=== PATIENT | male | born 1960 | race Caucasian/White ===

== ENCOUNTER 2017-01-31 15:46 | Observation (INO) ==
[2017-01-31] MEDS ORDERED: 0.9 % Sodium Chloride 1,000 ML IVC ONE (16:20)
--- NOTE | 2017-01-31 16:36 | Emergency Department Note ---
Disposition Clinical Impression: TIA (transient ischemic attack) Qualifiers: Transient cerebral ischemia type: unspecified Qualified Code(s): G45.9 - Transient cerebral ischemic attack, unspecified Disposition: Admitted As Inpatient Condition: Fair Time of Disposition: 19:07 Neuro HPI - General Chief Complaint: ED Headache Stated Complaint: SUNSHINE Time Seen by Provider: 01/31/17 16:05 Source: patient Limitations: no limitations Nursing Notes Reviewed: Yes Vital Signs Reviewed: Yes - History of Present Illness HPI Narrative: 56-year-old male presents with left-sided facial numbness, he also had some left -sided hand numbness, this started one half hours prior to arrival. He has a history of hypertension hyperlipidemia obesity and diabetes. He has no history of CVA or WA. He reports a mild headache that he describes as 2 out of 10 numbness, radiating across left-sided his face. He states that the tingling in his left arm has improved. At baseline he has neuropathy screws not sure if this was a stroke or something else. Patient denies fever chills, chest pain, shortness of breath, nausea, vomiting, diarrhea, constipation. Onset of Symptoms Date: 01/31/17 Onset of Symptoms Time: 13:30 Symptom Onset Unknown: Yes Timing confirmed by: family member Location: left face, left arm History of same: No Severity: mild Quality: weakness - Related Data Home Medications: Home Medications Medication Instructions Recorded Confirmed Atenolol [Tenormin] 100 mg PO QAM 03/23/15 07/30/15 Citalopram [CeleXA] 40 mg PO QPM 03/23/15 07/30/15 GlipiZIDE [Glucotrol] 5 mg PO QAM 03/23/15 07/30/15 Metformin [Glucophage] 1,000 mg PO BID 03/23/15 07/30/15 Multivitamin [Flintstones] 1 each PO QAM 03/23/15 07/30/15 Ranitidine HCl [Zantac] 150 tab PO BID 03/23/15 07/30/15 Tamsulosin [Flomax] 0.4 mg PO QAM 03/23/15 07/30/15 Albuterol Sulfate [Proair 1 - 2 puff IH Q4-6H PRN 07/30/15 07/30/15 Respiclick] Furosemide [Lasix] 20 mg PO QAM 07/30/15 07/30/15 Lisinopril [Zestril] 20 mg PO BID 07/30/15 07/30/15 [place]-3S/Dha/Epa/Fish Oil [Fish 1 cap PO QAM 07/30/15 07/30/15 Oil 1,200 mg Softgel] Potassium Chloride [K-Tab ER] 10 meq PO QAM 07/30/15 07/30/15 Allergies/Adverse Reactions: Allergies Allergy/AdvReac Type Severity Reaction Status Date / Time amlodipine [From [facility]] Allergy Rash Verified 12/28/16 21:12 gabapentin Allergy Rash Verified 12/28/16 21:12 morphine AdvReac See Verified 12/28/16 21:12 Comments All systems ED: reviewed and negative except as stated. Review of Systems: As Per HPI Constitutional: Reports: as per HPI, weakness. Denies: fever, chills Eyes: Denies: eye pain ENT ED: Denies: congestion Cardiovascular: Denies: chest pain, palpitations Respiratory: Denies: cough Gastrointestinal: Denies: abdominal pain, nausea Genitourinary: Denies: urgency Musculoskeletal: Denies: back pain, neck pain Neurological: Reports: headache, numbness, paresthesias. Denies: weakness, confusion, abnormal gait Psychiatric: Denies: anxiety Past Medical History - Past Medical History Medical history: Reports: non-contributory, coronary artery disease, diabetes, hyperlipidemia, hypertension, other Surgical history: Reports: non-contributory, other Psychiatric history: Reports: anxiety, depression - Social History Smoking Status: Never smoker Smokeless Tobacco Status: No Alcohol use: Reports: rarely Drug use: Reports: none Physical Exam Constitutional: Obese male in no acute distress. Eyes: PERRLA, sclera anicteric Neck: normal inspection, neck is supple Resp: CTA bilaterally, no resp distress CV: RRR, no m/g/r GI: soft NTND Back: normal inspection, no tenderness to palpation Neuro: A&O3, cranial nerves II through XII grossly intact except for mild sensory loss in the left face. No facial droop appreciated, EOMI, equal muscle strength upper and lower extremities. No sensory deficits in the bilateral upper and lower extremities. MSK: no gross deformities, normal ROM UE and LE Skin: on limited exam, skin intact with no rashes or lesions - General Limitations: no limitations General appearance: alert Course Course Narrative: 56-year-old male with multiple risk factors including obesity hypertension hyperlipidemia, has never had a stroke workup, or CVA in the past appears to have left-sided facial paresthesias, given an NIH of 1 due to minimal symptoms, will not activate a stroke alert we will get a stat CT head and reassess. - Reevaluation(s) Reevaluation #1: Admitted medicine service Dr. Allison, aspirin given, suspect TIA will need carotid Dopplers, basic lab work and possibly MRI no worsening of symptoms, still mild paresthesias to left face. Time: 19:08 Reevaluation #2: Prior to going to the floor, the patient developed some left-sided paresthesias in his left leg, NIH still 1. HD stable and sent to the floor in stable condition. Time: 19:18 Vital Signs Temperature 98.1 F 01/31/17 15:50 Pulse Rate 75 01/31/17 15:50 Respiratory Rate 15 01/31/17 15:50 Blood Pressure 122/88 01/31/17 15:50 O2 Sat by Pulse Oximetry 95 01/31/17 15:50 Temperature 98.1 F 01/31/17 15:50 Pulse Rate 68 01/31/17 17:55 Respiratory Rate 18 01/31/17 18:57 Blood Pressure 119/72 01/31/17 18:57 O2 Sat by Pulse Oximetry 98 01/31/17 18:11 Oxygen Delivery Oxygen Delivery Room Air Neuro Symptoms/Deficit - Differential Diagnosis Likely: cerebrovascular accident, subarachnoid hemorrhage, transient cerebral ischemia - Medical Records Medical records reviewed: Yes I reviewed the patient's medical records. - Lab Data Lab results reviewed: Yes I reviewed the patient's lab results. Result diagrams: 01/31/17 16:53 01/31/17 16:53 Lab Results 01/31/17 01/31/17 01/31/17 Range/Units 16:53 16:53 16:53 WBC 5.8 (4.3-11.1) K/mcL RBC 4.50 (4.19-5.50) M/mcL Hgb 13.6 (12.9-16.9) g/dL Hct 39.6 (37.5-50.1) % MCV 88.0 (83.0-100.0) fL MCH 30.2 (28.0-33.3) pg MCHC 34.3 (31.6-35.5) g/dL RDW 12.9 (11.5-14.5) % Plt Count 211 (140-400) K/mcL MPV 9.5 (9.4-12.4) fL Immature Gran % 0.3 (0-4) % Seg Neutrophils % 58.6 % Lymphocytes % 31.3 % Monocytes % 7.4 % Eosinophils % 2.1 % Basophils % 0.3 % Neutrophils # 3.4 (1.6-8.9) K/mcL Lymphocytes # 1.8 (0.6-4.6) K/mcL Monocytes # 0.4 (0.0-1.3) K/mcL Eosinophils # 0.1 (0.0-0.6) K/mcL Basophils # 0.0 (0.0-0.2) K/mcL Immature Plt Fraction 3.0 (1.1-6.1) % PT 12.9 H (9.4-12.1) Seconds INR 1.2 Sodium 142 (136-145) mEq/L Potassium 3.6 (3.5-4.5) mEq/L Chloride 99 (98-109) mEq/L Carbon Dioxide 31 H (19-29) mEq/L BUN 22 (8-26) mg/dL Creatinine 0.99 (0.72-1.25) mg/dL Est GFR ( Amer) > 60 (> 60) Est GFR (Non-Af Amer) > 60 (> 60) BUN/Creatinine Ratio 22 (6-26) Glucose 131 H (70-99) mg/dL Calculated Osmolality 299 (280-300) Calcium 9.4 (8.6-10.8) mg/dL Troponin I (0-0.03) ng/mL 01/31/17 Range/Units 16:53 WBC (4.3-11.1) K/mcL RBC (4.19-5.50) M/mcL Hgb (12.9-16.9) g/dL Hct (37.5-50.1) % MCV (83.0-100.0) fL MCH (28.0-33.3) pg MCHC (31.6-35.5) g/dL RDW (11.5-14.5) % Plt Count (140-400) K/mcL MPV (9.4-12.4) fL Immature Gran % (0-4) % Seg Neutrophils % % Lymphocytes % % Monocytes % % Eosinophils % % Basophils % % Neutrophils # (1.6-8.9) K/mcL Lymphocytes # (0.6-4.6) K/mcL Monocytes # (0.0-1.3) K/mcL Eosinophils # (0.0-0.6) K/mcL Basophils # (0.0-0.2) K/mcL Immature Plt Fraction (1.1-6.1) % PT (9.4-12.1) Seconds INR Sodium (136-145) mEq/L Potassium (3.5-4.5) mEq/L Chloride (98-109) mEq/L Carbon Dioxide (19-29) mEq/L BUN (8-26) mg/dL Creatinine (0.72-1.25) mg/dL Est GFR ( Amer) (> 60) Est GFR (Non-Af Amer) (> 60) BUN/Creatinine Ratio (6-26) Glucose (70-99) mg/dL Calculated Osmolality (280-300) Calcium (8.6-10.8) mg/dL Troponin I 0.00 (0-0.03) ng/mL - Radiology Data Radiology results reviewed: Yes I reviewed the patient's radiology results. Head CT 01/31/17 16:20 IMPRESSION: No acute intracranial abnormality. D/ / Papo Scott MD / Papo Scott MD Interpreting Provider: Papo Scott MD - EKG Data EKG attestation: Yes I reviewed and interpreted this EKG. EKG shows normal: sinus rhythm Rate: normal Rhythm: NSR [place]/QRS: normal (Ventricular rate 67 MI-2 44 QRS [address] segment elevations or depressions) Voltage: increased voltage throughout T wave inversions noted in: III Interpretation: unchanged when compared to prior tracing (date) (With Previois EKG in July 2015) - Core Measures AMI Core Measures Followed: No NIH Stroke Scale - Level of Consciousness LOC: Alert - LOC Questions LOC Questions: Answers both correctly - LOC Commands LOC Commands: Performs both correctly - Best Gaze Best Gaze: Normal - Visual Visual: No visual loss - Facial Palsy Facial Palsy: Normal - Motor Arms Motor Arm-Left: No drift for 10 seconds Motor Arm-Right: No drift for 10 seconds - Motor Legs Motor Leg-Left: No drift for 5 seconds Motor Leg-Right: No drift for 5 seconds - Limb Ataxia Limb Ataxia: Absent of affected limb too weak to perform exam - Sensory Sensory: Mild to moderate loss, "not as sharp" - Best Language Best Language: No aphasia - Dysarthria Dysarthria: Normal - Extinction and Inattention Extinction and Inattention: Normal - NIHSS Total Score NIHSS Total Score: 1 TPA Checklist - Source Information Source: Patient - Eligibilty for IV tPA 1. LKW equal to or less than 4.5 hours be before treatment: Yes 2. Clinical diagnosis of ischemic stroke causing deficit: No 3. Age 18 years or older: Yes Attestation Statement - Attestation Attestation: I examined this patient and my medical decision-making was reviewed with the Resident Physician. I agree with the documented findings, disposition and treatment plan as described except to the extent set forth below. 56-year-old male with symptoms of headache. Acute onset less than 2 hours ago. Also has left-sided facial numbness. There is no dysarthria or asymmetry. He denies history of headache. Onset was not thunderclap in origin. No history of aneurysm. No anticoagulation. No recent trauma. Ultimately underwent noncontrast CT the brain which shows no evidence of stroke or subarachnoid hemorrhage. The patient will be admitted for evaluation of possible TIA. He remained hemodynamically stable. His symptoms did not change or worsen. At the time of admission his strength was 5/5, sensation normal, reflexes checked and normal. Patient stable at the time of admission.
[2017-01-31 17:03] LABS: Basophils % 0.3 %; Eosinophils # 0.1 K/mcL (0.0-0.6); Eosinophils % 2.1 %; Hematocrit 39.6 % (37.5-50.1); Hemoglobin 13.6 g/dL (12.9-16.9); Immature Granulocytes % 0.3 % (0-4); Lymphocytes # 1.8 K/mcL (0.6-4.6); Lymphocytes % 31.3 %; Mean Corpuscular HGB Conc 34.3 g/dL (31.6-35.5); Mean Corpuscular Hemoglobin 30.2 pg (28.0-33.3); Mean Platelet Volume 9.5 fL (9.4-12.4); Monocytes # 0.4 K/mcL (0.0-1.3); Monocytes % 7.4 %; Neutrophils # 3.4 K/mcL (1.6-8.9); Platelet Count 211 K/mcL (140-400); Red Cell Distribution Width 12.9 % (11.5-14.5); Segmented Neutrophils % 58.6 %
[2017-01-31 17:07] LABS: INR 1.2; Prothrombin Time 12.9 Seconds (9.4-12.1)
[2017-01-31 17:13] LABS: BUN/Creatinine Ratio 22 (6-26); Blood Urea Nitrogen 22 mg/dL (8-26); Calcium 9.4 mg/dL (8.6-10.8); Carbon Dioxide 31 mEq/L (19-29); Chloride 99 mEq/L (98-109); Glucose 131 mg/dL (70-99); Osmolality,Calculated 299 (280-300); Potassium 3.6 mEq/L (3.5-4.5); Sodium 142 mEq/L (136-145); eGFR For African Americans > 60 (> 60); eGFR For Non-African Americans > 60 (> 60)
[2017-01-31] MEDS ORDERED: Aspirin 81 MG TAB.CHEW PO ONE (18:34)
--- NOTE | 2017-01-31 19:21 | Internal Med History&Physical ---
Date of Encounter: 01/31/17 Time of Encounter: 19:18 Assessment and Plan (1) Diabetes mellitus type II, non insulin dependent Current visit: No Status: Acute Sliding scale insulin. Check hemoglobin A-1 C in the morning (2) ADALID (obstructive sleep apnea) Current visit: No Status: Acute CPAP at night (3) TIA (transient ischemic attack) Current visit: Yes Status: Acute Patient presents with left facial and arm numbness. CT scan shows no evidence of bleeder obvious stroke. NIH stroke scale is on. We will get MRI of the brain in the morning echocardiogram carotid Doppler..etc. He will receive aspirin Statin. Full code Qualifiers: Transient cerebral ischemia type: unspecified Qualified Code(s): G45.9 - Transient cerebral ischemic attack, unspecified Internal Medicine - H&P: HPI Chief complaint: left side numbness History of present illness: Mr. Almeida is a 56 year old male with multiple medical problems including diabetes mellitus type II on insulin, hypertension, obstructive sleep apnea on CPAP presents to the emergency room today with left-sided numbness. At approximately 2:30 PM patient started noticing numbness in the left side of the face left upper extremity. He denied any weakness. No speech slenderness. His symptoms is gradually improving. He mentioned that he was about to fall at home but denies any focal weakness. No chest pain fever chills, abdominal pain , diarrhea, urinary symptoms Past Med Surg Social Fam HX - Past Medical History Medical history: non-contributory, coronary artery disease, diabetes, hyperlipidemia, hypertension, other Psychiatric history: anxiety, depression - Past Surgical History Surgical History: non-contributory, other - Social History Smoking Status: Never smoker Smokeless Tobacco Status: No Alcohol use: rarely Drug use: none - Family History Mother Family Member Ethnicity: Non- Living Status: Still Living Hx Family Cardiac Disorders: Yes (HTN) Hx Family Respiratory Disorders: No Hx Family Cancer: Yes (Colon Cancer) Hx Family GI Disorders: No Hx Family Endocrine Disorder: No Hx Family Neuromuscular Disorders: No Hx Family Neurologic Disorders: No Hx Family HEENT Disorders: No Hx Family Autoimmune Disorders: No Internal Medicine - H&P: Meds Atenolol [Tenormin] 100 mg PO QAM 03/23/15 [History] Citalopram [CeleXA] 40 mg PO QPM 03/23/15 [History] GlipiZIDE [Glucotrol] 5 mg PO QAM 03/23/15 [History] Metformin [Glucophage] 1,000 mg PO BID 03/23/15 [History] Multivitamin [Flintstones] 1 each PO QAM 03/23/15 [History] Ranitidine HCl [Zantac] 150 tab PO BID 03/23/15 [History] Tamsulosin [Flomax] 0.4 mg PO QAM 03/23/15 [History] Albuterol Sulfate [Proair Respiclick] 1 - 2 puff IH Q4-6H PRN 07/30/15 [History] Furosemide [Lasix] 20 mg PO QAM 07/30/15 [History] Lisinopril [Zestril] 20 mg PO BID 07/30/15 [History] [place]-3S/Dha/Epa/Fish Oil [Fish Oil 1,200 mg Softgel] 1 cap PO QAM 07/30/15 [ History] Potassium Chloride [K-Tab ER] 10 meq PO QAM 07/30/15 [History] Allergies amlodipine [From Norvas] Allergy (Verified 12/28/16 21:12) Rash gabapentin Allergy (Verified 12/28/16 21:12) Rash morphine Adverse Reaction (Verified 12/28/16 21:12) See Comments Patient states it makes him talk out of his head. All Systems PM: A 10-system review of systems was performed and is negative for pertinent findings except as documented above in the HPI. Review of systems: 10 point review of systems is negative except for HPI - Constitutional Vitals: Temp Pulse Resp BP Pulse Ox 98.1 F 68 18 119/72 98 01/31/17 15:50 01/31/17 17:55 01/31/17 18:57 01/31/17 18:57 01/31/17 18:11 Exam: Gen.: patient is alert oriented times 3 not in distress. Cardiac: normal S1 S2 no additional sounds chest: Clear to auscultation abdomen: soft nontender nondistended lower extremity: lax calf muscles. Neuro: No focal deficits. Internal Med - H&P Results - Labs CBC & Chem 7: 01/31/17 16:53 01/31/17 16:53
[2017-01-31] MEDS ORDERED: Dextrose Gel 15 GM PO PRN ×2 (19:28)
[2017-01-31] MEDS ORDERED: D5% in Water 1,000 ML IVC PRN (19:28)
[2017-01-31] MEDS ORDERED: *HR* Dextrose 50 % in Water (Syg) 50 ML SYRINGE IVP PRN (19:28)
[2017-01-31] MEDS: *HR* Heparin 5,000 UNIT/ML VIAL SQ SCH (23:18)
[2017-01-31] MEDS: Insulin LISPRO 300 UNITS/3 ML VIAL SQ SCH (23:24)
[2017-02-01 02:47] LABS: Basophils % 0.4 %; Eosinophils # 0.2 K/mcL (0.0-0.6); Eosinophils % 3.1 %; Hematocrit 35.5 % (37.5-50.1); Hemoglobin 12.2 g/dL (12.9-16.9); Immature Granulocytes % 0.4 % (0-4); Lymphocytes # 2.1 K/mcL (0.6-4.6); Lymphocytes % 38.6 %; Mean Corpuscular HGB Conc 34.4 g/dL (31.6-35.5); Mean Corpuscular Hemoglobin 30.6 pg (28.0-33.3); Mean Platelet Volume 9.9 fL (9.4-12.4); Monocytes # 0.5 K/mcL (0.0-1.3); Monocytes % 8.9 %; Neutrophils # 2.6 K/mcL (1.6-8.9); Platelet Count 174 K/mcL (140-400); Red Blood Count 3.99 M/mcL (4.19-5.50); Red Cell Distribution Width 12.9 % (11.5-14.5); Segmented Neutrophils % 48.6 %
[2017-02-01 03:04] LABS: BUN/Creatinine Ratio 20 (6-26); Blood Urea Nitrogen 22 mg/dL (8-26); Carbon Dioxide 29 mEq/L (19-29); Chloride 100 mEq/L (98-109); Glucose 148 mg/dL (70-99); Magnesium 1.7 mg/dL (1.6-2.6); Osmolality,Calculated 298 (280-300); Potassium 3.6 mEq/L (3.5-4.5); Sodium 141 mEq/L (136-145); eGFR For African Americans > 60 (> 60); eGFR For Non-African Americans > 60 (> 60)
[2017-02-01] MEDS: *HR* Heparin 5,000 UNIT/ML VIAL SQ SCH ×2 (05:18→14:02)
[2017-02-01] MEDS: Insulin LISPRO 300 UNITS/3 ML VIAL SQ SCH ×2 (08:23→12:35)
[2017-02-01] MEDS ORDERED: Aspirin 81 MG TAB.CHEW PO SCH (09:00)
[2017-02-01] MEDS ORDERED: Perflutren Lipid Microsphere 1.3 ML in 0.9 % Sodium Chloride 8.7 ML IVP ONE (10:17)
[2017-02-01 11:17] VITALS: BP 148/83
[2017-02-01] MEDS ORDERED: Acetaminophen 325 MG TABLET PO PRN (12:31)
--- NOTE | 2017-02-01 15:13 | Discharge Summary ---
Date of Encounter: 02/01/17 Time of Encounter: 15:11 - Discharge Diagnosis (1) TIA (transient ischemic attack) Priority: Primary Status: Acute Comments: CT of head negative for intracranial abnormality. MRI of brain showed no acute infarct. Echo showed no source of thrombus. Bilateral carotid duplex within normal limits. Patient will be discharged on Aspirin and Statin. Follow up with PCP and neurology as outpatient. Qualifiers: Transient cerebral ischemia type: unspecified Qualified Code(s): G45.9 - Transient cerebral ischemic attack, unspecified (2) Chest pain Priority: Secondary Status: Acute Comments: Patient complained of intermittent mild, right sided chest pain, worse with arm movement. Repeat EKG showed no ischemic changes. Repeat troponin remains negative. Patient reported pain relieved by tyelonol. Qualifiers: Chest pain type: unspecified Qualified Code(s): R07.9 - Chest pain, unspecified (3) Diabetes mellitus type II, non insulin dependent Priority: Secondary Status: Chronic Comments: Blood sugars controlled during hospital stay. Resume home doses of glipizide, metformin on discharge. (4) ADALID (obstructive sleep apnea) Priority: Secondary Status: Chronic Comments: Continue to use CPAP as instructed at home. (5) HLD (hyperlipidemia) Priority: Secondary Status: Acute Comments: Lipid panel in December showed triglycerides of 441 and LDL was unable to be calculated due to triglyceride level. Continue home dose of Fish oil and add statin. Qualifiers: Hyperlipidemia type: mixed hyperlipidemia Qualified Code(s): E78.2 - Mixed hyperlipidemia - Discharge Medications Prescriptions: Aspirin 81 mg PO DAILY #30 Simvastatin [Zocor] 20 mg PO HS #30 tablet Home Medications: Atenolol [Tenormin] 100 mg PO QAM 03/23/15 [History] GlipiZIDE [Glucotrol] 5 mg PO BID 03/23/15 [History] Metformin [Glucophage] 1,000 mg PO BID 03/23/15 [History] Multivitamin [Flintstones] 1 each PO QAM 03/23/15 [History] Albuterol Sulfate [Proair Respiclick] 1 - 2 puff IH Q4-6H PRN 07/30/15 [History] Furosemide [Lasix] 20 mg PO QAM 07/30/15 [History] Lisinopril [Zestril] 20 mg PO BID 02/01/16 [History] [place]-3S/Dha/Epa/Fish Oil [Fish Oil 1,200 mg Softgel] 1 cap PO BID 07/30/15 [ History] Potassium Chloride [K-Tab ER] 10 mg PO Q3-4D 07/30/15 [History] Cinnamon Bark [Cinnamon] 1,000 mg PO BID 01/31/17 [History] Finasteride [Proscar] 5 mg PO DAILY 01/31/17 [History] Omeprazole [PriLOSEC] 40 mg PO DAILY 01/31/17 [History] Venlafaxine XR (24 HR) [Effexor XR] 150 mg PO DAILY 01/31/17 [History] Aspirin 81 mg PO DAILY #30 02/01/17 [Rx] Chlorthalidone 25 mg PO DAILY 02/01/17 [History] Simvastatin [Zocor] 40 mg PO DAILY 02/01/17 [History] Allergies/Adverse Reactions: Allergies amlodipine [From Norvasc] Allergy (Verified 12/28/16 21:12) Rash bupropion [From Wellbutrin] Allergy (Verified 02/01/17 15:25) Rash gabapentin Allergy (Verified 12/28/16 21:12) Rash morphine Adverse Reaction (Verified 02/01/17 15:25) Confusion Procedures/tests Complete & Pending: Procedures Performed prior 72 hours Category Date Time Status MR head/brain wo con [MR] Stat MRI 01/31/17 21:13 Completed EKG [ECG 12 lead ECG] [ECG] Stat Y 02/01/17 12:27 Ordered EV carotid duplex imaging BI Routine Y 02/01/17 19:09 Completed EV echocardiogram Routine Y 02/01/17 19:09 Completed Date of admission: 01/31/17 18:41 Primary care physician: Sandhya Acuña MD Consults: 01/31/17 19:09 Consult to Occupational Therapy [CONS] Routine Comment: Evaluate, develop and implement POC Reason for Consult: weakness Consult to Physical Therapy [CONS] Routine Comment: Evaluate, develop and implement POC Reason for Consult: weakness Consult to Speech Therapy [CONS] Routine Comment: Evaluate, develop and implement POC Reason for Consult: TIA Call Completed: No Discharging clinician: Susan Singh Anticipated date of discharge: 02/01/17 - Patient Status Disposition: Home, Self-Care Condition: Good Functional capacity at discharge: independent ambulation Overall status at discharge: patient is back to baseline - Discharge Instructions Follow Up With: Sandhya Acuña MD [Primary Care Provider] - Additional Instructions: Please follow up with your primary care provider. Start taking aspirin and zocor daily. - Diet and Activity Activity: resume usual activities as tolerated Interval History: Patient presented with left facial tingling and heaviness of left side of his body. Symptoms resolved during hospital stay. CT of head negative for acute intracranial abnormality. MRI of brain showed no acute infarct. Echocardiogram showed no source of thrombus. Bilateral carotid dopplers were within normal limits. Patient was started on aspirin and statin daily and instructed to follow up with his PCP. He complained of brief, mild, intermittent right sided chest pain which seemed to be worse with movement and resolved with PO aspirin. Troponins were negative and repeat EKG showed no ischemic changes. Patient's vital signs have been stable and labs are stable. Patient is appropriate and stable for discharge. Hospital course: Mr. Almeida is a 56 year old male - Time Spent with Patient Total time spent providing and/or coordinating discharge services: - Constitutional Vitals: Temp Pulse Resp BP Pulse Ox 98.1 F 76 18 148/83 95 02/01/17 11:15 02/01/17 11:15 02/01/17 11:15 02/01/17 11:15 02/01/17 11:15 General appearance: Present: A&O X 3, pleasant, no acute distress - Head Head exam: Present: atraumatic, normocephalic - Eye Eye exam: Present: PERRL, conjuntiva pink, sclera anicteric Pupils: Present: PERRL - Neck Neck exam general surgery: Present: supple, trachea midline. Absent: lymphadenopathy - Respiratory Respiratory exam: Present: CTAB. Absent: accessory muscle use, rales, rhonchi, wheezes - Cardiovascular Cardiovascular exam: Present: RRR, +S1, +S2. Absent: diastolic murmur, gallop, rubs, systolic murmur - GI/Abdominal GI/Abdominal exam: Present: normal bowel sounds, soft, no peritoneal signs. Absent: distended, tenderness - Extremities Exam Extremities exam: Present: warm, radial pulses palpable and symetrical. Absent : calf tenderness, cyanotic, pedal edema - Neurological Exam Neurological exam: Present: CN II-XII intact, oriented X3, no focal deficits, strengths equal and symetr throughout. Absent: pronater drift, facial droop, speech deficit - Skin Skin exam: Present: dry, intact
--- NOTE | 2017-02-02 15:16 | Electrocardiograph Report ---
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
--- NOTE | 2017-02-02 15:26 | Carotid Imaging Report ---
Carotid Duplex Patient Name:Graham Almeida Order Number:[id number] Procedure Date:02/01/2017 Date:1960ge:56 yrs Gender:Male Lt BP:105 / 70 mmHg Rt.BP:105 / 70 mmHgHeart Rate: Location:[facility] Room #: 3B32 Cabinet Worker:Tessy Hanna Referring MD:David Allison MD car pre cooler:None Reading MD:Dimitri Vann MD , FACS Primary Indications:TIA Risk Factors Yes/No Hypercholesterolemia Hypertension Diabetes Impressions: Findings: Bilateral carotid systems essentially normal. Findings Prior Study: No prior study available for comparison. Carotid Results Right PSV EDV Assessment Proximal CCA 95 28 Normal Mid CCA 84 26 Normal Distal CCA 89 25 Normal Bifurcation 72 26 Normal Proximal ICA 76 20 Normal Mid ICA 69 32 Normal Distal ICA 69 29 Normal ECA 112 21 Normal Vertebral Artery 28 11 Antegrade Flow Left PSV EDV Assessment Proximal CCA 108 26 Normal Mid CCA 93 29 Normal Distal CCA 68 22 Normal Bifurcation 72 11 Proximal ICA 70 30 Normal Mid ICA 55 29 Normal Distal ICA 60 26 Normal ECA 31 11 Normal Ratio's Updated by Dimitri Vann MD, FACS on 02/02/2017 9:41:25 AM Dimitri Vann MD electronically signed on 02/02/2017 9:42:15 AM with status of Final
--- NOTE | 2017-02-02 20:42 | Electrocardiograph Report ---
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
== END 2017-02-01 15:57 | disposition home or self-care (01) ==
LOC: 3BNU 15:46 → EMEROO 15:46 → 3BNU 18:57
PROVIDERS: ADMIT Hospitalist; ATTEND Registered Nurse

== ENCOUNTER 2018-01-05 16:32 | Inpatient (IN) ==
[2018-01-05 17:42] LABS: Bilirubin,Urine Negative (Negative); Blood,Urine Negative (Negative); Clarity,Urine Clear (Clear); Color,Urine Yellow (Yellow); Glucose,Urine (UA) Normal (Normal); Ketones,Urine Negative (Negative); Leukocyte Esterase,Urine Small (Negative); Nitrite,Urine Negative (Negative); Protein,Urine 30 mg/dL (Neg-Trace); Specific Gravity,Urine 1.017 (1.010-1.025); Urobilinogen,Urine Normal (Normal)
[2018-01-05 17:45] LABS: Bacteria,Urine None Seen per hpf (None-Few); Hyaline Casts,Urine None Seen per lpf (None-Few); RBC,Urine 0-3 per hpf (0-3); Squamous Epithelial Cell,Urine Many per lpf (None-Few)
[2018-01-05 18:16] LABS: Basophils % 0.2 %; Eosinophils # 0.1 K/mcL (0.0-0.6); Eosinophils % 0.8 %; Hematocrit 40.6 % (37.5-50.1); Hemoglobin 13.9 g/dL (12.9-16.9); Immature Granulocytes % 0.3 % (0-4); Lymphocytes # 2.1 K/mcL (0.6-4.6); Mean Corpuscular HGB Conc 34.2 g/dL (31.6-35.5); Mean Corpuscular Hemoglobin 29.6 pg (28.0-33.3); Mean Corpuscular Volume 86.6 fL (83.0-100.0); Mean Platelet Volume 9.5 fL (9.4-12.4); Monocytes % 7.4 %; Platelet Count 304 K/mcL (140-400); Red Blood Count 4.69 M/mcL (4.19-5.50); Red Cell Distribution Width 12.7 % (11.5-14.5); Segmented Neutrophils % 75.3 %
[2018-01-05] MEDS ORDERED: Ondansetron 4 MG/2 ML VIAL IVP ONE ×2 (18:32→19:36)
[2018-01-05] MEDS ORDERED: Ketorolac 30 MG/ML VIAL IVP ONE (18:32)
[2018-01-05 18:42] LABS: Albumin/Globulin Ratio 1.1 (1.1-2.2); Bilirubin,Direct 0.2 mg/dL (0.0-0.2); Bilirubin,Indirect 0.4 mg/dL (0.0-1.2); Bilirubin,Total 0.6 mg/dL (0.3-1.0); Calcium 9.9 mg/dL (8.6-10.3); Globulin 3.6 g/dL (2.4-3.5); Potassium 3.4 mEq/L (3.5-5.1); Total Protein 7.6 g/dL (6.4-8.9)
[2018-01-05] MEDS ORDERED: 0.9 % Sodium Chloride 1,000 ML IVC ONE (19:35)
[2018-01-05] MEDS ORDERED: *HR* FentaNYL (PF) 100 MCG/2 ML VIAL IVP ONE (19:36)
[2018-01-05] MEDS ORDERED: MetroNIDAZOLE 500 MG/100 ML 500 MG/100 ML BAG IVPB ONE (19:36)
--- NOTE | 2018-01-05 19:45 | Emergency Department Note ---
Disposition Clinical Impression: Diverticulitis Abdominal pain Qualifiers: Abdominal location: left lower quadrant Qualified Code(s): R10.32 - Left lower quadrant pain Disposition: Admitted As Inpatient Condition: Fair Referrals: Sandhya Acuña MD [Primary Care Provider] - Forms: Work/School Release, ED Satisfaction Letter Time of Disposition: 20:00 Abdominal Pain HPI - General Chief Complaint: ED Abdominal Pain Stated Complaint: ABD Pain x3wks Time Seen by Provider: 01/05/18 18:21 Source: patient Mode of arrival: ambulatory Limitations: no limitations Nursing Notes Reviewed: Yes Vital Signs Reviewed: Yes - History of Present Illness HPI Narrative: 57-year-old male presents emergency Department with concerns of increasing abdominal pain. Patient states the pain is in left lower quadrant and is worse with movement and palpation. No change with by mouth intake. Patient feels mildly nauseated. Last bowel movement was today. Patient recently diagnosed with urinary tract infection, patient states he was given Keflex and tramadol which causes him to be constipated. Last bowel movement was today and he is no longer constipated. He denies hematochezia, melena, recent trauma. Patient has a history of t diverticulitis in the past however this seems worse. Pain Scale: 5 - Related Data Home Medications Medication Instructions Recorded Confirmed Atenolol [Tenormin] 100 mg PO QAM 03/23/15 11/05/17 Metformin [Glucophage] 1,000 mg PO BID 03/23/15 11/05/17 Albuterol Sulfate [Proair 1 - 2 puff IH Q4-6H PRN 07/30/15 11/05/17 Respiclick] Furosemide [Lasix] 40 mg PO QAM 07/30/15 11/05/17 Lisinopril [Zestril] 40 mg PO BID 07/30/15 11/05/17 [place]-3S/Dha/Epa/Fish Oil [Fish 1 cap PO BID 07/30/15 11/05/17 Oil 1,200 mg Softgel] Potassium Chloride [K-Tab ER] 10 mg PO DAILY 07/30/15 11/05/17 Cinnamon Bark [Cinnamon] 1,000 mg PO BID 01/31/17 11/05/17 Finasteride [Proscar] 5 mg PO DAILY 01/31/17 11/05/17 Omeprazole [PriLOSEC] 40 mg PO DAILY 01/31/17 11/05/17 Venlafaxine XR (24 HR) [Effexor XR] 150 mg PO DAILY 01/31/17 11/05/17 Chlorthalidone 25 mg PO DAILY 02/01/17 11/05/17 Simvastatin [Zocor] 40 mg PO DAILY 02/01/17 11/05/17 Multivitamin [Multivitamins] 1 each PO DAILY 03/23/17 11/05/17 Fluticasone Propionate Nasal 1 spray NS DAILY 11/05/17 11/05/17 [Flonase] Insulin Glargine,Hum.rec.anlog 62 unit SQ BID 11/05/17 11/05/17 [Basaglar Kwikpen U-100] Previous Rx's Medication Instructions Recorded cephALEXin [Keflex] 500 mg PO TID #30 capsule 12/24/17 Allergies Allergy/AdvReac Type Severity Reaction Status Date / Time amlodipine [From Norvasc] Allergy Rash Verified 11/05/17 07:10 bupropion [From Wellbutrin] Allergy Rash Verified 11/05/17 07:10 gabapentin Allergy Rash Verified 11/05/17 07:10 morphine AdvReac Confusion Verified 11/05/17 07:10 All systems ED: reviewed and negative except as stated. Review of Systems: As Per HPI Abdominal Pain PMH - Past Medical History Medical history: Reports: asthma, coronary artery disease, diabetes, hyperlipidemia, hypertension, other Reports: diverticulitis Male Surgical History: Reports: other Psychiatric history: Reports: anxiety, depression - Social History Smoking status: Never smoker Alcohol use: Reports: rarely Drug use: Reports: none Physical Exam General: Alert and in no acute distress Skin: Warm, dry, intact Head: Normocephalic and atraumatic Neck: Supple, trachea midline and no tenderness Cardiovascular: RRR, no murmur, normal perfusion Respiratory: CTAB, no wheezing, cough, or respiratory distress Musculoskeletal: Normal strength, no tenderness, swelling or deformity GI: Soft, moderate tenderness to palpation of the left lower quadrant with mild guarding without evidence of rigidity or rebound. nondistended. Bowel sounds present Neuro: A&O to person, place, time and situation. No focal deficits noted on exam Psychiatric: cooperative and appropriate mood and affect. - General Limitations: no limitations General appearance: alert, in no apparent distress Course Vital Signs Temperature 98 F 07/10/18 16:44 Pulse Rate 84 01/05/18 16:44 Respiratory Rate 18 01/05/18 16:44 Blood Pressure 123/80 01/05/18 16:44 O2 Sat by Pulse Oximetry 95 01/05/18 16:44 Temperature 98 F 01/05/18 18:42 Pulse Rate 84 01/05/18 18:42 Respiratory Rate 18 01/05/18 18:42 Blood Pressure 123/80 01/05/18 18:42 O2 Sat by Pulse Oximetry 95 01/05/18 18:42 Oxygen Delivery Oxygen Delivery Room Air Abdominal Pain - MDM Narrative Medical decision making narrative: Patient is left lower quadrant pain and CT shows acute sigmoid diverticulitis. He was to her on Cipro and Flagyl in the emergency department he will be admitted for further care and evaluation - Medical Records Medical records reviewed: Yes I reviewed the patient's medical records. - Lab Data Lab results reviewed: Yes I reviewed the patient's lab results. Result diagrams: 01/05/18 17:49 01/05/18 17:49 Lab Results 01/05/18 01/05/18 01/05/18 Range/Units 17:30 17:49 17:49 WBC 13.3 H (4.3-11.1) K/mcL RBC 4.69 (4.19-5.50) M/mcL Hgb 13.9 (12.9-16.9) g/dL Hct 40.6 (37.5-50.1) % MCV 86.6 (83.0-100.0) fL MCH 29.6 (28.0-33.3) pg MCHC 34.2 (31.6-35.5) g/dL RDW 12.7 (11.5-14.5) % Plt Count 304 (140-400) K/mcL MPV 9.5 (9.4-12.4) fL Immature Gran % 0.3 (0-4) % Seg Neutrophils % 75.3 % Lymphocytes % 16.0 % Monocytes % 7.4 % Eosinophils % 0.8 % Basophils % 0.2 % Neutrophils # 10.0 H (1.6-8.9) K/mcL Lymphocytes # 2.1 (0.6-4.6) K/mcL Monocytes # 1.0 (0.0-1.3) K/mcL Eosinophils # 0.1 (0.0-0.6) K/mcL Basophils # 0.0 (0.0-0.2) K/mcL Sodium 138 (136-145) mEq/L Potassium 3.4 L (3.5-5.1) mEq/L Chloride 95 L (98-107) mEq/L Carbon Dioxide 28 (23-29) mEq/L BUN 33 H (6-20) mg/dL Creatinine 1.62 H (0.70-1.30) mg/dL Est GFR ( Amer) 54 L (> 60) Est GFR (Non-Af Amer) 44 L (> 60) BUN/Creatinine Ratio 20 (6-26) Glucose 144 H (70-105) mg/dL Calculated Osmolality 296 (280-300) Calcium 9.9 (8.6-10.3) mg/dL Total Bilirubin 0.6 (0.3-1.0) mg/dL Direct Bilirubin 0.2 (0.0-0.2) mg/dL Indirect Bilirubin 0.4 (0.0-1.2) mg/dL AST 14 (13-39) Units/L ALT 15 (7-52) Units/L Alkaline Phosphatase 71 (34-104) Units/L Serum Total Protein 7.6 (6.4-8.9) g/dL Albumin 4.0 (3.5-5.7) g/dL Globulin 3.6 H (2.4-3.5) g/dL Albumin/Globulin Ratio 1.1 (1.1-2.2) Lipase 35 (11-82) Units/L Urine Color Yellow (Yellow) Urine Clarity Clear (Clear) Urine pH 6.0 (5.0-8.0) pH Units Ur Specific [place] 1.017 (1.010-1.025) Urine Protein 30 H (Neg-Trace) mg/dL Urine Glucose (UA) Normal (Normal) mg/dL Urine Ketones Negative (Negative) mg/dL Urine Blood Negative (Negative) Urine Nitrite Negative (Negative) Urine Bilirubin Negative (Negative) Urine Urobilinogen Normal (Normal) mg/dL Ur Leukocyte Esterase Small H (Negative) Urine Microscopic RBC 0-3 (0-3) per hpf Urine Microscopic WBC 5-15 H (0-3) per hpf Ur Squamous Epith Cells Many H (None-Few) per lpf Urine Bacteria None Seen (None-Few) per hpf Hyaline Casts None Seen (None-Few) per lpf Ur Culture Indicated? NO. A (NO) - Radiology Data Radiology results reviewed: Yes I reviewed the patient's radiology results.
[2018-01-05] MEDS ORDERED: Naloxone 0.4 MG/ML INJ IVP PRN (20:47)
--- NOTE | 2018-01-05 20:47 | Internal Med History&Physical ---
<Madeleine Sargent - Last Filed: 01/05/18 22:43> Date of Encounter: 01/05/18 Time of Encounter: 20:47 Internal Medicine - H&P: HPI Chief complaint: abdominal pain Admitted From: Emergency Dept Plans for Post Hospital Care: Home History of present illness: Mr. Almeida is a 57 year old male with past medical history of diverticulitis, hypertension, hyperlipidemia, diabetes, GERD presented to [facility] complaining of abdominal pain for 3 days since Thursday01/03/2018. He described it as a sharp pain located in his left lower quadrant and radiated to his left back and down his groin to his testes. It was constant and worsening. Additionally, he had fever, chills, nausea, decreased appetite, and decreased frequency of bowel movements, diarrhea, constipation. He had a bowel movement today and is still passing gas. He denied melena, hematechezia, dysuria, hematuria, decreased urination, penile discharge, flank pain. He last had diverticulitis 4 times now with last one a year ago that was able to be managed outpatient. He is up to date on his colonoscopy with last one in 2015 and was normal. He believes that this episode was started due to recent UTI treated by Dr. Riggins his urologist where he was on cephlex and tramadol. The tramadol made him constipated and he stopped taking it, however he then started having the abdominal pain. He is a full code. In ED, Acute sigmoid diverticulitis demonstrated by abdominal CT. Given cipro, flagyl, IVF, fentanyl. Past Med Surg Social Fam HX - Past Medical History Attestation: Yes The following information was validated with the patient. Source: patient Medical history: asthma, coronary artery disease, diabetes, hyperlipidemia, hypertension, other Additional medical history: NEUROPATHY, Psychiatric history: anxiety, depression - Past Surgical History Surgical History: orthopedic, other (left knee), other Additional surgical history: LEFT KNEE SURGERY. BLADDER BIOPSY - Social History Smoking Status: Never smoker Smokeless Tobacco Status: No Alcohol use: rarely Drug use: none - Family History Mother Family Member Ethnicity: Non- Living Status: Still Living Hx Family Cardiac Disorders: Yes (HTN) Hx Family Respiratory Disorders: No Hx Family Cancer: Yes (Colon Cancer) Hx Family GI Disorders: No Hx Family Endocrine Disorder: No Hx Family Neuromuscular Disorders: No Hx Family Neurologic Disorders: No Hx Family HEENT Disorders: No Hx Family Autoimmune Disorders: No Father Hx Family Cardiac Disorders: Yes ([place] 35y/o) Internal Medicine - H&P: Meds Atenolol [Tenormin] 100 mg PO QAM 03/23/15 [History] Metformin [Glucophage] 1,000 mg PO BID 03/23/15 [History] Albuterol Sulfate [Proair Respiclick] 1 - 2 puff IH Q4-6H PRN 07/30/15 [History] Furosemide [Lasix] 40 mg PO QAM 07/30/15 [History] Lisinopril [Zestril] 20 mg PO BID 07/30/15 [History] [place]-3S/Dha/Epa/Fish Oil [Fish Oil 1,200 mg Softgel] 1 cap PO BID 07/30/15 [ History] Potassium Chloride [K-Tab ER] 10 meq PO Q3D 07/30/15 [History] Cinnamon Bark [Cinnamon] 1,000 mg PO BID 01/31/17 [History] Finasteride [Proscar] 5 mg PO DAILY 01/31/17 [History] Omeprazole [PriLOSEC] 40 mg PO DAILY 01/31/17 [History] Venlafaxine XR (24 HR) [Effexor XR] 150 mg PO DAILY 01/31/17 [History] Simvastatin [Zocor] 40 mg PO DAILY 02/01/17 [History] Multivitamin [Multivitamins] 1 each PO DAILY 03/23/17 [History] Fluticasone Propionate Nasal [Flonase] 1 spray NS DAILY 11/05/17 [History] Insulin Glargine,Hum.rec.anlog [Basaglar Kwikpen U-100] 62 unit SQ BID 11/05/17 [History] Budesonide [Pulmicort Flexhaler 180mcg] 2 puff IH BID 01/05/18 [History] 3 Allergy/AdvReac Type Severity Reaction Status Date / Time amlodipine [From Norvasc] Allergy Rash Verified 11/05/17 07:10 bupropion [From Wellbutrin] Allergy Rash Verified 11/05/17 07:10 gabapentin Allergy Rash Verified 11/05/17 07:10 morphine AdvReac Confusion Verified 11/05/17 07:10 All Systems PM: A 10-system review of systems was performed and is negative for pertinent findings except as documented above in the HPI. - Constitutional Constitutional: chills, fever(s), no malaise - EENT Eyes: no change in vision - Cardiovascular Cardiovascular ROS IM: no chest pain, no diaphoresis, no palpitations - Respiratory Respiratory: no cough, no dyspnea, no wheezing - Gastrointestinal Gastrointestinal: abdominal pain, constipation, diarrhea, nausea, no hematemesis , no hematochezia, no melena, no vomiting - Genitourinary Genitourinary ROS male: no dysuria, no flank pain, no hematuria, no penile discharge - Musculoskeletal Musculoskeletal ROS IM: back pain - Integumentary Integumentary IM: no erythema, no rash - Endocrine Endocrine IM: no fatigue - Hematologic/Lymphatic Hematologic/Lymphatic: no easy bleeding - Constitutional Vitals: Temp Pulse Resp BP Pulse Ox 98 F 84 18 123/80 95 01/05/18 18:42 01/05/18 18:42 01/05/18 18:42 01/05/18 18:42 01/05/18 18:42 General appearance: Present: A&O X 3, pleasant, no acute distress - Head Head exam: Present: atraumatic, normocephalic - Eye Eye exam: Present: normal appearance, conjuntiva pink - Respiratory Respiratory exam: Present: decreased breath sounds. Absent: rales, rhonchi - Cardiovascular Cardiovascular exam: Present: RRR, +S1, +S2. Absent: systolic murmur - GI/Abdominal GI/Abdominal exam: Present: normal bowel sounds, soft, tenderness (left lower quadrant), no peritoneal signs. Absent: firm, guarding, rebound, rigid - Expanded GI/Abdominal Exam GI/Abdominal exam expanded: Absent: ascites, Verdin's sign, Rovsing's sign, tenderness at McBurney's Point - Extremities Exam Extremities exam: Present: normal inspection. Absent: calf tenderness - Back Exam Back exam: Absent: CVA tenderness (L), CVA tenderness (R), rash noted, tenderness - Neurological Exam Neurological exam: Present: alert, oriented X3. Absent: speech deficit - Psychiatric Psychiatric exam: Present: normal affect, normal mood - Skin Skin exam: Present: dry, intact Internal Med - H&P Results - Labs CBC & Chem 7: 01/05/18 17:49 01/05/18 17:49 Labs: Short CBC 01/05/18 Range/Units 17:49 WBC 13.3 H (4.3-11.1) K/mcL Hgb 13.9 (12.9-16.9) g/dL Hct 40.6 (37.5-50.1) % Plt Count 304 (140-400) K/mcL Neutrophils # 10.0 H (1.6-8.9) K/mcL BMP 01/05/18 17:49 Sodium 138 Potassium 3.4 L Chloride 95 L Carbon Dioxide 28 BUN 33 H Creatinine 1.62 H Glucose 144 H Calcium 9.9 Liver Function 01/05/18 Range/Units 17:49 Total Bilirubin 0.6 (0.3-1.0) mg/dL Direct Bilirubin 0.2 (0.0-0.2) mg/dL AST 14 (13-39) Units/L ALT 15 (7-52) Units/L Alkaline Phosphatase 71 (34-104) Units/L Albumin 4.0 (3.5-5.7) g/dL Urine 01/05/18 Range/Units 17:30 Urine Color Yellow (Yellow) Urine Clarity Clear (Clear) Urine pH 6.0 (5.0-8.0) pH Units Ur Specific [place] 1.017 (1.010-1.025) Urine Protein 30 H (Neg-Trace) mg/dL Urine Glucose (UA) Normal (Normal) mg/dL - Impressions ITS Impressions Abdomen/Pelvis CT 01/05/18 18:35 IMPRESSION: Findings are most consistent with acute sigmoid diverticulitis, without evidence of perforation, free air, or abscess. However, suggest appropriate clinical treatment, and abdominal CT follow-up when the patient has improved to ensure resolution of these findings, as underlying colonic malignancy cannot be excluded. D/ / 01/05/2018 19:17:58 Stephane Grayson MD / [email or web address] Interpreting Provider: Stephane Grayson MD - Assessment and plan (1) Diverticulitis Current Visit: Yes Status: Acute Assessment and plan: Acute sigmoid diverticulitis demonstrated by abdominal CT. 3 days LLQ abdominal pain with radiation to back and groin. Admitted fever, chills, constipation, diarrhea, nausea, decreased appetite. Patient was recently treated for a UTI and was given tramadol which constipated him days prior to start of pain. He has history of diverticulitis 4x with last episode a year ago managed at home with abx. WBC 13.3, afeberile Abdominal exam: soft, mild tenderness to LLQ, no rigidity or rebound Plan -continue IV ciprofloxacin -continue IV flagyl -IVF -NPO -pain management with fentanyl -serial abdominal exams -zofran prn (2) Acute kidney injury Current Visit: Yes Status: Acute Assessment and plan: Acute kidney injury likely pre-renal due to sepsis and hypoperfusion, aceI, lasix creatinine 1.62 (baseline 1.09-1.2, however improved from recent Cr 1.68 from UTI.) -monitor I/O -monitory renal function -avoid nephrotoxic agents: holding home lasix and lisinopril -IVF (3) UTI (urinary tract infection) Current Visit: Yes Status: Acute Assessment and plan: Urinalysis demonstrated UTI with + leukocyte esterase, however the patient was just treated for a UTI with cephlex and is no longer symptomatic. -urine culture ordered -patient is currently receiving cipro for diverticulitis and according to last urine culture sensitivity will cover uti Qualifiers: Qualified Code(s): N39.0 - Urinary tract infection, site not specified (4) Hypertension Current Visit: Yes Status: Acute Assessment and plan: history of hypertension. Continue home atenolol once medications reconciled. BP stable -holding lasix and lisinopril due to RONNI Qualifiers: Qualified Code(s): I10 - Essential (primary) hypertension (5) Diabetes mellitus Current Visit: Yes Status: Acute Assessment and plan: History of diabetes on insulin. -continue home insuline -accu checks Qualifiers: Qualified Code(s): E11.9 - Type 2 diabetes mellitus without complications (6) HLD (hyperlipidemia) Current Visit: No Status: Acute Assessment and plan: known HLD, Continue home simvastatin once medications reconciled. Qualifiers: Hyperlipidemia type: mixed hyperlipidemia Qualified Code(s): E78.2 - Mixed hyperlipidemia (7) Depression Current Visit: Yes Status: Acute Assessment and plan: history of depression. Continue home effexor once medications reconciled. Qualifiers: Qualified Code(s): F32.9 - Major depressive disorder, single episode, unspecified (8) DVT prophylaxis Current Visit: No Status: Acute Assessment and plan: heparin sq (9) Sepsis Current Visit: Yes Status: Acute Assessment and plan: Patient is severe septic meeting SIRS with RONNI WBC 13.3, BP 82/55, afebrile. Likely secondary to acute diverticulitis and maybe contributed UTI -organsims possible: Ecoli, GNR, anaerobes -Acute sigmoid diverticulitis demonstrated by abdominal CT. -UTI on urinalysis with + leukocyte esterase. Recent UTI treatment with rocephin. Plan -continue IV ciprofloxacin -continue IV flagyl -IVF 30ml/kg -blood culture pending -urine culture pending -lactic acid pending Qualifiers: Qualified Code(s): A41.9 - Sepsis, unspecified organism - Time Spent With Patient Total time spent is greater than 50% in coordination of care (as documented) at patient's floor/unit and/or counseling patient: <Hayes Vega - Last Filed: 01/06/18 01:05> Date of Encounter: 01/05/18 Time of Encounter: 23:05 - Constitutional Constitutional: chills, fever(s) - EENT Nose, mouth and throat: no nasal congestion, no sore throat - Cardiovascular Cardiovascular ROS IM: no chest pain, no dyspnea - Respiratory Respiratory: no cough - Gastrointestinal Gastrointestinal: abdominal pain, nausea, vomiting, no hematemesis, no hematochezia, no melena - Genitourinary Genitourinary ROS male: no dysuria, no flank pain, no hematuria - Musculoskeletal Musculoskeletal ROS IM: back pain, no arthralgias - Integumentary Integumentary IM: no rash, no jaundice - Neurological Neurological ROS: no focal weakness - Psychiatric Psychiatric: no anxiety, no depression - Endocrine Endocrine IM: no polydipsia, no polyuria - Allergic/Immunologic Allergic/Immunologic: GI upset with certain foods - Constitutional Vitals: Temp Pulse Resp BP Pulse Ox 98.0 F 71 18 91/60 96 01/06/18 00:10 01/06/18 00:10 01/06/18 00:10 01/06/18 00:10 01/06/18 00:10 General appearance: Present: mild distress, A&O X 3, pleasant - Eye Eye exam: Absent: scleral icterus - ENT ENT exam: Present: mucous membranes dry, normal exam - Neck Neck exam general surgery: Present: supple - Respiratory Respiratory exam: Present: CTAB. Absent: rales, rhonchi, wheezes - Cardiovascular Cardiovascular exam: Present: RRR, +S1, +S2 - GI/Abdominal GI/Abdominal exam: Present: normal bowel sounds, soft, tenderness (LLQ), no peritoneal signs. Absent: guarding, hepatomegaly, mass, rebound, rigid, splenomegaly - Extremities Exam Extremities exam: Present: warm, radial pulses palpable and symmetrical. Absent : calf tenderness, pedal edema, tenderness - Back Exam Back exam: Absent: CVA tenderness (L), CVA tenderness (R) - Neurological Exam Neurological exam: Present: alert, oriented X3, no focal deficits - Psychiatric Psychiatric exam: Present: normal affect, normal mood - Skin Skin exam: Present: dry, warm. Absent: rash Internal Med - H&P Results - Labs CBC & Chem 7: 01/05/18 17:49 01/05/18 17:49 - Diagnostic Studies CT scan - abdomen Status: image reviewed by me (sigmoid diverticulitis) - Attending Attestation I discussed the patient [place], PMH, ROS, lab data, and exam findings with Dr. Sargent. I then saw and examined patient independently as well. Patient reports this is his fourth episode of diverticulitis, and it is the most severe case he' s had. He has had colonoscopy in the recent past, which was negative except for findings of diverticulosis. I reviewed his CT scan findings and discussed the case with the ER staff. I asked the ER staff to consult surgery for comanagement while in the hospital. I am concerned given his recurrent bouts of diverticulitis and his severe pain experienced earlier. Presently, his pain is tolerable as he responded nicely to fentanyl dosing in the ER. I explained to him and his that he will be strictly nothing by mouth and will receive IV fluids and antibiotics. Should he fail conservative management, there is a high likelihood he would require surgical intervention. If he does respond to conservative measures, he may be a candidate for elective partial colectomy given his recurrent diverticulitis. He and his both voiced understanding and agreement with the plan. Clinically, he feels better. His blood pressure is a little on the low side which may be due to sepsis and/or effect from fentanyl. He is well-perfused, however. We will trend his labs and hydrate him and monitor him closely. Other than my comments above and noted physical exam findings, I agree with Dr. Sargent's assessment and plan. - Assessment and plan (1) DVT prophylaxis Current Visit: No Status: Acute (2) HLD (hyperlipidemia) Current Visit: No Status: Acute Qualifiers: Hyperlipidemia type: mixed hyperlipidemia Qualified Code(s): E78.2 - Mixed hyperlipidemia (3) Diverticulitis Current Visit: Yes Status: Acute (4) Hypertension Current Visit: Yes Status: Acute Qualifiers: Qualified Code(s): I10 - Essential (primary) hypertension (5) Diabetes mellitus Current Visit: Yes Status: Acute Qualifiers: Qualified Code(s): E11.9 - Type 2 diabetes mellitus without complications (6) Acute kidney injury Current Visit: Yes Status: Acute (7) Depression Current Visit: Yes Status: Acute Qualifiers: Qualified Code(s): F32.9 - Major depressive disorder, single episode, unspecified (8) UTI (urinary tract infection) Current Visit: Yes Status: Acute Qualifiers: Qualified Code(s): N39.0 - Urinary tract infection, site not specified (9) Sepsis Current Visit: Yes Status: Acute Qualifiers: Qualified Code(s): A41.9 - Sepsis, unspecified organism - Time Spent With Patient Total time spent is greater than 50% in coordination of care (as documented) at patient's floor/unit and/or counseling patient:
[2018-01-05] MEDS ORDERED: Ondansetron 4 MG/2 ML VIAL IVP PRN (20:53)
[2018-01-05] MEDS ORDERED: Acetaminophen 325 MG TABLET PO PRN (20:54)
[2018-01-05] MEDS ORDERED: Ketorolac 15 MG/ML VIAL IVP SCH (21:00)
[2018-01-05] MEDS ORDERED: *HR* FentaNYL (PF) 100 MCG/2 ML VIAL IVP SCH (22:30)
[2018-01-05] MEDS: Ringers Solution, Lactated 1,000 ML IVC SCH (22:52)
[2018-01-05] MEDS ORDERED: Dextrose Gel 15 GM/37.5 ML TUBE PO PRN ×2 (23:02)
[2018-01-05] MEDS ORDERED: D5% in Water 1,000 ML IVC PRN (23:02)
[2018-01-05] MEDS ORDERED: *HR* Dextrose 50 % in Water (Syg) 50 ML SYRINGE IVP PRN (23:02)
[2018-01-05] MEDS ORDERED: Potassium Chloride 20 MEQ, Lidocaine 1% 2 ML in D5% in Water 250 ML IVPB ONE (23:45)
[2018-01-06] MEDS ORDERED: Ketorolac 15 MG/ML VIAL IVP SCH
[2018-01-06] MEDS: MetroNIDAZOLE 500 MG/100 ML 500 MG/100 ML BAG IVPB SCH ×5 (00:02→23:24)
[2018-01-06] MEDS: Ringers Solution, Lactated 1,000 ML IVC SCH ×3 (00:02→15:32)
[2018-01-06] MEDS ORDERED: Ringers Solution, Lactated 1,000 ML IVC ONE (03:19)
[2018-01-06] MEDS: *HR* Heparin 5,000 UNIT/ML VIAL SQ SCH ×3 (05:39→18:43)
[2018-01-06] MEDS: *HR* FentaNYL (PF) 100 MCG/2 ML VIAL IVP PRN ×2 (05:47→10:39)
[2018-01-06 06:42] LABS: Basophils % 0.3 %; Eosinophils # 0.2 K/mcL (0.0-0.6); Eosinophils % 1.8 %; Hematocrit 33.5 % (37.5-50.1); Immature Granulocytes % 0.4 % (0-4); Lymphocytes # 1.9 K/mcL (0.6-4.6); Mean Corpuscular Hemoglobin 29.8 pg (28.0-33.3); Mean Corpuscular Volume 87.7 fL (83.0-100.0); Mean Platelet Volume 9.4 fL (9.4-12.4); Monocytes # 0.7 K/mcL (0.0-1.3); Neutrophils # 7.1 K/mcL (1.6-8.9); Platelet Count 225 K/mcL (140-400); Red Blood Count 3.82 M/mcL (4.19-5.50); Red Cell Distribution Width 12.8 % (11.5-14.5); Segmented Neutrophils % 71.5 %
[2018-01-06 06:44] LABS: Hemoglobin 11.4 g/dL (12.9-16.9)
[2018-01-06 07:02] LABS: Calcium 8.8 mg/dL (8.6-10.3); Potassium 3.2 mEq/L (3.5-5.1)
[2018-01-06] MEDS: Insulin LISPRO 300 UNITS/3 ML VIAL SQ SCH ×3 (08:26→17:51)
[2018-01-06] MEDS: Pantoprazole 40 MG VIAL IVP SCH (08:40)
[2018-01-06] MEDS: Venlafaxine XR (24 HR) 75 MG CAP.ER.24H PO SCH (08:40)
--- NOTE | 2018-01-06 16:36 | Internal Med Progress Note ---
Date of Encounter: 01/06/18 Time of Encounter: 18:00 - Assessment and plan (1) Acute diverticulitis Current Visit: Yes Status: Acute Assessment and plan: Acute sigmoid diverticulitis demonstrated by abdominal CT. 3 days LLQ abdominal pain with radiation to back and groin. Admitted fever, chills, constipation, diarrhea, nausea, decreased appetite. Patient was recently treated for a UTI and was given tramadol which constipated him days prior to start of pain. He has history of diverticulitis 4x with last episode a year ago managed at home with abx. WBC 13.3, afeberile Abdominal exam: soft, mild tenderness to LLQ, no rigidity or rebound. On Ciprofloxacin and Flagyl IV. PRN pain control, serial images prn. Fluids, Zofran (2) HLD (hyperlipidemia) Current Visit: No Status: Acute Assessment and plan: Zocor Qualifiers: Hyperlipidemia type: mixed hyperlipidemia Qualified Code(s): E78.2 - Mixed hyperlipidemia (3) Hypertension Current Visit: Yes Status: Acute Assessment and plan: history of hypertension. Continue home atenolol once medications reconciled. BP stable. -holding lasix and lisinopril due to RONNI Qualifiers: Qualified Code(s): I10 - Essential (primary) hypertension (4) Acute kidney injury Current Visit: Yes Status: Acute (5) UTI (urinary tract infection) Current Visit: Yes Status: Acute Qualifiers: Qualified Code(s): N39.0 - Urinary tract infection, site not specified; R31.9 - Hematuria, unspecified (6) Diabetes mellitus Current Visit: Yes Status: Acute Qualifiers: Qualified Code(s): E11.9 - Type 2 diabetes mellitus without complications (7) Depression Current Visit: Yes Status: Acute Assessment and plan: Venlafaxine Qualifiers: Qualified Code(s): F32.9 - Major depressive disorder, single episode, unspecified (8) DVT prophylaxis Current Visit: No Status: Acute Assessment and plan: heparin (9) Acute cystitis Current Visit: Yes Status: Acute Assessment and plan: Urinalysis demonstrated UTI with + leukocyte esterase, however the patient was just treated for a UTI with cephlex and is no longer symptomatic. -urine culture ordered -patient is currently receiving cipro for diverticulitis and according to last urine culture sensitivity will cover uti Qualifiers: Qualified Code(s): N30.00 - Acute cystitis without hematuria (10) Hypokalemia Current Visit: Yes Status: Acute Assessment and plan: Will replace and recheck - Time Spent With Patient Total time spent is greater than 50% in coordination of care (as documented) at patient's floor/unit and/or counseling patient: less than 15 minutes - Subjective Interval history: Pt's at bedside. Pt reporting abdominal pain. Denies fever or chills. Denies N/V. Denies CP or SOB. - Constitutional Vitals: Temp Pulse Resp BP Pulse Ox 98.1 F 75 18 103/70 94 01/06/18 14:09 01/06/18 14:09 01/06/18 14:09 01/06/18 14:01/06/18 14:09 General appearance: Present: mild distress, A&O X 3, pleasant - Head Head exam: Present: atraumatic, normocephalic - Eye Eye exam: Present: PERRL, conjuntiva pink, sclera anicteric Pupils: Present: PERRL - Neck Neck exam general surgery: Present: supple, trachea midline. Absent: lymphadenopathy - Respiratory Respiratory exam: Present: CTAB. Absent: accessory muscle use, rales, rhonchi, wheezes - Cardiovascular Cardiovascular exam: Present: RRR, +S1, +S2. Absent: diastolic murmur, gallop, rubs, systolic murmur - GI/Abdominal GI/Abdominal exam: Present: normal bowel sounds, soft, no peritoneal signs. Absent: distended, tenderness Additional comments: generalized abdominal pain - Extremities Exam Extremities exam: Present: warm, radial pulses palpable and symmetrical. Absent : calf tenderness, cyanotic, pedal edema - Neurological Exam Neurological exam: Present: CN II-XII intact, oriented X3, no focal deficits. Absent: pronater drift, facial droop, speech deficit - Skin Skin exam: Present: dry, intact Internal Medicine: Result - Labs CBC & Chem 7: 01/06/18 06:05 01/06/18 06:05 Labs: Short CBC 01/06/18 Range/Units 06:05 WBC 9.9 (4.3-11.1) K/mcL Hgb 11.4 L D (12.9-16.9) g/dL Hct 33.5 L (37.5-50.1) % Plt Count 225 (140-400) K/mcL Neutrophils # 7.1 (1.6-8.9) K/mcL BMP 01/06/18 06:05 Sodium 138 Potassium 3.2 L Chloride 99 Carbon Dioxide 30 H BUN 36 H Creatinine 1.67 H Glucose 82 Calcium 8.8 Consult Discharge Plan - Plan Referrals: Sandhya Acuña MD [Primary Care Provider] - 01/13/18 10:00 am
--- NOTE | 2018-01-06 19:29 | General Surgery Consult Note ---
Date of Encounter: 01/06/18 Time of Encounter: 17:55 History of Present Illness Consult date: 01/06/18 Reason for consult: abdominal pain (Acute diverticulitis) Requesting physician: Madeleine Sargent History of present illness: 57-year-old morbidly obese male admitted to [facility] after presenting to the emergency department with increasing left-sided abdominal pain radiating through to the back. Patient also describes difficulty with urination and hematuria that occurred approximately a week ago. The patient was referred to [facility] and treated with Floxin and tramadol. Unfortunately, the tramadol resulted in severe constipation with increasing straining at stool. The patient returned to the emergency department because of that described progressive left-sided abdominal pain. CT abdomen/pelvis, without oral or IV contrast, demonstrated: Scattered pulmonary calcified granulomata with chronic parenchymal scarring within the left lung base; multiple calcified splenic granulomata, mild to moderate wall thickening proximal sigmoid colon with adjacent inflammatory stranding in the setting of multiple diverticula consistent with acute diverticulitis. No evidence of pneumatosis, perforation or intraperitoneal free air was identified. The patient was subsequently admitted for IV antibiotics with a consultation to [facility]. The patient requested surgical consultation be placed with me ([facility]). Dr Lopez was kind enough to notified me of this consultation. Past medical history: Morbid obesity; diverticulosis with prior diverticulitis; hematuria; asthma, coronary artery disease, diabetes, hyperlipidemia, hypertension, nonspecific neuropathy, anxiety, depression, Surgical history: Left knee surgery; bladder biopsy in the remote past Allergies: Norvasc, Wellbutrin, gabapentin, and morphine (morphine causes confusion rather than a true allergy) Medications: Atenolol 100 mg by mouth every morning Metformin 1000 mg by mouth twice a day Albuterol (pro-air) 1-2 puffs every 4-6 hours as needed for shortness of breath or wheeze Furosemide 40 mg by mouth every morning Lisinopril 20 mg by mouth twice a day Daisy-3 fish oil 1200 mg by mouth twice a day Potassium chloride 10 mEq every 3 days Cinnamon 1000 mg by mouth twice a day Finasteride 5 mg by mouth daily Omeprazole 40 mg by mouth daily Venlafaxine Bexxar 150 mg by mouth daily Simvastatin 40 mg by mouth daily Multivitamins 1 by mouth day Fluticasone (Flonase) 1 spray nasally daily Insulin glargine 62 units twice a day Budesonide (Pulmicort) 180 g 2 puffs twice a day Social history: Patient is , was of the spell; he does not smoke. He admits to rare alcoholic beverage (once every 6 months). Patient denies any illicit drug use His examination: Morbidly obese male, in no acute distress. 1.85 m tall, 166.9 kg; BMI 48.5 Skin: Warm, no obvious jaundice Lungs: Clear though breath sounds are diminished; exam limited by body habitus Cardiac: Regular rate, no appreciable murmurs, exam limited by body habitus Abdomen: Morbidly obese, protuberant, with tenderness left lower quadrant. No discernible masses. No peritoneal signs or rebound. Bowel sounds poorly audible, exam limited by body habitus Extremities: Trace dependent edema (feet and ankles) - slightly more pronounced left foot. No clubbing or cyanosis. Labs: White count on admission 13.3 improved to 9.9. Hemoglobin on admission 13.9, falling to 11.4 with aggressive fluid hydration. Hematocrit currently 33.5. differential within normal limits. Proxies on admission neutrophils 10.0) Electrolytes notable for potassium following to 3.2, BUN 36, creatinine 1.67 (estimated GFR 43). CT: Personally reviewed with [facility] Impression: A 57-year-old, morbidly obese male admitted after presenting to the [facility] emergency room Department 01/05/18 with new onset left lower quadrant abdominal pain radiating through to the back. CT abdomen/pelvis shows numerous diverticula and uncomplicated sigmoid diverticulitis. The patient describes multiple prior episodes of acute diverticulitis however none this calendar year. I had the opportunity to review several CTs of the abdomen/pelvis completed earlier this year - demonstrating diverticulosis without diverticulitis. The patient's obesity and other comorbidities pose significant risk factors for surgical intervention. This was discussed in detail. The patient wishes to consider surgery. Treatment plan includes aggressive IV antibiotics followed by oral oral antibiotics continuing post discharge until all acute inflammatory changes have subsided. If this can be achieved, sigmoid colectomy will be discussed with its inherent risks will be enumerated at the time of that discussion Recommendations: Maintain nothing by mouth until abdominal pain subsided. Correction of electrolyte abnormalities; monitor renal status Every 6 hours Accu-Cheks however if blood sugars are labile, increase Accu- Cheks to every 4 hours with appropriate sliding-scale coverage Continue Cipro and metronidazole however can consider extending spectrum coverage using Zosyn (coverage of Enterococcus) Past Med Surg Social Fam HX - Past Medical History Medical history: asthma, coronary artery disease, diabetes, hyperlipidemia, hypertension, other Additional medical history: NEUROPATHY, Diverticulitis Psychiatric history: anxiety, depression - Past Surgical History Surgical History: orthopedic, other, other Additional surgical history: LEFT KNEE SURGERY. BLADDER BIOPSY - Social History Smoking Status: Never smoker Smokeless Tobacco Status: Yes (30 years ago) Alcohol use: occasionally Drug use: none - Family History Father Hx Family Cardiac Disorders: Yes ([place] 35y/o) Mother Family Member Ethnicity: Non- Living Status: Still Living Hx Family Cardiac Disorders: Yes (HTN) Hx Family Respiratory Disorders: No Hx Family Cancer: Yes (Colon Cancer) Hx Family GI Disorders: No Hx Family Endocrine Disorder: No Hx Family Neuromuscular Disorders: No Hx Family Neurologic Disorders: No Hx Family HEENT Disorders: No Hx Family Autoimmune Disorders: No Medications and Allergies Atenolol [Tenormin] 100 mg PO QAM 03/23/15 [History] Metformin [Glucophage] 1,000 mg PO BID 03/23/15 [History] Albuterol Sulfate [Proair Respiclick] 1 - 2 puff IH Q4-6H PRN 07/30/15 [History] Furosemide [Lasix] 40 mg PO QAM 07/30/15 [History] Lisinopril [Zestril] 20 mg PO BID 07/30/15 [History] Daisy-3S/Dha/Epa/Fish Oil [Fish Oil 1,200 mg Softgel] 1 cap PO BID 07/30/15 [ History] Potassium Chloride [K-Tab ER] 10 meq PO Q3D 07/30/15 [History] Cinnamon Bark [Cinnamon] 1,000 mg PO BID 01/31/17 [History] Finasteride [Proscar] 5 mg PO DAILY 01/31/17 [History] Omeprazole [PriLOSEC] 40 mg PO DAILY 01/31/17 [History] Venlafaxine XR (24 HR) [Effexor XR] 150 mg PO DAILY 01/31/17 [History] Simvastatin [Zocor] 40 mg PO DAILY 02/01/17 [History] Multivitamin [Multivitamins] 1 each PO DAILY 03/23/17 [History] Fluticasone Propionate Nasal [Flonase] 1 spray NS DAILY 11/05/17 [History] Insulin Glargine,Hum.rec.anlog [Basaglar Galileaikpen U-100] 62 unit SQ BID 11/05/17 [History] Budesonide [Pulmicort Flexhaler 180mcg] 2 puff IH BID 01/05/18 [History] 3 Allergy/AdvReac Type Severity Reaction Status Date / Time amlodipine [From Norvasc] Allergy Rash Verified 11/05/17 07:10 bupropion [From Wellbutrin] Allergy Rash Verified 11/05/17 07:10 gabapentin Allergy Rash Verified 11/05/17 07:10 morphine AdvReac Confusion Verified 11/05/17 07:10 Review of Systems All systems PM: The remainder of the systems were reviewed and are negative General Surgery Exam Initial Vital Signs Temp Pulse Resp BP Pulse Ox 98 F 84 18 123/80 95 01/05/18 16:44 01/05/18 16:44 01/05/18 16:44 01/05/18 16:44 01/05/18 16:44 Exam Initial Vital Signs Temp Pulse Resp BP Pulse Ox 98 F 84 18 123/80 95 01/05/18 16:44 01/05/18 16:44 01/05/18 16:44 01/05/18 16:44 01/05/18 16:44 Results - Labs 01/06/18 06:05 01/06/18 06:05 Abnormal lab results RBC 3.82 M/mcL (4.19-5.50) L 01/06/18 06:05 Hgb 11.4 g/dL (12.9-16.9) L D 01/06/18 06:05 Hct 33.5 % (37.5-50.1) L 01/06/18 06:05 Potassium 3.2 mEq/L (3.5-5.1) L 01/06/18 06:05 Carbon Dioxide 30 mEq/L (23-29) H 01/06/18 06:05 BUN 36 mg/dL (6-20) H 01/06/18 06:05 Creatinine 1.67 mg/dL (0.70-1.30) H 01/06/18 06:05 Est GFR ( Amer) 52 (> 60) L 01/06/18 06:05 Est GFR (Non-Af Amer) 43 (> 60) L 01/06/18 06:05 Globulin 3.6 g/dL (2.4-3.5) H 01/05/18 17:49 Urine Protein 30 mg/dL (Neg-Trace) H 01/05/18 17:30 Ur Leukocyte Esterase Small (Negative) H 01/05/18 17:30 Urine Microscopic WBC 5-15 per hpf (0-3) H 01/05/18 17:30 Ur Squamous Epith Cells Many per lpf (None-Few) H 01/05/18 17:30 Ur Culture Indicated? NO. (NO) A 01/05/18 17:30 Diabetes panel 01/06/18 Range/Units 06:05 Sodium 138 (136-145) mEq/L Potassium 3.2 L (3.5-5.1) mEq/L Chloride 99 (98-107) mEq/L Carbon Dioxide 30 H (23-29) mEq/L BUN 36 H (6-20) mg/dL Creatinine 1.67 H (0.70-1.30) mg/dL Glucose 82 (70-105) mg/dL Calcium 8.8 (8.6-10.3) mg/dL Calcium panel 01/06/18 Range/Units 06:05 Calcium 8.8 (8.6-10.3) mg/dL Pituitary panel 01/06/18 Range/Units 06:05 Sodium 138 (136-145) mEq/L Potassium 3.2 L (3.5-5.1) mEq/L Chloride 99 (98-107) mEq/L Carbon Dioxide 30 H (23-29) mEq/L BUN 36 H (6-20) mg/dL Creatinine 1.67 H (0.70-1.30) mg/dL Glucose 82 (70-105) mg/dL Calcium 8.8 (8.6-10.3) mg/dL Adrenal panel 01/06/18 Range/Units 06:05 Sodium 138 (136-145) mEq/L Potassium 3.2 L (3.5-5.1) mEq/L Chloride 99 (98-107) mEq/L Carbon Dioxide 30 H (23-29) mEq/L BUN 36 H (6-20) mg/dL Creatinine 1.67 H (0.70-1.30) mg/dL Glucose 82 (70-105) mg/dL Calcium 8.8 (8.6-10.3) mg/dL All other labs normal. Consult Discharge Plan - Plan Referrals: Sandhya Acuña MD [Primary Care Provider] - 01/13/18 10:00 am
[2018-01-06] MEDS ORDERED: Insulin DETEMIR 100 UNIT/ML X5UNITS SQ SCH (21:00)
[2018-01-07] MEDS: Insulin LISPRO 300 UNITS/3 ML VIAL SQ SCH ×4 (00:42→16:30)
[2018-01-07] MEDS: *HR* Heparin 5,000 UNIT/ML VIAL SQ SCH ×3 (02:56→18:54)
[2018-01-07] MEDS: Ringers Solution, Lactated 1,000 ML IVC SCH ×2 (05:03→14:03)
[2018-01-07] MEDS: MetroNIDAZOLE 500 MG/100 ML 500 MG/100 ML BAG IVPB SCH ×3 (05:05→18:54)
[2018-01-07 08:22] LABS: Basophils % 0.5 %; Eosinophils # 0.2 K/mcL (0.0-0.6); Eosinophils % 2.9 %; Hematocrit 36.6 % (37.5-50.1); Hemoglobin 12.5 g/dL (12.9-16.9); Immature Granulocytes % 0.2 % (0-4); Lymphocytes # 1.4 K/mcL (0.6-4.6); Lymphocytes % 24.4 %; Mean Corpuscular HGB Conc 34.2 g/dL (31.6-35.5); Mean Platelet Volume 9.5 fL (9.4-12.4); Monocytes # 0.5 K/mcL (0.0-1.3); Monocytes % 7.9 %; Neutrophils # 3.7 K/mcL (1.6-8.9); Platelet Count 245 K/mcL (140-400); Red Blood Count 4.16 M/mcL (4.19-5.50); Red Cell Distribution Width 12.5 % (11.5-14.5); Segmented Neutrophils % 64.1 %
[2018-01-07 08:37] LABS: BUN/Creatinine Ratio 18 (6-26); Blood Urea Nitrogen 24 mg/dL (6-20); Calcium 9.3 mg/dL (8.6-10.3); Carbon Dioxide 29 mEq/L (23-29); Chloride 101 mEq/L (98-107); Glucose 103 mg/dL (70-105); Magnesium 1.7 mg/dL (1.6-2.6); Osmolality,Calculated 292 (280-300); Potassium 3.5 mEq/L (3.5-5.1); Sodium 139 mEq/L (136-145); eGFR For African Americans > 60 (> 60); eGFR For Non-African Americans 57 (> 60)
[2018-01-07] MEDS: Finasteride 5 MG TABLET PO SCH (10:30)
[2018-01-07] MEDS: Pantoprazole 40 MG VIAL IVP SCH (10:30)
[2018-01-07] MEDS: Venlafaxine XR (24 HR) 75 MG CAP.ER.24H PO SCH (10:30)
--- NOTE | 2018-01-07 12:54 | General Surgery Progress Note ---
Date of Encounter: 01/07/18 Time of Encounter: 13:09 Subjective Patient reports: feels better, flatus Narrative: General Surgery Patient feeling better; left lower quadrant abdominal pain diminished. Passing flatus. Afebrile, 97.3; pulse 76-91; respirations 1618, blood pressure 108/78. Lungs: Clear, no abdominal pain on deep inspiration Abdomen: Obese, soft, without obvious tenderness. No detected intra- abdominal masses or rebound. Active bowel sounds Urine output: 2075 mL for calendar day 01/06/18; 1725 mL so far today Laboratories: White count 5.8, hemoglobin 12.5 with hematocrit 36.6. Normal differential. Electrolytes notable for potassium correcting to 3.5, BUN has improved to 24 , creatinine is normalized to 1.30. Estimated GFR improved to 53 Impression: Acute recurrent sigmoid diverticulitis - status improved Plan: Allow clear liquids, patient cautioned to control his intake; he is to stop oral intake if he experiences increasing abdominal pain, bloating, nausea/ vomiting Maintain IV antibiotics Continue to reduce IV fluids Advance diet in a.m. if the patient tolerates clears today Objective Vital Signs - Last 8 Hours Temp Pulse Resp BP Pulse Ox 01/07/18 10:55 97.3 F L 91 16 108/78 95 01/07/18 07:11 97.7 F 76 18 110/74 98 Intake and Output 01/06/18 01/07/18 01/07/18 23:59 07:59 15:59 Intake Total 300 / 300 400 / 400 0 / 0 Output Total 800 / 800 1400 / 1400 325 / 325 Balance -500 / -500 -1000 / -1000 -325 / -325 Intake: IV Fluids 300 / 300 400 / 400 Cipro Premix 400 MG/200 ML 400 200 / 200 200 / 200 mg In 200 ml @ 200 mls/hr IVPB Q12HR EUGENIO Rx#:[id number] Flagyl Premix 500 MG/100 ML 500 100 / 100 200 / 200 mg In 100 ml @ 100 mls/hr IVPB Q6HR EUGENIO Rx#:[id number] Oral 0 / 0 0 / 0 0 / 0 Output: Urine 800 / 800 1400 / 1400 325 / 325 Other: Meal NPO npo Percent of Meal Consumed 0% Blood Glucose* 83 85 108 - Labs 01/07/18 07:48 01/07/18 07:48 Diabetes panel 01/07/18 Range/Units 07:48 Sodium 139 (136-145) mEq/L Potassium 3.5 (3.5-5.1) mEq/L Chloride 101 (98-107) mEq/L Carbon Dioxide 29 (23-29) mEq/L BUN 24 H (6-20) mg/dL Creatinine 1.30 (0.70-1.30) mg/dL Glucose 103 (70-105) mg/dL Calcium 9.3 (8.6-10.3) mg/dL Calcium panel 01/07/18 Range/Units 07:48 Calcium 9.3 (8.6-10.3) mg/dL Pituitary panel 01/07/18 Range/Units 07:48 Sodium 139 (136-145) mEq/L Potassium 3.5 (3.5-5.1) mEq/L Chloride 101 (98-107) mEq/L Carbon Dioxide 29 (23-29) mEq/L BUN 24 H (6-20) mg/dL Creatinine 1.30 (0.70-1.30) mg/dL Glucose 103 (70-105) mg/dL Calcium 9.3 (8.6-10.3) mg/dL Adrenal panel 01/07/18 Range/Units 07:48 Sodium 139 (136-145) mEq/L Potassium 3.5 (3.5-5.1) mEq/L Chloride 101 (98-107) mEq/L Carbon Dioxide 29 (23-29) mEq/L BUN 24 H (6-20) mg/dL Creatinine 1.30 (0.70-1.30) mg/dL Glucose 103 (70-105) mg/dL Calcium 9.3 (8.6-10.3) mg/dL Consult Discharge Plan - Plan Referrals: Sandhya Acuña MD [Primary Care Provider] -
--- NOTE | 2018-01-07 13:46 | Internal Med Progress Note ---
Date of Encounter: 01/07/18 Time of Encounter: 11:00 - Assessment and plan (1) Sepsis Current Visit: Yes Status: Acute Assessment and plan: Initially presented with leukocytosis and hypotension. Also had organ dysfunction in the form of RONNI lactic acid normal Likely secondary to acute diverticulitis, resolving on IV abx clears today, possibly advance diet tomorrow follow up on blood culture Qualifiers: Qualified Code(s): A41.9 - Sepsis, unspecified organism (2) Diverticulitis Current Visit: Yes Status: Acute Assessment and plan: abx as above (3) Acute kidney injury Current Visit: Yes Status: Acute Assessment and plan: resolving with IVF with good UOP continue to hold lasix and lisinopril (4) Hypertension Current Visit: Yes Status: Acute Assessment and plan: low normal, hold meds as above Qualifiers: Qualified Code(s): I10 - Essential (primary) hypertension (5) HLD (hyperlipidemia) Current Visit: No Status: Acute Assessment and plan: continue home meds Qualifiers: Hyperlipidemia type: mixed hyperlipidemia Qualified Code(s): E78.2 - Mixed hyperlipidemia (6) Diabetes mellitus Current Visit: Yes Status: Acute Assessment and plan: History of diabetes on insulin, has been NPO till today BG <[address] on low dose sliding scale Qualifiers: Qualified Code(s): E11.9 - Type 2 diabetes mellitus without complications (7) DVT prophylaxis Current Visit: No Status: Acute Assessment and plan: SQ heparin - Time Spent With Patient Total time spent is greater than 50% in coordination of care (as documented) at patient's floor/unit and/or counseling patient: - Subjective Interval history: Patient feels significantly better, abdominal pain resolving. No fever/chills or N/V. - Constitutional Vitals: Temp Pulse Resp BP Pulse Ox 97.3 F L 91 16 108/78 95 01/07/18 10:55 01/07/18 10:55 01/07/18 10:55 01/07/18 10:55 01/07/18 10:55 General appearance: Present: mild distress, A&O X 3, pleasant Exam: General: Alert and oriented Cardiovascular:Normal S1 & S2, no murmurs or gallops. No JVD. Pulse regular. Lungs:Normal breath sounds, no wheezes or crackles. Abdomen:Soft, minimal lower quadrant tenderness without rebound/guarding Extremities:No deformity, no edema or tenderness, no joint swelling. Rest of the physical exam is non-contributory Internal Medicine: Result - Labs CBC & Chem 7: 01/07/18 07:48 01/07/18 07:48 Labs: Short CBC 01/07/18 Range/Units 07:48 WBC 5.8 (4.3-11.1) K/mcL Hgb 12.5 L (12.9-16.9) g/dL Hct 36.6 L (37.5-50.1) % Plt Count 245 (140-400) K/mcL Neutrophils # 3.7 (1.6-8.9) K/mcL BMP 01/07/18 07:48 Sodium 139 Potassium 3.5 Chloride 101 Carbon Dioxide 29 BUN 24 H Creatinine 1.30 Glucose 103 Calcium 9.3 Consult Discharge Plan - Plan Referrals: Sandhya Acuña MD [Primary Care Provider] -
[2018-01-07] MEDS ORDERED: *HR* Dextrose 50 % in Water (Syg) 50 ML SYRINGE IVP PRN (13:52)
[2018-01-07] MEDS ORDERED: D5% in Water 1,000 ML IVC PRN (13:52)
[2018-01-07] MEDS ORDERED: Dextrose Gel 15 GM/37.5 ML TUBE PO PRN ×2 (13:52)
[2018-01-07] MEDS ORDERED: *HR* HYDROcodone/Acet 5/325 mg TABLET PO PRN (15:09)
[2018-01-07] MEDS ORDERED: Acetaminophen 325 MG TABLET PO PRN (15:10)
[2018-01-07] MEDS ORDERED: Insulin LISPRO 300 UNITS/3 ML VIAL SQ SCH (21:00)
[2018-01-07] MEDS: Beclomethasone 80mcg MDI IH SCH (22:47)
[2018-01-08] MEDS: Ringers Solution, Lactated 1,000 ML IVC SCH (00:04)
[2018-01-08] MEDS: MetroNIDAZOLE 500 MG/100 ML 500 MG/100 ML BAG IVPB SCH ×4 (00:04→17:19)
[2018-01-08] MEDS: *HR* Heparin 5,000 UNIT/ML VIAL SQ SCH ×3 (02:25→17:21)
[2018-01-08 05:13] LABS: Basophils % 0.8 %; Eosinophils # 0.2 K/mcL (0.0-0.6); Eosinophils % 3.2 %; Hematocrit 41.1 % (37.5-50.1); Immature Granulocytes % 0.6 % (0-4); Lymphocytes # 1.6 K/mcL (0.6-4.6); Lymphocytes % 30.8 %; Mean Corpuscular HGB Conc 34.1 g/dL (31.6-35.5); Mean Corpuscular Hemoglobin 29.5 pg (28.0-33.3); Mean Corpuscular Volume 86.7 fL (83.0-100.0); Mean Platelet Volume 9.6 fL (9.4-12.4); Monocytes # 0.6 K/mcL (0.0-1.3); Monocytes % 10.7 %; Neutrophils # 2.9 K/mcL (1.6-8.9); Platelet Count 238 K/mcL (140-400); Red Blood Count 4.74 M/mcL (4.19-5.50); Red Cell Distribution Width 12.5 % (11.5-14.5); Segmented Neutrophils % 53.9 %
[2018-01-08 05:17] LABS: BUN/Creatinine Ratio 17 (6-26); Blood Urea Nitrogen 19 mg/dL (6-20); Calcium 9.3 mg/dL (8.6-10.3); Carbon Dioxide 24 mEq/L (23-29); Chloride 104 mEq/L (98-107); Glucose 132 mg/dL (70-105); Osmolality,Calculated 292 (280-300); Potassium 4.2 mEq/L (3.5-5.1); Sodium 139 mEq/L (136-145); eGFR For African Americans > 60 (> 60); eGFR For Non-African Americans > 60 (> 60)
[2018-01-08] MEDS: Beclomethasone 80mcg MDI IH SCH ×2 (07:19→23:36)
[2018-01-08] MEDS: Finasteride 5 MG TABLET PO SCH (08:32)
[2018-01-08] MEDS: Venlafaxine XR (24 HR) 75 MG CAP.ER.24H PO SCH (08:33)
[2018-01-08] MEDS: Insulin LISPRO 300 UNITS/3 ML VIAL SQ SCH ×3 (08:35→17:22)
[2018-01-08] MEDS: Fluticasone Propionate Nasal 50 MCG/SPRAY BOTTLE NS SCH (10:16)
--- NOTE | 2018-01-08 12:33 | General Surgery Progress Note ---
Date of Encounter: 01/08/18 Time of Encounter: 12:10 Subjective Patient reports: still having pain Narrative: General Surgery - Patient complaining of slightly increased left lower quadrant abdominal pain , this is likely due to initiation of clear liquid diet Despite the increased left lower quadrant abdominal pain, patient remains afebrile, pulse 90, respirations 18, blood pressure 126/82. Lungs: Clear bilaterally; no abdominal pain with deep inspiration Abdomen: Obese, protuberant with increased tenderness left lower quadrant. No discernible intra-abdominal masses. No peritoneal signs or rebound. Laboratories: White count 5.3, hemoglobin 14.0 with hematocrit 41.0. Differential within normal limits Electrolytes BUN, creatinine - are within normal limits; BUN is normalized to 19, creatinine 1.13; estimated GFR greater than 60 Impression: Recurrent, acute sigmoid diverticulitis. Status appears stable, however, there is increased abdominal pain with initiation of clear liquid diet. Hypokalemia corrected Transient renal insufficiency/RONNI has responded to medical management Recommendations: Do not advance diet; maintain clear liquids. Continue to monitor for worsening abdominal pain Continue IV antibiotics Objective Vital Signs - Last 8 Hours Temp Pulse Resp BP Pulse Ox 01/08/18 10:27 97.7 F 90 18 126/82 94 01/08/18 09:49 97 01/08/18 07:19 18 97 01/08/18 07:03 97.7 F 80 16 114/75 97 Intake and Output 01/07/18 01/08/18 01/08/18 23:59 07:59 15:59 Intake Total 1740 / 1740 1520 / 1520 840 / 840 Output Total 1410 / 1410 2500 / 2500 500 / 500 Balance 330 / 330 -980 / -980 340 / 340 Intake: IV Fluids 300 / 300 1400 / 1400 Lactated Ringers 1,000 ML @ 50 1000 / 1000 mls/hr IVC .Q20H [facility] Rx#: [id number] Cipro Premix 400 MG/200 ML 400 200 / 200 200 / 200 mg In 200 ml @ 200 mls/hr IVPB Q12HR [facility] Rx#:[id number] Flagyl Premix 500 MG/100 ML 500 100 / 100 200 / 200 mg In 100 ml @ 100 mls/hr IVPB Q6HR EUGENIO Rx#:[id number] Oral 1440 / 1440 120 / 120 840 / 840 Output: Urine 1410 / 1410 2500 / 2500 500 / 500 Other: Meal Dinner Clears # Bowel Movements 1 0 0 Blood Glucose* 177 149 185 - Labs 01/08/18 04:53 01/08/18 04:53 Diabetes panel 01/08/18 Range/Units 04:53 Sodium 139 (136-145) mEq/L Potassium 4.2 (3.5-5.1) mEq/L Chloride 104 (98-107) mEq/L Carbon Dioxide 24 (23-29) mEq/L BUN 19 (6-20) mg/dL Creatinine 1.13 (0.70-1.30) mg/dL Glucose 132 H (70-105) mg/dL Calcium 9.3 (8.6-10.3) mg/dL Calcium panel 01/08/18 Range/Units 04:53 Calcium 9.3 (8.6-10.3) mg/dL Pituitary panel 01/08/18 Range/Units 04:53 Sodium 139 (136-145) mEq/L Potassium 4.2 (3.5-5.1) mEq/L Chloride 104 (98-107) mEq/L Carbon Dioxide 24 (23-29) mEq/L BUN 19 (6-20) mg/dL Creatinine 1.13 (0.70-1.30) mg/dL Glucose 132 H (70-105) mg/dL Calcium 9.3 (8.6-10.3) mg/dL Adrenal panel 01/08/18 Range/Units 04:53 Sodium 139 (136-145) mEq/L Potassium 4.2 (3.5-5.1) mEq/L Chloride 104 (98-107) mEq/L Carbon Dioxide 24 (23-29) mEq/L BUN 19 (6-20) mg/dL Creatinine 1.13 (0.70-1.30) mg/dL Glucose 132 H (70-105) mg/dL Calcium 9.3 (8.6-10.3) mg/dL - VTE Documentation of Mechanical Device: Intermittent pneumatic compression device Consult Discharge Plan - Plan Referrals: Sandhya Acuña MD [Primary Care Provider] - 01/14/18 10:00 am
--- NOTE | 2018-01-08 12:56 | Internal Med Progress Note ---
Date of Encounter: 01/08/18 Time of Encounter: 11:00 - Assessment and plan (1) Sepsis Current Visit: Yes Status: Acute Assessment and plan: Initially presented with leukocytosis and hypotension. Also had organ dysfunction in the form of RONNI lactic acid normal Likely secondary to acute diverticulitis, resolving on IV abx continue clears today per surgery follow up on blood culture Qualifiers: Qualified Code(s): A41.9 - Sepsis, unspecified organism (2) Diverticulitis Current Visit: Yes Status: Acute Assessment and plan: abx and diet as above mx per surgery (3) Acute kidney injury Current Visit: Yes Status: Acute Assessment and plan: resolving with IVF with good UOP continue to hold lasix and lisinopril (4) Hypertension Current Visit: Yes Status: Acute Assessment and plan: low normal, hold meds as above Qualifiers: Qualified Code(s): I10 - Essential (primary) hypertension (5) HLD (hyperlipidemia) Current Visit: No Status: Acute Assessment and plan: continue home meds Qualifiers: Hyperlipidemia type: mixed hyperlipidemia Qualified Code(s): E78.2 - Mixed hyperlipidemia (6) Diabetes mellitus Current Visit: Yes Status: Acute Assessment and plan: History of diabetes on insulin, started on clears yesterday BG 149-185 increase sliding scale coverage to moderate dose Qualifiers: Qualified Code(s): E11.9 - Type 2 diabetes mellitus without complications (7) DVT prophylaxis Current Visit: No Status: Acute Assessment and plan: SQ heparin - Time Spent With Patient Total time spent is greater than 50% in coordination of care (as documented) at patient's floor/unit and/or counseling patient: - Subjective Interval history: abdominal discomfort is still present on LLQ, no N/V. Moving bowel - Constitutional Vitals: Temp Pulse Resp BP Pulse Ox 97.7 F 90 18 126/82 94 01/08/18 10:27 01/08/18 10:27 01/08/18 10:27 01/08/18 10:27 01/08/18 10:27 General appearance: Present: mild distress, A&O X 3, pleasant Exam: General: Alert and oriented Cardiovascular:Normal S1 & S2, no murmurs or gallops. No JVD. Pulse regular. Lungs:Normal breath sounds, no wheezes or crackles. Abdomen:Soft, mild lower quadrant tenderness without rebound/guarding Extremities:No deformity, no edema or tenderness, no joint swelling. Rest of the physical exam is non-contributory Internal Medicine: Result - Labs CBC & Chem 7: 01/08/18 04:53 01/08/18 04:53 Labs: Short CBC 01/08/18 Range/Units 04:53 WBC 5.3 (4.3-11.1) K/mcL Hgb 14.0 D (12.9-16.9) g/dL Hct 41.1 (37.5-50.1) % Plt Count 238 (140-400) K/mcL Neutrophils # 2.9 (1.6-8.9) K/mcL BMP 01/08/18 04:53 Sodium 139 Potassium 4.2 Chloride 104 Carbon Dioxide 24 BUN 19 Creatinine 1.13 Glucose 132 H Calcium 9.3 - VTE Documentation of Mechanical Device: Intermittent pneumatic compression device Consult Discharge Plan - Plan Referrals: Sandhya Acuña MD [Primary Care Provider] - 01/14/18 10:00 am
[2018-01-08] MEDS ORDERED: (Albuterol Sulfate [Proair Respiclick] 2 PUFF) IH PRN (15:32)
[2018-01-08] MEDS ORDERED: Insulin LISPRO 300 UNITS/3 ML VIAL SQ SCH (21:00)
[2018-01-09] MEDS: MetroNIDAZOLE 500 MG/100 ML 500 MG/100 ML BAG IVPB SCH ×2 (00:14→06:04)
[2018-01-09 01:54] LABS: Basophils # 0.1 K/mcL (0.0-0.2); Eosinophils # 0.2 K/mcL (0.0-0.6); Eosinophils % 3.5 %; Hematocrit 36.1 % (37.5-50.1); Immature Granulocytes % 0.2 % (0-4); Lymphocytes # 1.6 K/mcL (0.6-4.6); Lymphocytes % 32.4 %; Mean Corpuscular HGB Conc 33.8 g/dL (31.6-35.5); Mean Corpuscular Hemoglobin 29.2 pg (28.0-33.3); Mean Corpuscular Volume 86.4 fL (83.0-100.0); Mean Platelet Volume 8.9 fL (9.4-12.4); Monocytes # 0.5 K/mcL (0.0-1.3); Monocytes % 10.1 %; Neutrophils # 2.6 K/mcL (1.6-8.9); Platelet Count 262 K/mcL (140-400); Red Blood Count 4.18 M/mcL (4.19-5.50); Red Cell Distribution Width 12.4 % (11.5-14.5); Segmented Neutrophils % 52.8 %
[2018-01-09 01:55] LABS: Hemoglobin 12.2 g/dL (12.9-16.9)
[2018-01-09 02:11] LABS: BUN/Creatinine Ratio 11 (6-26); Blood Urea Nitrogen 12 mg/dL (6-20); Calcium 9.4 mg/dL (8.6-10.3); Carbon Dioxide 27 mEq/L (23-29); Chloride 102 mEq/L (98-107); Glucose 132 mg/dL (70-105); Osmolality,Calculated 288 (280-300); Potassium 3.3 mEq/L (3.5-5.1); Sodium 138 mEq/L (136-145); eGFR For African Americans > 60 (> 60); eGFR For Non-African Americans > 60 (> 60)
[2018-01-09] MEDS: *HR* Heparin 5,000 UNIT/ML VIAL SQ SCH ×3 (05:57→20:48)
[2018-01-09] MEDS: Ringers Solution, Lactated 1,000 ML IVC SCH ×2 (06:17→21:05)
[2018-01-09] MEDS ORDERED: Potassium Chloride Elixir 20 MEQ/15 ML UDC PO ONE (08:07)
[2018-01-09] MEDS: Beclomethasone 80mcg MDI IH SCH ×2 (08:08→20:14)
[2018-01-09] MEDS: Venlafaxine XR (24 HR) 75 MG CAP.ER.24H PO SCH (08:40)
[2018-01-09] MEDS: Fluticasone Propionate Nasal 50 MCG/SPRAY BOTTLE NS SCH (08:41)
[2018-01-09] MEDS: Finasteride 5 MG TABLET PO SCH (08:42)
[2018-01-09] MEDS: Insulin LISPRO 300 UNITS/3 ML VIAL SQ SCH ×2 (08:45→18:28)
--- NOTE | 2018-01-09 09:58 | General Surgery Progress Note ---
Date of Encounter: 01/09/18 Time of Encounter: 09:52 Subjective Patient reports: no new complaints, pain is less, tolerating liquids well Narrative: General Surgery Patient doing well, voicing no new complaints. Left lower quadrant abdominal pain has diminished. Tolerating clear liquids; no nausea or vomiting. Passing flatus. Afebrile, currently 97.8; pulse 85-101, currently 101. Respirations 15, blood pressure 138/93 Lungs: Clear; no obvious abdominal pain with deep inspiration Abdomen: Obese, soft, with no detected left lower quadrant abdominal tenderness. No obvious rebound or peritoneal signs. Urine output: 4850 mL for calendar day 01/08/18; 1150 mL so far today Laboratories: White count 4.9, hemoglobin 12.2, hematocrit 36.1. Platelet count 262,000; differential within normal limits Electrodes notable for recurrent hypokalemia, 3.3. Impression/Plan: Recurrent diverticulitis; patient currently improved on IV antibiotics. Unclear whether this is diverticulitis refractory to medical management or recurrent diverticulitis due to undertreatment. Patient describes previous treatments for acute diverticulitis with Cipro and metronidazole. Will trial oral antibiotics, however, will prescribe Augmentin 500 mg po TID and Metronidazole 500 mg po TID. Advance diet to full liquids. Recurrent hypokalemia - increase oral supplementation Objective Vital Signs - Last 8 Hours Temp Pulse Resp BP Pulse Ox 01/09/18 06:51 97.8 F 101 15 138/93 97 01/09/18 03:35 97.8 F 85 17 124/87 95 Intake and Output 01/08/18 01/09/18 01/09/18 23:59 07:59 15:59 Intake Total 2200 / 2200 100 / 100 Output Total 1250 / 1250 1150 / 1150 Balance 950 / 950 -1050 / -1050 Intake: IV Fluids 1300 / 1300 100 / 100 Lactated Ringers 1,000 ML @ 50 1000 / 1000 mls/hr IVC .Q20H [facility] Rx#: [id number] Cipro Premix 400 MG/200 ML 400 200 / 200 mg In 200 ml @ 200 mls/hr IVPB Q12HR [facility] Rx#:[id number] Flagyl Premix 500 MG/100 ML 500 100 / 100 100 / 100 mg In 100 ml @ 100 mls/hr IVPB Q6HR [facility] Rx#:[id number] Oral 900 / 900 0 / 0 Output: Urine 1250 / 1250 1150 / 1150 Other: Meal Clears Weight 167 kg Blood Glucose* 140 182 Patient Weight 01/09/18 23:59 Weight 167 kg - Labs 01/09/18 01:38 01/09/18 01:38 Diabetes panel 01/09/18 Range/Units 01:38 Sodium 138 (136-145) mEq/L Potassium 3.3 L (3.5-5.1) mEq/L Chloride 102 (98-107) mEq/L Carbon Dioxide 27 (23-29) mEq/L BUN 12 (6-20) mg/dL Creatinine 1.14 (0.70-1.30) mg/dL Glucose 132 H (70-105) mg/dL Calcium 9.4 (8.6-10.3) mg/dL Calcium panel 01/09/18 Range/Units 01:38 Calcium 9.4 (8.6-10.3) mg/dL Pituitary panel 01/09/18 Range/Units 01:38 Sodium 138 (136-145) mEq/L Potassium 3.3 L (3.5-5.1) mEq/L Chloride 102 (98-107) mEq/L Carbon Dioxide 27 (23-29) mEq/L BUN 12 (6-20) mg/dL Creatinine 1.14 (0.70-1.30) mg/dL Glucose 132 H (70-105) mg/dL Calcium 9.4 (8.6-10.3) mg/dL Adrenal panel 01/09/18 Range/Units 01:38 Sodium 138 (136-145) mEq/L Potassium 3.3 L (3.5-5.1) mEq/L Chloride 102 (98-107) mEq/L Carbon Dioxide 27 (23-29) mEq/L BUN 12 (6-20) mg/dL Creatinine 1.14 (0.70-1.30) mg/dL Glucose 132 H (70-105) mg/dL Calcium 9.4 (8.6-10.3) mg/dL - VTE Documentation of Mechanical Device: Intermittent pneumatic compression device Consult Discharge Plan - Plan Referrals: Sandhya Acuña MD [Primary Care Provider] - 01/14/18 10:00 am
--- NOTE | 2018-01-09 13:33 | Internal Med Progress Note ---
Date of Encounter: 01/09/18 Time of Encounter: 12:10 - Assessment and plan (1) Sepsis Current Visit: Yes Status: Acute Assessment and plan: Initially presented with leukocytosis and hypotension. Also had organ dysfunction in the form of RONNI lactic acid normal Likely secondary to acute diverticulitis, resolving on IV abx -> switched to PO full liquids today per surgery follow up on blood culture Qualifiers: Qualified Code(s): A41.9 - Sepsis, unspecified organism (2) Diverticulitis Current Visit: Yes Status: Acute Assessment and plan: abx and diet as above mx per surgery (3) Acute kidney injury Current Visit: Yes Status: Acute Assessment and plan: resolved with IVF with good UOP continue to hold lasix and lisinopril (4) Hypertension Current Visit: Yes Status: Acute Assessment and plan: hold meds as above Qualifiers: Qualified Code(s): I10 - Essential (primary) hypertension (5) HLD (hyperlipidemia) Current Visit: No Status: Acute Assessment and plan: continue home meds Qualifiers: Hyperlipidemia type: mixed hyperlipidemia Qualified Code(s): E78.2 - Mixed hyperlipidemia (6) Diabetes mellitus Current Visit: Yes Status: Acute Assessment and plan: History of diabetes on insulin, advanced to full liquids today will start basal insulin and decrease sliding scale to low dose Qualifiers: Qualified Code(s): E11.9 - Type 2 diabetes mellitus without complications (7) DVT prophylaxis Current Visit: No Status: Acute Assessment and plan: SQ heparin - Time Spent With Patient Total time spent is greater than 50% in coordination of care (as documented) at patient's floor/unit and/or counseling patient: - Subjective Interval history: No new complaints, minimal LLQ tenderness. tolerating clear liquid. - Constitutional Vitals: Temp Pulse Resp BP Pulse Ox 98.0 F 95 18 134/87 98 01/09/18 11:33 01/09/18 11:33 01/09/18 11:33 01/09/18 11:33 01/09/18 11:33 General appearance: Present: mild distress, A&O X 3, pleasant Exam: General: Alert and oriented Cardiovascular:Normal S1 & S2, no murmurs or gallops. No JVD. Pulse regular. Lungs:Normal breath sounds, no wheezes or crackles. Abdomen:Soft, mild lower quadrant tenderness without rebound/guarding Extremities:No deformity, no edema or tenderness, no joint swelling. Rest of the physical exam is non-contributory Internal Medicine: Result - Labs CBC & Chem 7: 01/09/18 01:38 01/09/18 01:38 Labs: Short CBC 01/09/18 Range/Units 01:38 WBC 4.9 (4.3-11.1) K/mcL Hgb 12.2 L D (12.9-16.9) g/dL Hct 36.1 L (37.5-50.1) % Plt Count 262 (140-400) K/mcL Neutrophils # 2.6 (1.6-8.9) K/mcL BMP 01/09/18 01:38 Sodium 138 Potassium 3.3 L Chloride 102 Carbon Dioxide 27 BUN 12 Creatinine 1.14 Glucose 132 H Calcium 9.4 - VTE Documentation of Mechanical Device: Intermittent pneumatic compression device Consult Discharge Plan - Plan Referrals: Sandhya Acuña MD [Primary Care Provider] - 01/14/18 10:00 am
[2018-01-09] MEDS: Amoxicillin/Clavulanate 500 MG TABLET PO SCH ×3 (14:05→21:00)
[2018-01-09] MEDS: metroNIDAZOLE 500 MG TABLET PO SCH ×2 (14:06→21:00)
[2018-01-09] MEDS ORDERED: Insulin DETEMIR 100 UNIT/ML X5UNITS SQ SCH (21:00)
[2018-01-09] MEDS ORDERED: Insulin LISPRO 300 UNITS/3 ML VIAL SQ SCH (21:00)
[2018-01-10] MEDS: *HR* Heparin 5,000 UNIT/ML VIAL SQ SCH ×2 (02:31→09:09)
[2018-01-10 06:34] LABS: Basophils % 0.4 %; Eosinophils # 0.2 K/mcL (0.0-0.6); Eosinophils % 3.4 %; Hematocrit 37.2 % (37.5-50.1); Hemoglobin 12.7 g/dL (12.9-16.9); Immature Granulocytes % 0.6 % (0-4); Lymphocytes # 1.7 K/mcL (0.6-4.6); Lymphocytes % 31.6 %; Mean Corpuscular HGB Conc 34.1 g/dL (31.6-35.5); Mean Corpuscular Hemoglobin 29.6 pg (28.0-33.3); Mean Corpuscular Volume 86.7 fL (83.0-100.0); Mean Platelet Volume 9.3 fL (9.4-12.4); Monocytes # 0.5 K/mcL (0.0-1.3); Monocytes % 9.4 %; Neutrophils # 2.9 K/mcL (1.6-8.9); Platelet Count 282 K/mcL (140-400); Red Blood Count 4.29 M/mcL (4.19-5.50); Red Cell Distribution Width 12.5 % (11.5-14.5); Segmented Neutrophils % 54.6 %
[2018-01-10 06:55] LABS: BUN/Creatinine Ratio 7 (6-26); Blood Urea Nitrogen 8 mg/dL (6-20); Calcium 9.4 mg/dL (8.6-10.3); Carbon Dioxide 26 mEq/L (23-29); Chloride 103 mEq/L (98-107); Glucose 162 mg/dL (70-105); Magnesium 1.6 mg/dL (1.6-2.6); Osmolality,Calculated 292 (280-300); Potassium 3.6 mEq/L (3.5-5.1); Sodium 140 mEq/L (136-145); eGFR For African Americans > 60 (> 60); eGFR For Non-African Americans > 60 (> 60)
[2018-01-10] MEDS: Insulin LISPRO 300 UNITS/3 ML VIAL SQ SCH ×3 (06:55→07:49)
[2018-01-10] MEDS: Ringers Solution, Lactated 1,000 ML IVC SCH (06:55)
[2018-01-10] MEDS: Beclomethasone 80mcg MDI IH SCH (08:11)
[2018-01-10] MEDS ORDERED: Lisinopril 20 MG TABLET PO SCH (09:00)
[2018-01-10] MEDS: Amoxicillin/Clavulanate 500 MG TABLET PO SCH (09:05)
[2018-01-10] MEDS: metroNIDAZOLE 500 MG TABLET PO SCH (09:05)
[2018-01-10] MEDS: Finasteride 5 MG TABLET PO SCH (09:05)
[2018-01-10] MEDS: Venlafaxine XR (24 HR) 75 MG CAP.ER.24H PO SCH (09:05)
[2018-01-10] MEDS: Fluticasone Propionate Nasal 50 MCG/SPRAY BOTTLE NS SCH (09:07)
--- NOTE | 2018-01-10 10:25 | General Surgery Progress Note ---
Date of Encounter: 01/10/18 Time of Encounter: 10:20 Subjective Patient reports: pain is less Narrative: General Surgery Patient remains afebrile, with stable vital signs - pulse ranging 99-110; respirations 16, blood pressure 149/98 Patient indicating he is in no acute distress; he is tolerating a full liquid diet. Abdomen: Soft, with minimal left lower quadrant tenderness to deep palpation. No peritoneal signs or rebound. Bowel sounds active. Laboratories: White count 5.2, hemoglobin stable at 12.7 with hematocrit 37.2. Platelet count 282,000; differential within normal limits. Electrodes, BUN, creatinine within normal limits; hypokalemia corrected, 3.6 Impression: Acute sigmoid diverticulitis - improved with IV antibiotics. Patient appears to be tolerating oral antibiotics - currently on Augmentin 500 mg po 3 times a day and metronidazole 500 mg po 3 times a day Recommendations: May discharge home Continue Augmentin and metronidazole 3 times a day Follow-up my office 01/15/18. Patient may call office tomorrow to make this appointment. Regular (diabetic) diet Activity as tolerated Patient should avoid constipation if at all possible. Objective Vital Signs - Last 8 Hours Temp Pulse Resp BP Pulse Ox 01/10/18 08:11 16 149/98 95 01/10/18 07:56 94 01/10/18 07:17 97.8 F 100 16 149/98 94 01/10/18 04:03 97.7 F 99 18 166/72 94 Intake and Output 01/09/18 01/10/18 01/10/18 23:59 07:59 15:59 Intake Total 2200 / 2200 100 / 100 520 / 520 Output Total 0 / 0 1550 / 1550 Balance 2200 / 2200 -1450 / -1450 520 / 520 Intake: IV Fluids 1000 / 1000 Lactated Ringers 1,000 ML @ 50 1000 / 1000 mls/hr IVC .Q20H [facility] Rx#: [id number] Oral 1200 / 1200 100 / 100 520 / 520 Output: Urine 0 / 0 1550 / 1550 Other: Meal Dinner Breakfast Percent of Meal Consumed 100% 100% Stool Size Small Stool Consistency soft Stool Color Brown # Bowel Movements 1 Weight 167 kg Blood Glucose* 162 173 Patient Weight 01/10/18 23:59 Weight 167 kg - Labs 01/10/18 05:17 01/10/18 05:17 Diabetes panel 07/15/18 Range/Units 05:17 Sodium 140 (136-145) mEq/L Potassium 3.6 (3.5-5.1) mEq/L Chloride 103 (98-107) mEq/L Carbon Dioxide 26 (23-29) mEq/L BUN 8 (6-20) mg/dL Creatinine 1.11 (0.70-1.30) mg/dL Glucose 162 H (70-105) mg/dL Calcium 9.4 (8.6-10.3) mg/dL Calcium panel 01/10/18 Range/Units 05:17 Calcium 9.4 (8.6-10.3) mg/dL Pituitary panel 01/10/18 Range/Units 05:17 Sodium 140 (136-145) mEq/L Potassium 3.6 (3.5-5.1) mEq/L Chloride 103 (98-107) mEq/L Carbon Dioxide 26 (23-29) mEq/L BUN 8 (6-20) mg/dL Creatinine 1.11 (0.70-1.30) mg/dL Glucose 162 H (70-105) mg/dL Calcium 9.4 (8.6-10.3) mg/dL Adrenal panel 01/10/18 Range/Units 05:17 Sodium 140 (136-145) mEq/L Potassium 3.6 (3.5-5.1) mEq/L Chloride 103 (98-107) mEq/L Carbon Dioxide 26 (23-29) mEq/L BUN 8 (6-20) mg/dL Creatinine 1.11 (0.70-1.30) mg/dL Glucose 162 H (70-105) mg/dL Calcium 9.4 (8.6-10.3) mg/dL - VTE Documentation of Mechanical Device: Intermittent pneumatic compression device Consult Discharge Plan - Plan Referrals: Sandhya Acuña MD [Primary Care Provider] - 01/14/18 10:00 am
[2018-01-10 11:29] VITALS: BP 129/84
--- NOTE | 2018-01-10 11:54 | Discharge Summary ---
Date of Encounter: 01/10/18 Time of Encounter: 11:40 - Discharge Diagnosis (1) Sepsis Priority: Secondary Status: Acute Qualifiers: Qualified Code(s): A41.9 - Sepsis, unspecified organism (2) Diverticulitis Priority: Primary Status: Acute (3) Acute kidney injury Priority: Secondary Status: Acute (4) Hypertension Priority: Secondary Status: Acute Qualifiers: Qualified Code(s): I10 - Essential (primary) hypertension (5) HLD (hyperlipidemia) Priority: Secondary Status: Acute Qualifiers: Hyperlipidemia type: mixed hyperlipidemia Qualified Code(s): E78.2 - Mixed hyperlipidemia (6) Diabetes mellitus Priority: Secondary Status: Acute Qualifiers: Qualified Code(s): E11.9 - Type 2 diabetes mellitus without complications (7) DVT prophylaxis Priority: Secondary Status: Acute Hospital course: Mr. Almeida is a 57 year old male with PMHx of diverticulitis, HTN, HLD, presented to the ED with 3 day history of abdominal pain. CT showed findings consistent with sigmoid diverticulitis. He was treated with IV cipro/flagyl with symptomatic improvement and resolution of his RONNI. He was able to tolerate diet without significant nausea. He was co-managed with surgery and was advised to take PO Augmentin/Flagyl TID. He is to follow up with general surgery on Thursday. Discharge discussed with: patient, family - Time Spent with Patient Total time spent providing and/or coordinating discharge services: Greater than 30 minutes - Discharge Medications Prescriptions: Amoxicillin/Clavulanate [Augmentin] 500 mg PO TID 5 Days #15 tablet metroNIDAZOLE [Flagyl] 500 mg PO TID 5 Days #15 tablet Home Medications: Atenolol [Tenormin] 100 mg PO QAM 03/23/15 [History] Metformin [Glucophage] 1,000 mg PO BID 03/23/15 [History] Albuterol Sulfate [Proair Respiclick] 1 - 2 puff IH Q4-6H PRN 07/30/15 [History] Furosemide [Lasix] 40 mg PO QAM 07/30/15 [History] Lisinopril [Zestril] 20 mg PO BID 07/30/15 [History] Hailey-3S/Dha/Epa/Fish Oil [Fish Oil 1,200 mg Softgel] 1 cap PO BID 07/30/15 [ History] Potassium Chloride [K-Tab ER] 10 meq PO Q3D 07/30/15 [History] Cinnamon Bark [Cinnamon] 1,000 mg PO BID 01/31/17 [History] Finasteride [Proscar] 5 mg PO DAILY 01/31/17 [History] Omeprazole [PriLOSEC] 40 mg PO DAILY 01/31/17 [History] Venlafaxine XR (24 HR) [Effexor XR] 150 mg PO DAILY 01/31/17 [History] Simvastatin [Zocor] 40 mg PO DAILY 02/01/17 [History] Multivitamin [Multivitamins] 1 each PO DAILY 03/23/17 [History] Fluticasone Propionate Nasal [Flonase] 1 spray NS DAILY 11/05/17 [History] Insulin Glargine,Hum.rec.anlog [Basaglar Kwikpen U-100] 62 unit SQ BID 11/05/17 [History] Budesonide [Pulmicort Flexhaler 180mcg] 2 puff IH BID 01/05/18 [History] Amoxicillin/Clavulanate [Augmentin] 500 mg PO TID 5 Days #15 tablet 01/10/18 [Rx ] metroNIDAZOLE [Flagyl] 500 mg PO TID 5 Days #15 tablet 01/10/18 [Rx] Allergies/Adverse Reactions: 3 Allergy/AdvReac Type Severity Reaction Status Date / Time amlodipine [From Norvasc] Allergy Rash Verified 11/05/17 07:10 bupropion [From Wellbutrin] Allergy Rash Verified 11/05/17 07:10 gabapentin Allergy Rash Verified 11/05/17 07:10 morphine AdvReac Confusion Verified 11/05/17 07:10 Date of admission: 01/06/18 00:41 Primary care physician: Sandhya Acuña MD Consults: 01/06/18 15:24 Consult to Surgery [CONS] Routine Consulting Provider: Surgery [facility] Reason for Consult: Diverticulitis Call Completed: Yes - Constitutional Vitals: Temp Pulse Resp BP Pulse Ox 98.3 F 102 15 129/84 94 01/10/18 11:27 01/10/18 11:27 01/10/18 11:27 01/10/18 11:27 01/10/18 11:27 General appearance: Present: mild distress, A&O X 3, pleasant Exam: General: Alert and oriented Cardiovascular:Normal S1 & S2, no murmurs or gallops. No JVD. Pulse regular. Lungs:Normal breath sounds, no wheezes or crackles. Abdomen:Soft, non-tender Extremities:No deformity, no edema or tenderness, no joint swelling. Rest of the physical exam is non-contributory - Patient Status Disposition: Home, Self-Care Condition: Fair Overall status at discharge: patient is back to baseline - Discharge Instructions Instructions: Diverticulitis (DC), Sepsis (DC), Chronic Hypertension (DC) Follow Up With: Sandhya Acuña MD [Primary Care Provider] - 01/14/18 10:00 am - Diet and Activity Activity: resume usual activities as tolerated Diet: advance to your usual diet - VTE Documentation of Mechanical Device: Intermittent pneumatic compression device
== END 2018-01-10 12:48 | disposition home or self-care (01) | DRG 872 ==
LOC: EMEROO 16:32 → 3ANU 16:32 → SUATTDRO 01-06 00:41
PROVIDERS: ADMIT Pediatrics; ATTEND Internal Medicine

== ENCOUNTER 2018-05-05 17:55 | Inpatient (IN) ==
--- NOTE | 2018-05-05 18:13 | Emergency Department Note ---
Disposition Clinical Impression: Hypercapnic respiratory failure Qualifiers: Chronicity: acute on chronic Qualified Code(s): J96.22 - Acute and chronic respiratory failure with hypercapnia Disposition: Admitted As Inpatient Condition: Good Referrals: Sandhya Acuña MD [Primary Care Provider] - Forms: ED Satisfaction Letter Time of Disposition: 20:44 General Adult HPI - General Chief complaint: ED Weakness Stated complaint: disoriented / low sugar Time Seen by Provider: 05/05/18 17:56 Source: EMS Limitations: no limitations Nursing Notes Reviewed: Yes Vital Signs Reviewed: Yes - History of Present Illness HPI Narrative: Male patient presents to the emergency department by EMS for disorientation. Th e is presenting with the patient and states that he has been "unresponsive." She states that this has been throughout the day that he has been unable to be aroused. She states he has not been using his CPAP and he has not used it for the past year. She also reports that he has intermittently been taking his diabetic medication. He is a diabetic his blood glucose was checked at home and by EMS was found to be normal. We did recheck it while here. As well. He is arousable to voice command. He is alert and oriented 3 however he does drift back to sleep rather quickly. Pupils are equal and reactive. He is moving all 4 x-rays. Patient is an obese male. He denies any congestion or fevers. He does report a cough that is chronic for him. The states that he does have a history of COPD. He denies any chest pain or shortness of breath. He denies any abdominal pain nausea or vomiting. Pain Scale: 0 - Related Data Home Medications Medication Instructions Recorded Confirmed Atenolol [Tenormin] 100 mg PO QAM 03/23/15 05/05/18 Metformin [Glucophage] 1,000 mg PO BID 03/23/15 05/05/18 Albuterol Sulfate [Proair 1 - 2 puff IH Q4-6H PRN 07/30/15 05/05/18 Respiclick] Furosemide [Lasix] 40 mg PO QAM 07/30/15 05/05/18 Lisinopril [Zestril] 20 mg PO BID 07/30/15 05/05/18 Mclain-3S/Dha/Epa/Fish Oil [Fish 1 cap PO BID 07/30/15 05/05/18 Oil 1,200 mg Softgel] Potassium Chloride [K-Tab ER] 10 meq PO Q3D 07/30/15 05/05/18 Cinnamon Bark [Cinnamon] 1,000 mg PO BID 01/31/17 05/05/18 Finasteride [Proscar] 5 mg PO DAILY 01/31/17 05/05/18 Omeprazole [PriLOSEC] 40 mg PO DAILY 01/31/17 05/05/18 Venlafaxine XR (24 HR) [Effexor XR] 150 mg PO DAILY 01/31/17 05/05/18 Simvastatin [Zocor] 40 mg PO DAILY 02/01/17 05/05/18 Multivitamin [Multivitamins] 1 each PO DAILY 03/23/17 05/05/18 Fluticasone Propionate Nasal 1 spray NS DAILY 11/05/17 05/05/18 [Flonase] Insulin Glargine,Hum.rec.anlog 10 - 50 unit SQ BID 11/05/17 05/05/18 [Basaglar Kwikpen U-100] Budesonide [Pulmicort Flexhaler 2 puff IH BID 01/05/18 05/05/18 180mcg] Chlorthalidone 25 mg PO DAILY 05/05/18 05/05/18 Allergies Allergy/AdvReac Type Severity Reaction Status Date / Time amlodipine [From Norvasc] Allergy Rash Verified 05/05/18 18:13 bupropion [From Wellbutrin] Allergy Rash Verified 05/05/18 18:13 gabapentin Allergy Rash Verified 05/05/18 18:13 morphine AdvReac Confusion Verified 05/05/18 18:13 All systems ED: reviewed and negative except as stated. Review of Systems: As Per HPI Constitutional: Denies: fever, chills ENT ED: Denies: congestion Cardiovascular: Denies: chest pain, palpitations, syncope Respiratory: Reports: cough. Denies: dyspnea Gastrointestinal: Denies: abdominal pain, nausea, vomiting, diarrhea, hematemesis, melena, hematochezia Genitourinary: Denies: urgency, dysuria Musculoskeletal: Denies: back pain, neck pain Integumentary: Denies: rash Neurological: Denies: headache Past Medical History - Past Medical History Attestation: Yes The following information was validated with the patient. Source: patient Medical history: Reports: atrial fibrillation, diabetes, hypertension, other Surgical history: Reports: orthopedic, other, other Psychiatric history: Reports: anxiety, depression - Social History Smoking Status: Never smoker Smokeless Tobacco Status: No Alcohol use: Reports: none Drug use: Reports: none Physical Exam - General Limitations: no limitations General appearance: in no apparent distress, other (Appears tired. Is arousable. However quickly goes back to sleep.) - Head Head exam: atraumatic, normocephalic, normal inspection - Eye Eye exam: Present: normal appearance, PERRL, EOMI - ENT ENT exam: normal exam, normal oropharynx, mucous membranes moist - Neck Neck exam: Present: normal inspection, full ROM, trachea midline - Chest Chest inspection: Present: normal inspection, symmetric chest wall rise - Respiratory Respiratory exam: Present: normal lung sounds bilaterally. Absent: respiratory distress, accessory muscle use - Cardiovascular Cardiovascular exam: Present: regular rate, normal rhythm, normal heart sounds - Abdominal Exam Abdominal exam: Present: soft, Non-Tender. Absent: tenderness, distention, guarding, rebound, rigidity, organomegaly, Verdin's sign, Rovsing's sign, tenderness at McBurney's Point - Extremities Exam Extremities exam: Present: normal inspection, full ROM, normal capillary refill, pedal edema (Bilaterally.). Absent: tenderness - Neurological Exam Neurological exam: Present: alert, oriented X3, other (Quickly goes to sleep.) - Psychiatric Psychiatric exam: Present: normal affect, normal mood - Skin Skin exam: Present: warm, dry, intact, normal color Course Course Narrative: Male patient with history of obstructive sleep apnea presenting with hypercapnic respiratory failure. He was placed on BiPAP and has been responding well to that. He is mentating more appropriately. Lab work was normal. No signs of pneumonia on his chest x-ray. We will admit patient to the hospital for acute on chronic hypercapnic Respiratory failure. - Consultations Consultation #1: Dr Fischer accepted Pt in stable condition. Time: 20:37 Vital Signs Temperature 98.1 F 05/05/18 18:04 Pulse Rate 65 05/05/18 18:04 Respiratory Rate 16 05/05/18 18:04 Blood Pressure 115/83 05/05/18 18:04 O2 Sat by Pulse Oximetry 99 05/05/18 18:04 Temperature 98.1 F 05/05/18 18:04 Pulse Rate 65 05/05/18 20:04 Respiratory Rate 18 05/05/18 20:04 Blood Pressure 108/74 05/05/18 20:04 O2 Sat by Pulse Oximetry 100 05/05/18 20:04 Oxygen Delivery Oxygen Delivery Bipap Medical Decision Making - Medical Records Medical records reviewed: Yes I reviewed the patient's medical records. - Lab Data Lab results reviewed: Yes I reviewed the patient's lab results. Result diagrams: 05/05/18 18:40 05/05/18 18:40 Lab Results 05/05/18 05/05/18 05/05/18 Range/Units 18:15 18:40 18:40 WBC 6.0 (4.3-11.1) K/mcL RBC 4.51 (4.19-5.50) M/mcL Hgb 13.3 (12.9-16.9) g/dL Hct 39.9 (37.5-50.1) % MCV 88.5 (83.0-100.0) fL MCH 29.5 (28.0-33.3) pg MCHC 33.3 (31.6-35.5) g/dL RDW 13.2 (11.5-14.5) % Plt Count 208 (140-400) K/mcL MPV 9.4 (9.4-12.4) fL Immature Gran % 0.2 (0-4) % Seg Neutrophils % 59.1 % Lymphocytes % 29.3 % Monocytes % 7.4 % Eosinophils % 3.3 % Basophils % 0.7 % Neutrophils # 3.5 (1.6-8.9) K/mcL Lymphocytes # 1.8 (0.6-4.6) K/mcL Monocytes # 0.4 (0.0-1.3) K/mcL Eosinophils # 0.2 (0.0-0.6) K/mcL Basophils # 0.0 (0.0-0.2) K/mcL VBG pH (7.32-7.42) pH Units VBG pCO2 (41-51) mmHg VBG pO2 (25-50) mmHg VBG HCO3 (21-27) mEq/L Sodium 143 (136-145) mEq/L Potassium 3.6 (3.5-5.1) mEq/L Chloride 102 (98-107) mEq/L Carbon Dioxide 32 H (23-29) mEq/L BUN 34 H (6-20) mg/dL Creatinine 1.21 (0.70-1.30) mg/dL Est GFR ( Amer) > 60 (> 60) Est GFR (Non-Af Amer) > 60 (> 60) BUN/Creatinine Ratio 28 H (6-26) Glucose 95 (70-105) mg/dL POC Glucose 88 (70-99) mg/dL Calculated Osmolality 303 H (280-300) Calcium 9.4 (8.6-10.3) mg/dL Troponin I (< 0.04) ng/mL Urine Color (Yellow) Urine Clarity (Clear) Urine pH (5.0-8.0) pH Units Ur Specific [place] (1.010-1.025) Urine Protein (Neg-Trace) mg/dL Urine Glucose (UA) (Normal) mg/dL Urine Ketones (Negative) mg/dL Urine Blood (Negative) Urine Nitrite (Negative) Urine Bilirubin (Negative) Urine Urobilinogen (Normal) mg/dL Ur Leukocyte Esterase (Negative) Ur Culture Indicated? (NO) Urine Opiates Screen (Lvrrvw=928) ng/mL Ur Barbiturates Screen (Imbngp=313) ng/mL Ur Phencyclidine Scrn (Cutoff=25) ng/mL Ur Amphetamines Screen (Yyiixz=6482) ng/mL U Benzodiazepines Scrn (Wbugdf=796) ng/mL Urine Cocaine Screen (Cutoff= 300) ng/mL U Marijuana (THC) Screen (Cutoff = 50) ng/mL Ur Drug Screen Interp Ethyl Alcohol (Less than 10) mg/dL 05/05/18 05/05/18 05/05/18 Range/Units 18:40 18:53 19:38 WBC (4.3-11.1) K/mcL RBC (4.19-5.50) M/mcL Hgb (12.9-16.9) g/dL Hct (37.5-50.1) % MCV (83.0-100.0) fL MCH (28.0-33.3) pg MCHC (31.6-35.5) g/dL RDW (11.5-14.5) % Plt Count (140-400) K/mcL MPV (9.4-12.4) fL Immature Gran % (0-4) % Seg Neutrophils % % Lymphocytes % % Monocytes % % Eosinophils % % Basophils % % Neutrophils # (1.6-8.9) K/mcL Lymphocytes # (0.6-4.6) K/mcL Monocytes # (0.0-1.3) K/mcL Eosinophils # (0.0-0.6) K/mcL Basophils # (0.0-0.2) K/mcL VBG pH 7.34 (7.32-7.42) pH Units VBG pCO2 65 H (41-51) mmHg VBG pO2 33 (25-50) mmHg VBG HCO3 35 H (21-27) mEq/L Sodium (136-145) mEq/L Potassium (3.5-5.1) mEq/L Chloride (98-107) mEq/L Carbon Dioxide (23-29) mEq/L BUN (6-20) mg/dL Creatinine (0.70-1.30) mg/dL Est GFR ( Amer) (> 60) Est GFR (Non-Af Amer) (> 60) BUN/Creatinine Ratio (6-26) Glucose (70-105) mg/dL POC Glucose (70-99) mg/dL Calculated Osmolality (280-300) Calcium (8.6-10.3) mg/dL Troponin I < 0.03 (< 0.04) ng/mL Urine Color Yellow (Yellow) Urine Clarity Clear (Clear) Urine pH 5.5 (5.0-8.0) pH Units Ur Specific [place] 1.015 (1.010-1.025) Urine Protein Negative (Neg-Trace) mg/dL Urine Glucose (UA) Normal (Normal) mg/dL Urine Ketones Negative (Negative) mg/dL Urine Blood Negative (Negative) Urine Nitrite Negative (Negative) Urine Bilirubin Negative (Negative) Urine Urobilinogen Normal (Normal) mg/dL Ur Leukocyte Esterase Negative (Negative) Ur Culture Indicated? NO (NO) Urine Opiates Screen (Eawclc=244) ng/mL Ur Barbiturates Screen (Fdpvew=036) ng/mL Ur Phencyclidine Scrn (Cutoff=25) ng/mL Ur Amphetamines Screen (Xpgsdz=8785) ng/mL U Benzodiazepines Scrn (Lzavyp=054) ng/mL Urine Cocaine Screen (Cutoff= 300) ng/mL U Marijuana (THC) Screen (Cutoff = 50) ng/mL Ur Drug Screen Interp Ethyl Alcohol < 10 (Less than 10) mg/dL 05/05/18 Range/Units 19:38 WBC (4.3-11.1) K/mcL RBC (4.19-5.50) M/mcL Hgb (12.9-16.9) g/dL Hct (37.5-50.1) % MCV (83.0-100.0) fL MCH (28.0-33.3) pg MCHC (31.6-35.5) g/dL RDW (11.5-14.5) % Plt Count (140-400) K/mcL MPV (9.4-12.4) fL Immature Gran % (0-4) % Seg Neutrophils % % Lymphocytes % % Monocytes % % Eosinophils % % Basophils % % Neutrophils # (1.6-8.9) K/mcL Lymphocytes # (0.6-4.6) K/mcL Monocytes # (0.0-1.3) K/mcL Eosinophils # (0.0-0.6) K/mcL Basophils # (0.0-0.2) K/mcL VBG pH (7.32-7.42) pH Units VBG pCO2 (41-51) mmHg VBG pO2 (25-50) mmHg VBG HCO3 (21-27) mEq/L Sodium (136-145) mEq/L Potassium (3.5-5.1) mEq/L Chloride (98-107) mEq/L Carbon Dioxide (23-29) mEq/L BUN (6-20) mg/dL Creatinine (0.70-1.30) mg/dL Est GFR ( Amer) (> 60) Est GFR (Non-Af Amer) (> 60) BUN/Creatinine Ratio (6-26) Glucose (70-105) mg/dL POC Glucose (70-99) mg/dL Calculated Osmolality (280-300) Calcium (8.6-10.3) mg/dL Troponin I (< 0.04) ng/mL Urine Color (Yellow) Urine Clarity (Clear) Urine pH (5.0-8.0) pH Units Ur Specific [place] (1.010-1.025) Urine Protein (Neg-Trace) mg/dL Urine Glucose (UA) (Normal) mg/dL Urine Ketones (Negative) mg/dL Urine Blood (Negative) Urine Nitrite (Negative) Urine Bilirubin (Negative) Urine Urobilinogen (Normal) mg/dL Ur Leukocyte Esterase (Negative) Ur Culture Indicated? (NO) Urine Opiates Screen Negative (Sjbtqc=609) ng/mL Ur Barbiturates Screen Negative (Satuhv=181) ng/mL Ur Phencyclidine Scrn Negative (Cutoff=25) ng/mL Ur Amphetamines Screen Negative (Xnkjbd=2167) ng/mL U Benzodiazepines Scrn Negative (Dynfqj=564) ng/mL Urine Cocaine Screen Negative (Cutoff= 300) ng/mL U Marijuana (THC) Screen Negative (Cutoff = 50) ng/mL Ur Drug Screen Interp See Below Ethyl Alcohol (Less than 10) mg/dL - Radiology Data Radiology results reviewed: Yes I reviewed the patient's radiology results. Chest X-Ray 05/05/18 18:11 IMPRESSION: No pneumonia or any other acute cardiopulmonary abnormality. D/ / Raúl Mo / Raúl Mo Interpreting Provider: Raúl Mo
[2018-05-05] MEDS ORDERED: Ipratropium/Albuterol Neb 3 ML IH STA (18:29)
[2018-05-05 19:00] LABS: Basophils % 0.7 %; Eosinophils # 0.2 K/mcL (0.0-0.6); Eosinophils % 3.3 %; Hematocrit 39.9 % (37.5-50.1); Hemoglobin 13.3 g/dL (12.9-16.9); Immature Granulocytes % 0.2 % (0-4); Lymphocytes # 1.8 K/mcL (0.6-4.6); Lymphocytes % 29.3 %; Mean Corpuscular HGB Conc 33.3 g/dL (31.6-35.5); Mean Corpuscular Hemoglobin 29.5 pg (28.0-33.3); Mean Corpuscular Volume 88.5 fL (83.0-100.0); Mean Platelet Volume 9.4 fL (9.4-12.4); Monocytes # 0.4 K/mcL (0.0-1.3); Monocytes % 7.4 %; Neutrophils # 3.5 K/mcL (1.6-8.9); Platelet Count 208 K/mcL (140-400); Red Blood Count 4.51 M/mcL (4.19-5.50); Red Cell Distribution Width 13.2 % (11.5-14.5); Segmented Neutrophils % 59.1 %
[2018-05-05 19:10] LABS: VBG HCO3 35 mEq/L (21-27); VBG PCO2 65 mmHg (41-51); VBG PH 7.34 pH Units (7.32-7.42); VBG PO2 33 mmHg (25-50)
[2018-05-05 19:15] LABS: Ethanol < 10 mg/dL (Less than 10); Troponin I < 0.03 ng/mL (< 0.04)
[2018-05-05 19:22] LABS: BUN/Creatinine Ratio 28 (6-26); Blood Urea Nitrogen 34 mg/dL (6-20); Calcium 9.4 mg/dL (8.6-10.3); Carbon Dioxide 32 mEq/L (23-29); Chloride 102 mEq/L (98-107); Glucose 95 mg/dL (70-105); Osmolality,Calculated 303 (280-300); Potassium 3.6 mEq/L (3.5-5.1); Sodium 143 mEq/L (136-145); eGFR For Non-African Americans > 60 (> 60)
[2018-05-05 19:56] LABS: Bilirubin,Urine Negative (Negative); Blood,Urine Negative (Negative); Clarity,Urine Clear (Clear); Color,Urine Yellow (Yellow); Glucose,Urine (UA) Normal (Normal); Ketones,Urine Negative (Negative); Leukocyte Esterase,Urine Negative (Negative); Nitrite,Urine Negative (Negative); PH,Urine 5.5 pH Units (5.0-8.0); Protein,Urine Negative (Neg-Trace); Specific Gravity,Urine 1.015 (1.010-1.025); Urobilinogen,Urine Normal (Normal)
[2018-05-05 20:04] LABS: Amphetamine Screen,Urine Negative ng/mL (Cutoff=1000); Barbiturate Screen,Urine Negative ng/mL (Cutoff=200); Benzodiazepines Screen,Urine Negative ng/mL (Cutoff=200); Cannabinoid Screen,Urine Negative ng/mL (Cutoff = 50); Cocaine Screen,Urine Negative ng/mL (Cutoff= 300); Opiate Screen,Urine Negative ng/mL (Cutoff=300); Phencyclidine Screen,Urine Negative ng/mL (Cutoff=25)
[2018-05-05 21:21] LABS: VBG HCO3 36 mEq/L (21-27); VBG PCO2 66 mmHg (41-51); VBG PH 7.35 pH Units (7.32-7.42); VBG PO2 65 mmHg (25-50)
[2018-05-05] MEDS ORDERED: methylPREDNISolone 125 MG/2 ML VIAL IVP ONE (21:32)
[2018-05-05 21:45] LABS: ABG Base Excess 7 mEq/L (-2 to 3); ABG HCO3 32 mEq/L (21-27); ABG Oxygen Saturation 97 % (95-98); ABG PCO2 48 mmHg (35-45); ABG PH 7.44 pH Units (7.32-7.45); ABG PO2 87 mmHg (85-104); ABG TCO2 34 mEq/L (20-26); Blood Gas PEEP 6 cm H2O; Blood Gas Respiration Rate 16; Blood Gas VT 550 cc
--- NOTE | 2018-05-05 22:28 | Internal Med History&Physical ---
<Maribel Driscoll - Last Filed: 05/05/18 23:01> Date of Encounter: 05/05/18 Internal Medicine - H&P: Meds Atenolol [Tenormin] 100 mg PO QAM 03/23/15 [History] Metformin [Glucophage] 1,000 mg PO BID 03/23/15 [History] Albuterol Sulfate [Proair Respiclick] 1 - 2 puff IH Q4-6H PRN 07/30/15 [History] Furosemide [Lasix] 40 mg PO QAM 07/30/15 [History] Lisinopril [Zestril] 20 mg PO BID 07/30/15 [History] [place]-3S/Dha/Epa/Fish Oil [Fish Oil 1,200 mg Softgel] 1 cap PO BID 07/30/15 [History] Potassium Chloride [K-Tab ER] 10 meq PO Q3D 07/30/15 [History] Cinnamon Bark [Cinnamon] 1,000 mg PO BID 01/31/17 [History] Finasteride [Proscar] 5 mg PO DAILY 01/31/17 [History] Omeprazole [PriLOSEC] 40 mg PO DAILY 01/31/17 [History] Venlafaxine XR (24 HR) [Effexor XR] 150 mg PO DAILY 01/31/17 [History] Simvastatin [Zocor] 40 mg PO DAILY 02/01/17 [History] Multivitamin [Multivitamins] 1 each PO DAILY 03/23/17 [History] Fluticasone Propionate Nasal [Flonase] 1 spray NS DAILY 11/05/17 [History] Insulin Glargine,Hum.rec.anlog [Basaglar Kwikpen U-100] 10 - 50 unit SQ BID 11/05/17 [History] Budesonide [Pulmicort Flexhaler 180mcg] 2 puff IH BID 01/05/18 [History] Chlorthalidone 25 mg PO DAILY 05/05/18 [History] Allergy/AdvReac Type Severity Reaction Status Date / Time amlodipine [From Norvasc] Allergy Rash Verified 05/05/18 18:13 bupropion [From Wellbutrin] Allergy Rash Verified 05/05/18 18:13 gabapentin Allergy Rash Verified 05/05/18 18:13 morphine AdvReac Confusion Verified 05/05/18 18:13 All Systems PM: A 10-system review of systems was performed and is negative for pertinent findings except as documented above in the HPI. - Constitutional Vitals: Temp Pulse Resp BP Pulse Ox 98.1 F 66 15 99/70 96 05/05/18 18:04 05/05/18 21:13 05/05/18 21:13 05/05/18 21:13 05/05/18 21:13 Internal Med - H&P Results - Labs CBC & Chem 7: 05/05/18 18:40 05/05/18 18:40 Labs: Short CBC 05/05/18 Range/Units 18:40 WBC 6.0 (4.3-11.1) K/mcL Hgb 13.3 (12.9-16.9) g/dL Hct 39.9 (37.5-50.1) % Plt Count 208 (140-400) K/mcL Neutrophils # 3.5 (1.6-8.9) K/mcL BMP 05/05/18 18:40 Sodium 143 Potassium 3.6 Chloride 102 Carbon Dioxide 32 H BUN 34 H Creatinine 1.21 Glucose 95 Calcium 9.4 Cardiac Enzymes 05/05/18 Range/Units 18:40 Troponin I < 0.03 (< 0.04) ng/mL Urine 05/05/18 Range/Units 19:38 Urine Color Yellow (Yellow) Urine Clarity Clear (Clear) Urine pH 5.5 (5.0-8.0) pH Units Ur Specific [place] 1.015 (1.010-1.025) Urine Protein Negative (Neg-Trace) mg/dL Urine Glucose (UA) Normal (Normal) mg/dL - ABG Interpretation ABG results: 05/05/18 05/05/18 05/05/18 18:53 21:18 21:41 ABG pH 7.44 ABG pCO2 48 H ABG pO2 87 ABG HCO3 32 H ABG Total CO2 34 H ABG O2 Saturation 97 ABG Base Excess 7 H VBG pH 7.34 7.35 VBG pCO2 65 H 66 H VBG pO2 33 65 H VBG HCO3 35 H 36 H - Impressions ITS Impressions Chest X-Ray 05/05/18 18:11 IMPRESSION: No pneumonia or any other acute cardiopulmonary abnormality. D/ / Raúl Mo / Raúl Mo Interpreting Provider: Raúl Mo - Time Spent With Patient Total time spent is greater than 50% in coordination of care (as documented) at patient's floor/unit and/or counseling patient: - Attending Attestation I performed a history and physical exam of the patient and discussed management with the resident. I reviewed the resident's note and agree with the documented findings and plan of care. Graham Almeida is a 57 year old obese white man with multiple comorbidities including DM, HTN, HLD. As per family he uses NIPPV at home due to obstructive lung disease however the mask has been broken for a year so he does not use anything. It is reported that he has been more drowsy and lethargic over the last 24 hours, being hard to arouse today. They incidentlally report that he was burning wood all day Thursday. In the ER his mental status was poor and was placed on Bipap. His initial VBG CO2 was mildly elevated. On my initial assessment he was still hard to arouse which prompted concern and my request for a more monitored setting. He gradually perked up and became more conversant. His physical exam is remarkable for a short thick neck, flushed fascies, diminished air entry bilaterally, obese non-tender abdomen, no c/c/e. CXR reviewed indepdently by me not depictive of focal consolidations. The patient will be admitted as inpatient for acute hypercarbic respiratory likely secondary to ADALID/OHS. Will continue NIPPV and assess ABG. Standing nebulizer steroids. No indication for abx at this time. Received 1 dose of systemic steroids; can continue with inhaled. 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 FORREST BURLESON. <Rena Granados - Last Filed: 05/05/18 23:07> Date of Encounter: 05/05/18 Time of Encounter: 22:26 Internal Medicine - H&P: HPI Chief complaint: unresponsive, somnolence. Admitted From: Emergency Dept Plans for Post Hospital Care: Home History of present illness: Mr. Almeida is a 57 year old male with past medical history of type II diabetes, asthma, hyperlipidemia, anxiety, depression, diverticulosis, ADALID (noncompliant with CPAP and has not used it in over one year), obesity, hypertension, coronary artery disease, hepatic steatosis, COPD. Patient was brought to the emergency department today via EMS for disorientation and decreased responsiveness. Most of history was obtained from patient's , who was at bedside. She states that beginning last night, patient was very drowsy, somnolent, and was hard to awake this morning. After dropping off his nephew to school this morning, he fell asleep in the car and had to be woken up and brought inside the house. Aft er coming home, he fell asleep and was very hard to arouse, which started to worry his . states that patients CPAP mask broke, which is why he has not been able to use it, and they had been having issues with insurance coverage for risk placement. admits to nausea without vomiting. He denies diarrhea or fevers, he does report occasional chills and started coughing up dark-colored sputum since last week. Patient denies chest pain, hematochezia, melena, hematuria, alcohol or illicit drug use. He does report intermittent shortness of breath. patient denies slurred speech, blurry vision, or any new numbness or tingling/paresthesias. Past Med Surg Social Fam HX - Past Medical History Medical history: atrial fibrillation, diabetes, hypertension, other Additional medical history: sleep apnea, diverticulitis, colon polyps, fitty liver, chronic lumbago, pancreatitis, TTE with LVEF, Factor V leiden, sick sinus rhythm Psychiatric history: anxiety, depression - Past Surgical History Surgical History: orthopedic, other, other Additional surgical history: left knee arthroscopy, bladder surgery, colonoscopy, EGD, heart cath - Social History Smoking Status: Never smoker Smokeless Tobacco Status: No Alcohol use: none Drug use: none - Family History Father Hx Family Cardiac Disorders: Yes (NH 35y/o) Mother Family Member Ethnicity: Non- Living Status: Still Living Hx Family Cardiac Disorders: Yes (HTN) Hx Family Respiratory Disorders: No Hx Family Cancer: Yes (Colon Cancer) Hx Family GI Disorders: No Hx Family Endocrine Disorder: No Hx Family Neuromuscular Disorders: No Hx Family Neurologic Disorders: No Hx Family HEENT Disorders: No Hx Family Autoimmune Disorders: No All Systems PM: A 10-system review of systems was performed and is negative for pertinent findings except as documented above in the HPI. - Constitutional Constitutional: as per HPI - EENT Eyes: as per HPI Ears: as per HPI Nose, mouth and throat: as per HPI - Breasts Breasts: as per HPI - Cardiovascular Cardiovascular ROS IM: as per HPI - Respiratory Respiratory: as per HPI - Gastrointestinal Gastrointestinal: as per HPI - Genitourinary Genitourinary ROS male: as per HPI - Musculoskeletal Musculoskeletal ROS IM: as per HPI - Integumentary Integumentary IM: as per HPI - Neurological Neurological ROS: as per HPI - Psychiatric Psychiatric: as per HPI - Endocrine Endocrine IM: as per HPI - Hematologic/Lymphatic Hematologic/Lymphatic: as per HPI - Allergic/Immunologic Allergic/Immunologic: as per HPI - Constitutional Vitals: Temp Pulse Resp BP Pulse Ox 98.1 F 66 15 99/70 96 05/05/18 18:04 05/05/18 21:13 05/05/18 21:13 05/05/18 21:13 05/05/18 21:13 General appearance: Present: A&O X 3, pleasant, no acute distress, obese, answers questions appropriately Exam: morbidly obese Patient awake and alert, answers question appropriately, sitting up in bed with BiPAP on. - Head Head exam: Present: atraumatic, normocephalic - Eye Eye exam: Present: EOMI, normal appearance, PERRL, sclera anicteric. Absent: nystagmus, periorbital swelling, periorbital tenderness, scleral icterus, conjuntiva pink Pupils: Present: PERRL - ENT ENT exam: Present: mucous membranes moist, normal exam - Neck Neck exam general surgery: Present: supple, trachea midline Additional comments: short, thick neck. - Respiratory Respiratory exam: Present: CTAB. Absent: accessory muscle use, respiratory distress, stridor, wheezes, tachypnea - Cardiovascular Cardiovascular exam: Present: distant heart sounds - GI/Abdominal GI/Abdominal exam: Present: soft, tenderness (mild tenderness to palpation in right lower quadrant. ). Absent: distended - Extremities Exam Extremities exam: Present: normal capillary refill, normal inspection. Absent: cyanotic, pedal edema - Neurological Exam Neurological exam: Present: alert, CN II-XII intact, oriented X3, no focal deficits. Absent: motor sensory deficit, pronater drift, facial droop, speech deficit - Psychiatric Psychiatric exam: Present: anxious - Skin Skin exam: Present: intact, normal color. Absent: abrasion, cyanosis, diaphoretic, mottled Internal Med - H&P Results - Labs CBC & Chem 7: 05/05/18 18:40 05/05/18 18:40 Labs: Short CBC 05/05/18 Range/Units 18:40 WBC 6.0 (4.3-11.1) K/mcL Hgb 13.3 (12.9-16.9) g/dL Hct 39.9 (37.5-50.1) % Plt Count 208 (140-400) K/mcL Neutrophils # 3.5 (1.6-8.9) K/mcL BMP 05/05/18 18:40 Sodium 143 Potassium 3.6 Chloride 102 Carbon Dioxide 32 H BUN 34 H Creatinine 1.21 Glucose 95 Calcium 9.4 Cardiac Enzymes 05/05/18 Range/Units 18:40 Troponin I < 0.03 (< 0.04) ng/mL Urine 05/05/18 Range/Units 19:38 Urine Color Yellow (Yellow) Urine Clarity Clear (Clear) Urine pH 5.5 (5.0-8.0) pH Units Ur Specific [place] 1.015 (1.010-1.025) Urine Protein Negative (Neg-Trace) mg/dL Urine Glucose (UA) Normal (Normal) mg/dL - ABG Interpretation ABG results: 05/05/18 05/05/18 05/05/18 18:53 21:18 21:41 ABG pH 7.44 ABG pCO2 48 H ABG pO2 87 ABG HCO3 32 H ABG Total CO2 34 H ABG O2 Saturation 97 ABG Base Excess 7 H VBG pH 7.34 7.35 VBG pCO2 65 H 66 H VBG pO2 33 65 H VBG HCO3 35 H 36 H - Impressions ITS Impressions Chest X-Ray 05/05/18 18:11 IMPRESSION: No pneumonia or any other acute cardiopulmonary abnormality. D/ / Raúl Mo / Raúl Mo Interpreting Provider: Raúl Mo - Assessment and plan (1) Hypercapnic respiratory failure Current Visit: Yes Status: Acute Assessment and plan: 57-year-old male brought to emergency department via EMS for decreased responsiveness, lethargy. Emergency department, ABG showed CO2 66, pH 7.35. Patient placed on BiPAP and emergency department, and he became more alert after being on BiPAP. ABG showed pH 7.44, CO2 48, O2 87. Chest x-ray unremarkable. Etiology likely multifactorial in setting of obesity hypoventilation syndrome, noncompliance with CPAP. Plan: continue BiPAP scheduled bronchodilators, inhaled corticosteroids continue to closely monitor rapid flu swab pending Qualifiers: Chronicity: acute Qualified Code(s): J96.02 - Acute respiratory failure with hypercapnia (2) Obesity hypoventilation syndrome Current Visit: Yes Status: Acute Assessment and plan: Plan as above. Lifestyle modifications advised (3) Diabetes mellitus Current Visit: No Status: Acute Assessment and plan: Hold metformin ADA diet medium dose sliding scale insulin with ACHS Accu checks Qualifiers: Diabetes mellitus type: type 2 Diabetes mellitus terminal clerk insulin use: with terminal clerk use Diabetes mellitus complication status: with neurologic complications Diabetes mellitus complication detail: with autonomic neuropathy Qualified Code(s): E11.43 - Type 2 diabetes mellitus with diabetic autonomic (poly)neuropathy; Z79.4 - terminal clerk (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 (4) Hypertension Current Visit: No Status: Acute Assessment and plan: Continue home medications Qualifiers: Hypertension type: unspecified Qualified Code(s): I10 - Essential (primary) hypertension (5) HLD (hyperlipidemia) Current Visit: No Status: Acute Assessment and plan: Continue simvastatin Qualifiers: Hyperlipidemia type: mixed hyperlipidemia Qualified Code(s): E78.2 - Mixed hyperlipidemia (6) ADALID (obstructive sleep apnea) Current Visit: No Status: Chronic Assessment and plan: History of ADALID, has not used CPAP in over one year because mask is broken. Continue BiPAP as inpatient, settings per respiratory therapy. Respiratory therapy to help patient get replacement mask for home CPAP (7) DVT prophylaxis Current Visit: No Status: Acute Assessment and plan: Heparin SQ - Time Spent With Patient Total time spent is greater than 50% in coordination of care (as documented) at patient's floor/unit and/or counseling patient:
[2018-05-05] MEDS ORDERED: Ondansetron 4 MG/2 ML VIAL IVP PRN (22:33)
[2018-05-05] MEDS ORDERED: D5% in Water 1,000 ML IVC PRN (22:34)
[2018-05-05] MEDS ORDERED: *HR* Dextrose 50 % in Water (Syg) 50 ML SYRINGE IVP PRN (22:34)
[2018-05-05] MEDS ORDERED: Dextrose Gel 15 GM/37.5 ML TUBE PO PRN ×2 (22:34)
[2018-05-05] MEDS: *HR* Heparin 5,000 UNIT/ML VIAL SQ SCH (23:49)
[2018-05-06] MEDS: Ipratropium/Albuterol Neb 3 ML IH SCH ×7 (00:04→23:44)
[2018-05-06 07:06] LABS: BUN/Creatinine Ratio 26 (6-26); Blood Urea Nitrogen 36 mg/dL (6-20); Calcium 9.6 mg/dL (8.6-10.3); Carbon Dioxide 29 mEq/L (23-29); Chloride 101 mEq/L (98-107); Glucose 260 mg/dL (70-105); Magnesium 1.7 mg/dL (1.6-2.6); Osmolality,Calculated 307 (280-300); Phosphorous 1.9 mg/dL (2.7-4.5); Potassium 3.3 mEq/L (3.5-5.1); Sodium 140 mEq/L (136-145); eGFR For Non-African Americans 54 (> 60)
[2018-05-06] MEDS: Beclomethasone 80mcg MDI IH SCH ×2 (07:32→20:09)
[2018-05-06] MEDS: Finasteride 5 MG TABLET PO SCH (08:56)
[2018-05-06] MEDS: Lisinopril 20 MG TABLET PO SCH (08:57)
[2018-05-06] MEDS: Venlafaxine XR (24 HR) 75 MG CAP.ER.24H PO SCH (08:57)
[2018-05-06] MEDS: Furosemide 20 MG TABLET PO SCH (08:58)
[2018-05-06] MEDS: Insulin LISPRO 300 UNITS/3 ML VIAL SQ SCH ×3 (08:58→17:27)
[2018-05-06] MEDS: Fluticasone Propionate Nasal 50 MCG/SPRAY BOTTLE NS SCH (08:58)
[2018-05-06] MEDS: *HR* Heparin 5,000 UNIT/ML VIAL SQ SCH ×3 (08:59→23:12)
[2018-05-06] MEDS ORDERED: predniSONE 20 MG TABLET PO SCH (09:00)
[2018-05-06] MEDS ORDERED: Beclomethasone 80mcg MDI IH SCH (10:00)
[2018-05-06 12:23] LABS: Vitamin B12 866 pg/mL (250-1100)
[2018-05-06 12:28] LABS: Folate > 22.3 ng/mL (3.0-16.0)
--- NOTE | 2018-05-06 14:29 | Internal Med Progress Note ---
Hospitalist Progress Note - Encounter Date of Encounter: 05/06/18 Time of Encounter: 09:00 - Subjective Interval History: Pt is still sleepy but can be waken up by verbal stimulation. Mild headache. Moderate dry cough. Denies SOB. Vitals stable. Tolerate BiPAP well. - Exam Vitals: Temp Pulse Resp BP Pulse Ox 98.1 F 95 16 99/61 94 05/06/18 11:19 05/06/18 11:19 05/06/18 11:26 05/06/18 11:19 05/06/18 11:26 Exam: morbidly obese, Sleepy but can be waken up by verbal stimulation. In NAD. Answers question appropriately. HEENT: NC/AT, PERRL Neck: Supple, no rigidity, no LAD Lungs: Coarse breath sound B/L, no wheezing/rales/rhonchi Heart: S1S2, RRR Abd: Soft, mild tenderness on LLQ, w/o rebound or guarding. Ext: No pedal edema Neuro: AAO x 3, no focal deficit. - Assessment and Plan (1) Acute encephalopathy Current Visit: Yes Status: Acute Assessment and Plan: Pt has AMS, no signs of infection, CT head unremarkable. Has CO2 level elevated. Most likely due to hypercapnia which may caused by baseline ADALID/COPD plus recent acute bronchitis. Consider due to respiratory falure.. - Cont BiPAP, especially during night. - Home BiPAP qualification test (2) Hypercapnic respiratory failure Current Visit: Yes Status: Acute Assessment and Plan: CO2 level trend down. - Cont BiPAP - Duoneb as scheduled - No steroid as pt has no significant wheezing. (3) Obesity hypoventilation syndrome Current Visit: Yes Status: Acute Assessment and Plan: Place pt on Home BiPAP qualification test. Need lifestyle modification to loss weight. (4) DVT prophylaxis Current Visit: No Status: Acute Assessment and Plan: Heparin SC (5) Diabetes mellitus Current Visit: No Status: Acute Assessment and Plan: Cont basal and SSI. (6) HLD (hyperlipidemia) Current Visit: No Status: Acute Assessment and Plan: Cont home meds Simvastatin (7) Hypertension Current Visit: No Status: Acute Assessment and Plan: BP is well controlled, cont home medication. (8) ADALID (obstructive sleep apnea) Current Visit: No Status: Chronic Assessment and Plan: Pt was on CPAP at home, machine was not working since 1 year ago. - Will place BiPAP qualification test. (9) Acute bronchitis Current Visit: Yes Status: Acute Assessment and Plan: Pt has increased cough w/o fever, leukocytosis, or imaging evidence of pneumonia. Consider acute bronchitis. - Symptomatic treatment with cough syrup and duoneb. - Cont supportive treatment with BiPAP and O2. - Respiratory viral penal. DVT Prophylaxis: Heparin SC - Time Spent with Patient Total time spent is greater than 50% in coordination of care (as documented) at patient's floor/unit and/or counseling patient: 30 min 25 - 35 minutes Plan of Care Discussed with: family Internal Medicine: Result - Labs CBC & Chem 7: 05/05/18 18:40 05/06/18 06:36 Labs: Short CBC 05/05/18 Range/Units 18:40 WBC 6.0 (4.3-11.1) K/mcL Hgb 13.3 (12.9-16.9) g/dL Hct 39.9 (37.5-50.1) % Plt Count 208 (140-400) K/mcL Neutrophils # 3.5 (1.6-8.9) K/mcL BMP 05/05/18 05/06/18 18:40 06:36 Sodium 143 140 Potassium 3.6 3.3 L Chloride 102 101 Carbon Dioxide 32 H 29 BUN 34 H 36 H Creatinine 1.21 1.36 H Glucose 95 260 H Calcium 9.4 9.6 Cardiac Enzymes 05/05/18 Range/Units 18:40 Troponin I < 0.03 (< 0.04) ng/mL Urine 05/05/18 Range/Units 19:38 Urine Color Yellow (Yellow) Urine Clarity Clear (Clear) Urine pH 5.5 (5.0-8.0) pH Units Ur Specific [place] 1.015 (1.010-1.025) Urine Protein Negative (Neg-Trace) mg/dL Urine Glucose (UA) Normal (Normal) mg/dL - ABG Interpretation ABG results: ABG ABG pH 7.44 pH Units (7.32-7.45) 05/05/18 21:41 ABG pCO2 48 mmHg (35-45) H 05/05/18 21:41 ABG pO2 87 mmHg (85-104) 05/05/18 21:41 ABG O2 Saturation 97 % (95-98) 05/05/18 21:41 - Impressions Impressions Chest X-Ray 05/05/18 18:11 IMPRESSION: No pneumonia or any other acute cardiopulmonary abnormality. D/ / Raúl Mo / Raúl Mo Interpreting Provider: Raúl oM Abdomen/Pelvis CT 05/06/18 10:39 IMPRESSION: 1. Ectatic ascending thoracic aorta 4.4 cm in diameter. 2. Scattered calcified tiny lung nodules, calcified mediastinal nodes and splenic calcifications most compatible with old granulomatous disease. 3. Stable exophytic 6 cm left renal cyst. 4. Sigmoid diverticulosis. 5. No bowel obstruction. 6. No acute infective or inflammatory process. D/ / 05/06/2018 12:00:14 Woody Isaac MD / janet Interpreting Provider: Woody Isaac MD Chest CT 05/06/18 10:39 IMPRESSION: 1. Ectatic ascending thoracic aorta 4.4 cm in diameter. 2. Scattered calcified tiny lung nodules, calcified mediastinal nodes and splenic calcifications most compatible with old granulomatous disease. 3. Stable exophytic 6 cm left renal cyst. 4. Sigmoid diverticulosis. 5. No bowel obstruction. 6. No acute infective or inflammatory process. D/ / 05/06/2018 12:00:14 Woody Isaac MD / janet Interpreting Provider: Woody Isaac MD Head CT 05/06/18 10:39 IMPRESSION: No acute intracranial abnormality. D/ / Gregory Rodriguez MD / Gregory Rodriguez MD Interpreting Provider: Gregory Rodriguez MD Consult Discharge Plan - Plan Referrals: Sandhya Acuña MD [Primary Care Provider] - 05/17/18 10:00 am (2) Hypercapnic respiratory failure Qualifiers: Chronicity: acute Qualified Code(s): J96.02 - Acute respiratory failure with hypercapnia (5) Diabetes mellitus Qualifiers: Diabetes mellitus type: type 2 Diabetes mellitus oil heaterman insulin use: with oil heaterman use Diabetes mellitus complication status: with neurologic complications Diabetes mellitus complication detail: with autonomic neuropathy Qualified Code(s): E11.43 - Type 2 diabetes mellitus with diabetic autonomic (poly)neuropathy; Z79.4 - terminal operations supervisor (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 (6) HLD (hyperlipidemia) Qualifiers: Hyperlipidemia type: mixed hyperlipidemia Qualified Code(s): E78.2 - Mixed hyperlipidemia (7) Hypertension Qualifiers: Hypertension type: unspecified Qualified Code(s): I10 - Essential (primary) hypertension (9) Acute bronchitis Qualifiers: Bronchitis organism: unspecified organism Qualified Code(s): J20.9 - Acute bronchitis, unspecified
[2018-05-06] MEDS: 0.9 % Sodium Chloride 1,000 ML IVC SCH (15:04)
[2018-05-06] MEDS ORDERED: Insulin LISPRO 300 UNITS/3 ML VIAL SQ SCH (21:00)
[2018-05-06] MEDS ORDERED: Insulin DETEMIR 100 UNIT/ML X5UNITS SQ SCH (21:00)
[2018-05-06 21:13] LABS: Adenovirus Not Detected (Not Detect); Bordetella Pertussis Not Detected (Not Detect); Chlamydophila pneumoniae Not Detected (Not Detect); Coronavirus 229E Not Detected (Not Detect); Coronavirus HKU1 Not Detected (Not Detect); Coronavirus NL63 Not Detected (Not Detect); Coronavirus OC43 Not Detected (Not Detect); Human Metapneumovirus Not Detected (Not Detect); Human Rhinovirus/Enterovirus Not Detected (Not Detect); Influenza A Subtype 2009 H1 Not Detected (Not Detect); Influenza A Untypeable Not Detected (Not Detect); Influenza B Not Detected (Not Detect); Mycoplasma pneumoniae Not Detected (Not Detect); Parainfluenza Virus 1 Not Detected (Not Detect); Parainfluenza Virus 2 Not Detected (Not Detect); Parainfluenza Virus 3 Not Detected (Not Detect); Parainfluenza Virus 4 Not Detected (Not Detect); Respiratory Syncytial Virus Not Detected (Not Detect)
[2018-05-07] MEDS: 0.9 % Sodium Chloride 1,000 ML IVC SCH ×2 (01:23→11:05)
[2018-05-07 03:35] LABS: Basophils % 0.1 %; Hematocrit 34.8 % (37.5-50.1); Hemoglobin 11.9 g/dL (12.9-16.9); Immature Granulocytes % 0.6 % (0-4); Lymphocytes # 1.5 K/mcL (0.6-4.6); Lymphocytes % 9.7 %; Mean Corpuscular HGB Conc 34.2 g/dL (31.6-35.5); Mean Corpuscular Hemoglobin 29.7 pg (28.0-33.3); Mean Corpuscular Volume 86.8 fL (83.0-100.0); Mean Platelet Volume 9.8 fL (9.4-12.4); Monocytes # 0.9 K/mcL (0.0-1.3); Monocytes % 5.7 %; Neutrophils # 12.8 K/mcL (1.6-8.9); Platelet Count 250 K/mcL (140-400); Red Blood Count 4.01 M/mcL (4.19-5.50); Red Cell Distribution Width 13.2 % (11.5-14.5); Segmented Neutrophils % 83.9 %
[2018-05-07 03:50] LABS: BUN/Creatinine Ratio 35 (6-26); Blood Urea Nitrogen 47 mg/dL (6-20); Calcium 8.9 mg/dL (8.6-10.3); Carbon Dioxide 26 mEq/L (23-29); Chloride 103 mEq/L (98-107); Glucose 219 mg/dL (70-105); Osmolality,Calculated 305 (280-300); Potassium 3.9 mEq/L (3.5-5.1); Sodium 138 mEq/L (136-145); eGFR For Non-African Americans 55 (> 60)
[2018-05-07] MEDS: Ipratropium/Albuterol Neb 3 ML IH SCH ×3 (03:58→11:27)
[2018-05-07] MEDS: *HR* Heparin 5,000 UNIT/ML VIAL SQ SCH (07:30)
[2018-05-07] MEDS: Furosemide 20 MG TABLET PO SCH (07:30)
[2018-05-07] MEDS: Finasteride 5 MG TABLET PO SCH (07:30)
[2018-05-07] MEDS: Lisinopril 20 MG TABLET PO SCH (07:30)
[2018-05-07] MEDS: Venlafaxine XR (24 HR) 75 MG CAP.ER.24H PO SCH (07:31)
[2018-05-07] MEDS: Beclomethasone 80mcg MDI IH SCH (07:57)
[2018-05-07] MEDS: Insulin LISPRO 300 UNITS/3 ML VIAL SQ SCH ×2 (08:01→11:07)
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
[2018-05-07] MEDS: Fluticasone Propionate Nasal 50 MCG/SPRAY BOTTLE NS SCH (11:06)
[2018-05-07 11:07] VITALS: BP 117/81
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
--- NOTE | 2018-05-07 16:43 | Electrocardiograph Report ---
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
== END 2018-05-07 15:30 | disposition home or self-care (01) | DRG 917 ==
LOC: EMEROOARM 17:55 → 2NNU 22:43 → SUATTDRO 22:43 → 2NNU 23:18
PROVIDERS: ADMIT Internal Medicine; ATTEND Internal Medicine

== ENCOUNTER 2018-08-01 13:02 | Inpatient (IN) ==
[2018-08-01 15:14] LABS: Bilirubin,Urine Negative (Negative); Blood,Urine Negative (Negative); Clarity,Urine Clear (Clear); Color,Urine Yellow (Yellow); Glucose,Urine (UA) Normal (Normal); Ketones,Urine Negative (Negative); Leukocyte Esterase,Urine Negative (Negative); Nitrite,Urine Negative (Negative); PH,Urine 5.5 pH Units (5.0-8.0); Protein,Urine Negative (Neg-Trace); Specific Gravity,Urine 1.013 (1.010-1.025); Urobilinogen,Urine Normal (Normal)
[2018-08-01] MEDS ORDERED: Ondansetron ODT 4 MG TAB.RAPDIS SL ONE (15:32)
[2018-08-01 15:47] LABS: Basophils % 0.3 %; Eosinophils # 0.1 K/mcL (0.0-0.6); Eosinophils % 1.1 %; Hematocrit 42.4 % (37.5-50.1); Hemoglobin 14.5 g/dL (12.9-16.9); Immature Granulocytes % 0.4 % (0-4); Lymphocytes # 2.3 K/mcL (0.6-4.6); Lymphocytes % 18.2 %; Mean Corpuscular HGB Conc 34.2 g/dL (31.6-35.5); Mean Corpuscular Hemoglobin 29.2 pg (28.0-33.3); Mean Corpuscular Volume 85.5 fL (83.0-100.0); Mean Platelet Volume 9.7 fL (9.4-12.4); Monocytes % 7.8 %; Neutrophils # 8.9 K/mcL (1.6-8.9); Platelet Count 245 K/mcL (140-400); Red Blood Count 4.96 M/mcL (4.19-5.50); Red Cell Distribution Width 13.8 % (11.5-14.5); Segmented Neutrophils % 72.2 %
[2018-08-01] MEDS ORDERED: 0.9 % Sodium Chloride 1,000 ML IVC ONE ×3 (15:57→18:00)
[2018-08-01] MEDS ORDERED: *HR* HYDROmorphone (PF) 1 MG/ML SYRINGE IVP ONE (15:57)
--- NOTE | 2018-08-01 16:03 | Emergency Department Note ---
Disposition Clinical Impression: Diverticulitis, Abdominal pain Disposition: Admitted As Inpatient Condition: Fair Forms: ED Satisfaction Letter, Work/School Release Time of Disposition: 17:53 General Adult HPI - General Chief complaint: ED Abdominal Pain Stated complaint: Diverticulitis Time Seen by Provider: 08/01/18 15:06 - History of Present Illness Pain Scale: 5 - Related Data Home Medications Medication Instructions Recorded Confirmed Atenolol [Tenormin] 100 mg PO QAM 03/23/15 05/05/18 Metformin [Glucophage] 1,000 mg PO BID 03/23/15 05/05/18 Albuterol Sulfate [Proair 1 - 2 puff IH Q4-6H PRN 07/30/15 05/05/18 Respiclick] Furosemide [Lasix] 40 mg PO QAM 07/30/15 05/05/18 Lisinopril [Zestril] 20 mg PO BID 07/30/15 05/05/18 [place]-3S/Dha/Epa/Fish Oil [Fish 1 cap PO BID 07/30/15 05/05/18 Oil 1,200 mg Softgel] Potassium Chloride [K-Tab ER] 10 meq PO Q3D 07/30/15 05/05/18 Cinnamon Bark [Cinnamon] 1,000 mg PO BID 01/31/17 05/05/18 Finasteride [Proscar] 5 mg PO DAILY 01/31/17 05/05/18 Omeprazole [PriLOSEC] 40 mg PO DAILY 01/31/17 05/05/18 Venlafaxine XR (24 HR) [Effexor XR] 150 mg PO DAILY 01/31/17 05/05/18 Simvastatin [Zocor] 40 mg PO DAILY 02/01/17 05/05/18 Multivitamin [Multivitamins] 1 each PO DAILY 03/23/17 05/05/18 Fluticasone Propionate Nasal 1 spray NS DAILY 11/05/17 05/05/18 [Flonase] Insulin Glargine,Hum.rec.anlog 10 - 50 unit SQ BID 11/05/17 05/05/18 [Basaglar Kwikpen U-100] Budesonide [Pulmicort Flexhaler 2 puff IH BID 01/05/18 05/05/18 180mcg] Chlorthalidone 25 mg PO DAILY 05/05/18 05/05/18 Previous Rx's Medication Instructions Recorded Levofloxacin [Levaquin] 500 mg PO DAILY #10 tablet 07/04/18 metroNIDAZOLE [Flagyl] 500 mg PO TID #30 tablet 07/04/18 Allergies Allergy/AdvReac Type Severity Reaction Status Date / Time amlodipine [From Norvasc] Allergy Rash Verified 08/01/18 13:20 bupropion [From Wellbutrin] Allergy Rash Verified 08/01/18 13:20 gabapentin Allergy Rash Verified 08/01/18 13:20 morphine AdvReac Confusion Verified 08/01/18 13:20 Past Medical History - Past Medical History Medical history: Reports: atrial fibrillation, diabetes, hypertension, other Surgical history: Reports: orthopedic, other, other Psychiatric history: Reports: anxiety, depression - Social History Smoking Status: Never smoker Smokeless Tobacco Status: No Alcohol use: Reports: none Drug use: Reports: none Course Vital Signs Temperature 97.9 F 08/01/18 13:18 Pulse Rate 81 08/01/18 13:18 Respiratory Rate 18 08/01/18 13:18 Blood Pressure 91/68 08/01/18 13:18 O2 Sat by Pulse Oximetry 95 08/01/18 13:18 Temperature 97.9 F 08/01/18 13:18 Pulse Rate 72 08/01/18 17:14 Respiratory Rate 15 08/01/18 16:23 Blood Pressure 99/63 08/01/18 17:14 O2 Sat by Pulse Oximetry 97 08/01/18 17:14 Oxygen Delivery Oxygen Delivery Room Air Medical Decision Making - Lab Data Result diagrams: 08/01/18 15:09 08/01/18 15:09 Lab Results 08/01/18 08/01/18 08/01/18 Range/Units 14:28 15:09 15:09 WBC 12.3 H (4.3-11.1) K/mcL RBC 4.96 (4.19-5.50) M/mcL Hgb 14.5 (12.9-16.9) g/dL Hct 42.4 (37.5-50.1) % MCV 85.5 (83.0-100.0) fL MCH 29.2 (28.0-33.3) pg MCHC 34.2 (31.6-35.5) g/dL RDW 13.8 (11.5-14.5) % Plt Count 245 (140-400) K/mcL MPV 9.7 (9.4-12.4) fL Immature Gran % 0.4 (0-4) % Seg Neutrophils % 72.2 % Lymphocytes % 18.2 % Monocytes % 7.8 % Eosinophils % 1.1 % Basophils % 0.3 % Neutrophils # 8.9 (1.6-8.9) K/mcL Lymphocytes # 2.3 (0.6-4.6) K/mcL Monocytes # 1.0 (0.0-1.3) K/mcL Eosinophils # 0.1 (0.0-0.6) K/mcL Basophils # 0.0 (0.0-0.2) K/mcL Sodium 137 (136-145) mEq/L Potassium 3.7 (3.5-5.1) mEq/L Chloride 98 (98-107) mEq/L Carbon Dioxide 27 (23-29) mEq/L BUN 41 H (6-20) mg/dL Creatinine 1.95 H (0.70-1.30) mg/dL Est GFR ( Amer) 43 L (> 60) Est GFR (Non-Af Amer) 36 L (> 60) BUN/Creatinine Ratio 21 (6-26) Glucose 74 (70-105) mg/dL Calculated Osmolality 293 (280-300) Calcium 9.9 (8.6-10.3) mg/dL Urine Color Yellow (Yellow) Urine Clarity Clear (Clear) Urine pH 5.5 (5.0-8.0) pH Units Ur Specific [place] 1.013 (1.010-1.025) Urine Protein Negative (Neg-Trace) mg/dL Urine Glucose (UA) Normal (Normal) mg/dL Urine Ketones Negative (Negative) mg/dL Urine Blood Negative (Negative) Urine Nitrite Negative (Negative) Urine Bilirubin Negative (Negative) Urine Urobilinogen Normal (Normal) mg/dL Ur Leukocyte Esterase Negative (Negative) Ur Culture Indicated? NO (NO) Attestation Statement - Attestation Attestation: , Navjot Canchola DO, examined this patient [id number] and my medical decision-making was reviewed with Lilibeth Tran PGY-1, Resident Physician. I agr ee with the documented findings, disposition and treatment plan as described except to the extent set forth below. Please see my progress notes for details. 58-year-old male presents to the emergency room for evaluation of diverticular leg pain. Patient has long-standing diverticular disease along with diverticulitis. He is most recently treated with antibiotic 3 weeks ago. He denies any falls trauma or injury. Currently denying chest pain shortness of breath headache vision changes. Denies any nausea vomiting or diarrhea. Currently denying fevers or chills. His main complaint is left lower quadrant abdominal discomfort that is radiating across his entire abdomen. Patient says it hurts when he takes a deep breath in secondary to pressure and his abdominal wall. Vital signs otherwise stable. Patient is alert he is oriented she speaking in full sentences. He does not show any acute signs of decompensation. His abdomen is soft but he does have discomfort and left lower quadrant radiates across the abdominal wall. Lungs are clear heart is regular. Extremities are normal with no signs of cellulitis infection or other abnormality at this time. Patient is describing this is the worst symptoms he had with his diverticular disease. Because of this patient have repeat CT scan completed of his abdomen along with fluids pain medication nausea medication as needed. Antibiotic regimen will be discussed and reviewed. Patient is scheduled with his surgeon to have partial colectomy completed secondary to the advanced nature of his disease. Patient is otherwise stable. Symptomatically control be completed disposition is determined. See detailed documentation the physical exam, medical intervention, medical decision-making and disposition in the resident physician's note. No critical care by the patient's treatment course at this time. 1715 CT imaging of the abdomen confirms stable persistent diverticulitis. Consultation by phone was completed with the operative physician Dr. Orantes. He recommended admission to the hospital for antibiotic regiment and continuation of care. The hospitalist has been contacted. Dr. Gallagher reviewed the case. Zosyn was ordered for diverticular antibiotic regiment along with lactic acid blood cultures and repeat doses of fluid. Patient does not meet criteria for sepsis or septic shock. His blood pressure was initially low but is been fluid responsive at this time. Patient does have potential infectious etiology was other abnormalities. He has not required any other immediate intervention at this time. Patient will be monitored here in the emergency department until admission process is completed.
[2018-08-01 16:06] LABS: Calcium 9.9 mg/dL (8.6-10.3); Potassium 3.7 mEq/L (3.5-5.1)
--- NOTE | 2018-08-01 16:47 | Emergency Department Note ---
Disposition Clinical Impression: Diverticulitis Abdominal pain Qualifiers: Abdominal location: left lower quadrant Qualified Code(s): R10.32 - Left lower quadrant pain Disposition: Admitted As Inpatient Condition: Fair Time of Disposition: 18:00 Abdominal Pain HPI - General Chief Complaint: ED Abdominal Pain Stated Complaint: Diverticulitis Time Seen by Provider: 08/01/18 15:06 - History of Present Illness HPI Narrative: 58 y/o M hx of recurrent diverticulitis with multiple treatment with antibiotics. In last few days LLQ abdominal pain with radiation to left lumbar back . He reports constipation with last BM yesterday hard and small. He has nausea and increased abdominal pain with food - unable to tolerate water. He reports pain worse with urination but no dysuria or discharge. He has had more then 6 episodes of recurrent diverticulitis last treated with levaquin and flagyl in early June with CT that showed uncomplicated divertiutlisit . He has minimum improvement after each treatment with poor baseline. He has delayed follow up with Dr Orantes for surgical evaluation due to cost and scheduling error. Pain Scale: 6 - Related Data Home Medications Medication Instructions Recorded Confirmed Atenolol [Tenormin] 100 mg PO QAM 03/23/15 05/05/18 Metformin [Glucophage] 1,000 mg PO BID 03/23/15 05/05/18 Albuterol Sulfate [Proair 1 - 2 puff IH Q4-6H PRN 07/30/15 05/05/18 Respiclick] Furosemide [Lasix] 40 mg PO QAM 07/30/15 05/05/18 Lisinopril [Zestril] 20 mg PO BID 07/30/15 05/05/18 [place]-3S/Dha/Epa/Fish Oil [Fish 1 cap PO BID 07/30/15 05/05/18 Oil 1,200 mg Softgel] Potassium Chloride [K-Tab ER] 10 meq PO Q3D 07/30/15 05/05/18 Cinnamon Bark [Cinnamon] 1,000 mg PO BID 01/31/17 05/05/18 Finasteride [Proscar] 5 mg PO DAILY 01/31/17 05/05/18 Omeprazole [PriLOSEC] 40 mg PO DAILY 01/31/17 05/05/18 Venlafaxine XR (24 HR) [Effexor XR] 150 mg PO DAILY 01/31/17 05/05/18 Simvastatin [Zocor] 40 mg PO DAILY 02/01/17 05/05/18 Multivitamin [Multivitamins] 1 each PO DAILY 03/23/17 05/05/18 Fluticasone Propionate Nasal 1 spray NS DAILY 11/05/17 05/05/18 [Flonase] Insulin Glargine,Hum.rec.anlog 10 - 50 unit SQ BID 11/05/17 05/05/18 [Basaglar Kwikpen U-100] Budesonide [Pulmicort Flexhaler 2 puff IH BID 01/05/18 05/05/18 180mcg] Chlorthalidone 25 mg PO DAILY 05/05/18 05/05/18 Previous Rx's Medication Instructions Recorded Levofloxacin [Levaquin] 500 mg PO DAILY #10 tablet 07/04/18 metroNIDAZOLE [Flagyl] 500 mg PO TID #30 tablet 07/04/18 Allergies Allergy/AdvReac Type Severity Reaction Status Date / Time amlodipine [From Norvasc] Allergy Rash Verified 08/01/18 13:20 bupropion [From Wellbutrin] Allergy Rash Verified 08/01/18 13:20 gabapentin Allergy Rash Verified 08/01/18 13:20 morphine AdvReac Confusion Verified 08/01/18 13:20 Constitutional: Denies: fever, chills Eyes: Denies: vision change Cardiovascular: Denies: chest pain, palpitations Respiratory: Denies: cough, dyspnea Gastrointestinal: Reports: abdominal pain, nausea, constipation. Denies: vomiting, diarrhea Genitourinary: Denies: urgency, dysuria, frequency, hematuria Musculoskeletal: Reports: back pain Neurological: Denies: weakness, confusion Endocrine: Reports: fatigue Abdominal Pain PMH - Past Medical History Medical history: Reports: atrial fibrillation, diabetes, hypertension, other Male Surgical History: Reports: other Psychiatric history: Reports: anxiety, depression - Social History Smoking status: Never smoker Alcohol use: Reports: none Drug use: Reports: none Physical Exam - General General appearance: alert, in distress (mild), obese - Head Head exam: atraumatic, normocephalic, normal inspection - Eye Eye exam: Present: normal appearance, EOMI - ENT ENT exam: normal exam, normal oropharynx, mucous membranes dry - Neck Neck exam: Present: normal inspection, full ROM - Chest Chest inspection: Present: normal inspection, symmetric chest wall rise - Respiratory Respiratory exam: Present: normal lung sounds bilaterally. Absent: respiratory distress, wheezes - Cardiovascular Cardiovascular exam: Present: regular rate, normal rhythm, normal heart sounds - Abdominal Exam Abdominal exam: Present: soft, tenderness, hyperactive bowel sounds Abdominal tenderness: Present: LLQ (worse), epigastrium - Extremities Exam Extremities exam: Present: normal inspection, full ROM. Absent: tenderness, pedal edema - Back Exam Back exam: Present: normal inspection, full ROM. Absent: tenderness, paraspinal tenderness - Neurological Exam Neurological exam: Present: alert, oriented X3 - Psychiatric Psychiatric exam: Present: flat affect. Absent: agitated, anxious - Skin Skin exam: Present: warm, dry, intact Course Course Narrative: 58 y/o M with recurrent diverticulitis failed out patient treatment presents with worsening abdominal pain radiating to low back. His exam of hyperactive bowels with tenderness worse in epigastric and LLQ. In ED hypotension with BP 96-66 responsive to fluids with 3 liters ordered. Mild elevated WBC at 12. - Reevaluation(s) Reevaluation #1: CT abd shows worsening diverticulitis that remains uncomplicated with out abscess or perforation. - Consultations Consultation #1: Case discussed with Dr Orantes who advises inpatient treatment with IV antibiotics as previously failed oral antibiotics outpatient . Dannie clark wishes to be consulted on patient. Time: 17:57 Consultation #2: Case discussed with hospitalist Dr Pratt and patient was accepted for admission on IV zosyn, We will also give second liter of IVF for his hypotention. Concern for sepsis with hypotention and mild elevated WBC thus will get blood cultures and lactic acid. Time: 17:59 Vital Signs Temperature 97.9 F 08/01/18 13:18 Pulse Rate 81 08/01/18 13:18 Respiratory Rate 18 08/01/18 13:18 Blood Pressure 91/68 08/01/18 13:18 O2 Sat by Pulse Oximetry 95 08/01/18 13:18 Temperature 98.6 F 08/01/18 21:23 Pulse Rate 74 08/01/18 21:23 Respiratory Rate 16 08/01/18 21:23 Blood Pressure 94/62 08/01/18 21:23 O2 Sat by Pulse Oximetry 96 08/01/18 21:23 Oxygen Delivery Oxygen Delivery Room Air Abdominal Pain - Medical Records Medical records reviewed: Yes I reviewed the patient's medical records. - Lab Data Lab results reviewed: Yes I reviewed the patient's lab results. Result diagrams: 08/01/18 15:09 08/01/18 15:09 Lab Results 08/01/18 08/01/18 08/01/18 Range/Units 14:28 15:09 15:09 WBC 12.3 H (4.3-11.1) K/mcL RBC 4.96 (4.19-5.50) M/mcL Hgb 14.5 (12.9-16.9) g/dL Hct 42.4 (37.5-50.1) % MCV 85.5 (83.0-100.0) fL MCH 29.2 (28.0-33.3) pg MCHC 34.2 (31.6-35.5) g/dL RDW 13.8 (11.5-14.5) % Plt Count 245 (140-400) K/mcL MPV 9.7 (9.4-12.4) fL Immature Gran % 0.4 (0-4) % Seg Neutrophils % 72.2 % Lymphocytes % 18.2 % Monocytes % 7.8 % Eosinophils % 1.1 % Basophils % 0.3 % Neutrophils # 8.9 (1.6-8.9) K/mcL Lymphocytes # 2.3 (0.6-4.6) K/mcL Monocytes # 1.0 (0.0-1.3) K/mcL Eosinophils # 0.1 (0.0-0.6) K/mcL Basophils # 0.0 (0.0-0.2) K/mcL Sodium 137 (136-145) mEq/L Potassium 3.7 (3.5-5.1) mEq/L Chloride 98 (98-107) mEq/L Carbon Dioxide 27 (23-29) mEq/L BUN 41 H (6-20) mg/dL Creatinine 1.95 H (0.70-1.30) mg/dL Est GFR ( Amer) 43 L (> 60) Est GFR (Non-Af Amer) 36 L (> 60) BUN/Creatinine Ratio 21 (6-26) Glucose 74 (70-105) mg/dL Calculated Osmolality 293 (280-300) Lactic Acid (0.5-2.2) mmol/L Calcium 9.9 (8.6-10.3) mg/dL Urine Color Yellow (Yellow) Urine Clarity Clear (Clear) Urine pH 5.5 (5.0-8.0) pH Units Ur Specific [place] 1.013 (1.010-1.025) Urine Protein Negative (Neg-Trace) mg/dL Urine Glucose (UA) Normal (Normal) mg/dL Urine Ketones Negative (Negative) mg/dL Urine Blood Negative (Negative) Urine Nitrite Negative (Negative) Urine Bilirubin Negative (Negative) Urine Urobilinogen Normal (Normal) mg/dL Ur Leukocyte Esterase Negative (Negative) Ur Culture Indicated? NO (NO) 08/01/18 Range/Units 18:52 WBC (4.3-11.1) K/mcL RBC (4.19-5.50) M/mcL Hgb (12.9-16.9) g/dL Hct (37.5-50.1) % MCV (83.0-100.0) fL MCH (28.0-33.3) pg MCHC (31.6-35.5) g/dL RDW (11.5-14.5) % Plt Count (140-400) K/mcL MPV (9.4-12.4) fL Immature Gran % (0-4) % Seg Neutrophils % % Lymphocytes % % Monocytes % % Eosinophils % % Basophils % % Neutrophils # (1.6-8.9) K/mcL Lymphocytes # (0.6-4.6) K/mcL Monocytes # (0.0-1.3) K/mcL Eosinophils # (0.0-0.6) K/mcL Basophils # (0.0-0.2) K/mcL Sodium (136-145) mEq/L Potassium (3.5-5.1) mEq/L Chloride (98-107) mEq/L Carbon Dioxide (23-29) mEq/L BUN (6-20) mg/dL Creatinine (0.70-1.30) mg/dL Est GFR ( Amer) (> 60) Est GFR (Non-Af Amer) (> 60) BUN/Creatinine Ratio (6-26) Glucose (70-105) mg/dL Calculated Osmolality (280-300) Lactic Acid 1.3 (0.5-2.2) mmol/L Calcium (8.6-10.3) mg/dL Urine Color (Yellow) Urine Clarity (Clear) Urine pH (5.0-8.0) pH Units Ur Specific [place] (1.010-1.025) Urine Protein (Neg-Trace) mg/dL Urine Glucose (UA) (Normal) mg/dL Urine Ketones (Negative) mg/dL Urine Blood (Negative) Urine Nitrite (Negative) Urine Bilirubin (Negative) Urine Urobilinogen (Normal) mg/dL Ur Leukocyte Esterase (Negative) Ur Culture Indicated? (NO) - Radiology Data Radiology results reviewed: Yes I reviewed the patient's radiology results. Abdomen/Pelvis CT 08/01/18 15:57 IMPRESSION: Persistent versus recurrent sigmoid diverticulitis which appears slightly more inflamed than previously, but is uncomplicated. The remainder of the CT abdomen pelvis appears unremarkable. D/ / Rupert Esparza / Rupert Esparza Interpreting Provider: Rupert Esparza Attestation Statement - Attestation Attestation: , Navjot Canchola DO, examined this patient [id number] and my medical decision-making was reviewed with Lilibeth Tran PGY-1, Resident Physician. I agree with the documented findings, disposition and treatment plan as described except to the extent set forth below. Please see my progress notes for details.
[2018-08-01] MEDS ORDERED: *HR* Promethazine 25 MG/ML VIAL IM ONE (17:42)
[2018-08-01] MEDS ORDERED: Piperacillin/Tazobactam 3.375 GM in 0.9 % Sodium Chloride Mini Bag 100 ML IVPB ONE (17:46)
[2018-08-01] MEDS ORDERED: OXYCODONE Oral CONC 10 MG/0.5 ML ORAL.SYG SL PRN ×2 (18:01)
[2018-08-01] MEDS ORDERED: Ondansetron 4 MG/2 ML VIAL IVP PRN (18:01)
[2018-08-01] MEDS ORDERED: Naloxone 0.4 MG/ML INJ IVP PRN (18:01)
[2018-08-01] MEDS ORDERED: 0.9 % Sodium Chloride 500 ML IVC PRN (18:02)
--- NOTE | 2018-08-01 18:03 | Internal Med History&Physical ---
Date of Encounter: 08/01/18 Time of Encounter: 17:50 Internal Medicine - H&P: HPI Chief complaint: abdominal pain Admitted From: Home History of present illness: Mr. Almeida is a 58 year old male with past medical history of hypertension, lipidemia, diabetes, recurrent sigmoid diverticulitis with 3 admissions since 12/2017, presented to the ED with abdominal pain. Suprapubic/LLQ, for the last 2- 3 days, radiates to left lower back, associated with constipation and nausea without vomiting. No relieving factors. Reports subjective fever and chills. No dysuria, hematuria, or urinary frequency. Denies any chest pain, shortness of breath, palpitation, orthopnea, PND, or leg swelling. Patient was initially scheduled for operative mx with Dr. Orantes last year but due to insurance issue, it was postponed. In the ED, he was afebrile with normal heart rate but blood pressure was low at 91/68. Saturating well on RA. Labwork showed leukocyt osis of 12.3, Cr 1.95 (baseline 1.1), negative urinalysis, and normal electrolytes. CT scan again demonstrated persistent versus recurrent sigmoid diverticulitis with more prominent inflammatory findings than previously. Patient was started on Zosyn and admitted for further management. Past Med Surg Social Fam HX - Past Medical History Medical history: atrial fibrillation, diabetes, hypertension, other Additional medical history: sleep apnea, diverticulitis, colon polyps, fatty liver, chronic lumbago, pancreatitis, TTE with LVEF, Factor V leiden, sick sinus rhythm Psychiatric history: anxiety, depression - Past Surgical History Surgical History: orthopedic, other, other Additional surgical history: left knee arthroscopy, bladder surgery, colonoscopy, EGD, heart cath - Social History Smoking Status: Never smoker Smokeless Tobacco Status: No Alcohol use: none Drug use: none - Family History Father Living Status: Hx Family Cardiac Disorders: Yes Mother Family Member Ethnicity: Non- Living Status: Still Living Hx Family Cardiac Disorders: Yes (HTN) Hx Family Respiratory Disorders: No Hx Family Cancer: Yes (Colon Cancer) Hx Family GI Disorders: No Hx Family Endocrine Disorder: No Hx Family Neuromuscular Disorders: No Hx Family Neurologic Disorders: No Hx Family HEENT Disorders: No Hx Family Autoimmune Disorders: No Internal Medicine - H&P: Meds Atenolol [Tenormin] 100 mg PO QAM 03/23/15 [History] Metformin [Glucophage] 1,000 mg PO BID 03/23/15 [History] Albuterol Sulfate [Proair Respiclick] 1 - 2 puff IH Q4-6H PRN 07/30/15 [History] Furosemide [Lasix] 40 mg PO QAM 07/30/15 [History] Lisinopril [Zestril] 20 mg PO BID 07/30/15 [History] [place]-3S/Dha/Epa/Fish Oil [Fish Oil 1,200 mg Softgel] 1 cap PO BID 07/30/15 [History] Potassium Chloride [K-Tab ER] 10 meq PO Q3D 07/30/15 [History] Cinnamon Bark [Cinnamon] 1,000 mg PO BID 01/31/17 [History] Finasteride [Proscar] 5 mg PO DAILY 01/31/17 [History] Omeprazole [PriLOSEC] 40 mg PO DAILY 01/31/17 [History] Venlafaxine XR (24 HR) [Effexor XR] 150 mg PO DAILY 01/31/17 [History] Simvastatin [Zocor] 40 mg PO DAILY 02/01/17 [History] Multivitamin [Multivitamins] 1 each PO DAILY 03/23/17 [History] Fluticasone Propionate Nasal [Flonase] 1 spray NS DAILY 11/05/17 [History] Insulin Glargine,Hum.rec.anlog [Basaglar Kwikpen U-100] 10 - 50 unit SQ BID 11/05/17 [History] Budesonide [Pulmicort Flexhaler 180mcg] 2 puff IH BID 01/05/18 [History] Chlorthalidone 25 mg PO DAILY 05/05/18 [History] Levofloxacin [Levaquin] 500 mg PO DAILY #10 tablet 07/04/18 [Rx] metroNIDAZOLE [Flagyl] 500 mg PO TID #30 tablet 07/04/18 [Rx] Allergy/AdvReac Type Severity Reaction Status Date / Time amlodipine [From Norvasc] Allergy Rash Verified 08/01/18 13:20 bupropion [From Wellbutrin] Allergy Rash Verified 08/01/18 13:20 gabapentin Allergy Rash Verified 08/01/18 13:20 morphine AdvReac Confusion Verified 08/01/18 13:20 All Systems PM: A 10-system review of systems was performed and is negative for pertinent findings except as documented above in the HPI. - Constitutional Vitals: Temp Pulse Resp BP Pulse Ox 97.9 F 72 15 99/63 97 08/01/18 13:18 08/01/18 17:14 08/01/18 16:23 08/01/18 17:14 08/01/18 17:14 Exam: General: Alert and oriented, not in acute distress. HEENT:EOMI, pupils equal, round and reactive. Cardiovascular:Normal S1 & S2, No JVD. Pulse regular. Lungs: clear to auscultation, no wheezes/rales Abdomen:Soft, suprapubic/LLQ tenderness with voluntary guarding. No rigidity/rebound. BS active Extremities:No deformity or swelling Neurological:Normal cognition and motor skills. Non-focal Skin:Normal color, no rash, no lesions. Pulses:Carotid and radial pulses normal +2. Rest of the physical exam is non contributory Internal Med - H&P Results - Labs CBC & Chem 7: 08/01/18 15:09 08/01/18 15:09 Labs: Short CBC 08/01/18 Range/Units 15:09 WBC 12.3 H (4.3-11.1) K/mcL Hgb 14.5 (12.9-16.9) g/dL Hct 42.4 (37.5-50.1) % Plt Count 245 (140-400) K/mcL Neutrophils # 8.9 (1.6-8.9) K/mcL BMP 08/01/18 15:09 Sodium 137 Potassium 3.7 Chloride 98 Carbon Dioxide 27 BUN 41 H Creatinine 1.95 H Glucose 74 Calcium 9.9 Urine 08/01/18 Range/Units 14:28 Urine Color Yellow (Yellow) Urine Clarity Clear (Clear) Urine pH 5.5 (5.0-8.0) pH Units Ur Specific [place] 1.013 (1.010-1.025) Urine Protein Negative (Neg-Trace) mg/dL Urine Glucose (UA) Normal (Normal) mg/dL - Impressions ITS Impressions Abdomen/Pelvis CT 08/01/18 15:57 IMPRESSION: Persistent versus recurrent sigmoid diverticulitis which appears slightly more inflamed than previously, but is uncomplicated. The remainder of the CT abdomen pelvis appears unremarkable. D/ / Rupert Esparza / Rupert Esparza Interpreting Provider: Rupert Esparza - Assessment and plan (1) Sepsis Current Visit: Yes Status: Acute Assessment and plan: Presented with abdominal pain, hypotension, leukocytosis with CT finding consistent with recurrent sigmoid diverticulitis. SIRS 2/4 Associated with RONNI lactic acid pending started on zosyn, continue with renal dosing mIVF + PRN fluid boluses for hypotension blood cultures NPO, pending surgical evaluation Qualifiers: Sepsis type: sepsis due to unspecified organism Qualified Code(s): A41.9 - Sepsis, unspecified organism (2) Acute kidney injury Current Visit: Yes Status: Acute Assessment and plan: Secondary to sepsis as above + poor oral intake IVF, monitor Cr Avoid nephrotoxins Renally adjusted antibiotics (3) Diabetes mellitus Current Visit: No Status: Chronic Assessment and plan: On metformin and glargine at home. LDSS Q6 with accuchecks Qualifiers: Diabetes mellitus type: type 2 Diabetes mellitus terminal operator insulin use: with terminal operator use Diabetes mellitus complication status: with neurologic complications Diabetes mellitus complication detail: with autonomic neuropathy Qualified Code(s): E11.43 - Type 2 diabetes mellitus with diabetic autonomic (poly)neuropathy; Z79.4 - long-term (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 (4) Hypertension Current Visit: No Status: Chronic Assessment and plan: Holding home meds due to borderline blood pressure Qualifiers: Hypertension type: essential hypertension Qualified Code(s): I10 - Essential (primary) hypertension (5) HLD (hyperlipidemia) Current Visit: No Status: Chronic Assessment and plan: Hold off on meds given nothing by mouth status Qualifiers: Hyperlipidemia type: mixed hyperlipidemia Qualified Code(s): E78.2 - Mixed hyperlipidemia (6) DVT prophylaxis Current Visit: No Status: Acute Assessment and plan: SQ hep - Time Spent With Patient Total time spent is greater than 50% in coordination of care (as documented) at patient's floor/unit and/or counseling patient:
[2018-08-01] MEDS ORDERED: Dextrose Gel 15 GM/37.5 ML TUBE PO PRN ×2 (18:12)
[2018-08-01] MEDS ORDERED: *HR* Dextrose 50 % in Water (Syg) 50 ML SYRINGE IVP PRN (18:12)
[2018-08-01] MEDS ORDERED: D5% in Water 1,000 ML IVC PRN (18:12)
[2018-08-01] MEDS: *HR* Heparin 5,000 UNIT/ML VIAL SQ SCH (22:37)
[2018-08-02] MEDS ORDERED: ALBUTEROL SULFATE IH PRN (00:02)
[2018-08-02] MEDS: Insulin LISPRO 300 UNITS/3 ML VIAL SQ SCH ×5 (01:06→23:56)
[2018-08-02] MEDS: Piperacillin/Tazobactam 3.375 GM in 0.9 % Sodium Chloride Mini Bag 100 ML IVPB SCH ×3 (01:15→17:08)
--- NOTE | 2018-08-02 05:28 | Event Note ---
Date of Encounter: 08/01/18 Time of Encounter: 23:57 Pts. meds reconciled and ordered. Communication order placed stating to hold pts. BP medications and any opioid pain medications d/t current episode of hypotension. Pt. also reports using CPAP at night, so CPAP ordered HS and RT notified. Alerted by pts. nurse at 04:20 that the pts. BP was now 76/45. Nurse instructed to administer IV fluids for hypotension per Dr. Goodwin's order. Alerted at 05:20 that pts. BP had improved to 100/67 post-bolus. Nurse instructed to continue monitoring pt. and BP closely and notify me of any adverse changes.
[2018-08-02] MEDS: *HR* Heparin 5,000 UNIT/ML VIAL SQ SCH ×3 (05:52→21:00)
[2018-08-02 07:32] LABS: Basophils % 0.3 %; Eosinophils # 0.1 K/mcL (0.0-0.6); Hematocrit 38.9 % (37.5-50.1); Hemoglobin 13.2 g/dL (12.9-16.9); Immature Granulocytes % 0.3 % (0-4); Lymphocytes # 1.9 K/mcL (0.6-4.6); Lymphocytes % 19.2 %; Mean Corpuscular HGB Conc 33.9 g/dL (31.6-35.5); Mean Corpuscular Hemoglobin 29.3 pg (28.0-33.3); Mean Corpuscular Volume 86.3 fL (83.0-100.0); Mean Platelet Volume 9.7 fL (9.4-12.4); Monocytes # 0.8 K/mcL (0.0-1.3); Monocytes % 7.9 %; Neutrophils # 7.1 K/mcL (1.6-8.9); Platelet Count 193 K/mcL (140-400); Red Blood Count 4.51 M/mcL (4.19-5.50); Segmented Neutrophils % 71.3 %
[2018-08-02 07:52] LABS: Calcium 9.4 mg/dL (8.6-10.3); Magnesium 1.6 mg/dL (1.6-2.6); Potassium 3.4 mEq/L (3.5-5.1)
[2018-08-02] MEDS ORDERED: Lisinopril 20 MG TABLET PO SCH (09:00)
[2018-08-02] MEDS ORDERED: Furosemide 20 MG TABLET PO SCH (09:00)
[2018-08-02] MEDS ORDERED: NON-FORMULARY MEDICATION 1 EACH EACH (Omeprazole [Prilosec] 40 MG) PO SCH (09:00)
[2018-08-02] MEDS: Venlafaxine XR (24 HR) 150 MG CAP.ER.24H PO SCH (09:41)
[2018-08-02] MEDS: Finasteride 5 MG TABLET PO SCH (09:41)
[2018-08-02] MEDS: Pantoprazole 40 MG VIAL IVP SCH (09:43)
[2018-08-02] MEDS: 0.9 % Sodium Chloride 1,000 ML IVC SCH ×2 (10:05→20:57)
--- NOTE | 2018-08-02 14:02 | Internal Med Progress Note ---
Hospitalist Progress Note - Encounter Date of Encounter: 08/02/18 Time of Encounter: 09:00 - Subjective Interval History: Mr. Almeida is a 58 year old male with past medical history of hypertension, morbid obesity, obstructive sleep apnea on CPAP at nighttime , hyperlipidemia, diabetes, recurrent sigmoid diverticulitis with 3 admissions since 12/2017, pre sented to the ED with abdominal pain. His CT scan again demonstrated persistent worsen significant sigmoid diverticulitis with the more prominent inflammatory findings than previously. Patient was admitted in the hospital and started him on empirical antibiotic Zosyn. Patient is still complaining about left lower quadrant abdominal pain. - Exam Vitals: Temp Pulse Resp BP Pulse Ox 98.1 F 97 18 90/69 99 08/02/18 12:11 08/02/18 12:11 08/02/18 12:11 08/02/18 12:11 08/02/18 12:11 Exam: Gen: Alert, awake, Oriented to time,place and person Chest: Diminished breath sounds B/L, No wheezing, No crackles, No rales Heart: S1S2+ RRR No murmurs Abd: Soft, moderate tenderness in the left lower quadrant, BS +, No organomegaly, distended Ext: No edema, pulses are palpable, No calf tenderness Neuro : Benign findings Skin: No rash. - Assessment and Plan (1) Sepsis Current Visit: Yes Status: Acute Assessment and Plan: Presented with abdominal pain, hypotension, leukocytosis with CT finding consistent with recurrent sigmoid diverticulitis Associated with RONNI lactic acid @ 1.3 Cont empirical abx zosyn with renal dosing surgery recommend to add Flagyl too blood cultures - P Cont NPO (2) Diverticulitis Current Visit: Yes Status: Acute Assessment and Plan: Recurrent diverticulitis Surgery Dr. Orantes on board appreciate surgery recommendations continue NPO IV hydration cont empirical abx Zosyn + Flagyl (3) Acute kidney injury Current Visit: Yes Status: Acute Assessment and Plan: Secondary to sepsis as above + poor oral intake Improving cont IV F Avoid nephrotoxins Renally adjusted antibiotics (4) Hypertension Current Visit: No Status: Chronic Assessment and Plan: Holding home meds due to borderline blood pressure (5) HLD (hyperlipidemia) Current Visit: No Status: Chronic Assessment and Plan: Hold off on meds given nothing by mouth status (6) Diabetes mellitus Current Visit: No Status: Chronic Assessment and Plan: NPO diet on ISS @ Q6 with accuchecks HbA1C from 05/16 @ 6.9 (7) DVT prophylaxis Current Visit: No Status: Acute Assessment and Plan: SQ hep (8) ADALID on CPAP Current Visit: Yes Status: Acute (9) Morbid obesity with BMI of 45.0-49.9, adult Current Visit: Yes Status: Acute Assessment and Plan: Counseled to loose weight - Time Spent with Patient Total time spent is greater than 50% in coordination of care (as documented) at patient's floor/unit and/or counseling patient: Internal Medicine: Result - Labs CBC & Chem 7: 08/02/18 06:56 08/02/18 06:56 Labs: Short CBC 08/01/18 08/02/18 Range/Units 15:09 06:56 WBC 12.3 H 9.9 (4.3-11.1) K/mcL Hgb 14.5 13.2 (12.9-16.9) g/dL Hct 42.4 38.9 (37.5-50.1) % Plt Count 245 193 (140-400) K/mcL Neutrophils # 8.9 7.1 (1.6-8.9) K/mcL BMP 08/01/18 08/02/18 15:09 06:56 Sodium 137 136 Potassium 3.7 3.4 L Chloride 98 98 Carbon Dioxide 27 26 BUN 41 H 37 H Creatinine 1.95 H 1.64 H Glucose 74 149 H Calcium 9.9 9.4 Urine 08/01/18 Range/Units 14:28 Urine Color Yellow (Yellow) Urine Clarity Clear (Clear) Urine pH 5.5 (5.0-8.0) pH Units Ur Specific [place] 1.013 (1.010-1.025) Urine Protein Negative (Neg-Trace) mg/dL Urine Glucose (UA) Normal (Normal) mg/dL - Impressions Impressions Abdomen/Pelvis CT 08/01/18 15:57 IMPRESSION: Persistent versus recurrent sigmoid diverticulitis which appears slightly more inflamed than previously, but is uncomplicated. The remainder of the CT abdomen pelvis appears unremarkable. D/ / Rupert Esparza / Rupert Esparza Interpreting Provider: Rupert Esparza Consult Discharge Plan - Plan Referrals: Sandhya Acuña MD [Primary Care Provider] - (1) Sepsis Qualifiers: Sepsis type: sepsis due to unspecified organism Qualified Code(s): A41.9 - Sepsis, unspecified organism (4) Hypertension Qualifiers: Hypertension type: essential hypertension Qualified Code(s): I10 - Essential (primary) hypertension (5) HLD (hyperlipidemia) Qualifiers: Hyperlipidemia type: mixed hyperlipidemia Qualified Code(s): E78.2 - Mixed hyperlipidemia (6) Diabetes mellitus Qualifiers: Diabetes mellitus type: type 2 Diabetes mellitus retirement insulin use: with retirement use Diabetes mellitus complication status: with neurologic complications Diabetes mellitus complication detail: with autonomic neuropathy Qualified Code(s): E11.43 - Type 2 diabetes mellitus with diabetic autonomic (poly)neuropathy; Z79.4 - jail (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
[2018-08-02] MEDS: MetroNIDAZOLE 500 MG/100 ML 500 MG/100 ML BAG IVPB SCH (17:08)
--- NOTE | 2018-08-02 19:27 | General Surgery Consult Note ---
Date of Encounter: 08/02/18 Time of Encounter: 18:57 History of Present Illness Reason for consult: abdominal pain (recurrent / persistent sigmoid diverticulitis) Requesting physician: Navjot Canchola History of present illness: General Surgery - this is a delayed dictated. Patient seen and examined approx 12:50 Brief history: Morbidly obese, 58-year-old, referred to me after presenting to the emergency department with recurrent left lower quadrant abdominal pain. CT abdomen and pelvis read demonstrated uncomplicated acute diverticulitis of the sigmoid colon similar to the patient's prior presentation early June (07/04/2018). The patient was treated with oral antibiotics with either recurrent diverticulitis or persistent diverticulitis refractory to medical management. He is known to me having been hospitalized December 2017, with increasing complaints left lower quadrant abdominal pain radiating through to the back. CT at that time demonstrated extensive diverticulosis and acute sigmoid diverticulitis. The patient has been admitted for aggressive IV antibiotic therapy and, most likely, surgical intervention. Asked medical history: Morbid obesity, diverticulosis/diverticulitis, atrial fibrillation, coronary artery disease, sick sinus syndrome,diabetes mellitus with unspecified neuropathy, obstructive sleep apnea, hypertension, hyperlipidemia, social history: Patient is , lives with his spouse; factor V Leiden deficiency, anxiety, depression; history of adenomatous colon polyps in the past. Surgical history: Left knee surgery; bladder biopsy in the remote past. Colonoscopy, 03/11/18, demonstrating diverticulosis without recurrent polyps. Social history: Patient is , lives with his spouse; history of smokeless tobacco use, he quit approximately 30 years ago. He also has a history of "rare" alcohol use. He denies any illicit drug use. Family history: Mother at with [place] at age 35, there is a family history of colon cancer. Physical examination: Morbidly obese, age-appropriate male resting comfortably in his hospital bed. The patient has been afebrile since admission, currently 98.4, pulse 77, respirations 18, blood pressure earlier today was 90/69 but has since fluctuated 103/66-128/73. Skin is warm without obvious jaundice Lungs: Clear; breath sounds are diminished due to body habitus Cardiac: Regular rate, sounds are diminished due to body habitus Abdomen: Morbidly obese, quite tender in the left lower quadrant. No detected abdominal masses. No rebound. Hypoactive bowel sounds. Laboratories: White count on presentation 12.3, currently 9.9; differential is remained within normal limits. Hemoglobin on presentation 14.5 following to 13.2 most likely due to fluid resuscitation. Hematocrit currently 38.9, platelet count 193,000. Electrolytes notable for potassium 3.4, BUN 27, creatinine 1.64; eGFR 44 (on presentation 36) - historical data indicates more normal renal function Impression: A 58-year-old, morbidly obese patient admitted with recurrent versus refractory sigmoid diverticulitis. The patient has had at least 3 episodes of documented uncomplicated acute inflammation of the sigmoid colon since December 2017. The patient has numerous medical comorbidities which significantly elevate the risk of surgery. Unfortunately, allowing this patient to become complicated with either perforation or paracolic abscess increases these risks even further. Recommendations: Nothing by mouth until abdominal pain has resolved Aggressive antibiotic therapy (patient on Zosyn IV since presentation to the ED) but should include metronidazole to address the possibility of medically refractory diverticulitis not responsive to oral antibiotics. Suggest cardiac evaluation for cardiac status prior to surgery and assistance in the post op period Consider nephrology consultation if renal status remains impaired Consider further evaluation of this patient's factor V Leiden deficiency again with potential intra op / post op impact in care If patient requires prolonged NPO status, he will require TPN for nutritional support. Past Med Surg Social Fam HX - Past Medical History Medical history: atrial fibrillation, diabetes, hypertension, other Additional medical history: sleep apnea, diverticulitis, colon polyps, fatty liver, chronic lumbago, pancreatitis, TTE with LVEF, Factor V leiden, sick sinus rhythm Psychiatric history: anxiety, depression - Past Surgical History Surgical History: orthopedic, other, other Additional surgical history: left knee arthroscopy, bladder surgery, colonoscopy, EGD, heart cath - Social History Smoking Status: Never smoker Smokeless Tobacco Status: No Alcohol use: none Drug use: none - Family History Father Living Status: Hx Family Cardiac Disorders: Yes Mother Family Member Ethnicity: Non- Living Status: Still Living Hx Family Cardiac Disorders: Yes (HTN) Hx Family Respiratory Disorders: No Hx Family Cancer: Yes (Colon Cancer) Hx Family GI Disorders: No Hx Family Endocrine Disorder: No Hx Family Neuromuscular Disorders: No Hx Family Neurologic Disorders: No Hx Family HEENT Disorders: No Hx Family Autoimmune Disorders: No Medications and Allergies Atenolol [Tenormin] 100 mg PO QAM 03/23/15 [History] Metformin [Glucophage] 1,000 mg PO BID 03/23/15 [History] Albuterol Sulfate [Proair Respiclick] 1 - 2 puff IH Q4-6H PRN 07/30/15 [History] Furosemide [Lasix] 40 mg PO QAM 07/30/15 [History] Lisinopril [Zestril] 20 mg PO BID 07/30/15 [History] [place]-3S/Dha/Epa/Fish Oil [Fish Oil 1,200 mg Softgel] 1 cap PO BID 07/30/15 [History] Potassium Chloride [K-Tab ER] 10 meq PO Q3D 07/30/15 [History] Cinnamon Bark [Cinnamon] 1,000 mg PO BID 01/31/17 [History] Finasteride [Proscar] 5 mg PO DAILY 01/31/17 [History] Omeprazole [PriLOSEC] 40 mg PO DAILY 01/31/17 [History] Venlafaxine XR (24 HR) [Effexor XR] 150 mg PO DAILY 01/31/17 [History] Simvastatin [Zocor] 40 mg PO DAILY 02/01/17 [History] Multivitamin [Multivitamins] 1 each PO DAILY 03/23/17 [History] Fluticasone Propionate Nasal [Flonase] 1 spray NS DAILY 11/05/17 [History] Insulin Glargine,Hum.rec.anlog [Basaglar Kwikpen U-100] 10 - 50 unit SQ BID 11/05/17 [History] Budesonide [Pulmicort Flexhaler 180mcg] 2 puff IH BID 01/05/18 [History] Chlorthalidone 25 mg PO DAILY 05/05/18 [History] metroNIDAZOLE [Flagyl] 500 mg PO TID #30 tablet 07/04/18 [Rx] Allergy/AdvReac Type Severity Reaction Status Date / Time amlodipine [From Norvasc] Allergy Rash Verified 08/01/18 13:20 bupropion [From Wellbutrin] Allergy Rash Verified 08/01/18 13:20 gabapentin Allergy Rash Verified 08/01/18 13:20 morphine AdvReac Confusion Verified 08/01/18 13:20 Review of Systems All systems PM: The remainder of the systems were reviewed and are negative General Surgery Exam Initial Vital Signs Temp Pulse Resp BP Pulse Ox 97.9 F 81 18 /68 95 08/01/18 13:18 08/01/18 13:18 08/01/18 13:18 08/01/18 13:18 08/01/18 13:18 Exam Initial Vital Signs Temp Pulse Resp BP Pulse Ox 97.9 F 81 18 91/68 95 08/01/18 13:18 08/01/18 13:18 08/01/18 13:18 08/01/18 13:18 08/01/18 13:18 Results - Labs 08/02/18 06:56 08/02/18 06:56 Abnormal lab results Potassium 3.4 mEq/L (3.5-5.1) L 08/02/18 06:56 BUN 37 mg/dL (6-20) H 08/02/18 06:56 Creatinine 1.64 mg/dL (0.70-1.30) H 08/02/18 06:56 Est GFR ( Amer) 53 (> 60) L 08/02/18 06:56 Est GFR (Non-Af Amer) 44 (> 60) L 08/02/18 06:56 Glucose 149 mg/dL (70-105) H 08/02/18 06:56 POC Glucose 118 mg/dL (70-99) H 08/02/18 16:20 Diabetes panel 08/02/18 Range/Units 06:56 Sodium 136 (136-145) mEq/L Potassium 3.4 L (3.5-5.1) mEq/L Chloride 98 (98-107) mEq/L Carbon Dioxide 26 (23-29) mEq/L BUN 37 H (6-20) mg/dL Creatinine 1.64 H (0.70-1.30) mg/dL Glucose 149 H (70-105) mg/dL Calcium 9.4 (8.6-10.3) mg/dL Calcium panel 08/02/18 Range/Units 06:56 Calcium 9.4 (8.6-10.3) mg/dL Pituitary panel 08/02/18 Range/Units 06:56 Sodium 136 (136-145) mEq/L Potassium 3.4 L (3.5-5.1) mEq/L Chloride 98 (98-107) mEq/L Carbon Dioxide 26 (23-29) mEq/L BUN 37 H (6-20) mg/dL Creatinine 1.64 H (0.70-1.30) mg/dL Glucose 149 H (70-105) mg/dL Calcium 9.4 (8.6-10.3) mg/dL Adrenal panel 08/02/18 Range/Units 06:56 Sodium 136 (136-145) mEq/L Potassium 3.4 L (3.5-5.1) mEq/L Chloride 98 (98-107) mEq/L Carbon Dioxide 26 (23-29) mEq/L BUN 37 H (6-20) mg/dL Creatinine 1.64 H (0.70-1.30) mg/dL Glucose 149 H (70-105) mg/dL Calcium 9.4 (8.6-10.3) mg/dL All other labs normal. Consult Discharge Plan - Plan Referrals: Sandhya Acuña MD [Primary Care Provider] -
[2018-08-03] MEDS: MetroNIDAZOLE 500 MG/100 ML 500 MG/100 ML BAG IVPB SCH ×5 (00:03→23:13)
[2018-08-03] MEDS: Piperacillin/Tazobactam 3.375 GM in 0.9 % Sodium Chloride Mini Bag 100 ML IVPB SCH ×3 (02:01→18:36)
[2018-08-03] MEDS: Insulin LISPRO 300 UNITS/3 ML VIAL SQ SCH ×4 (05:49→23:55)
[2018-08-03] MEDS: *HR* Heparin 5,000 UNIT/ML VIAL SQ SCH ×3 (05:52→21:51)
[2018-08-03] MEDS: 0.9 % Sodium Chloride 1,000 ML IVC SCH (05:57)
[2018-08-03 06:12] LABS: Basophils % 0.3 %; Eosinophils # 0.2 K/mcL (0.0-0.6); Eosinophils % 2.8 %; Hematocrit 35.9 % (37.5-50.1); Hemoglobin 12.3 g/dL (12.9-16.9); Immature Granulocytes % 0.2 % (0-4); Lymphocytes # 1.6 K/mcL (0.6-4.6); Mean Corpuscular HGB Conc 34.3 g/dL (31.6-35.5); Mean Corpuscular Hemoglobin 29.4 pg (28.0-33.3); Mean Corpuscular Volume 85.7 fL (83.0-100.0); Mean Platelet Volume 9.8 fL (9.4-12.4); Monocytes # 0.5 K/mcL (0.0-1.3); Monocytes % 8.4 %; Neutrophils # 3.5 K/mcL (1.6-8.9); Platelet Count 166 K/mcL (140-400); Red Blood Count 4.19 M/mcL (4.19-5.50); Red Cell Distribution Width 13.6 % (11.5-14.5); Segmented Neutrophils % 60.3 %
[2018-08-03 06:32] LABS: BUN/Creatinine Ratio 19 (6-26); Blood Urea Nitrogen 22 mg/dL (6-20); Calcium 9.1 mg/dL (8.6-10.3); Carbon Dioxide 25 mEq/L (23-29); Chloride 102 mEq/L (98-107); Glucose 138 mg/dL (70-105); Osmolality,Calculated 292 (280-300); Potassium 3.4 mEq/L (3.5-5.1); Sodium 138 mEq/L (136-145); eGFR For Non-African Americans > 60 (> 60)
[2018-08-03] MEDS: Venlafaxine XR (24 HR) 150 MG CAP.ER.24H PO SCH (08:35)
[2018-08-03] MEDS: Pantoprazole 40 MG VIAL IVP SCH (08:35)
[2018-08-03] MEDS: Finasteride 5 MG TABLET PO SCH (08:35)
[2018-08-03] MEDS: D5% in 0.9% NACL 1,000 ML IVC SCH (10:12)
--- NOTE | 2018-08-03 10:42 | Internal Med Progress Note ---
Hospitalist Progress Note - Encounter Date of Encounter: 08/03/18 Time of Encounter: 10:00 - Subjective Interval History: Mr. Almeida is a 58 year old male with past medical history of hypertension, morbid obesity, obstructive sleep apnea on CPAP at nighttime , hyperlipidemia, diabetes, recurrent sigmoid diverticulitis with 3 admissions since 12/2017, pre sented to the ED with abdominal pain. His CT scan again demonstrated persistent worsen significant sigmoid diverticulitis with the more prominent inflammatory findings than previously. Patient was admitted in the hospital and started him on empirical antibiotic Zosyn. Patient states he is feeling better today. His abd pain also much better today. - Exam Vitals: Temp Pulse Resp BP Pulse Ox 97.7 F 74 15 147/80 98 08/03/18 07:48 08/03/18 07:48 08/03/18 07:48 08/03/18 07:48 08/03/18 07:48 Exam: Gen: Alert, awake, Oriented to time,place and person Chest: Diminished breath sounds B/L, No wheezing, No crackles, No rales Heart: S1S2+ RRR No murmurs Abd: Soft, mild tenderness in the left lower quadrant, BS +, No organomegaly, distended Ext: No edema, pulses are palpable, No calf tenderness Neuro : Benign findings Skin: No rash. - Assessment and Plan (1) Sepsis Current Visit: Yes Status: Acute Assessment and Plan: Presented with abdominal pain, hypotension, leukocytosis with CT finding con sistent with recurrent sigmoid diverticulitis Associated with RONNI lactic acid @ 1.3 Cont empirical abx zosyn with renal dosing + Flagyl blood cultures - No growth Cont NPO (2) Diverticulitis Current Visit: Yes Status: Acute Assessment and Plan: Recurrent diverticulitis Surgery Dr. Orantes on board appreciate surgery recommendations Scheduled for surgery on Thursday continue NPO for now IV hydration Nutrition cabrera if we are not able to start him on diet tomorrow will consider starting him on TPN in AM cont empirical abx Zosyn + Flagyl Overall he is very high risk pt for surgery like colectomy due to his morbid obesity, ADALID and HTN Ordered EKG and 2D Echo as per pre op work up In pt's medical history it was documented as Factor V Leiden mutation but pt never heard of it and he never had any h/o DVT, PE, he denied any F/H of DVT / PE / Factor V mutation will talk to pt;s PCP also to confirm it he was never diagnosed with Factor V mutation (3) Acute kidney injury Current Visit: Yes Status: Acute Assessment and Plan: Secondary to sepsis as above + poor oral intake Improving cont IV F Avoid nephrotoxins Renally adjusted antibiotics (4) Hypertension Current Visit: No Status: Chronic Assessment and Plan: Holding home meds due to borderline blood pressure (5) HLD (hyperlipidemia) Current Visit: No Status: Chronic Assessment and Plan: Hold off on meds given nothing by mouth status (6) Diabetes mellitus Current Visit: No Status: Chronic Assessment and Plan: NPO diet on ISS @ Q6 with accuchecks HbA1C from 05/16 @ 6.9 (7) DVT prophylaxis Current Visit: No Status: Acute Assessment and Plan: SQ hep (8) ADALID on CPAP Current Visit: Yes Status: Acute Assessment and Plan: using Home CPAP (9) Morbid obesity with BMI of 45.0-49.9, adult Current Visit: Yes Status: Acute Assessment and Plan: Counseled to loose weight - Time Spent with Patient Total time spent is greater than 50% in coordination of care (as documented) at patient's floor/unit and/or counseling patient: Internal Medicine: Result - Labs CBC & Chem 7: 08/03/18 05:22 08/03/18 05:22 Labs: Short CBC 08/03/18 Range/Units 05:22 WBC 5.7 (4.3-11.1) K/mcL Hgb 12.3 L (12.9-16.9) g/dL Hct 35.9 L (37.5-50.1) % Plt Count 166 (140-400) K/mcL Neutrophils # 3.5 (1.6-8.9) K/mcL BMP 08/03/18 05:22 Sodium 138 Potassium 3.4 L Chloride 102 Carbon Dioxide 25 BUN 22 H Creatinine 1.15 Glucose 138 H Calcium 9.1 Consult Discharge Plan - Plan Referrals: Deep Harper MD [Partnered Physician] - 10/19/18 11:00 am Sandhya Acuña MD [Primary Care Provider] - 10/14/18 1:00 pm (1) Sepsis Qualifiers: Sepsis type: sepsis due to unspecified organism Qualified Code(s): A41.9 - Sepsis, unspecified organism (4) Hypertension Qualifiers: Hypertension type: essential hypertension Qualified Code(s): I10 - Essential (primary) hypertension (5) HLD (hyperlipidemia) Qualifiers: Hyperlipidemia type: mixed hyperlipidemia Qualified Code(s): E78.2 - Mixed hyperlipidemia (6) Diabetes mellitus Qualifiers: Diabetes mellitus type: type 2 Diabetes mellitus fdc insulin use: with fdc use Diabetes mellitus complication status: with neurologic complications Diabetes mellitus complication detail: with autonomic neuropathy Qualified Code(s): E11.43 - Type 2 diabetes mellitus with diabetic autonomic (poly)neuropathy; 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
--- NOTE | 2018-08-03 11:11 | General Surgery Progress Note ---
Date of Encounter: 08/03/18 Time of Encounter: 10:00 Subjective Patient reports: feels better, pain is less Narrative: General Surgery - Patient feeling better, indicates diminished left lower quadrant abdominal pain. No nausea or vomiting. The patient remains afebrile, hemodynamically stable - 97.7, pulse 74, RR 15, BP 147/80 Lungs: Clear, breath sounds diminished due to body habitus. SPO2 on room air 98% Abdomen: Morbidly obese, soft, with minimal tenderness left lower quadrant. No detected intra-abdominal or pelvic masses. Exam limited by body habitus. Laboratories: WBC 5.7 with normal differential; hemoglobin 12.3, hematocrit 35.9, platelet count 166,000. Electrolytes notable for potassium 3.4, BUN has improved to 22, creatinine has improved to 1.15; eGFR >60 Accu-Chek 117- 130 Impression: Morbidly obese patient with persistent/recurrent diverticulitis sigmoid colon Patient has multiple medical comorbidities that increase risk of surgery, however, the recurrent, apparently medically refractory diverticulitis warrants surgical intervention. Discussed with Dr Paz Recommendations: Reduce/control risk factors as much as possible Sigmoid colectomy yet to be scheduled dependent on patient's response to current intervention Objective Vital Signs - Last 8 Hours Temp Pulse Resp BP Pulse Ox 08/03/18 07:48 97.7 F 74 15 147/80 98 08/03/18 04:07 97.7 F 82 16 100/70 96 Intake and Output 08/02/18 08/03/18 08/03/18 23:59 07:59 15:59 Intake Total 1200 / 1200 1200 / 1200 Output Total 1420 / 1420 Balance 1200 / 1200 -220 / -220 Intake: IV Fluids 1200 / 1200 1200 / 1200 0.9 % Sodium Chloride 1,000 ML 1000 / 1000 1000 / 1000 @ 125 mls/hr IVC .Q8H [facility] Rx#: [id number] Flagyl Premix 500 MG/100 ML 500 100 / 100 100 / 100 mg In 100 ml @ 100 mls/hr IVPB Q8HR [facility] Rx#:[id number] Zosyn 3.375 GM In 0.9 % Sodium 100 / 100 100 / 100 Chloride (Mini-Bag +) 100 ML @ 25 mls/hr IVPB Q8H [facility] Rx#: [id number] Output: Urine 1420 / 1420 Other: Weight 165 kg Blood Glucose* 112 130 Patient Weight 08/03/18 23:59 Weight 165 kg - Labs 08/03/18 05:22 08/03/18 05:22 Diabetes panel 08/03/18 Range/Units 05:22 Sodium 138 (136-145) mEq/L Potassium 3.4 L (3.5-5.1) mEq/L Chloride 102 (98-107) mEq/L Carbon Dioxide 25 (23-29) mEq/L BUN 22 H (6-20) mg/dL Creatinine 1.15 (0.70-1.30) mg/dL Glucose 138 H (70-105) mg/dL Calcium 9.1 (8.6-10.3) mg/dL Calcium panel 08/03/18 Range/Units 05:22 Calcium 9.1 (8.6-10.3) mg/dL Pituitary panel 08/03/18 Range/Units 05:22 Sodium 138 (136-145) mEq/L Potassium 3.4 L (3.5-5.1) mEq/L Chloride 102 (98-107) mEq/L Carbon Dioxide 25 (23-29) mEq/L BUN 22 H (6-20) mg/dL Creatinine 1.15 (0.70-1.30) mg/dL Glucose 138 H (70-105) mg/dL Calcium 9.1 (8.6-10.3) mg/dL Adrenal panel 08/03/18 Range/Units 05:22 Sodium 138 (136-145) mEq/L Potassium 3.4 L (3.5-5.1) mEq/L Chloride 102 (98-107) mEq/L Carbon Dioxide 25 (23-29) mEq/L BUN 22 H (6-20) mg/dL Creatinine 1.15 (0.70-1.30) mg/dL Glucose 138 H (70-105) mg/dL Calcium 9.1 (8.6-10.3) mg/dL Consult Discharge Plan - Plan Referrals: Deep Harper MD [Partnered Physician] - 10/19/18 11:00 am Sandhya Acuña MD [Primary Care Provider] - 10/14/18 1:00 pm
[2018-08-03] MEDS ORDERED: Lidocaine -MPF 1% 5 ML AMPUL INFILT ONE (15:01)
[2018-08-03] MEDS ORDERED: Perflutren Lipid Microsphere 1.3 ML in 0.9 % Sodium Chloride 8.7 ML IVP ONE (18:49)
[2018-08-04] MEDS: Piperacillin/Tazobactam 3.375 GM in 0.9 % Sodium Chloride Mini Bag 100 ML IVPB SCH ×3 (02:04→17:24)
[2018-08-04] MEDS: D5% in 0.9% NACL 1,000 ML IVC SCH ×2 (05:00→05:01)
[2018-08-04] MEDS: MetroNIDAZOLE 500 MG/100 ML 500 MG/100 ML BAG IVPB SCH ×3 (05:00→20:28)
[2018-08-04] MEDS: *HR* Heparin 5,000 UNIT/ML VIAL SQ SCH ×3 (05:10→23:15)
[2018-08-04 05:48] LABS: Basophils % 0.4 %; Eosinophils # 0.2 K/mcL (0.0-0.6); Eosinophils % 3.1 %; Hematocrit 35.2 % (37.5-50.1); Hemoglobin 12.1 g/dL (12.9-16.9); Immature Granulocytes % 0.4 % (0-4); Lymphocytes # 1.5 K/mcL (0.6-4.6); Lymphocytes % 26.8 %; Mean Corpuscular HGB Conc 34.4 g/dL (31.6-35.5); Mean Corpuscular Hemoglobin 29.5 pg (28.0-33.3); Mean Corpuscular Volume 85.9 fL (83.0-100.0); Mean Platelet Volume 9.8 fL (9.4-12.4); Monocytes # 0.5 K/mcL (0.0-1.3); Monocytes % 8.5 %; Neutrophils # 3.4 K/mcL (1.6-8.9); Platelet Count 171 K/mcL (140-400); Red Cell Distribution Width 13.4 % (11.5-14.5); Segmented Neutrophils % 60.8 %
[2018-08-04 05:56] LABS: Alanine Aminotransferase 14 Units/L (7-52); Albumin 3.6 g/dL (3.5-5.7); Albumin/Globulin Ratio 1.3 (1.1-2.2); Alkaline Phosphatase 50 Units/L (34-104); Aspartate Amino Transferase 14 Units/L (13-39); BUN/Creatinine Ratio 14 (6-26); Bilirubin,Total 0.5 mg/dL (0.3-1.0); Blood Urea Nitrogen 14 mg/dL (6-20); Calcium 9.2 mg/dL (8.6-10.3); Carbon Dioxide 25 mEq/L (23-29); Chloride 105 mEq/L (98-107); Globulin 2.8 g/dL (2.4-3.5); Glucose 141 mg/dL (70-105); Osmolality,Calculated 293 (280-300); Potassium 3.7 mEq/L (3.5-5.1); Sodium 140 mEq/L (136-145); Total Protein 6.4 g/dL (6.4-8.9); eGFR For Non-African Americans > 60 (> 60)
[2018-08-04] MEDS: Insulin LISPRO 300 UNITS/3 ML VIAL SQ SCH ×3 (06:19→17:30)
[2018-08-04] MEDS: Pantoprazole 40 MG VIAL IVP SCH (09:15)
[2018-08-04] MEDS: Finasteride 5 MG TABLET PO SCH (09:15)
[2018-08-04] MEDS: Venlafaxine XR (24 HR) 150 MG CAP.ER.24H PO SCH (09:15)
--- NOTE | 2018-08-04 13:01 | Internal Med Progress Note ---
Hospitalist Progress Note - Encounter Date of Encounter: 08/04/18 Time of Encounter: 11:30 - Subjective Interval History: Mr. Almeida is a 58 year old male with past medical history of hypertension, morbid obesity, obstructive sleep apnea on CPAP at nighttime , hyperlipidemia, diabetes, recurrent sigmoid diverticulitis with 3 admissions since 12/2017, pre sented to the ED with abdominal pain. His CT scan again demonstrated persistent worsen significant sigmoid diverticulitis with the more prominent inflammatory findings than previously. Patient was admitted in the hospital and started him on empirical antibiotic Zosyn and Flagyl. Patient states he is feeling better today. His abd pain also much better today. - Exam Vitals: Temp Pulse Resp BP Pulse Ox 98.2 F 74 17 138/91 96 08/04/18 11:05 08/04/18 11:05 08/04/18 11:05 08/04/18 11:05 08/04/18 11:05 Exam: Gen: Alert, awake, Oriented to time,place and person Chest: Diminished breath sounds B/L, No wheezing, No crackles, No rales Heart: S1S2+ RRR No murmurs Abd: Soft, mild tenderness in the left lower quadrant, BS +, No organomegaly, distended Ext: No edema, pulses are palpable, No calf tenderness Neuro : Benign findings Skin: No rash. - Assessment and Plan (1) Sepsis Current Visit: Yes Status: Acute Assessment and Plan: Presented with abdominal pain, hypotension, leukocytosis with CT finding consistent with recurrent sigmoid diverticulitis Associated with RONNI lactic acid @ 1.3 Improving Abd pain also better Cont empirical abx zosyn + Flagyl blood cultures - No growth (2) Diverticulitis Current Visit: Yes Status: Acute Assessment and Plan: Recurrent diverticulitis Surgery Dr. Orantes on board appreciate surgery recommendations Scheduled for possible surgery on Thursday continue NPO for now Since his abd pain improved will ask Dr. Orantes to start pt on clear liquid diet for now otherwise will start him on TPN for nutrition PICC line placed already IV hydration cont empirical abx Zosyn + Flagyl Overall he is very high risk pt for surgery like colectomy due to his morbid obesity, ADALID and HTN Reviewed Echo showed preserved LVEF 50-55%, mildly concentric left ventricle hypertrophy. Normal left ventricle diastolic function noticed In pt's medical history it was documented as Factor V Leiden mutation but pt never heard of it and he never had any h/o DVT, PE, he denied any F/H of DVT / PE / Factor V mutation.. I talked to pt'c PCP too , she denied of any such medical history for this pt. So it was miss documented as Factor V mutation which he never had. Will talk to Surgery Dr. Orantes about this. (3) Acute kidney injury Current Visit: Yes Status: Acute Assessment and Plan: Secondary to sepsis as above + poor oral intake Improved cont IV F Avoid nephrotoxins Renally adjusted antibiotics (4) Hypertension Current Visit: No Status: Chronic Assessment and Plan: Holding home meds due to borderline blood pressure (5) HLD (hyperlipidemia) Current Visit: No Status: Chronic Assessment and Plan: Hold off on meds given nothing by mouth status (6) Diabetes mellitus Current Visit: No Status: Chronic Assessment and Plan: NPO diet on ISS @ Q6 with accuchecks HbA1C from 05/16 @ 6.9 (7) DVT prophylaxis Current Visit: No Status: Acute Assessment and Plan: SQ hep (8) ADALID on CPAP Current Visit: Yes Status: Acute Assessment and Plan: using Home CPAP (9) Morbid obesity with BMI of 45.0-49.9, adult Current Visit: Yes Status: Acute Assessment and Plan: Counseled to loose weight - Time Spent with Patient Total time spent is greater than 50% in coordination of care (as documented) at patient's floor/unit and/or counseling patient: Internal Medicine: Result - Labs CBC & Chem 7: 08/04/18 04:50 08/04/18 04:50 Labs: Short CBC 08/04/18 Range/Units 04:50 WBC 5.6 (4.3-11.1) K/mcL Hgb 12.1 L (12.9-16.9) g/dL Hct 35.2 L (37.5-50.1) % Plt Count 171 (140-400) K/mcL Neutrophils # 3.4 (1.6-8.9) K/mcL BMP 08/04/18 04:50 Sodium 140 Potassium 3.7 Chloride 105 Carbon Dioxide 25 BUN 14 Creatinine 1.00 Glucose 141 H Calcium 9.2 Liver Function 08/04/18 Range/Units 04:50 Total Bilirubin 0.5 (0.3-1.0) mg/dL AST 14 (13-39) Units/L ALT 14 (7-52) Units/L Alkaline Phosphatase 50 (34-104) Units/L Albumin 3.6 (3.5-5.7) g/dL - Impressions Impressions Echocardiogram 08/03/18 08:22 Impressions: LVEF 50-55%. Mild concentric left ventricular hypertrophy. Normal left ventricular diastolic function. Normal right ventricular structure and function. No significant valvular dysfunction. Unable to estimate RVSP due to lack of TR jet. Left Ventricular Wall Motion: Rest Echo Findings All wall segments showed normal motion. Findings: Study Quality * Technically adequate exam. ECG Findings * Normal sinus rhythm. Left Ventricle * Mild concentric left ventricular hypertrophy. * Normal left ventricular diastolic function. * LVEF 50-55%. Right Ventricle * Normal right ventricular structure and function. Left Atrium * Normal left atrial size. Right Atrium * Normal right atrial size. Interatrial Septum * No evidence of PFO by color Doppler. Aortic Valve * Trileaflet aortic valve. * No aortic stenosis. * Normal aortic valve structure. * Trace aortic regurgitation. Mitral Valve * Normal mitral valve structure. * No mitral regurgitation. * No mitral stenosis. Tricuspid Valve * Unable to estimate RVSP due to lack of TR jet. * No tricuspid stenosis. * No tricuspid regurgitation. * Normal tricuspid valve structure. Pulmonic Valve * Pulmonic valve is not well visualized. Aorta * Normally sized aortic root. Pericardium * The pericardium appears normal. IVC * Normal IVC dimensions and inspiratory collapse. Pulmonary Artery * Pulmonary artery not well visualized. Consult Discharge Plan - Plan Referrals: Deep Harper MD [Partnered Physician] - 10/19/18 11:00 am Sandhya Acuña MD [Primary Care Provider] - 10/14/18 1:00 pm (1) Sepsis Qualifiers: Sepsis type: sepsis due to unspecified organism Qualified Code(s): A41.9 - Sepsis, unspecified organism (4) Hypertension Qualifiers: Hypertension type: essential hypertension Qualified Code(s): I10 - Essential (primary) hypertension (5) HLD (hyperlipidemia) Qualifiers: Hyperlipidemia type: mixed hyperlipidemia Qualified Code(s): E78.2 - Mixed hyperlipidemia (6) Diabetes mellitus Qualifiers: Diabetes mellitus type: type 2 Diabetes mellitus 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
--- NOTE | 2018-08-04 16:15 | General Surgery Progress Note ---
Date of Encounter: 08/04/18 Time of Encounter: 16:06 Subjective Patient reports: feels better, pain is less Narrative: General Surgery Patient feeling better, indicates left lower quadrant abdominal pain is improved. Patient has remained afebrile, currently 97.9, pulse 66, respirations 17-20, blood pressure 137/77. SPO2 on room air 98% Lungs: Clear Abdomen: Morbidly obese with left lower quadrant tenderness to moderate to deep palpation. Detected intra-abdominal masses. Exam limited by body habitus. Moderate soft brown BM described earlier today Laboratories: WBC 5.6 with normal differential; hemoglobin 12.1, hematocrit 35.2 Electrolytes notable for potassium now 3.7 (hypokalemia corrected). Renal status is also returned to normal, BUN 14, creatinine 1.00 Accu-Cheks 117-137 Impression: 58-year-old, morbidly obese male, with recurrent/refractory sigmoid diverticulitis. No obvious perforation or pericolonic abscess, however, the patient Describes multiple recurrent episodes "all in the same place". Patient has at least 3 documented cases of uncomplicated sigmoid diverticulitis, 12/2017, 06/2018, and again currently. The patient is a high risk for surgery but also high risk for complications of persistent/recurrent sigmoid diverticulitis including perforation with peritonitis. The medical records indicate a history of factor V, Leyden deficiency - however, I can find no documentation of such a diagnosis nor does the patient Or his indicate any such history. This has been discussed with Dr Paz. Plan: Allow clear liquids. Patient has been instructed to cease all enteral intake if his abdominal pain increases Sigmoid colectomy, possibly on 08/06/18. The risks of surgery were discussed extensively with the patient and his . An extended face to face encounter was completed to discuss the complexity and risks of surgery. Objective Vital Signs - Last 8 Hours Temp Pulse Resp BP Pulse Ox 08/04/18 15:31 97.9 F 66 20 137/86 98 08/04/18 11:05 98.2 F 74 17 138/91 96 Intake and Output 08/04/18 08/04/18 08/04/18 07:59 15:59 23:59 Intake Total 2200 / 2200 200 / 200 Output Total 500 / 500 0 / 0 Balance 1700 / 1700 200 / 200 Intake: IV Fluids 2200 / 2200 200 / 200 D5% And 0.9% Nacl 1000 Ml 1,000 1000 / 1000 ML @ 100 mls/hr IVC .Q10H [facility] Rx#:[id number] Flagyl Premix 500 MG/100 ML 500 100 / 100 100 / 100 mg In 100 ml @ 100 mls/hr IVPB Q8H [facility] Rx#:[id number] Zosyn 3.375 GM In 0.9 % Sodium 100 / 100 100 / 100 Chloride (Mini-Bag +) 100 ML @ 25 mls/hr IVPB Q8H [facility] Rx#: [id number] Output: Urine 500 / 500 0 / 0 Other: Stool Size Moderate Stool Consistency soft Stool Color Brown # Voids 3 Weight 165.3 kg Blood Glucose* 133 124 Patient Weight 08/04/18 23:59 Weight 165.3 kg - Labs 08/04/18 04:50 08/04/18 04:50 Diabetes panel 08/04/18 Range/Units 04:50 Sodium 140 (136-145) mEq/L Potassium 3.7 (3.5-5.1) mEq/L Chloride 105 (98-107) mEq/L Carbon Dioxide 25 (23-29) mEq/L BUN 14 (6-20) mg/dL Creatinine 1.00 (0.70-1.30) mg/dL Glucose 141 H (70-105) mg/dL Calcium 9.2 (8.6-10.3) mg/dL AST 14 (13-39) Units/L ALT 14 (7-52) Units/L Alkaline Phosphatase 50 (34-104) Units/L Albumin 3.6 (3.5-5.7) g/dL Calcium panel 08/04/18 Range/Units 04:50 Calcium 9.2 (8.6-10.3) mg/dL Albumin 3.6 (3.5-5.7) g/dL Pituitary panel 08/04/18 Range/Units 04:50 Sodium 140 (136-145) mEq/L Potassium 3.7 (3.5-5.1) mEq/L Chloride 105 (98-107) mEq/L Carbon Dioxide 25 (23-29) mEq/L BUN 14 (6-20) mg/dL Creatinine 1.00 (0.70-1.30) mg/dL Glucose 141 H (70-105) mg/dL Calcium 9.2 (8.6-10.3) mg/dL Adrenal panel 08/04/18 Range/Units 04:50 Sodium 140 (136-145) mEq/L Potassium 3.7 (3.5-5.1) mEq/L Chloride 105 (98-107) mEq/L Carbon Dioxide 25 (23-29) mEq/L BUN 14 (6-20) mg/dL Creatinine 1.00 (0.70-1.30) mg/dL Glucose 141 H (70-105) mg/dL Calcium 9.2 (8.6-10.3) mg/dL Total Bilirubin 0.5 (0.3-1.0) mg/dL AST 14 (13-39) Units/L ALT 14 (7-52) Units/L Alkaline Phosphatase 50 (34-104) Units/L Albumin 3.6 (3.5-5.7) g/dL Consult Discharge Plan - Plan Referrals: Deep Harper MD [Partnered Physician] - 10/19/18 11:00 am Sandhya Acuña MD [Primary Care Provider] - 10/14/18 1:00 pm
[2018-08-05] MEDS: Insulin LISPRO 300 UNITS/3 ML VIAL SQ SCH ×4 (02:00→17:32)
[2018-08-05] MEDS: Piperacillin/Tazobactam 3.375 GM in 0.9 % Sodium Chloride Mini Bag 100 ML IVPB SCH ×3 (02:48→17:33)
[2018-08-05] MEDS: MetroNIDAZOLE 500 MG/100 ML 500 MG/100 ML BAG IVPB SCH ×3 (04:11→21:25)
[2018-08-05] MEDS: *HR* Heparin 5,000 UNIT/ML VIAL SQ SCH ×2 (06:47→15:32)
[2018-08-05] MEDS: Venlafaxine XR (24 HR) 150 MG CAP.ER.24H PO SCH (09:09)
[2018-08-05] MEDS: Pantoprazole 40 MG VIAL IVP SCH (09:09)
[2018-08-05] MEDS: Finasteride 5 MG TABLET PO SCH (09:09)
--- NOTE | 2018-08-05 13:29 | Internal Med Progress Note ---
Hospitalist Progress Note - Encounter Date of Encounter: 08/05/18 Time of Encounter: 11:00 - Subjective Interval History: Mr. Almeida is a 58 year old male with past medical history of hypertension, morbid obesity, obstructive sleep apnea on CPAP at nighttime , hyperlipidemia, diabetes, recurrent sigmoid diverticulitis with 3 admissions since 12/2017, pre sented to the ED with abdominal pain. His CT scan again demonstrated persistent worsen significant sigmoid diverticulitis with the more prominent inflammatory findings than previously. Patient was admitted in the hospital and started him on empirical antibiotic Zosyn and Flagyl. Patient states he is feeling better today. Denied any more abd pain. He is tolerating Clear liquid diet well. - Exam Vitals: Temp Pulse Resp BP Pulse Ox 98.5 F 74 16 102/70 94 08/05/18 11:24 08/05/18 11:24 08/05/18 11:24 08/05/18 11:24 08/05/18 11:24 Exam: Gen: Alert, awake, Oriented to time,place and person Chest: Diminished breath sounds B/L, No wheezing, No crackles, No rales Heart: S1S2+ RRR No murmurs Abd: Soft, no tenderness in the left lower quadrant, BS +, No organomegaly, distended Ext: No edema, pulses are palpable, No calf tenderness Neuro : Benign findings Skin: No rash. - Assessment and Plan (1) Sepsis Current Visit: Yes Status: Acute Assessment and Plan: Presented with abdominal pain, hypotension, leukocytosis with CT finding consistent with recurrent sigmoid diverticulitis Associated with RONNI Improved Abd pain also better Cont empirical abx zosyn + Flagyl blood cultures - No growth (2) Diverticulitis Current Visit: Yes Status: Acute Assessment and Plan: Recurrent diverticulitis Surgery Dr. Orantes on board appreciate surgery recommendations Scheduled for surgery in AM Tolerating clear liquid diet well off the IVF PICC line placed on 08/03/18 cont empirical abx Zosyn + Flagyl Overall he is very high risk pt for surgery like colectomy due to his morbid obesity, ADALID and HTN Reviewed Echo showed preserved LVEF 50-55%, mildly concentric left ventricle hypertrophy. Normal left ventricle diastolic function noticed Reviewed his EKG by myself which showed Sinus rythm wiht mild 1st degree AV block. Cont on tele for now In pt's medical history it was documented as Factor V Leiden mutation but pt never heard of it and he never had any h/o DVT, PE, he denied any F/H of DVT / PE / Factor V mutation.. I talked to pt'c PCP too , she denied of any such medical history for this pt. So it was miss documented as Factor V mutation which he never had. (3) Acute kidney injury Current Visit: Yes Status: Acute Assessment and Plan: Secondary to sepsis as above + poor oral intake Improved Avoid nephrotoxins Renally adjusted antibiotics (4) Hypertension Current Visit: No Status: Chronic Assessment and Plan: Holding home meds due to borderline blood pressure (5) HLD (hyperlipidemia) Current Visit: No Status: Chronic Assessment and Plan: will resume meds after surgery (6) Diabetes mellitus Current Visit: No Status: Chronic Assessment and Plan: ADA diet on ISS HbA1C from 05/16 @ 6.9 (7) DVT prophylaxis Current Visit: No Status: Acute Assessment and Plan: SQ hep (8) ADALID on CPAP Current Visit: Yes Status: Acute Assessment and Plan: using Home CPAP (9) Morbid obesity with BMI of 45.0-49.9, adult Current Visit: Yes Status: Acute Assessment and Plan: Counseled to loose weight - Time Spent with Patient Total time spent is greater than 50% in coordination of care (as documented) at patient's floor/unit and/or counseling patient: Internal Medicine: Result - Labs CBC & Chem 7: 08/04/18 04:50 08/04/18 04:50 Consult Discharge Plan - Plan Referrals: Deep Harper MD [Partnered Physician] - 10/19/18 11:00 am Sandhya Acuña MD [Primary Care Provider] - 10/14/18 1:00 pm (1) Sepsis Qualifiers: Sepsis type: sepsis due to unspecified organism Qualified Code(s): A41.9 - Sepsis, unspecified organism (4) Hypertension Qualifiers: Hypertension type: essential hypertension Qualified Code(s): I10 - Essential (primary) hypertension (5) HLD (hyperlipidemia) Qualifiers: Hyperlipidemia type: mixed hyperlipidemia Qualified Code(s): E78.2 - Mixed hyperlipidemia (6) Diabetes mellitus Qualifiers: Diabetes mellitus type: type 2 Diabetes mellitus intermodal dispatcher insulin use: with penitentiary use Diabetes mellitus complication status: with neurologic complications Diabetes mellitus complication detail: with autonomic neuropathy Qualified Code(s): E11.43 - Type 2 diabetes mellitus with diabetic autonomic (poly)neuropathy; Z79.4 - care home (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
--- NOTE | 2018-08-05 18:03 | Anesthesia Evaluation PreOp ---
Date of Encounter: 08/05/18 Time of Encounter: 18:01 - Past History Planned Operation: Sigmoid Colectomy Cardiac History: Denies any Significant Hx (atrial fibrillation, coronary artery disease/sick sinus syndrome, diabetes mellitus with unspecified neuropathy, obstructive sleep apnea, hypertension and hyperlipidemia), HTN, Hyperlipidemia, Arrhythmia (AFib), Other ( CAD [facility] 2017 no intervention with single vessel non obstructive disease) Pulmonary History: Asthma, ADALID Dx (CPAP - 13) AIDS COUNSELOR History: Other (Anxiety/Depression) Other Medical History: Hepatic (Fatty liver), Diabetes Type II, Thyroid (Hypo), Other ([place] BMI-48.1) Anesthesia History: No Prior Anesthetic Complications Alcohol Use: none Drug use: none Medications and Allergies Atenolol [Tenormin] 100 mg PO QAM 03/23/15 [History] Albuterol Sulfate [Proair Respiclick] 1 - 2 puff IH Q4-6H PRN 07/30/15 [History] Furosemide [Lasix] 40 mg PO QAM 07/30/15 [History] Lisinopril [Zestril] 20 mg PO BID 07/30/15 [History] Potassium Chloride [K-Tab ER] 10 meq PO Q72H 07/30/15 [History] Cinnamon Bark [Cinnamon] 1,000 mg PO BID 01/31/17 [History] Finasteride [Proscar] 5 mg PO DAILY 01/31/17 [History] Omeprazole [PriLOSEC] 40 mg PO DAILY 01/31/17 [History] Venlafaxine XR (24 HR) [Effexor XR] 150 mg PO DAILY 01/31/17 [History] Simvastatin [Zocor] 40 mg PO DAILY 02/01/17 [History] Multivitamin [Multivitamins] 1 each PO DAILY 03/23/17 [History] Fluticasone Propionate Nasal [Flonase] 1 spray NS DAILY PRN 11/05/17 [History] Beclomethasone Dipropionate [QVAR 80 mcg REDIHALER] 1 puff IH DAILY 08/03/18 [History] Insulin NPH Hum/Reg Insulin Hm [Novolin 70-30 100 Unit/ml Vial] 55 unit SQ BID 08/03/18 [History] Metformin HCl 1,000 mg PO BID 08/03/18 [History] [place]-3/Dha/Epa/Fish Oil [[facility] Fish Oil 1,000 mg Softgel] 1 cap PO BID 08/03/18 [History] hydroCHLOROthiazide [Hydrochlorothiazide] 25 mg PO DAILY 08/03/18 [History] Allergy/AdvReac Type Severity Reaction Status Date / Time amlodipine [From Norvasc] Allergy Rash Verified 08/01/18 13:20 bupropion [From Wellbutrin] Allergy Rash Verified 08/01/18 13:20 gabapentin Allergy Rash Verified 08/01/18 13:20 morphine AdvReac Confusion Verified 08/01/18 13:20 - Meds/Allergy Pre-op Review Medications Reviewed: Yes Allergies Reviewed: Yes Beta Blockers on Current Med List: Yes Anesthesia Results - Labs 08/04/18 04:50 08/04/18 04:50 - Imaging Additional studies: Echo with Imaging Enhancement Agent Name: Graham Almeida Date of Study: 08/03/2018 EV/EV echocardiogram w enhance Impressions: LVEF 50-55%. Mild concentric left ventricular hypertrophy. Normal left ventricular diastolic function. Normal right ventricular structure and function. No significant valvular dysfunction. Unable to estimate RVSP due to lack of TR jet. Anesthesia Exam Vital Signs/O2 Sat, Most Current Temp Pulse Resp BP Pulse Ox 98.6 F 71 16 100/68 95 08/05/18 15:48 08/05/18 15:48 08/05/18 15:48 08/05/18 15:48 08/05/18 15:48 NPO (# of Hours): > 8 hrs Pain Scale: 0 Pain Scale Used: Numeric (1 - 10) - HEENT Pupil (Motor): Pupils equal, EOMI Mallampati: II Teeth: Normal Oral Opening: Greater than 3 - AIDS COUNSELOR LOC: Oriented AIDS COUNSELOR Motor: Normal RUE, Normal LUE, Normal RLE, Normal LLE, Normal Face AIDS COUNSELOR Sensory: Normal: RUE, LUE, RLE, LLE, Face - Cardiac Rhythm: Regular Murmur: None JVD: No Carotid Bruit: No - Pulmonary Breath Sounds: bilateral Clear Respiratory Effort: Symmetrical Anesthesia Assess/Plan ASA Score: 3 Level of consciousness: Cooperative Anesthetic Plan: MAC Autologous Blood: Yes Monitoring Plan: Standard Monitors Recovery Plan: Other
--- NOTE | 2018-08-05 18:32 | General Surgery Progress Note ---
Date of Encounter: 08/05/18 Time of Encounter: 18:23 Subjective Patient reports: feels better, tolerating liquids well Narrative: General Surgery - Patient feeling much improved. Denies abdominal pain. Tolerating clear liquids without abdominal distention, nausea, vomiting, or increased pain. The patient continues to be afebrile, currently 98.6, pulse 71 (range 64-74); respiratory rate 16, blood pressure 100/68. Lungs: Clear to auscultation though exam limited by body habitus. SPO2 on room air 94-95% Abdomen: Obese, soft, nontender. No peritoneal signs or rebound. No detected intra-abdominal masses though again, exam limited by body habitus Impression: 58-year-old, morbidly obese patient, with recurrent/persistent sigmoid diverticulitis. The patient has at least 3 documented episodes of uncomplicated Sigmoid diverticulitis December 2017. The patient indicates he has had many more episodes dating back even beyond December 2017. It is quite likely the Sigmoid diverticulitis is refractory to medical management evidenced by the sigmoid diverticulitis documented, 07/04/2018 followed by similar findings 08/02/18 prompting this admission. The patient is a poor risk for surgery, however, allowing the sigmoid diverticulitis become complicated or emergent worsens the risks and increases the difficulty of surgery. This is been discussed at length and in detail with the patient and his family. The patient's associated comorbidities include morbid obesity, atrial fibrillation, coronary artery disease/sick sinus syndrome, diabetes mellitus with unspecified neuropathy, obstructive sleep apnea, hypertension and hyperlipidemia. The medical records indicating factor V Leiden deficiency are incorrect. The patient seems to understand his risks and is willing to proceed with surgery. It appears that his status has been optimized. Sigmoid colectomy is planned in the a.m. Surgical risks include hemorrhage, infection, intra- abdominal abscess, injury to adjacent structures such as ureters, bladder, colon and small bowel, cardiac dysrhythmia, CT, stroke, respiratory failure requiring prolonged mechanical ventilation. We also discussed the possibility of an end colostomy. Surgical consent has been obtained. Objective Vital Signs - Last 8 Hours Temp Pulse Resp BP Pulse Ox 08/05/18 15:48 98.6 F 71 16 100/68 95 08/05/18 11:24 98.5 F 74 16 102/70 94 Intake and Output 08/05/18 08/05/18 08/05/18 07:59 15:59 23:59 Intake Total 200 / 200 800 / 800 Balance 200 / 200 800 / 800 Intake: IV Fluids 200 / 200 200 / 200 Flagyl Premix 500 MG/100 ML 500 100 / 100 100 / 100 mg In 100 ml @ 100 mls/hr IVPB Q8H EUGENIO Rx#:[id number] Zosyn 3.375 GM In 0.9 % Sodium 100 / 100 100 / 100 Chloride (Mini-Bag +) 100 ML @ 25 mls/hr IVPB Q8H EUGENIO Rx#: [id number] Oral 600 / 600 Other: Blood Glucose* 125 188 96 - Labs 08/04/18 04:50 08/04/18 04:50 Consult Discharge Plan - Plan Referrals: Deep Harper MD [Partnered Physician] - 10/19/18 11:00 am Sandhya Acuña MD [Primary Care Provider] - 10/14/18 1:00 pm
--- NOTE | 2018-08-05 20:26 | Electrocardiograph Report ---
[place] [id number] Test Date: 2018-08-05 Pat Name: Graham Almeida Department: 113 Room: 3B Gender: M Public Information Specialist: : [id number] Requested By: Alvin Paz Order Number: [id number] Reading MD: Kiah Gonzales Measurements Intervals [place] Rate: 68 P: 33 MT: 247 QRS: -20 QRSD: 125 T: 19 QT: 409 QTc: 427 Interpretive Statements SINUS RHYTHM WITH FIRST DEGREE AV BLOCK MODERATE INTRAVENTRICULAR CONDUCTION DELAY Electronically Signed On 08-05-2018 20:24:44 EST by Kiah Gonzales
[2018-08-06] MEDS: Insulin LISPRO 300 UNITS/3 ML VIAL SQ SCH ×4 (00:32→22:32)
[2018-08-06] MEDS: Piperacillin/Tazobactam 3.375 GM in 0.9 % Sodium Chloride Mini Bag 100 ML IVPB SCH ×3 (02:09→18:06)
[2018-08-06] MEDS: MetroNIDAZOLE 500 MG/100 ML 500 MG/100 ML BAG IVPB SCH ×3 (04:26→22:31)
[2018-08-06] MEDS ORDERED: *HR* FentaNYL (PF) 100 MCG/2 ML VIAL ONE ×2 (08:24→10:12)
[2018-08-06] MEDS ORDERED: *HR* Propofol 200 MG/20 ML VIAL IVP ONE (08:24)
[2018-08-06] MEDS ORDERED: *HR* Midazolam HCl 2 MG/2 ML VIAL ONE (08:24)
[2018-08-06] MEDS ORDERED: Ondansetron 4 MG/2 ML VIAL ONE ×2 (08:27→12:49)
[2018-08-06] MEDS ORDERED: Lidocaine -MPF 4% 5 ML AMPUL ONE (08:27)
[2018-08-06] MEDS ORDERED: *HR* Rocuronium Bromide 50 MG/5 ML VIAL ONE ×3 (08:27→12:33)
[2018-08-06] MEDS ORDERED: Lidocaine -MPF 2% 2 ML VIAL ONE (08:27)
[2018-08-06] MEDS ORDERED: *HR* Succinylcholine 200 MG/10 ML VIAL IVP ONE (08:27)
[2018-08-06] MEDS ORDERED: Lidocaine/EPI 1:200k 1% PF 10 ML VIAL ONE (09:40)
[2018-08-06] MEDS ORDERED: Lidocaine -MPF 1% 5 ML AMPUL ONE (09:40)
--- NOTE | 2018-08-06 10:42 | Anesthesia Procedures ---
Date of Encounter: 08/06/18 Time of Encounter: 10:00 Procedures: Anesthesia - Epidural/Spinal Patient ID/Chart reviewed: Yes Patient examined: Yes Sedation: Versed (mg): 2 Sedation: Fentanyl (mcg): 100 Site Prep: Aseptic Technique, Sterile prep and drape, Povidone-Iodine 1% Patient position: upright Local Anesthetic: Lidocaine 1% Amount of Local Anesthetic used: 5 Touhy Needle Gauge: 18 Touhy Needle Depth (cm): 6 Catheter Depth at Skin (cm): 15 Test Dose (1.5% Lido + Epi): Volume given (mls): 5 Test Dose Result: Negative Loading Dose Administered: Thru Catheter Loss of Resistance (CASSIUS): Yes Blood: No CSF: No Paresthesia: No
[2018-08-06] MEDS ORDERED: *HR* FentaNYL (PF) 100 MCG/2 ML VIAL IVP PRN (10:44)
[2018-08-06] MEDS ORDERED: *HR* Promethazine 25 MG/ML VIAL IVP PRN (10:44)
[2018-08-06] MEDS ORDERED: *HR* HYDROmorphone (PF) 1 MG/ML SYRINGE IVP PRN (10:44)
[2018-08-06] MEDS ORDERED: Acetaminophen IV 1,000 MG/100 ML INFUS..BTL IVPB ONE (10:44)
[2018-08-06] MEDS ORDERED: INFUS EP SCH ×2 (10:45→14:41)
[2018-08-06] MEDS ORDERED: ROPIVACAINE EP SCH ×2 (10:45→14:41)
[2018-08-06] MEDS ORDERED: Bupivacaine-MPF 0.25% 10 ML VIAL ONE ×3 (10:56→13:06)
[2018-08-06] MEDS ORDERED: *HR* PHENYLEPHRINE 1,000 MCG/10 ML SYRINGE IVP ONE (10:56)
[2018-08-06] MEDS ORDERED: SUGAMMADEX SODIUM 500 MG/5 ML VIAL IV ONE (11:53)
[2018-08-06] MEDS ORDERED: MetroNIDAZOLE 500 MG/100 ML 500 MG/100 ML BAG IVPB ONE (12:35)
[2018-08-06] MEDS ORDERED: Neostigmine Methylsulfate 3 MG/3 ML SYRINGE ONE (13:07)
[2018-08-06] MEDS ORDERED: *HR* HYDROMORPHONE 2 MG/ML VIAL ONE (13:36)
--- NOTE | 2018-08-06 13:58 | Operative Note ---
Date of procedure: 08/06/18 Pre-op diagnosis: Recurrent/refractory sigmoid radiculitis Post-op diagnosis: same Procedure: Sigmoid colectomy with mobilization of the splenic flexure; stapled colocolonic anastomosis; intraoperative rigid sigmoidoscopy; incidental appendectomy Complications: None apparent Anesthesia: GETA, epidural Surgeon: Mateusz Orantes Was there an property management assistant present: No Estimated blood loss (cc): 200 IV fluids (cc): 5,000 Specimen: sigmoid colon, anastomotic rings (distal with suture); appendix Condition: stable Disposition: PACU Procedure in Detail: The patient was brought to the OR holding area, where an epidural catheter was placed by anesthesia services, directed by Dr Alan. The patient was brought to the operating room where he was placed on the procedure table. The patient was appropriately identified to person and procedure. The accuracy of this information was confirmed by the patient and procedure team. The patient was intubated and anesthetized under the supervision of Dr. Alan. The patient was then placed in low lithotomy position using yellowfin stirrups. An OG tube was passed by anesthesia. A Moreno catheter was established. The perineum was prepped with Betadine. The anterior abdominal wall was prepped with chlorhexidine. The patient was draped in the usual sterile fashion. A midline incision was made from mid epigastrium to pubis. The incision was extended t hrough the subcutaneous tissue. Bleeding points were controlled electrocautery. The fascia was divided along the linea alba. The abdomen was entered atraumatically. Exposure was facilitated by a self-retaining Omni tract retractor. The persistent sigmoid diverticulitis was immediately identified. A large inflammatory mass in the mid sigmoid was identified. This was adherent to the lateral peritoneal wall. These adhesions were lysed by sharp dissection. The sigmoid colon was mobilized medially. Dissection extended into the pelvis. The rectosigmoid was skeletonized and divided with an Ethicon TX 60 mm stapler. Noncrushing clamps were applied proximal to the staple line before the bowel was divided. The mesentery was divided with the aid of an Ethicon Enseal dissector. The left colic vessels were identified and suture ligated with 2-0 silk before being divided. Dissection extended proximal to the inflammatory mass where the descending colon was skeletonized. A pursestring device was applied. The bowel was transected distal to the application of the pursestring. The sigmoid colon was removed from the field. A 29 EEA stapler was selected to complete stapled colocolonic anastomosis. The anvil was placed in the distal descending colon. The pursestring was secured. It was necessary to mobilize the descending colon by incising the lateral peritoneal reflection to the splenic flexure. Eventually I was able to achieve sufficient mobilization for the anvil to be placed in the pelvis without tension. The cecum was examined and a noninflamed normal-appearing appendix was identified. The mesoappendix near the junction of the appendix to the cecum was incised. The appendix was transected with a second application of the Ethicon TX 60 mm stapler. The mesoappendix was then divided with the Ethicon Enseal dissector. The appendix was removed. The surgeon then proceeded to the perineum. An EEA sound was placed rectally and easily advanced to the staple line. The EEA sound was replaced by the EEA stapler. The spike was deployed through the staple line. The anvil was applied to the spike. A stapled EEA colocolonic anastomosis was completed. On removal of the EEA stapler, 2 intact anastomotic rings were recovered. The distal ring was marked with a silk suture. A rigid sigmoidoscope was inserted rectally. The anastomosis was not well visualized, however, the colon was easily insufflated with air. The pelvis, which had been filled with fluid, demonstrated no stream of bubbles indicative of an anastomotic leak. The bowel was decompressed. The rigid sigmoidoscope was removed. The surgeon was regowned and gloved. The abdomen was irrigated with warm sterile saline and checked for adequate hemostasis. When this was assured, closure was initiated. Sponge count was correct. The peritoneum was closed with a running interlocking 0 Vicryl. The fascia was closed with interrupted [id number] 0 Vicryl. The subcutaneous tissue was reapproximated with 3-0 Vicryl. The skin edges were approximated with skin fab. Dry sterile dressings were applied. The patient was taken to PACU in stable condition. Needle, sponge, and instrument counts were correct at the close of the case. Specimens submitted to pathology: Sigmoid colon, anastomotic rings with distal marked by silk suture and appendix.
[2018-08-06] MEDS ORDERED: *HR* Dextrose 50 % in Water (Syg) 50 ML SYRINGE IVP PRN (14:41)
[2018-08-06] MEDS ORDERED: D5% in Water 1,000 ML IVC PRN (14:41)
[2018-08-06] MEDS ORDERED: Dextrose Gel 15 GM/37.5 ML TUBE PO PRN (14:41)
[2018-08-06] MEDS ORDERED: Naloxone 0.4 MG/ML INJ IVP PRN (14:41)
--- NOTE | 2018-08-06 15:03 | Anesthesia Evaluation Post Op ---
Date of Encounter: 08/06/18 Time of Encounter: 14:40 - Vital Signs Vital Signs: Last Vital Signs Temp 99 F 08/06/18 14:35 Pulse 86 08/06/18 14:35 Resp 16 08/06/18 14:35 BP 121/80 08/06/18 14:35 Pulse Ox 95 08/06/18 14:35 - Lungs Lungs: Clear Ascult./Percussion - Airway Airway: Non-obstructed - Cardiovascular Regular Rate - Mental Status Mental Status: Alert & Oriented, Answers Appropriately - Pain Pain Scale: 1 - Nausea Vomiting Nausea Vomiting: Not Present - Hydration Hydration: NPO - Discharge PostOp Status: Transfer Patient to floor (Epidural catheter removed because no sign of effectiveness. May consider attempting again tomorrow if patient's pain isn't well controlled.)
--- NOTE | 2018-08-06 15:25 | Internal Med Progress Note ---
Hospitalist Progress Note - Encounter Date of Encounter: 08/06/18 Time of Encounter: 15:23 - Subjective Interval History: Mr. Almeida is a 58 year old male with past medical history of hypertension, morbid obesity, obstructive sleep apnea on CPAP at nighttime , hyperlipidemia, diabetes, recurrent sigmoid diverticulitis with 3 admissions since 12/2017, pre sented to the ED with abdominal pain. His CT scan again demonstrated persistent worsen significant sigmoid diverticulitis with the more prominent inflammatory findings than previously. Patient was admitted in the hospital and started him on empirical antibiotic Zosyn and Flagyl. He just came back from OR after having sigmoid colectomy with mobilization of the splenic flexure, stapled colocolonic anastomosis and incidental appendectomy. Pt is still sedative. His vitals are stable. His SpO2 @ 95 % on RA, BP 121/80, OH: 86, RR: 16 - Exam Vitals: Temp Pulse Resp BP Pulse Ox 99 F 86 16 121/80 95 08/06/18 14:35 08/06/18 14:35 08/06/18 14:35 08/06/18 14:35 08/06/18 14:35 Exam: Gen: Sleepy and sedative Chest: Diminished breath sounds B/L, No wheezing, No crackles, No rales Heart: S1S2+ RRR No murmurs Abd: s/p Sigmoid colectomy, mid line incision.. Dressing +. Ext: No edema, pulses are palpable, No calf tenderness Neuro : Benign findings Skin: No rash. - Assessment and Plan (1) Diverticulitis Current Visit: Yes Status: Acute Assessment and Plan: Recurrent diverticulitis s/p Sigmoid colectomy and incidental appendectomy POD # 0 cont IV fluids appreciate surgery recommendations cont post op care as per surgery f/u on H/H, Electrolytes in AM DVT prophylaxis as per Surgery PICC line is in Strict NPO for now May need nutritional support ( TPN ) from tomorrow onwards cont empirical abx Zosyn and Flagyl IV Fentanyl PRN for pain on Tele monitor On continuous pulse oxy when pt is awake will encourages to use more frequent incentive spirometry (2) Sepsis Current Visit: Yes Status: Acute Assessment and Plan: Presented with abdominal pain, hypotension, leukocytosis with CT finding consist ent with recurrent sigmoid diverticulitis Associated with RONNI Improved Cont empirical abx zosyn + Flagyl blood cultures - No growth (3) Acute kidney injury Current Visit: Yes Status: Acute Assessment and Plan: Secondary to sepsis as above + poor oral intake Improved Avoid nephrotoxins Renally adjusted antibiotics (4) Hypertension Current Visit: No Status: Chronic Assessment and Plan: Holding home meds due to borderline blood pressure (5) HLD (hyperlipidemia) Current Visit: No Status: Chronic Assessment and Plan: will resume meds after surgery (6) Diabetes mellitus Current Visit: No Status: Chronic Assessment and Plan: NPO on ISS Q4h HbA1C from 05/16 @ 6.9 (7) DVT prophylaxis Current Visit: No Status: Acute Assessment and Plan: will resume as per surgery recommendations (8) ADALID on CPAP Current Visit: Yes Status: Acute Assessment and Plan: using Home CPAP (9) Morbid obesity with BMI of 45.0-49.9, adult Current Visit: Yes Status: Acute - Time Spent with Patient Total time spent is greater than 50% in coordination of care (as documented) at patient's floor/unit and/or counseling patient: Internal Medicine: Result - Labs CBC & Chem 7: 08/04/18 04:50 08/04/18 04:50 Consult Discharge Plan - Plan Referrals: Deep Harper MD [Partnered Physician] - 10/19/18 11:00 am Sandhya Acuña MD [Primary Care Provider] - 10/14/18 1:00 pm (2) Sepsis Qualifiers: Sepsis type: sepsis due to unspecified organism Qualified Code(s): A41.9 - Sepsis, unspecified organism (4) Hypertension Qualifiers: Hypertension type: essential hypertension Qualified Code(s): I10 - Essential (primary) hypertension (5) HLD (hyperlipidemia) Qualifiers: Hyperlipidemia type: mixed hyperlipidemia Qualified Code(s): E78.2 - Mixed hyperlipidemia (6) Diabetes mellitus Qualifiers: Diabetes mellitus type: type 2 Diabetes mellitus [facility] insulin use: with long term care administrator use Diabetes mellitus complication status: with neurologic complications Diabetes mellitus complication detail: with autonomic neuropathy Qualified Code(s): E11.43 - Type 2 diabetes mellitus with diabetic autonomic (poly)neuropathy; Z79.4 - intermediate teacher (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
[2018-08-06] MEDS: MOMETASONE FUROATE 100 mcg Inhaler IH SCH (16:34)
[2018-08-06] MEDS ORDERED: Lidocaine/EPI 1:100k 2% 20 ML VIAL ONE (16:57)
[2018-08-06] MEDS ORDERED: Lidocaine -MPF 2% 5 ML VIAL ONE (16:58)
[2018-08-06] MEDS ORDERED: ROPIVACAINE HCL/PF 0.5% 30 ML VIAL ONE (17:03)
--- NOTE | 2018-08-06 17:38 | Anesthesia Procedures ---
Date of Encounter: 08/06/18 Time of Encounter: 17:20 Procedures: Anesthesia - Epidural/Spinal Patient ID/Chart reviewed: Yes Patient examined: Yes Site Prep: Povidone-Iodine 1% Patient position: upright Local Anesthetic: Lidocaine 1% Amount of Local Anesthetic used: 3 Touhy Needle Gauge: 18 Touhy Needle Depth (cm): 7 Catheter Depth at Skin (cm): 16 Test Dose (1.5% Lido + Epi): Volume given (mls): 3 Test Dose Result: Negative Loading Dose: 0.25% Marcaine (mls): 10 (ropiv 0.25%) Loading Dose Administered: Thru Catheter Infusion Rate (mls/hr): [address]: Tegaderm Interspace Used: L2-L3 Loss of Resistance (CASSIUS): Yes Blood: No CSF: No Paresthesia: No
[2018-08-06] MEDS ORDERED: Ropivacaine/PF 0.2% 500 MG/250 ML INFUS..BTL EP SCH (17:45)
[2018-08-06] MEDS: *HR* Metoprolol 5 MG/5 ML VIAL IVP SCH ×2 (18:07→23:46)
[2018-08-06] MEDS: Ondansetron 4 MG/2 ML VIAL IVP PRN (18:14)
[2018-08-06] MEDS: ROPIVACAINE EP SCH (20:24)
[2018-08-06] MEDS: INFUS EP SCH (20:24)
[2018-08-06] MEDS: *HR* FentaNYL (PF) 100 MCG/2 ML VIAL IVP PRN (21:13)
[2018-08-07] MEDS: Piperacillin/Tazobactam 3.375 GM in 0.9 % Sodium Chloride Mini Bag 100 ML IVPB SCH ×3 (01:43→17:30)
[2018-08-07] MEDS: Insulin LISPRO 300 UNITS/3 ML VIAL SQ SCH ×6 (02:04→22:35)
[2018-08-07 02:06] LABS: Basophils % 0.1 %; Hemoglobin 11.6 g/dL (12.9-16.9); Immature Granulocytes % 0.3 % (0-4); Lymphocytes # 1.5 K/mcL (0.6-4.6); Lymphocytes % 14.6 %; Mean Corpuscular HGB Conc 34.1 g/dL (31.6-35.5); Mean Corpuscular Hemoglobin 29.2 pg (28.0-33.3); Mean Corpuscular Volume 85.6 fL (83.0-100.0); Mean Platelet Volume 9.3 fL (9.4-12.4); Monocytes # 0.7 K/mcL (0.0-1.3); Monocytes % 7.1 %; Neutrophils # 7.9 K/mcL (1.6-8.9); Platelet Count 177 K/mcL (140-400); Red Blood Count 3.97 M/mcL (4.19-5.50); Red Cell Distribution Width 13.6 % (11.5-14.5); Segmented Neutrophils % 77.9 %
[2018-08-07 02:26] LABS: Alanine Aminotransferase 22 Units/L (7-52); Albumin 3.1 g/dL (3.5-5.7); Albumin/Globulin Ratio 1.2 (1.1-2.2); Alkaline Phosphatase 36 Units/L (34-104); Aspartate Amino Transferase 20 Units/L (13-39); BUN/Creatinine Ratio 8 (6-26); Bilirubin,Total 0.4 mg/dL (0.3-1.0); Blood Urea Nitrogen 8 mg/dL (6-20); Calcium 8.4 mg/dL (8.6-10.3); Carbon Dioxide 26 mEq/L (23-29); Chloride 112 mEq/L (98-107); Globulin 2.6 g/dL (2.4-3.5); Glucose 152 mg/dL (70-105); Osmolality,Calculated 287 (280-300); Potassium 3.6 mEq/L (3.5-5.1); Sodium 138 mEq/L (136-145); Total Protein 5.7 g/dL (6.4-8.9); eGFR For Non-African Americans > 60 (> 60)
[2018-08-07] MEDS: MetroNIDAZOLE 500 MG/100 ML 500 MG/100 ML BAG IVPB SCH ×3 (04:05→21:15)
[2018-08-07] MEDS: *HR* Metoprolol 5 MG/5 ML VIAL IVP SCH ×4 (08:14→23:38)
[2018-08-07] MEDS: *HR* FentaNYL (PF) 100 MCG/2 ML VIAL IVP PRN ×2 (08:15→15:15)
[2018-08-07] MEDS: Pantoprazole 40 MG VIAL IVP SCH (08:25)
[2018-08-07] MEDS: MOMETASONE FUROATE 100 mcg Inhaler IH SCH (08:38)
--- NOTE | 2018-08-07 10:45 | Internal Med Progress Note ---
Hospitalist Progress Note - Encounter Date of Encounter: 08/07/18 Time of Encounter: 10:43 - Subjective Interval History: Pt had mild fever this morning, he had no cough, sob, or chest pain. No N/V/D. Surgical site clean and dry. - Exam Vitals: Temp Pulse Resp BP Pulse Ox 100.7 F H 104 16 118/77 90 08/07/18 07:03 08/07/18 07:03 08/07/18 07:03 08/07/18 07:03 08/07/18 07:03 Exam: Gen: Sleepy and sedative Chest: Diminished breath sounds B/L, No wheezing, No crackles, No rales Heart: S1S2+ RRR No murmurs Abd: s/p Sigmoid colectomy, mid line incision.. Dressing +. Ext: No edema, pulses are palpable, No calf tenderness Neuro : Benign findings Skin: No rash. - Assessment and Plan (1) DVT prophylaxis Current Visit: No Status: Acute Assessment and Plan: will resume as per surgery recommendations (2) HLD (hyperlipidemia) Current Visit: No Status: Chronic Assessment and Plan: will resume meds after surgery (3) Diverticulitis Current Visit: Yes Status: Acute Assessment and Plan: 2 Recurrent diverticulitis s/p Sigmoid colectomy and incidental appendectomy POD # 0 cont IV fluids appreciate surgery recommendations cont post op care as per surgery f/u on H/H, Electrolytes in AM DVT prophylaxis as per Surgery PICC line is in Strict NPO for now May need nutritional support ( TPN ) from tomorrow onwards cont empirical abx Zosyn and Flagyl IV Fentanyl PRN for pain on Tele monitor On continuous pulse oxy when pt is awake will encourages to use more frequent incentive spirometry. 2 POD2, mild fever, on IV abx. will advance diet per Surgery recommendation, ambulate today. (4) Hypertension Current Visit: No Status: Chronic Assessment and Plan: Holding home meds due to borderline blood pressure (5) Diabetes mellitus Current Visit: No Status: Chronic Assessment and Plan: NPO on ISS Q4h HbA1C from 05/16 @ 6.9 (6) Acute kidney injury Current Visit: Yes Status: Resolved (7) Sepsis Current Visit: Yes Status: Resolved (8) ADALID on CPAP Current Visit: Yes Status: Acute Assessment and Plan: using Home CPAP (9) Morbid obesity with BMI of 45.0-49.9, adult Current Visit: Yes Status: Acute Assessment and Plan: Counseled to loose weight - Time Spent with Patient Total time spent is greater than 50% in coordination of care (as documented) at patient's floor/unit and/or counseling patient: Greater than 35 minutes Plan of Care Discussed with: patient Internal Medicine: Result - Labs CBC & Chem 7: 08/07/18 01:35 08/07/18 01:35 Labs: Short CBC 08/07/18 Range/Units 01:35 WBC 10.1 D (4.3-11.1) K/mcL Hgb 11.6 L (12.9-16.9) g/dL Hct 34.0 L (37.5-50.1) % Plt Count 177 (140-400) K/mcL Neutrophils # 7.9 (1.6-8.9) K/mcL BMP 08/07/18 01:35 Sodium 138 Potassium 3.6 Chloride 112 H Carbon Dioxide 26 BUN 8 Creatinine 1.06 Glucose 152 H Calcium 8.4 L Liver Function 08/07/18 Range/Units 01:35 Total Bilirubin 0.4 (0.3-1.0) mg/dL AST 20 (13-39) Units/L ALT 22 (7-52) Units/L Alkaline Phosphatase 36 (34-104) Units/L Albumin 3.1 L (3.5-5.7) g/dL Consult Discharge Plan - Plan Referrals: Deep Harper MD [Partnered Physician] - 10/19/18 11:00 am Sandhya Acuña MD [Primary Care Provider] - 10/14/18 1:00 pm ____ (2) HLD (hyperlipidemia) Qualifiers: Hyperlipidemia type: mixed hyperlipidemia Qualified Code(s): E78.2 - Mixed hyperlipidemia (4) Hypertension Qualifiers: Hypertension type: essential hypertension Qualified Code(s): I10 - Essential (primary) hypertension (5) Diabetes mellitus Qualifiers: Diabetes mellitus type: type 2 Diabetes mellitus [facility] insulin use: with terminal manager use Diabetes mellitus complication status: with neurologic complications Diabetes mellitus complication detail: with autonomic neuropathy Qualified Code(s): E11.43 - Type 2 diabetes mellitus with diabetic autonomic (poly)neuropathy; Z79.4 - [facility] (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 (7) Sepsis Qualifiers: Sepsis type: sepsis due to unspecified organism Qualified Code(s): A41.9 - Sepsis, unspecified organism
[2018-08-07] MEDS ORDERED: D10% in Water 500 ML IVC PRN (11:05)
[2018-08-07] MEDS ORDERED: Potassium Phosphate 44 MEQ in 0.9 % Sodium Chloride 250 ML IVPB ONE (11:18)
--- NOTE | 2018-08-07 11:20 | General Surgery Progress Note ---
Date of Encounter: 08/07/18 Time of Encounter: 11:03 Subjective Narrative: General Surgery - POD #1 Patient seated at bedside, complaining of "being sore" Perioperative epidural was an effective. Replaced by anesthesia, Dr Alan, post op and providing effective pain control Mild nausea last evening, no emesis. No complaints of nausea this morning. Maximum temperature 100.7, pulse 104 - 115; respiratory rate 16; blood pressure 118/77 Lungs: Clear; exam limited to body habitus; patient encouraged to deep breathe and cough. Patient also encouraged to to be more aggressive with the incentive spirometry Abdomen: Soft, with active bowel sounds. Alma Rosa-Incisional tenderness as expec benjamin. Midline incision intact, clean and dry. Dressing removed Extremities: Patient has noted mild numbness of the left toes, most likely due to the epidural Urine output: Approximately 700 mL for calendar day 08/06/18; no urine output recorded today Labs: WBC 10.1, normal differential; hemoglobin 11.6, hematocrit 34.0; platelets 177,000 Electrolytes are acceptable, sodium 138, potassium 3.6, chloride 112, bicarbonate 26, BUN 8, creatinine 1.06 Phosphorus 2.5, magnesium 1.2, bilirubin 0.8, LFTs within normal limits. Total serum protein 5.7, albumin 3.1 Impression/plan: Postoperative day #1 - status post primary sigmoid resection for recurrent/refractory sigmoid diverticulitis. Acceptable postoperative status Low-grade temp - 100.7 - most likely respiratory. Patient encouraged to deep breathe, cough, and be more aggressive with incentive spirometry Will add Proventil aerosol Tachycardia - partially driven by pain; continue to monitor Moreno catheter - place for perioperative monitoring urine output; with epidural analgesia, bladder dysfunction is also likely. Maintain Moreno for duration of the epidural analgesia Nutrition - patient is expected to be NPO for several more days. TPN. Hypophosphatemia, hypomagnesemia- supplements ordered Objective Vital Signs - Last 8 Hours Temp Pulse Resp BP Pulse Ox 08/07/18 08:38 16 118/77 90 08/07/18 07:03 100.7 F H 104 16 118/77 90 Intake and Output 08/06/18 08/07/18 08/07/18 23:59 07:59 15:59 Intake Total 200 / 200 100 / 100 Output Total 150 / 150 Balance 50 / 50 100 / 100 Intake: IV Fluids 200 / 200 100 / 100 Flagyl Premix 500 MG/100 ML 500 100 / 100 100 / 100 mg In 100 ml @ 100 mls/hr IVPB Q8H [facility] Rx#:[id number] Zosyn 3.375 GM In 0.9 % Sodium 100 / 100 Chloride (Mini-Bag +) 100 ML @ 25 mls/hr IVPB Q8H [facility] Rx#: [id number] Output: Catheter 150 / 150 Other: Weight 166.4 kg Blood Glucose* 171 145 Patient Weight 08/07/18 23:59 Weight 166.4 kg - Labs 08/07/18 01:35 08/07/18 01:35 Diabetes panel 08/07/18 Range/Units 01:35 Sodium 138 (136-145) mEq/L Potassium 3.6 (3.5-5.1) mEq/L Chloride 112 H (98-107) mEq/L Carbon Dioxide 26 (23-29) mEq/L BUN 8 (6-20) mg/dL Creatinine 1.06 (0.70-1.30) mg/dL Glucose 152 H (70-105) mg/dL Calcium 8.4 L (8.6-10.3) mg/dL AST 20 (13-39) Units/L ALT 22 (7-52) Units/L Alkaline Phosphatase 36 (34-104) Units/L Albumin 3.1 L (3.5-5.7) g/dL Calcium panel 08/07/18 08/07/18 Range/Units 01:35 01:35 Calcium 8.4 L (8.6-10.3) mg/dL Phosphorus 2.5 L (2.7-4.5) mg/dL Albumin 3.1 L (3.5-5.7) g/dL Pituitary panel 08/07/18 Range/Units 01:35 Sodium 138 (136-145) mEq/L Potassium 3.6 (3.5-5.1) mEq/L Chloride 112 H (98-107) mEq/L Carbon Dioxide 26 (23-29) mEq/L BUN 8 (6-20) mg/dL Creatinine 1.06 (0.70-1.30) mg/dL Glucose 152 H (70-105) mg/dL Calcium 8.4 L (8.6-10.3) mg/dL Adrenal panel 08/07/18 Range/Units 01:35 Sodium 138 (136-145) mEq/L Potassium 3.6 (3.5-5.1) mEq/L Chloride 112 H (98-107) mEq/L Carbon Dioxide 26 (23-29) mEq/L BUN 8 (6-20) mg/dL Creatinine 1.06 (0.70-1.30) mg/dL Glucose 152 H (70-105) mg/dL Calcium 8.4 L (8.6-10.3) mg/dL Total Bilirubin 0.4 (0.3-1.0) mg/dL AST 20 (13-39) Units/L ALT 22 (7-52) Units/L Alkaline Phosphatase 36 (34-104) Units/L Albumin 3.1 L (3.5-5.7) g/dL Consult Discharge Plan - Plan Referrals: Deep Harper MD [Partnered Physician] - 10/19/18 11:00 am Sandhya Acuña MD [Primary Care Provider] - 10/14/18 1:00 pm
[2018-08-07] MEDS: D5% in 0.45% NACL 1,000 ML IVC SCH (11:53)
[2018-08-07] MEDS ORDERED: Albuterol 2.5 MG/3 ML NEBULIZER ONE (11:56)
[2018-08-07] MEDS: Albuterol 2.5 MG/3 ML NEBULIZER IH SCH ×3 (12:10→21:06)
[2018-08-07] MEDS ORDERED: *HR* Nalbuphine 10 MG/ML AMPUL IV PRN (15:49)
--- NOTE | 2018-08-07 15:59 | Anesthesia Procedures ---
Date of Encounter: 08/07/18 Time of Encounter: 15:30 Procedures: Anesthesia - Epidural Rounding Post Op Day #: 1 Procedure: SIGMOID COLECTOMY Pain Control: Adequate Breakthrough Pain Meds: Yes Mental Status: awake Catheter Site Dressing Intact: Yes Signs of Infection At Catheter Site: No Plan: Increase rate Anes Supervising Prov Stmt: Abdominal pain: 5/10 No nausea. Low grade fever & hypoxia with SpO2 88-90% on RA Sensory level: T12 Lower extremity neuro: grossly intact. Site: Clean, Dry and Intact EPIDURAL INFUSION: 0.2 % ROPIVACAINE Cont Infusion: 10 ml/hr EPIDURAL BAG CHANGED. EPIDURAL BOLUS 5 ML, Sensory level T9. Epidural infusion INCREASED TO 15 ML/HR. Discussed with Dr. Lamberto caal Nubain for breakthrough pain. Ordered. Patient encouraged to deep breath, OOB with support & ambulate. Will follow-up.
[2018-08-07] MEDS ORDERED: Clinimix E 5%-15% SOLUTION 2,000 ML with MVI, adult with vitamin K 10 ML IVC SCH (17:00)
[2018-08-07] MEDS: Ondansetron 4 MG/2 ML VIAL IVP PRN (17:46)
[2018-08-08] MEDS: Piperacillin/Tazobactam 3.375 GM in 0.9 % Sodium Chloride Mini Bag 100 ML IVPB SCH ×3 (02:25→17:02)
[2018-08-08] MEDS: Insulin LISPRO 300 UNITS/3 ML VIAL SQ SCH ×6 (02:28→22:17)
[2018-08-08] MEDS: MetroNIDAZOLE 500 MG/100 ML 500 MG/100 ML BAG IVPB SCH ×3 (03:44→20:29)
[2018-08-08 03:50] LABS: Basophils % 0.2 %; Eosinophils # 0.1 K/mcL (0.0-0.6); Eosinophils % 1.4 %; Hemoglobin 10.4 g/dL (12.9-16.9); Immature Granulocytes % 0.4 % (0-4); Lymphocytes # 1.4 K/mcL (0.6-4.6); Lymphocytes % 17.2 %; Mean Corpuscular HGB Conc 33.5 g/dL (31.6-35.5); Mean Corpuscular Hemoglobin 29.3 pg (28.0-33.3); Mean Corpuscular Volume 87.3 fL (83.0-100.0); Mean Platelet Volume 9.3 fL (9.4-12.4); Monocytes # 0.6 K/mcL (0.0-1.3); Monocytes % 7.7 %; Neutrophils # 5.9 K/mcL (1.6-8.9); Platelet Count 146 K/mcL (140-400); Red Blood Count 3.55 M/mcL (4.19-5.50); Red Cell Distribution Width 13.9 % (11.5-14.5); Segmented Neutrophils % 73.1 %
[2018-08-08 03:54] LABS: VBG Ionized Calcium 1.16 mmol/L (1.15-1.35)
[2018-08-08] MEDS: Ondansetron 4 MG/2 ML VIAL IVP PRN ×2 (03:57→22:16)
[2018-08-08] MEDS: D5% in 0.45% NACL 1,000 ML IVC SCH (03:57)
[2018-08-08 04:10] LABS: BUN/Creatinine Ratio 6 (6-26); Blood Urea Nitrogen 7 mg/dL (6-20); Calcium 8.6 mg/dL (8.6-10.3); Carbon Dioxide 26 mEq/L (23-29); Chloride 110 mEq/L (98-107); Glucose 226 mg/dL (70-105); Magnesium 1.6 mg/dL (1.6-2.6); Osmolality,Calculated 293 (280-300); Phosphorous 2.5 mg/dL (2.7-4.5); Potassium 3.3 mEq/L (3.5-5.1); Sodium 139 mEq/L (136-145); eGFR For Non-African Americans > 60 (> 60)
[2018-08-08] MEDS: Albuterol 2.5 MG/3 ML NEBULIZER IH SCH ×4 (04:15→21:49)
[2018-08-08] MEDS: ROPIVACAINE EP SCH ×3 (04:39→22:29)
[2018-08-08] MEDS: INFUS EP SCH ×3 (04:39→22:29)
[2018-08-08] MEDS: *HR* Metoprolol 5 MG/5 ML VIAL IVP SCH (05:39)
[2018-08-08] MEDS ORDERED: Potassium Phosphate 44 MEQ in 0.9 % Sodium Chloride 250 ML IVPB ONE (07:44)
[2018-08-08] MEDS: Pantoprazole 40 MG VIAL IVP SCH (09:35)
[2018-08-08] MEDS: MOMETASONE FUROATE 100 mcg Inhaler IH SCH (09:45)
--- NOTE | 2018-08-08 11:49 | General Surgery Progress Note ---
Date of Encounter: 08/08/18 Time of Encounter: 11:37 Subjective Patient reports: pain is less, flatus Narrative: General Surgery - POD #2 Patient feeling well, voicing no complaints. Epidural providing excellent pain control. No nausea or vomiting. Maximum temperature 99.1, tachycardia persists, heart rate 100-112; respiratory rate 18, blood pressure 189/82- 173/100 Lungs: Clear; SPO2 on room air 92%. No abdominal pain with deep inspiration Abdomen: Obese, soft, without obvious tenderness. Active bowel sounds. Patient reports passing flatus. Midline incision intact, clean and dry. Extremities: No obvious common, cyanosis, or edema; patient complaining of left foot numbness most likely due to the epidural. Urine output: Approximately 750 mL for calendar days to; approximate 500 mL so far today. Accu-Cheks 207-220 Operative pathology pending Laboratories: WBC 8.1, normal differential; hemoglobin 10.4 with hematocrit 31.0 - likely diminished due to IV fluids Sodium 139, potassium 3.3, chloride 110, BUN 7, creatinine 1.11 Phosphorus 2.5, magnesium 1.6 Impression/Plan: Postoperative day #2, status post primary sigmoid resection with stapled colocolonic anastomosis for recurrent/refractory sigmoid diverticulitis Acceptable postoperative state. Continue to encourage activity OOB and incentive spirometry L5 - neuro Postoperative anemia most likely due to IV fluids/hydration Hypokalemia and hypophosphatemia - electrolyte replacement ordered Diabetes - we will increase sliding scale coverage Protein/calorie depletion - continue TPN until able to begin enteral nutrition Tachycardia and hypertension - will resume home meds (venlafaxine and atenolol) Objective Vital Signs - Last 8 Hours Temp Pulse Resp BP Pulse Ox 08/08/18 09:55 98.2 F 101 16 173/100 92 08/08/18 09:46 19 92 08/08/18 07:25 99.1 F 102 16 189/82 93 08/08/18 04:17 16 92 Intake and Output 08/07/18 08/08/18 08/08/18 23:59 07:59 15:59 Intake Total 300 / 300 1450 / 1450 0 / 0 Output Total 350 / 350 400 / 400 100 / 100 Balance -50 / -50 1050 / 1050 -100 / -100 Intake: IV Fluids 300 / 300 1450 / 1450 D5% And 0.45% Nacl 1000 Ml Bag 1000 / 1000 1,000 ML @ 75 mls/hr IVC . [id number] [facility] Rx#:[id number] Intralipid 20% 250 ML @ 21 mls/ 250 / 250 hr IVPB DAILY@1700 [facility] Rx#: [id number] Flagyl Premix 500 MG/100 ML 500 200 / 200 100 / 100 mg In 100 ml @ 100 mls/hr IVPB Q8H [facility] Rx#:[id number] Zosyn 3.375 GM In 0.9 % Sodium 100 / 100 100 / 100 Chloride (Mini-Bag +) 100 ML @ 25 mls/hr IVPB Q8H [facility] Rx#: [id number] Oral 0 / 0 0 / 0 0 / 0 Output: Catheter 350 / 350 400 / 400 100 / 100 Other: Meal npo # Bowel Movements 0 0 Weight 167.2 kg Blood Glucose* 153 207 215 Patient Weight 08/08/18 23:59 Weight 167.2 kg - Labs 08/08/18 03:32 08/08/18 03:32 Diabetes panel 08/08/18 Range/Units 03:32 Sodium 139 (136-145) mEq/L Potassium 3.3 L (3.5-5.1) mEq/L Chloride 110 H (98-107) mEq/L Carbon Dioxide 26 (23-29) mEq/L BUN 7 (6-20) mg/dL Creatinine 1.11 (0.70-1.30) mg/dL Glucose 226 H (70-105) mg/dL Calcium 8.6 (8.6-10.3) mg/dL Calcium panel 08/08/18 Range/Units 03:32 Calcium 8.6 (8.6-10.3) mg/dL Phosphorus 2.5 L (2.7-4.5) mg/dL Pituitary panel 08/08/18 Range/Units 03:32 Sodium 139 (136-145) mEq/L Potassium 3.3 L (3.5-5.1) mEq/L Chloride 110 H (98-107) mEq/L Carbon Dioxide 26 (23-29) mEq/L BUN 7 (6-20) mg/dL Creatinine 1.11 (0.70-1.30) mg/dL Glucose 226 H (70-105) mg/dL Calcium 8.6 (8.6-10.3) mg/dL Adrenal panel 08/08/18 Range/Units 03:32 Sodium 139 (136-145) mEq/L Potassium 3.3 L (3.5-5.1) mEq/L Chloride 110 H (98-107) mEq/L Carbon Dioxide 26 (23-29) mEq/L BUN 7 (6-20) mg/dL Creatinine 1.11 (0.70-1.30) mg/dL Glucose 226 H (70-105) mg/dL Calcium 8.6 (8.6-10.3) mg/dL Consult Discharge Plan - Plan Referrals: Deep Harper MD [Partnered Physician] - 10/19/18 11:00 am Sandhya Acuña MD [Primary Care Provider] - 10/14/18 1:00 pm
--- NOTE | 2018-08-08 11:57 | Anesthesia Procedures ---
Date of Encounter: 08/08/18 Time of Encounter: 11:30 Procedures: Anesthesia - Epidural Rounding Post Op Day #: 2 Procedure: SIGMOID COLECTOMY Pain Control: Good Breakthrough Pain Meds: No Vital Signs: Vital Signs/O2 Sat/Glucose, Most Recent Temp Pulse Resp BP Pulse Ox 98.2 F 101 16 173/100 92 08/08/18 09:55 08/08/18 09:55 08/08/18 09:55 08/08/18 09:55 08/08/18 09:55 Blood Glucose* 215 Catheter Site Dressing Intact: Yes Signs of Infection At Catheter Site: No Plan: Decrease rate Anes Supervising Prov Stmt: Abdominal pain: 0/10 NUMBNESS & WEAKNESS IN LEFT FOOT Sensory level: T10 Lower extremity neuro: grossly intact, WITH L5 4/5 MOTOR WEAKNESS Site: Clean, Dry and Intact EPIDURAL INFUSION: 0.2 % ROPIVACAINE Cont Infusion: 15 ml/hr Epidural infusion DECREASED TO 11 ML/HR. Will follow-up.
[2018-08-08] MEDS: Venlafaxine XR (24 HR) 150 MG CAP.ER.24H PO SCH (12:41)
--- NOTE | 2018-08-08 15:09 | Internal Med Progress Note ---
Hospitalist Progress Note - Encounter Date of Encounter: 08/08/18 Time of Encounter: 15:06 - Subjective Interval History: uneventful night, no complaints. - Exam Vitals: Temp Pulse Resp BP Pulse Ox 98.4 F 88 16 123/84 97 08/08/18 14:22 08/08/18 14:22 08/08/18 14:22 08/08/18 14:22 08/08/18 14:22 Exam: Gen: Sleepy and sedative Chest: Diminished breath sounds B/L, No wheezing, No crackles, No rales Heart: S1S2+ RRR No murmurs Abd: s/p Sigmoid colectomy, mid line incision.. Dressing +. Ext: No edema, pulses are palpable, No calf tenderness Neuro : Benign findings Skin: No rash. - Assessment and Plan (1) DVT prophylaxis Current Visit: No Status: Acute Assessment and Plan: SCDs (2) HLD (hyperlipidemia) Current Visit: No Status: Chronic Assessment and Plan: continue current meds. (3) Diverticulitis Current Visit: Yes Status: Acute Assessment and Plan: 2 Recurrent diverticulitis s/p Sigmoid colectomy and incidental appendectomy POD # 0 cont IV fluids appreciate surgery recommendations cont post op care as per surgery f/u on H/H, Electrolytes in AM DVT prophylaxis as per Surgery PICC line is in Strict NPO for now May need nutritional support ( TPN ) from tomorrow onwards cont empirical abx Zosyn and Flagyl IV Fentanyl PRN for pain on Tele monitor On continuous pulse oxy when pt is awake will encourages to use more frequent incentive spirometry. 08/07 POD2, mild fever, on IV abx. will advance diet per Surgery recommendation, ambulate today. 08/08 POD3, doing well. BP elevated, home BP meds resumed. Low K and phos, replaced. Continue PPN per nutrition. (4) Hypertension Current Visit: No Status: Chronic Assessment and Plan: BP was elevated this morning, home bP meds resumed. (5) Diabetes mellitus Current Visit: No Status: Chronic Assessment and Plan: NPO on ISS Q4h HbA1C from 05/16 @ 6.9 (6) Acute kidney injury Current Visit: Yes Status: Resolved (7) Sepsis Current Visit: Yes Status: Resolved (8) ADALID on CPAP Current Visit: Yes Status: Acute Assessment and Plan: using Home CPAP (9) Morbid obesity with BMI of 45.0-49.9, adult Current Visit: Yes Status: Acute Assessment and Plan: Counseled to loose weight - Time Spent with Patient Total time spent is greater than 50% in coordination of care (as documented) at patient's floor/unit and/or counseling patient: Greater than 35 minutes Plan of Care Discussed with: patient Internal Medicine: Result - Labs CBC & Chem 7: 08/08/18 03:32 08/08/18 03:32 Labs: Short CBC 08/08/18 Range/Units 03:32 WBC 8.1 (4.3-11.1) K/mcL Hgb 10.4 L (12.9-16.9) g/dL Hct 31.0 L (37.5-50.1) % Plt Count 146 (140-400) K/mcL Neutrophils # 5.9 (1.6-8.9) K/mcL BMP 08/08/18 03:32 Sodium 139 Potassium 3.3 L Chloride 110 H Carbon Dioxide 26 BUN 7 Creatinine 1.11 Glucose 226 H Calcium 8.6 Consult Discharge Plan - Plan Referrals: Deep Harper MD [Partnered Physician] - 10/19/18 11:00 am Sandhya Acuña MD [Primary Care Provider] - 10/14/18 1:00 pm ____ (2) HLD (hyperlipidemia) Qualifiers: Hyperlipidemia type: mixed hyperlipidemia Qualified Code(s): E78.2 - Mixed hyperlipidemia (4) Hypertension Qualifiers: Hypertension type: essential hypertension Qualified Code(s): I10 - Essential (primary) hypertension (5) Diabetes mellitus Qualifiers: Diabetes mellitus type: type 2 Diabetes mellitus skilled nursing insulin use: with lobsterman use Diabetes mellitus complication status: with neurologic complications Diabetes mellitus complication detail: with autonomic neuropathy Qualified Code(s): E11.43 - Type 2 diabetes mellitus with diabetic autonomic (poly)neuropathy; Z79.4 - [facility] (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 (7) Sepsis Qualifiers: Sepsis type: sepsis due to unspecified organism Qualified Code(s): A41.9 - Sepsis, unspecified organism
[2018-08-08] MEDS ORDERED: MVI IVC SCH (17:00)
[2018-08-08] MEDS ORDERED: CLINIMIX E IVC SCH (17:00)
[2018-08-08] MEDS ORDERED: PARENTERAL AMINO ACID 10% IVC SCH (17:00)
[2018-08-08] MEDS ORDERED: [UNRECOGNIZED DRUG - OTHER] IVC SCH (17:00)
[2018-08-09] MEDS: Insulin LISPRO 300 UNITS/3 ML VIAL SQ SCH ×7 (03:25→23:12)
[2018-08-09] MEDS: MetroNIDAZOLE 500 MG/100 ML 500 MG/100 ML BAG IVPB SCH ×3 (03:26→20:45)
[2018-08-09] MEDS: Piperacillin/Tazobactam 3.375 GM in 0.9 % Sodium Chloride Mini Bag 100 ML IVPB SCH ×3 (03:26→17:43)
[2018-08-09] MEDS: Albuterol 2.5 MG/3 ML NEBULIZER IH SCH ×4 (04:05→21:18)
[2018-08-09 05:28] LABS: Basophils % 0.4 %; Eosinophils # 0.3 K/mcL (0.0-0.6); Hematocrit 31.9 % (37.5-50.1); Hemoglobin 10.7 g/dL (12.9-16.9); Immature Granulocytes % 0.5 % (0-4); Lymphocytes # 1.1 K/mcL (0.6-4.6); Lymphocytes % 13.2 %; Mean Corpuscular HGB Conc 33.5 g/dL (31.6-35.5); Mean Corpuscular Hemoglobin 29.1 pg (28.0-33.3); Mean Corpuscular Volume 86.7 fL (83.0-100.0); Mean Platelet Volume 9.4 fL (9.4-12.4); Monocytes # 0.6 K/mcL (0.0-1.3); Monocytes % 6.9 %; Neutrophils # 6.4 K/mcL (1.6-8.9); Platelet Count 161 K/mcL (140-400); Red Blood Count 3.68 M/mcL (4.19-5.50)
[2018-08-09 05:49] LABS: BUN/Creatinine Ratio 11 (6-26); Blood Urea Nitrogen 11 mg/dL (6-20); Calcium 8.6 mg/dL (8.6-10.3); Carbon Dioxide 26 mEq/L (23-29); Chloride 109 mEq/L (98-107); Glucose 224 mg/dL (70-105); Magnesium 1.6 mg/dL (1.6-2.6); Osmolality,Calculated 300 (280-300); Phosphorous 2.4 mg/dL (2.7-4.5); Potassium 3.3 mEq/L (3.5-5.1); Sodium 142 mEq/L (136-145); Triglycerides 95 mg/dL (< 150); eGFR For Non-African Americans > 60 (> 60)
[2018-08-09] MEDS ORDERED: Potassium Phosphate 44 MEQ in 0.9 % Sodium Chloride 250 ML IVPB ONE (08:29)
[2018-08-09] MEDS: Pantoprazole 40 MG VIAL IVP SCH (09:59)
[2018-08-09] MEDS: Venlafaxine XR (24 HR) 150 MG CAP.ER.24H PO SCH (09:59)
[2018-08-09] MEDS: hydroCHLOROthiazide 25 MG TABLET PO SCH (09:59)
[2018-08-09] MEDS: MOMETASONE FUROATE 100 mcg Inhaler IH SCH (10:27)
[2018-08-09] MEDS: Furosemide 40 MG TABLET PO SCH (14:08)
[2018-08-09] MEDS: ROPIVACAINE EP SCH (15:04)
[2018-08-09] MEDS: INFUS EP SCH (15:04)
--- NOTE | 2018-08-09 16:21 | Internal Med Progress Note ---
Hospitalist Progress Note - Encounter Date of Encounter: 08/09/18 Time of Encounter: 16:18 - Subjective Interval History: right arm and left leg swelling. No fever, chills, or night sweats. Abdominal pain mild, passing gas. - Exam Vitals: Temp Pulse Resp BP Pulse Ox 98.5 F 80 15 113/65 95 08/09/18 14:58 08/09/18 14:58 08/09/18 16:13 08/09/18 14:58 08/09/18 16:13 Exam: Gen: Sleepy and sedative Chest: Diminished breath sounds B/L, No wheezing, No crackles, No rales Heart: S1S2+ RRR No murmurs Abd: s/p Sigmoid colectomy, mid line incision. Dressing +. Ext: No edema, pulses are palpable, No calf tenderness Neuro : Benign findings Skin: No rash. - Assessment and Plan (1) DVT prophylaxis Current Visit: No Status: Acute Assessment and Plan: SCDs (2) HLD (hyperlipidemia) Current Visit: No Status: Chronic Assessment and Plan: continue current meds. (3) Diverticulitis Current Visit: Yes Status: Acute Assessment and Plan: 2 Recurrent diverticulitis s/p Sigmoid colectomy and incidental appendectomy POD # 0 cont IV fluids appreciate surgery recommendations cont post op care as per surgery f/u on H/H, Electrolytes in AM DVT prophylaxis as per Surgery PICC line is in Strict NPO for now May need nutritional support ( TPN ) from tomorrow onwards cont empirical abx Zosyn and Flagyl IV Fentanyl PRN for pain on Tele monitor On continuous pulse oxy when pt is awake will encourages to use more frequent incentive spirometry. 08/07 POD2, mild fever, on IV abx. will advance diet per Surgery recommendation, ambulate today. 08/08 POD3, doing well. BP elevated, home BP meds resumed. Low K and phos, replaced. Continue PPN per nutrition. 08/09 POD4. doing OK. Low K and phos, replaced. Continue TPN per nutrition. Right arm and left leg swelling, resume home Lasix and HCTZ. (4) Hypertension Current Visit: No Status: Chronic Assessment and Plan: BP was elevated, Home meds resumed including lasix( this am), continue monitoring, will adjust meds if indicated. (5) Diabetes mellitus Current Visit: No Status: Chronic Assessment and Plan: NPO, on TPN. on ISS Q4h HbA1C from 05/16 @ 6.9 (6) Acute kidney injury Current Visit: Yes Status: Resolved (7) Sepsis Current Visit: Yes Status: Resolved (8) ADALID on CPAP Current Visit: Yes Status: Acute Assessment and Plan: using Home CPAP (9) Morbid obesity with BMI of 45.0-49.9, adult Current Visit: Yes Status: Acute Assessment and Plan: Counseled to loose weight - Time Spent with Patient Total time spent is greater than 50% in coordination of care (as documented) at patient's floor/unit and/or counseling patient: Greater than 35 minutes Plan of Care Discussed with: patient Internal Medicine: Result - Labs CBC & Chem 7: 08/09/18 05:09 08/09/18 05:09 Labs: Short CBC 08/09/18 Range/Units 05:09 WBC 8.4 (4.3-11.1) K/mcL Hgb 10.7 L (12.9-16.9) g/dL Hct 31.9 L (37.5-50.1) % Plt Count 161 (140-400) K/mcL Neutrophils # 6.4 (1.6-8.9) K/mcL BMP 08/09/18 05:09 Sodium 142 Potassium 3.3 L Chloride 109 H Carbon Dioxide 26 BUN 11 Creatinine 1.03 Glucose 224 H Calcium 8.6 Consult Discharge Plan - Plan Referrals: Deep Harper MD [Partnered Physician] - 10/19/18 11:00 am Sandhya Acuña MD [Primary Care Provider] - 10/14/18 1:00 pm (2) HLD (hyperlipidemia) Qualifiers: Hyperlipidemia type: mixed hyperlipidemia Qualified Code(s): E78.2 - Mixed hyperlipidemia (4) Hypertension Qualifiers: Hypertension type: essential hypertension Qualified Code(s): I10 - Essential (primary) hypertension (5) Diabetes mellitus Qualifiers: Diabetes mellitus type: type 2 Diabetes mellitus penitentiary insulin use: with penitentiary use Diabetes mellitus complication status: with neurologic complications Diabetes mellitus complication detail: with autonomic neuropathy Qualified Code(s): E11.43 - Type 2 diabetes mellitus with diabetic autonomic (poly)neuropathy; 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
[2018-08-09] MEDS: CLINIMIX E IVC SCH (17:42)
[2018-08-09] MEDS: MVI IVC SCH (17:42)
[2018-08-09] MEDS: [UNRECOGNIZED DRUG - OTHER] IVC SCH (17:42)
[2018-08-09] MEDS: PARENTERAL AMINO ACID 10% IVC SCH (17:42)
--- NOTE | 2018-08-09 20:51 | General Surgery Progress Note ---
Date of Encounter: 08/09/18 Time of Encounter: 20:44 Subjective Patient reports: feels better, bowel movement Narrative: General Surgery - POD #3 Patient feeling well tonight however had a very difficult evening last night due to "epidural problems". These issues have been addressed, the patient is currently feeling well. He is voicing no complaints The patient continues afebrile, pulse 80-93, respiratory rate 15, blood pressure 113/65- 160/94. SPO2 on room air 95% Lungs: Clear; exam limited by body habitus. No obvious abdominal pain on deep inspiration Abdomen is obese without detected tenderness. Midline incision is intact, clean and dry. Audible active bowel sounds. Urine output: 900 mL for calendar day 08/08/18; 825 mL so far today Laboratories: WBC 8.4 with normal differential; hemoglobin 10.7 with hematocrit 31.9, platelet count 161,000. Sodium 142, potassium 3.3, chloride 109, BUN 11, creatinine 1.03 Accu-Cheks 176-268 Operative pathology pending Impression: POD #3, s/p primary sigmoid resection with colocolonic anastomosis Excellent pain control per epidural despite episodic interruptions in epidural delivery of pain meds. Satisfactory postoperative status Bowel function appears to be returning. Persistent hypokalemia and hypophosphatemia despite IV replacements Plan: Discontinue IV antibiotics Initiate diet in a.m. If patient tolerates diet without increased abdominal pain, fever, nausea or vomiting will slowly advance diet and begin to taper TPN Objective Vital Signs - Last 8 Hours Temp Pulse Resp BP Pulse Ox 08/09/18 16:13 15 95 08/09/18 14:58 98.5 F 80 15 113/65 95 Intake and Output 08/09/18 08/09/18 08/09/18 07:59 15:59 23:59 Intake Total 450 / 450 460 / 460 2099 Output Total 375 / 375 450 / 450 Balance 75 / 75 2099 Intake: IV Fluids 450 / 450 460 / 460 2099 Clinimix E 5%-15% SOLUTION 2099 000 ML Travasol 10% 350 ML @ 97 .9 mls/hr IVC .Q24H [facility] with M. v.i[facility] Adult 10 ml Rx#:[id number] Intralipid 20% 250 ML @ 21 mls/ 250 / 250 hr IVPB DAILY@1700 [facility] Rx#: [id number] Flagyl Premix 500 MG/100 ML 500 100 / 100 100 / 100 mg In 100 ml @ 100 mls/hr IVPB Q8H [facility] Rx#:[id number] Zosyn 3.375 GM In 0.9 % Sodium 100 / 100 100 / 100 Chloride (Mini-Bag +) 100 ML @ 25 mls/hr IVPB Q8H [facility] Rx#: [id number] Potassium Phosphate 44 MEQ In 0 260 / 260 .9 % Sodium Chloride 250 ML @ 40 mls/hr IVPB ONCE ONE Rx#: [id number] Oral 0 / 0 0 / 0 0 / 0 Output: Catheter 375 / 375 450 / 450 Other: Meal Lunch npo Percent of Meal Consumed 0% 0% Blood Glucose* 226 184 176 - Labs 08/09/18 05:09 08/09/18 05:09 Diabetes panel 08/09/18 Range/Units 05:09 Sodium 142 (136-145) mEq/L Potassium 3.3 L (3.5-5.1) mEq/L Chloride 109 H (98-107) mEq/L Carbon Dioxide 26 (23-29) mEq/L BUN 11 (6-20) mg/dL Creatinine 1.03 (0.70-1.30) mg/dL Glucose 224 H (70-105) mg/dL Calcium 8.6 (8.6-10.3) mg/dL Triglycerides 95 (< 150) mg/dL Calcium panel 08/09/18 Range/Units 05:09 Calcium 8.6 (8.6-10.3) mg/dL Phosphorus 2.4 L (2.7-4.5) mg/dL Pituitary panel 08/09/18 Range/Units 05:09 Sodium 142 (136-145) mEq/L Potassium 3.3 L (3.5-5.1) mEq/L Chloride 109 H (98-107) mEq/L Carbon Dioxide 26 (23-29) mEq/L BUN 11 (6-20) mg/dL Creatinine 1.03 (0.70-1.30) mg/dL Glucose 224 H (70-105) mg/dL Calcium 8.6 (8.6-10.3) mg/dL Adrenal panel 08/09/18 Range/Units 05:09 Sodium 142 (136-145) mEq/L Potassium 3.3 L (3.5-5.1) mEq/L Chloride 109 H (98-107) mEq/L Carbon Dioxide 26 (23-29) mEq/L BUN 11 (6-20) mg/dL Creatinine 1.03 (0.70-1.30) mg/dL Glucose 224 H (70-105) mg/dL Calcium 8.6 (8.6-10.3) mg/dL Consult Discharge Plan - Plan Referrals: Deep Harper MD [Partnered Physician] - 10/19/18 11:00 am Sandhya Acuña MD [Primary Care Provider] - 10/14/18 1:00 pm
[2018-08-10] MEDS: Insulin LISPRO 300 UNITS/3 ML VIAL SQ SCH ×5 (01:12→20:34)
[2018-08-10] MEDS: Albuterol 2.5 MG/3 ML NEBULIZER IH SCH ×4 (03:49→22:05)
[2018-08-10 04:22] LABS: BUN/Creatinine Ratio 15 (6-26); Blood Urea Nitrogen 15 mg/dL (6-20); Calcium 8.3 mg/dL (8.6-10.3); Carbon Dioxide 23 mEq/L (23-29); Chloride 106 mEq/L (98-107); Glucose 221 mg/dL (70-105); Magnesium 1.5 mg/dL (1.6-2.6); Osmolality,Calculated 296 (280-300); Phosphorous 2.9 mg/dL (2.7-4.5); Potassium 3.5 mEq/L (3.5-5.1); Sodium 139 mEq/L (136-145); eGFR For Non-African Americans > 60 (> 60)
[2018-08-10] MEDS: hydroCHLOROthiazide 25 MG TABLET PO SCH (08:38)
[2018-08-10] MEDS: Venlafaxine XR (24 HR) 150 MG CAP.ER.24H PO SCH (08:38)
[2018-08-10] MEDS: Pantoprazole 40 MG VIAL IVP SCH (08:39)
[2018-08-10] MEDS: Furosemide 40 MG TABLET PO SCH ×2 (08:39→17:06)
[2018-08-10] MEDS: INFUS EP SCH (08:56)
[2018-08-10] MEDS: ROPIVACAINE EP SCH (08:56)
[2018-08-10] MEDS: MOMETASONE FUROATE 100 mcg Inhaler IH SCH (10:28)
--- NOTE | 2018-08-10 13:21 | Internal Med Progress Note ---
Hospitalist Progress Note - Encounter Date of Encounter: 08/10/18 Time of Encounter: 13:17 - Subjective Interval History: Mr. Almeida is a 58 year old male with past medical history of hypertension, morbid obesity, obstructive sleep apnea on CPAP at nighttime , hyperlipidemia, diabetes, recurrent sigmoid diverticulitis with 3 admissions since 12/2017, pre sented to the ED with abdominal pain. His CT scan again demonstrated persistent worsen significant sigmoid diverticulitis with the more prominent inflammatory findings than previously. Patient was admitted in the hospital and started him on empirical antibiotic Zosyn and Flagyl. He had sigmoid colectomy with mobilization of the splenic flexure, stapled colocolonic anastomosis and incidental appendectomy on 08/06/18. Post op pt has been doing well. His abx ( Zosyn and Flagyl ) were stopped last night. he was placed on clear liquid diet today which he has been tolerating well today. Denied any abd pain. He did have a fever spike @ 100.2 this morning. - Exam Vitals: Temp Pulse Resp BP Pulse Ox 100.2 F H 97 18 126/79 98 08/10/18 10:37 08/10/18 10:37 08/10/18 10:37 08/10/18 10:37 08/10/18 10:37 Exam: Gen: Sleepy and sedative Chest: Diminished breath sounds B/L, No wheezing, No crackles, No rales Heart: S1S2+ RRR No murmurs Abd: s/p Sigmoid colectomy, mid line incision. Dressing + Ext: 2+ pitting edema, pulses are palpable, No calf tenderness Neuro : Benign findings Skin: No rash. - Assessment and Plan (1) Diverticulitis Current Visit: Yes Status: Acute Assessment and Plan: s/p primary sigmoid resection with colocolonic anastomosis Pain well controlled with epidural Defer to surgery for pain management on clear liquid diet today.. which he is tolerating well BM+ Flatus+ Since he got fever spike - ordered CXR, UA will resume his abx Zosyn for now cont close monitoring Cont TPN too, when pt tolerates diet well, will wean him off the TPN Cont ISS @ q4h since pt is on TPN also placed him on Levemir 15 U BID (2) Sepsis Current Visit: Yes Status: Resolved Assessment and Plan: Presented with abdominal pain, hypotension, leukocytosis with CT finding consistent with recurrent sigmoid diverticulitis Associated with RONNI Improved Blood cx no growth (3) Acute kidney injury Current Visit: Yes Status: Resolved Assessment and Plan: Secondary to sepsis + poor oral intake Improved Avoid nephrotoxins Renally adjusted antibiotics (4) Hypertension Current Visit: No Status: Chronic Assessment and Plan: BP stable and well controlled with current regimen (5) HLD (hyperlipidemia) Current Visit: No Status: Chronic Assessment and Plan: continue current meds. (6) Diabetes mellitus Current Visit: No Status: Chronic Assessment and Plan: on TPN. on ISS Q4h Added Levemir HbA1C from 05/16 @ 6.9 (7) DVT prophylaxis Current Visit: No Status: Acute Assessment and Plan: SCDs (8) ADALID on CPAP Current Visit: Yes Status: Acute Assessment and Plan: using Home CPAP (9) Morbid obesity with BMI of 45.0-49.9, adult Current Visit: Yes Status: Acute Assessment and Plan: Counseled to loose weight (10) Chronic diastolic (congestive) heart failure Current Visit: Yes Status: Acute (11) Bilateral leg edema Current Visit: Yes Status: Acute Assessment and Plan: Volume overload due to post op IV fluids inc Lasix 40 BID cont close monitoring - Time Spent with Patient Total time spent is greater than 50% in coordination of care (as documented) at patient's floor/unit and/or counseling patient: Internal Medicine: Result - Labs CBC & Chem 7: 08/09/18 05:09 08/10/18 03:50 Labs: BMP 08/10/18 03:50 Sodium 139 Potassium 3.5 Chloride 106 Carbon Dioxide 23 BUN 15 Creatinine 1.00 Glucose 221 H Calcium 8.3 L - Impressions Impressions Chest X-Ray 08/10/18 12:37 IMPRESSION: Bibasilar subsegmental atelectasis. Otherwise stable examination without acute focal process. D/ / Emmanuel Smith MD / Emmanuel Smith MD Interpreting Provider: Emmanuel Smith MD Consult Discharge Plan - Plan Referrals: Deep Harper MD [Partnered Physician] - 10/19/18 11:00 am Sandhya Acuña MD [Primary Care Provider] - 10/14/18 1:00 pm (2) Sepsis Qualifiers: Sepsis type: sepsis due to unspecified organism Qualified Code(s): A41.9 - Sepsis, unspecified organism (4) Hypertension Qualifiers: Hypertension type: essential hypertension Qualified Code(s): I10 - Essential (primary) hypertension (5) HLD (hyperlipidemia) Qualifiers: Hyperlipidemia type: mixed hyperlipidemia Qualified Code(s): E78.2 - Mixed hyperlipidemia (6) Diabetes mellitus Qualifiers: Diabetes mellitus type: type 2 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
[2018-08-10 13:27] LABS: Bilirubin,Urine Negative (Negative); Blood,Urine Moderate (Negative); Clarity,Urine Clear (Clear); Color,Urine Dark Yellow (Yellow); Glucose,Urine (UA) 100 mg/dL (Normal); Ketones,Urine Negative (Negative); Leukocyte Esterase,Urine Negative (Negative); Nitrite,Urine Negative (Negative); PH,Urine 5.5 pH Units (5.0-8.0); Protein,Urine 100 mg/dL (Neg-Trace); Urobilinogen,Urine Normal (Normal)
[2018-08-10 13:28] LABS: Bacteria,Urine None Seen per hpf (None-Few); Hyaline Casts,Urine None Seen per lpf (None-Few); RBC,Urine 30-50 per hpf (0-3); Squamous Epithelial Cell,Urine Moderate per lpf (None-Few); WBC,Urine 0-3 per hpf (0-3)
[2018-08-10] MEDS ORDERED: Piperacillin/Tazobactam 3.375 GM in 0.9 % Sodium Chloride Mini Bag 100 ML IVPB SCH (16:00)
--- NOTE | 2018-08-10 16:17 | General Surgery Progress Note ---
Date of Encounter: 08/10/18 Time of Encounter: 16:08 Subjective Patient reports: no new complaints, feels better, tolerating liquids well Narrative: General Surgery - POD #4 Patient doing well, voicing no complaints. Maximum temperature this morning 100.2, currently afebrile at 98.2. Pulse 86, no episodes of tachycardia; respiratory rate 18, blood pressure 123/83 Lungs: Clear, adequate inspiratory effort Abdomen: Soft, nontender. Active bowel sounds. Midline incision appears intact, clean and dry Bowels moving - large liquid green bowel movement recorded today. Urine output: 1825 mL for calendar day 08/09/18; 1500 mL so far today Labs: Sodium 139, potassium is corrected to 3.5, BUN 15, creatinine and 1.00 Accu-Cheks [id number] Operative pathology - the report is not available for my perusal of the time of this dictation Impression: Postoperative day #4, status post sigmoid colectomy for acute sigmoid diverticulitis with colocolonic anastomosis New low-grade fever of uncertain etiology but patient appears well, in no acute distress with no complaints Acceptable postoperative status Plan: Advance diet Accu-Cheks [phone] - we will increase sliding scale coverage Begin to taper TPN Labs in a.m. Objective Vital Signs - Last 8 Hours Temp Pulse Resp BP Pulse Ox 08/10/18 16:03 18 93 08/10/18 14:33 98.2 F 86 18 123/83 91 08/10/18 10:37 100.2 F H 97 18 126/79 98 08/10/18 10:35 22 94 Intake and Output 08/10/18 08/10/18 08/10/18 07:59 15:59 23:59 Intake Total 840 / 840 Output Total 1050 / 1050 450 / 450 Balance -1050 / -1050 390 / 390 Intake: Oral 840 / 840 Output: Catheter 1050 / 1050 450 / 450 Other: Meal Lunch Stool Size Large Stool Consistency liquid Stool Color Yellow Green # Bowel Movements 0 Blood Glucose* 228 276 - Labs 08/09/18 05:09 08/10/18 03:50 Diabetes panel 08/10/18 Range/Units 03:50 Sodium 139 (136-145) mEq/L Potassium 3.5 (3.5-5.1) mEq/L Chloride 106 (98-107) mEq/L Carbon Dioxide 23 (23-29) mEq/L BUN 15 (6-20) mg/dL Creatinine 1.00 (0.70-1.30) mg/dL Glucose 221 H (70-105) mg/dL Calcium 8.3 L (8.6-10.3) mg/dL Calcium panel 08/10/18 Range/Units 03:50 Calcium 8.3 L (8.6-10.3) mg/dL Phosphorus 2.9 (2.7-4.5) mg/dL Pituitary panel 08/10/18 Range/Units 03:50 Sodium 139 (136-145) mEq/L Potassium 3.5 (3.5-5.1) mEq/L Chloride 106 (98-107) mEq/L Carbon Dioxide 23 (23-29) mEq/L BUN 15 (6-20) mg/dL Creatinine 1.00 (0.70-1.30) mg/dL Glucose 221 H (70-105) mg/dL Calcium 8.3 L (8.6-10.3) mg/dL Adrenal panel 08/10/18 Range/Units 03:50 Sodium 139 (136-145) mEq/L Potassium 3.5 (3.5-5.1) mEq/L Chloride 106 (98-107) mEq/L Carbon Dioxide 23 (23-29) mEq/L BUN 15 (6-20) mg/dL Creatinine 1.00 (0.70-1.30) mg/dL Glucose 221 H (70-105) mg/dL Calcium 8.3 L (8.6-10.3) mg/dL Consult Discharge Plan - Plan Referrals: Deep Harper MD [Partnered Physician] - 10/19/18 11:00 am Sandhya Acuña MD [Primary Care Provider] - 10/14/18 1:00 pm
[2018-08-10] MEDS ORDERED: Insulin LISPRO 300 UNITS/3 ML VIAL SQ SCH ×3 (16:37→19:43)
[2018-08-10] MEDS ORDERED: Clinimix E 5%-15% SOLUTION 2,000 ML with MVI, adult with vitamin K 10 ML IVC SCH (17:00)
[2018-08-10] MEDS: *HR* Heparin 5,000 UNIT/ML VIAL SQ SCH (17:04)
[2018-08-10] MEDS: PARENTERAL AMINO ACID 10% IVC SCH (19:44)
[2018-08-10] MEDS: MVI IVC SCH (19:44)
[2018-08-10] MEDS: [UNRECOGNIZED DRUG - OTHER] IVC SCH (19:44)
[2018-08-10] MEDS: CLINIMIX E IVC SCH (19:44)
[2018-08-10] MEDS: Insulin DETEMIR 100 UNIT/ML X5UNITS SQ SCH (20:34)
--- NOTE | 2018-08-10 22:56 | Anesthesia Procedures ---
Date of Encounter: 08/10/18 Time of Encounter: 22:55 Procedures: Anesthesia - Epidural Rounding Post Op Day #: 4 Procedure: sigmoid colectomy Pain Control: Good Breakthrough Pain Meds: No Vital Signs: Last Vital Signs Temp 99.3 F 08/10/18 19:13 Pulse 95 08/10/18 19:13 Resp 18 08/10/18 19:13 BP 157/76 08/10/18 19:13 Pulse Ox 97 08/10/18 19:13 Mental Status: awake, alert, responsive Catheter Site Dressing Intact: Yes Erythema: No Pruritus: not present Signs of Infection At Catheter Site: No Plan: Remove Epidural Catheter Epidural Catheter removed; Tip Intact: Yes
[2018-08-10] MEDS: Ondansetron 4 MG/2 ML VIAL IVP PRN (23:05)
[2018-08-11] MEDS: Insulin LISPRO 300 UNITS/3 ML VIAL SQ SCH ×5 (00:21→17:16)
[2018-08-11 03:42] LABS: Basophils % 0.2 %; Eosinophils # 0.4 K/mcL (0.0-0.6); Eosinophils % 2.3 %; Hematocrit 35.2 % (37.5-50.1); Hemoglobin 11.9 g/dL (12.9-16.9); Immature Granulocytes % 0.5 % (0-4); Lymphocytes # 1.7 K/mcL (0.6-4.6); Lymphocytes % 11.3 %; Mean Corpuscular HGB Conc 33.8 g/dL (31.6-35.5); Mean Corpuscular Hemoglobin 29.3 pg (28.0-33.3); Mean Corpuscular Volume 86.7 fL (83.0-100.0); Mean Platelet Volume 9.6 fL (9.4-12.4); Monocytes # 0.9 K/mcL (0.0-1.3); Monocytes % 5.5 %; Platelet Count 186 K/mcL (140-400); Red Blood Count 4.06 M/mcL (4.19-5.50); Red Cell Distribution Width 14.1 % (11.5-14.5); Segmented Neutrophils % 80.2 %
[2018-08-11 03:43] LABS: Neutrophils # 12.4 K/mcL (1.6-8.9)
[2018-08-11] MEDS: Albuterol 2.5 MG/3 ML NEBULIZER IH SCH ×4 (03:54→21:53)
[2018-08-11 04:01] LABS: BUN/Creatinine Ratio 18 (6-26); Blood Urea Nitrogen 16 mg/dL (6-20); Calcium 8.7 mg/dL (8.6-10.3); Carbon Dioxide 27 mEq/L (23-29); Chloride 103 mEq/L (98-107); Glucose 203 mg/dL (70-105); Osmolality,Calculated 293 (280-300); Potassium 3.2 mEq/L (3.5-5.1); Sodium 138 mEq/L (136-145); eGFR For Non-African Americans > 60 (> 60)
[2018-08-11 04:02] LABS: Magnesium 1.8 mg/dL (1.6-2.6); Phosphorous 2.5 mg/dL (2.7-4.5)
[2018-08-11] MEDS: *HR* Heparin 5,000 UNIT/ML VIAL SQ SCH ×2 (05:11→17:16)
[2018-08-11] MEDS: Furosemide 40 MG TABLET PO SCH ×2 (09:13→17:15)
[2018-08-11] MEDS: Venlafaxine XR (24 HR) 150 MG CAP.ER.24H PO SCH (09:13)
[2018-08-11] MEDS: Insulin DETEMIR 100 UNIT/ML X5UNITS SQ SCH ×2 (09:13→21:30)
[2018-08-11] MEDS ORDERED: *HR* OxyCODONE/APAP 5/325 TABLET PO PRN (10:09)
[2018-08-11] MEDS: MOMETASONE FUROATE 100 mcg Inhaler IH SCH (10:28)
--- NOTE | 2018-08-11 10:36 | Internal Med Progress Note ---
Hospitalist Progress Note - Encounter Date of Encounter: 08/11/18 Time of Encounter: 10:10 - Subjective Interval History: Mr. Almeida is a 58 year old male with past medical history of hypertension, morbid obesity, obstructive sleep apnea on CPAP at nighttime , hyperlipidemia, diabetes, recurrent sigmoid diverticulitis with 3 admissions since 12/2017, pre sented to the ED with abdominal pain. His CT scan again demonstrated persistent worsen significant sigmoid diverticulitis with the more prominent inflammatory findings than previously. Patient was admitted in the hospital and started him on empirical antibiotic Zosyn and Flagyl. He had sigmoid colectomy with mobilization of the splenic flexure, stapled colocolonic anastomosis and incidental appendectomy on 08/06/18. Post op pt has been doing well. His abx ( Zosyn and Flagyl ) were stopped last night. he was placed on clear liquid diet y/d which he has been tolerating well. Denied any abd pain. No more fever spikes since y/d afternoon. - Exam Vitals: Temp Pulse Resp BP Pulse Ox 98.5 F 78 18 151/88 94 08/11/18 08:08 08/11/18 08:08 08/11/18 10:31 08/11/18 08:08 08/11/18 10:31 Exam: Gen: Sleepy and sedative Chest: Diminished breath sounds B/L, No wheezing, No crackles, No rales Heart: S1S2+ RRR No murmurs Abd: s/p Sigmoid colectomy, mid line incision. Dressing + Ext: 2+ pitting edema, pulses are palpable, No calf tenderness Neuro : Benign findings Skin: No rash. - Assessment and Plan (1) Diverticulitis Current Visit: Yes Status: Acute Assessment and Plan: s/p primary sigmoid resection with colocolonic anastomosis off the epidural last night d/c Moreno started on Percocet PRN for pain Advanced diet to full liquid BM+ Flatus+ His CXR showed b/l atelectasis.. No PNA His UA - WNL His WBC trended up today For now will cont abx Zosyn cont close monitoring d/c TPN today (2) Sepsis Current Visit: Yes Status: Resolved Assessment and Plan: Presented with abdominal pain, hypotension, leukocytosis with CT finding consistent with recurrent sigmoid diverticulitis Associated with RONNI Improved Blood cx no growth (3) Acute kidney injury Current Visit: Yes Status: Resolved Assessment and Plan: Secondary to sepsis + poor oral intake Improved Avoid nephrotoxins Renally adjusted antibiotics (4) Hypertension Current Visit: No Status: Chronic Assessment and Plan: BP stable and well controlled with current regimen (5) HLD (hyperlipidemia) Current Visit: No Status: Chronic Assessment and Plan: continue current meds. (6) Diabetes mellitus Current Visit: No Status: Chronic Assessment and Plan: Since pt is on Diet now changed ISS to ACHS @ High grade Cont Levemir 15 U BID (7) DVT prophylaxis Current Visit: No Status: Acute Assessment and Plan: SCDs (8) ADALID on CPAP Current Visit: Yes Status: Acute Assessment and Plan: using Home CPAP (9) Morbid obesity with BMI of 45.0-49.9, adult Current Visit: Yes Status: Acute Assessment and Plan: Counseled to loose weight (10) Chronic diastolic (congestive) heart failure Current Visit: Yes Status: Acute (11) Bilateral leg edema Current Visit: Yes Status: Acute Assessment and Plan: Volume overload due to post op IV fluids Improving Cont Lasix 40 BID cont close monitoring - Time Spent with Patient Total time spent is greater than 50% in coordination of care (as documented) at patient's floor/unit and/or counseling patient: Internal Medicine: Result - Labs CBC & Chem 7: 08/11/18 03:20 08/11/18 03:20 Labs: Short CBC 08/11/18 Range/Units 03:20 WBC 15.4 H D (4.3-11.1) K/mcL Hgb 11.9 L (12.9-16.9) g/dL Hct 35.2 L (37.5-50.1) % Plt Count 186 (140-400) K/mcL Neutrophils # 12.4 H (1.6-8.9) K/mcL BMP 08/11/18 03:20 Sodium 138 Potassium 3.2 L Chloride 103 Carbon Dioxide 27 BUN 16 Creatinine 0.88 Glucose 203 H Calcium 8.7 Urine 08/10/18 Range/Units 13:12 Urine Color Dark Yellow (Yellow) Urine Clarity Clear (Clear) Urine pH 5.5 (5.0-8.0) pH Units Ur Specific [place] 1.020 (1.010-1.025) Urine Protein 100 H (Neg-Trace) mg/dL Urine Glucose (UA) 100 H (Normal) mg/dL - Impressions Impressions Chest X-Ray 08/10/18 12:37 IMPRESSION: Bibasilar subsegmental atelectasis. Otherwise stable examination without acute focal process. D/ / Emmanuel Smith MD / Emmanuel Smith MD Interpreting Provider: Emmanuel Smith MD Consult Discharge Plan - Plan Referrals: Deep Harper MD [Partnered Physician] - 10/19/18 11:00 am Mateusz Orantes MD [Non-Partnered Physician] - Sandhya Acuña MD [Primary Care Provider] - 10/14/18 1:00 pm (2) Sepsis Qualifiers: Sepsis type: sepsis due to unspecified organism Qualified Code(s): A41.9 - Sepsis, unspecified organism (4) Hypertension Qualifiers: Hypertension type: essential hypertension Qualified Code(s): I10 - Essential (primary) hypertension (5) HLD (hyperlipidemia) Qualifiers: Hyperlipidemia type: mixed hyperlipidemia Qualified Code(s): E78.2 - Mixed hyperlipidemia (6) Diabetes mellitus Qualifiers: Diabetes mellitus type: type 2 Diabetes mellitus 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
--- NOTE | 2018-08-11 13:37 | General Surgery Progress Note ---
Date of Encounter: 08/11/18 Time of Encounter: 13:32 Subjective Patient reports: no new complaints, feels better Narrative: General Surgery - POD #5 Patient doing well, voicing no complaints. Epidural discontinued. Moreno removed. Patient not experiencing increased abdominal pain Tolerating full liquid diet without nausea, vomiting, or abdominal pain The patient remains afebrile, currently 98.7, pulse 83, respirations 18, blood pressure 157/80 Lungs: Clear with no obvious abdominal pain on deep inspiration. Exam limited by body habitus Abdomen: Soft without obvious tenderness. Active bowel sounds. Exam limited by body habitus Midline incision intact, clean and dry. Operative pathology: Sigmoid diverticulitis, appendix without obvious pathology; anastomotic rings also without obvious pathology Labs: Increased WBC to 15.4 with 12.4 neutrophils. Hemoglobin 11.9, hematocrit 35.2, platelet count 186,000. Electrolytes notable for potassium 3.2 ( patient on potassium chloride 40 mEq twice a day) Impression: Postoperative day #5, status post primary sigmoid resection for sigmoid diverticulitis The patient appears well though new leukocytosis and neutrophilia noted Patient moving his bowels Patient is tolerating a full liquid diet. Plan: Advance diet (diabetic diet) Discontinue TPN Recheck CBC in a.m. Continue twice a day potassium supplements Objective Vital Signs - Last 8 Hours Temp Pulse Resp BP Pulse Ox 08/11/18 11:20 98.7 F 83 18 157/80 92 08/11/18 10:31 18 94 08/11/18 08:08 98.5 F 78 20 151/88 92 Intake and Output 08/10/18 08/11/18 08/11/18 23:59 07:59 15:59 Intake Total 2608 / 2608 480 / 480 Output Total 950 / 950 825 / 825 1250 / 1250 Balance 1658 / 1658 -825 / -825 -770 / -770 Intake: IV Fluids 2247 Clinimix E 5%-15% SOLUTION 2, 2247 000 ML Travasol 10% 350 ML @ 97 .9 mls/hr IVC .Q24H EUGENIO with M. v.i. Adult 10 ml Rx#:[id number] Oral 360 / 360 480 / 480 Output: Urine 250 / 250 675 / 675 Stool 150 / 150 Catheter 700 / 700 1250 / 1250 Other: Meal Dinner Breakfast Percent of Meal Consumed 100% 100% Stool Consistency liquid Stool Color Brown Yellow Green Weight 167.2 kg Blood Glucose* 168 211 208 Patient Weight 08/11/18 23:59 Weight 167.2 kg - Labs 08/11/18 03:20 08/11/18 03:20 Diabetes panel 08/11/18 Range/Units 03:20 Sodium 138 (136-145) mEq/L Potassium 3.2 L (3.5-5.1) mEq/L Chloride 103 (98-107) mEq/L Carbon Dioxide 27 (23-29) mEq/L BUN 16 (6-20) mg/dL Creatinine 0.88 (0.70-1.30) mg/dL Glucose 203 H (70-105) mg/dL Calcium 8.7 (8.6-10.3) mg/dL Calcium panel 08/11/18 08/11/18 Range/Units 03:20 03:20 Calcium 8.7 (8.6-10.3) mg/dL Phosphorus 2.5 L (2.7-4.5) mg/dL Pituitary panel 08/11/18 Range/Units 03:20 Sodium 138 (136-145) mEq/L Potassium 3.2 L (3.5-5.1) mEq/L Chloride 103 (98-107) mEq/L Carbon Dioxide 27 (23-29) mEq/L BUN 16 (6-20) mg/dL Creatinine 0.88 (0.70-1.30) mg/dL Glucose 203 H (70-105) mg/dL Calcium 8.7 (8.6-10.3) mg/dL Adrenal panel 08/11/18 Range/Units 03:20 Sodium 138 (136-145) mEq/L Potassium 3.2 L (3.5-5.1) mEq/L Chloride 103 (98-107) mEq/L Carbon Dioxide 27 (23-29) mEq/L BUN 16 (6-20) mg/dL Creatinine 0.88 (0.70-1.30) mg/dL Glucose 203 H (70-105) mg/dL Calcium 8.7 (8.6-10.3) mg/dL Consult Discharge Plan - Plan Referrals: Deep Harper MD [Partnered Physician] - 10/19/18 11:00 am Mateusz Orantes MD [Non-Partnered Physician] - Sandhya Acuña MD [Primary Care Provider] - 10/14/18 1:00 pm
[2018-08-11] MEDS ORDERED: Insulin LISPRO 300 UNITS/3 ML VIAL SQ SCH (21:00)
[2018-08-12] MEDS: Albuterol 2.5 MG/3 ML NEBULIZER IH SCH ×4 (04:11→21:44)
[2018-08-12] MEDS: *HR* Heparin 5,000 UNIT/ML VIAL SQ SCH ×2 (05:27→16:40)
[2018-08-12 05:48] LABS: Basophils % 0.2 %; Eosinophils # 0.4 K/mcL (0.0-0.6); Eosinophils % 3.9 %; Hematocrit 32.7 % (37.5-50.1); Immature Granulocytes % 0.5 % (0-4); Lymphocytes # 1.4 K/mcL (0.6-4.6); Lymphocytes % 12.8 %; Mean Corpuscular HGB Conc 33.6 g/dL (31.6-35.5); Mean Corpuscular Hemoglobin 29.3 pg (28.0-33.3); Mean Platelet Volume 9.9 fL (9.4-12.4); Monocytes # 0.7 K/mcL (0.0-1.3); Monocytes % 6.2 %; Neutrophils # 8.4 K/mcL (1.6-8.9); Platelet Count 180 K/mcL (140-400); Red Blood Count 3.76 M/mcL (4.19-5.50); Segmented Neutrophils % 76.4 %
[2018-08-12 06:04] LABS: BUN/Creatinine Ratio 16 (6-26); Blood Urea Nitrogen 15 mg/dL (6-20); Calcium 8.6 mg/dL (8.6-10.3); Carbon Dioxide 26 mEq/L (23-29); Chloride 103 mEq/L (98-107); Glucose 161 mg/dL (70-105); Osmolality,Calculated 290 (280-300); Potassium 3.3 mEq/L (3.5-5.1); Sodium 138 mEq/L (136-145); eGFR For Non-African Americans > 60 (> 60)
[2018-08-12] MEDS: Insulin LISPRO 300 UNITS/3 ML VIAL SQ SCH (08:53)
[2018-08-12] MEDS: Venlafaxine XR (24 HR) 150 MG CAP.ER.24H PO SCH (08:59)
[2018-08-12] MEDS ORDERED: Insulin DETEMIR 100 UNIT/ML X5UNITS SQ SCH (09:00)
[2018-08-12] MEDS: Furosemide 40 MG TABLET PO SCH (09:00)
[2018-08-12] MEDS: MOMETASONE FUROATE 100 mcg Inhaler IH SCH (10:10)
--- NOTE | 2018-08-12 11:07 | Internal Med Progress Note ---
Hospitalist Progress Note - Encounter Date of Encounter: 08/12/18 Time of Encounter: 10:20 - Subjective Interval History: Mr. Almeida is a 58 year old male with past medical history of hypertension, morbid obesity, obstructive sleep apnea on CPAP at nighttime , hyperlipidemia, diabetes, recurrent sigmoid diverticulitis with 3 admissions since 12/2017, pre sented to the ED with abdominal pain. His CT scan again demonstrated persistent worsen significant sigmoid diverticulitis with the more prominent inflammatory findings than previously. Patient was admitted in the hospital and started him on empirical antibiotic Zosyn and Flagyl. He had sigmoid colectomy with mobilization of the splenic flexure, stapled colocolonic anastomosis and incidental appendectomy on 08/06/18. Post op pt has been doing well. Denied any abd pain. No more fever spikes since last 2 days. He is tolerating oral intake well. - Exam Vitals: Temp Pulse Resp BP Pulse Ox 98.4 F 103 20 121/71 99 08/12/18 10:19 08/12/18 10:19 08/12/18 10:19 08/12/18 10:19 08/12/18 10:19 Exam: Gen: Sleepy and sedative Chest: Diminished breath sounds B/L, No wheezing, No crackles, No rales Heart: S1S2+ RRR No murmurs Abd: s/p Sigmoid colectomy, mid line clean incision. No erythema / No signs of infection Ext: 2+ pitting edema, pulses are palpable, No calf tenderness Neuro : Benign findings Skin: No rash. - Assessment and Plan (1) Diverticulitis Current Visit: Yes Status: Acute Assessment and Plan: s/p primary sigmoid resection with colocolonic anastomosis off the epidural d/c Moreno y/d Voiding well now started on Percocet PRN for pain Advanced diet to ADA diet - which he has been tolerating well. BM+ Flatus+ His CXR showed b/l atelectasis.. No PNA His UA - WNL His WBC trending down D/c Abx Zosyn since no signs of infection his fever spike was mostly due to b/l atelectasis cont close monitoring Possible d/c home in AM Talked to surgery Dr. Orantes, recommend to get his BS stable and well controlled so placed him on his home regimen Novolong 70/30 55 U BID + Metformin will monitor BS in next 24hrs, depending on that will adjust his home dose (2) Sepsis Current Visit: Yes Status: Resolved Assessment and Plan: Presented with abdominal pain, hypotension, leukocytosis with CT finding consistent with recurrent sigmoid diverticulitis Associated with RONNI Improved Blood cx no growth (3) Acute kidney injury Current Visit: Yes Status: Resolved Assessment and Plan: Secondary to sepsis + poor oral intake Improved Avoid nephrotoxins Renally adjusted antibiotics (4) Hypertension Current Visit: No Status: Chronic Assessment and Plan: BP stable and well controlled with current regimen (5) HLD (hyperlipidemia) Current Visit: No Status: Chronic Assessment and Plan: continue current meds. (6) Diabetes mellitus Current Visit: No Status: Chronic Assessment and Plan: Changed to his home regimen Novolog 70/30 BID and Metformin cont close monitoring (7) DVT prophylaxis Current Visit: No Status: Acute Assessment and Plan: SCDs (8) ADALID on CPAP Current Visit: Yes Status: Acute Assessment and Plan: using Home CPAP (9) Morbid obesity with BMI of 45.0-49.9, adult Current Visit: Yes Status: Acute Assessment and Plan: Counseled to loose weight (10) Chronic diastolic (congestive) heart failure Current Visit: Yes Status: Acute (11) Bilateral leg edema Current Visit: Yes Status: Acute Assessment and Plan: Volume overload due to post op IV fluids Improving Cont Lasix 40 BID cont close monitoring - Time Spent with Patient Total time spent is greater than 50% in coordination of care (as documented) at patient's floor/unit and/or counseling patient: Internal Medicine: Result - Labs CBC & Chem 7: 08/12/18 05:29 08/12/18 05:29 Labs: Short CBC 08/12/18 Range/Units 05:29 WBC 11.0 (4.3-11.1) K/mcL Hgb 11.0 L (12.9-16.9) g/dL Hct 32.7 L (37.5-50.1) % Plt Count 180 (140-400) K/mcL Neutrophils # 8.4 (1.6-8.9) K/mcL BMP 08/12/18 05:29 Sodium 138 Potassium 3.3 L Chloride 103 Carbon Dioxide 26 BUN 15 Creatinine 0.93 Glucose 161 H Calcium 8.6 Consult Discharge Plan - Plan Referrals: Deep Harper MD [Partnered Physician] - 10/19/18 11:00 am Mateusz Orantes MD [Non-Partnered Physician] - Sandhya Acuña MD [Primary Care Provider] - 10/14/18 1:00 pm (2) Sepsis Qualifiers: Sepsis type: sepsis due to unspecified organism Qualified Code(s): A41.9 - Sepsis, unspecified organism (4) Hypertension Qualifiers: Hypertension type: essential hypertension Qualified Code(s): I10 - Essential (primary) hypertension (5) HLD (hyperlipidemia) Qualifiers: Hyperlipidemia type: mixed hyperlipidemia Qualified Code(s): E78.2 - Mixed hyperlipidemia (6) Diabetes mellitus Qualifiers: Diabetes mellitus type: type 2 Diabetes mellitus care home insulin use: with care home use Diabetes mellitus complication status: with neurologic complications Diabetes mellitus complication detail: with autonomic neuropathy Qualified Code(s): E11.43 - Type 2 diabetes mellitus with diabetic autonomic (poly)neuropathy; Z79.4 - long-term (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
--- NOTE | 2018-08-12 13:34 | General Surgery Progress Note ---
Date of Encounter: 08/12/18 Time of Encounter: 13:20 Subjective Patient reports: no new complaints Narrative: General Surgery - POD #6 Patient feeling well, voicing no new complaints. Face is flushed cheeks are quite red. The patient is afebrile, 98.4, patient has demonstrated episodic tachycardia of 103 and 108 since approx 03:30. RR 16-20 BP 121/70 Lungs: Clear, no obvious pain on deep inspiration Abdomen: Obese, soft, no obvious tenderness. Lung incision appears intact. Labs: WBC 11.0, hemoglobin 11.0 with hematocrit 32.7; neutrophils have returned to normal Electrolytes notable for persistent hypokalemia despite potassium 40 mEq by mouth twice a day Impression: POD #6 - s/p primary sigmoid resection for sigmoid diverticulitis Persistent hypokalemia Tachycardia of uncertain significance as there has been no accompanying fever; previous leukocytosis and neutrophilia have resolved Plan: Provide additional potassium Continue to monitor vital signs Objective Vital Signs - Last 8 Hours Temp Pulse Resp BP Pulse Ox 08/12/18 10:19 98.4 F 103 20 121/71 99 08/12/18 10:10 16 95 08/12/18 07:17 98.8 F 80 15 145/89 95 Intake and Output 08/11/18 08/12/18 08/12/18 23:59 07:59 15:59 Intake Total 800 / 800 Output Total 600 / 600 950 / 950 0 / 0 Balance -600 / -600 -150 / -150 0 / 0 Intake: Oral 800 / 800 Output: Urine 400 / 400 950 / 950 0 / 0 Catheter 200 / 200 Other: Stool Size Small Stool Consistency liquid # Bowel Movements 1 Weight 167.2 kg Blood Glucose* 182 144 189 Patient Weight 08/12/18 23:59 Weight 167.2 kg - Labs 08/12/18 05:29 08/12/18 05:29 Diabetes panel 08/12/18 Range/Units 05:29 Sodium 138 (136-145) mEq/L Potassium 3.3 L (3.5-5.1) mEq/L Chloride 103 (98-107) mEq/L Carbon Dioxide 26 (23-29) mEq/L BUN 15 (6-20) mg/dL Creatinine 0.93 (0.70-1.30) mg/dL Glucose 161 H (70-105) mg/dL Calcium 8.6 (8.6-10.3) mg/dL Calcium panel 08/12/18 Range/Units 05:29 Calcium 8.6 (8.6-10.3) mg/dL Pituitary panel 08/12/18 Range/Units 05:29 Sodium 138 (136-145) mEq/L Potassium 3.3 L (3.5-5.1) mEq/L Chloride 103 (98-107) mEq/L Carbon Dioxide 26 (23-29) mEq/L BUN 15 (6-20) mg/dL Creatinine 0.93 (0.70-1.30) mg/dL Glucose 161 H (70-105) mg/dL Calcium 8.6 (8.6-10.3) mg/dL Adrenal panel 08/12/18 Range/Units 05:29 Sodium 138 (136-145) mEq/L Potassium 3.3 L (3.5-5.1) mEq/L Chloride 103 (98-107) mEq/L Carbon Dioxide 26 (23-29) mEq/L BUN 15 (6-20) mg/dL Creatinine 0.93 (0.70-1.30) mg/dL Glucose 161 H (70-105) mg/dL Calcium 8.6 (8.6-10.3) mg/dL Consult Discharge Plan - Plan Referrals: Deep Harper MD [Partnered Physician] - 10/19/18 11:00 am Mateusz Orantes MD [Non-Partnered Physician] - Sandhya Acuña MD [Primary Care Provider] - 10/14/18 1:00 pm
[2018-08-12] MEDS: *HR* Metformin 500 MG TABLET PO SCH (16:39)
[2018-08-12] MEDS: Insulin NPH/REG 70/30 100 UNIT/ML (x5UNIT) SQ SCH (16:40)
[2018-08-13] MEDS: Albuterol 2.5 MG/3 ML NEBULIZER IH SCH ×2 (03:57→09:40)
[2018-08-13] MEDS: *HR* Heparin 5,000 UNIT/ML VIAL SQ SCH (05:50)
[2018-08-13 06:11] LABS: Basophils % 0.3 %; Eosinophils # 0.4 K/mcL (0.0-0.6); Eosinophils % 4.2 %; Hematocrit 33.9 % (37.5-50.1); Hemoglobin 11.3 g/dL (12.9-16.9); Immature Granulocytes % 0.6 % (0-4); Lymphocytes # 1.5 K/mcL (0.6-4.6); Lymphocytes % 17.4 %; Mean Corpuscular HGB Conc 33.3 g/dL (31.6-35.5); Mean Corpuscular Volume 87.1 fL (83.0-100.0); Mean Platelet Volume 9.7 fL (9.4-12.4); Monocytes # 0.7 K/mcL (0.0-1.3); Monocytes % 7.9 %; Platelet Count 236 K/mcL (140-400); Red Blood Count 3.89 M/mcL (4.19-5.50); Segmented Neutrophils % 69.6 %
[2018-08-13 06:26] LABS: BUN/Creatinine Ratio 18 (6-26); Blood Urea Nitrogen 17 mg/dL (6-20); Calcium 8.9 mg/dL (8.6-10.3); Carbon Dioxide 26 mEq/L (23-29); Chloride 105 mEq/L (98-107); Glucose 150 mg/dL (70-105); Magnesium 1.7 mg/dL (1.6-2.6); Osmolality,Calculated 288 (280-300); Potassium 3.6 mEq/L (3.5-5.1); Sodium 137 mEq/L (136-145); eGFR For Non-African Americans > 60 (> 60)
[2018-08-13 07:40] VITALS: BP 154/91
[2018-08-13] MEDS: Venlafaxine XR (24 HR) 150 MG CAP.ER.24H PO SCH (08:30)
[2018-08-13] MEDS: Insulin NPH/REG 70/30 100 UNIT/ML (x5UNIT) SQ SCH (08:31)
[2018-08-13] MEDS: *HR* Metformin 500 MG TABLET PO SCH (08:31)
--- NOTE | 2018-08-13 08:38 | Discharge Summary ---
- NOTES TO OUTPATIENT PROVIDER Notes to Outpatient Provider: Follow- up with PCP in one week. Follow-up with the surgery as scheduled. Please take Insulin Humalog 70/30 58 U BID, If your BS are still elevated above 150 you can go up to 60 U BID. Date of Encounter: 08/13/18 Time of Encounter: 08:36 - Discharge Diagnosis (1) Diverticulitis Priority: Primary Status: Acute (2) Sepsis Priority: Primary Status: Resolved Qualifiers: Sepsis type: sepsis due to unspecified organism Qualified Code(s): A41.9 - Sepsis, unspecified organism (3) Acute kidney injury Priority: Secondary Status: Resolved (4) Hypertension Priority: Secondary Status: Chronic Qualifiers: Hypertension type: essential hypertension Qualified Code(s): I10 - Essential (primary) hypertension (5) HLD (hyperlipidemia) Priority: Secondary Status: Chronic Qualifiers: Hyperlipidemia type: mixed hyperlipidemia Qualified Code(s): E78.2 - Mixed hyperlipidemia (6) Diabetes mellitus Priority: Secondary Status: Chronic Qualifiers: Diabetes mellitus type: type 2 Diabetes mellitus intermediate manager insulin use: with intermediate manager use Diabetes mellitus complication status: with neurologic complications Diabetes mellitus complication detail: with autonomic neuropathy Qualified Code(s): E11.43 - Type 2 diabetes mellitus with diabetic autonomic (poly)neuropathy; Z79.4 - exterminator (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 (7) DVT prophylaxis Priority: Secondary Status: Acute (8) ADALID on CPAP Priority: Secondary Status: Acute (9) Morbid obesity with BMI of 45.0-49.9, adult Priority: Secondary Status: Acute (10) Chronic diastolic (congestive) heart failure Priority: Secondary Status: Acute (11) Bilateral leg edema Priority: Secondary Status: Acute Hospital course: Mr. Almeida is a 58 year old male with past medical history of hypertension, morbid obesity, obstructive sleep apnea on CPAP at nighttime , hyperlipidemia, diabetes, recurrent sigmoid diverticulitis with 3 admissions since 12/2017, presented to the ED with abdominal pain. His CT scan again demonstrated persistent worsen significant sigmoid diverticulitis with the more prominent inflammatory findings than previously. Patient was admitted in the hospital and started him on empirical antibiotic Zosyn and Flagyl. He was evaluated by surgery Dr. orantes who did sigmoid colectomy with mobilization of the splenic flexure, stapled colocolonic anastomosis and incidental appendectomy on 08/06/18. Post op pt has been doing well. His post op recovery was unremarkable. He started tolerating oral intake well. Patient remain afebrile from last 3 days. His blood sugars are still fairly controlled even with his home regimen. So recommend to increase Humalog 70/30 to 58 U BID, If BS are still above 150 recommend go up to 60 U BID. Will discharge him home in a stable condition today. Today is POD # 7. - Time Spent with Patient Total time spent providing and/or coordinating discharge services: - Discharge Medications Prescriptions: OxyCODONE/APAP 5/325 [Percocet 5/325 MG] 1 each PO Q6HR PRN 5 Days #15 tablet PRN Reason: Moderate Pain Potassium Chloride 20 meq PO DAILY #30 tab.er.prt Home Medications: Atenolol [Tenormin] 100 mg PO QAM 03/23/15 [History] Albuterol Sulfate [Proair Respiclick] 1 - 2 puff IH Q4-6H PRN 07/30/15 [History] Furosemide [Lasix] 40 mg PO QAM 07/30/15 [History] Lisinopril [Zestril] 20 mg PO BID 07/30/15 [History] Cinnamon Bark [Cinnamon] 1,000 mg PO BID 01/31/17 [History] Finasteride [Proscar] 5 mg PO DAILY 01/31/17 [History] Omeprazole [PriLOSEC] 40 mg PO DAILY 01/31/17 [History] Venlafaxine XR (24 HR) [Effexor XR] 150 mg PO DAILY 01/31/17 [History] Simvastatin [Zocor] 40 mg PO DAILY 02/01/17 [History] Multivitamin [Multivitamins] 1 each PO DAILY 03/23/17 [History] Fluticasone Propionate Nasal [Flonase] 1 spray NS DAILY PRN 11/05/17 [History] Beclomethasone Dipropionate [QVAR 80 mcg REDIHALER] 1 puff IH DAILY 08/03/18 [History] Metformin HCl 1,000 mg PO BID 08/03/18 [History] [place]-3/Dha/Epa/Fish Oil [[facility] Fish Oil 1,000 mg Softgel] 1 cap PO BID 08/03/18 [History] Insulin NPH Hum/Reg Insulin Hm [Novolin 70-30 100 Unit/ml Vial] 58 unit SQ BID #0 08/13/18 [Rx] OxyCODONE/APAP 5/325 [Percocet 5/325 MG] 1 each PO Q6HR PRN 5 Days #15 tablet 08/13/18 [Rx] Potassium Chloride 20 meq PO DAILY #30 tab.er.prt 08/13/18 [Rx] Allergies/Adverse Reactions: Allergy/AdvReac Type Severity Reaction Status Date / Time amlodipine [From Norvasc] Allergy Rash Verified 08/01/18 13:20 bupropion [From Wellbutrin] Allergy Rash Verified 08/01/18 13:20 gabapentin Allergy Rash Verified 08/01/18 13:20 morphine AdvReac Confusion Verified 08/01/18 13:20 Date of admission: 08/02/18 09:15 Primary care physician: Sandhya Acuña MD Consults: 08/01/18 17:45 Consult to Surgery [CONS] Stat Consulting Provider: Surgery [facility] - [facility] Reason for Consult: surgical consult for diverticulitis Call Completed: Yes 08/06/18 16:29 Consult to Nutrition [CONS] Routine Comment: TPN? Consulting Provider: NUTRITION Reason for Dietary Consult: TPN Start and Manage - Constitutional Vitals: Temp Pulse Resp BP Pulse Ox 97.9 F 96 16 154/91 94 08/13/18 07:38 08/13/18 07:38 08/13/18 07:38 08/13/18 07:38 08/13/18 07:38 General appearance: Present: A&O X 3, no acute distress, answers questions appropriately Exam: Gen: Sleepy and sedative Chest: Diminished breath sounds B/L, No wheezing, No crackles, No rales Heart: S1S2+ RRR No murmurs Abd: s/p Sigmoid colectomy, mid line clean incision. No erythema / No signs of infection Ext: 2+ pitting edema, pulses are palpable, No calf tenderness Neuro : Benign findings Skin: No rash. - Patient Status Disposition: Home Health Service Condition: Good Overall status at discharge: patient is back to baseline - Discharge Instructions Follow Up With: Deep Harper MD [Partnered Physician] - 10/19/18 11:00 am Mateusz Orantes MD [Non-Partnered Physician] - Sandhya Acuña MD [Primary Care Provider] - 10/14/18 1:00 pm - Diet and Activity Activity: increase activity as tolerated Diet: low salt diet
[2018-08-13] MEDS ORDERED: Furosemide 40 MG TABLET PO SCH (09:00)
[2018-08-13] MEDS: MOMETASONE FUROATE 100 mcg Inhaler IH SCH (09:40)
--- NOTE | 2018-08-13 14:30 | General Surgery Progress Note ---
Date of Encounter: 08/13/18 Time of Encounter: 13:00 Subjective Patient reports: no new complaints Narrative: General Surgery - POD #7 Patient is feeling well, voicing no complaints. The patient is tolerating a regular diet without increased abdominal pain, nausea or vomiting. Maximum temperature 99.4, pulse 89 and 96, respirations 16, blood pressure 154/91. SPO2 and remained 94% Lungs: Clear Abdomen: Morbidly obese but soft, nontender. The midline incision is intact, clean and dry. There were no detected fascial defects. The patient's exam is limited by his body habitus. The patient denies abdominal pain. Alternating skin fab were removed. Bowel sounds are active. Bowels moving but ranging from soft, loose to loose liquid. Labs: WBC 8.6, normal differential; hemoglobin 11.3, hematocrit 33.9; platelet count 236,000 Electrolytes have normalized, hypokalemia has corrected to 3.6. Accu-Cheks 148-181 Impression: POD #7 - s/p open primary sigmoid colectomy with stapled colocolonic anastomosis Acceptable postoperative status Hypokalemia corrected Diabetes - satisfactory control blood sugar Morbid obesity Recommendations: Patient may be discharged home with outpatient surgical follow- up Postoperative surgical instructions include: Diabetic diet Activity as tolerated, lifting limited to less than 20 pounds Patient may shower, wash incision with soap and water Tylenol, ibuprofen, Motrin, Advil, Aleve, etc. as needed for pain Outpatient follow-up, 08/20/18. Patient to call office Thursday a.m. to make this appointment. Objective Vital Signs - Last 8 Hours Temp Pulse Resp BP Pulse Ox 08/13/18 08:30 94 08/13/18 07:38 97.9 F 96 16 154/91 94 Intake and Output 08/12/18 08/13/18 08/13/18 23:59 07:59 15:59 Intake Total 600 / 600 2352 / 2352 1670 / 1670 Output Total 875 / 875 675 / 675 200 / 200 Balance -275 / -275 1677 / 1677 1470 / 1470 Intake: IV Fluids 2111 / 2111 Oral 600 / 600 240 / 240 1670 / 1670 Output: Urine 875 / 875 675 / 675 200 / 200 Other: Meal Dinner Lunch Percent of Meal Consumed 100% 100% Stool Size Small Moderate Moderate Stool Consistency liquid loose loose soft liquid Stool Color Brown Brown Brown # Bowel Movements 1 1 1 Weight 172.093 kg Blood Glucose* 148 181 Patient Weight 08/13/18 23:59 Weight 172.093 kg - Labs 08/13/18 05:50 08/13/18 05:50 Diabetes panel 08/13/18 Range/Units 05:50 Sodium 137 (136-145) mEq/L Potassium 3.6 (3.5-5.1) mEq/L Chloride 105 (98-107) mEq/L Carbon Dioxide 26 (23-29) mEq/L BUN 17 (6-20) mg/dL Creatinine 0.95 (0.70-1.30) mg/dL Glucose 150 H (70-105) mg/dL Calcium 8.9 (8.6-10.3) mg/dL Calcium panel 08/13/18 Range/Units 05:50 Calcium 8.9 (8.6-10.3) mg/dL Pituitary panel 08/13/18 Range/Units 05:50 Sodium 137 (136-145) mEq/L Potassium 3.6 (3.5-5.1) mEq/L Chloride 105 (98-107) mEq/L Carbon Dioxide 26 (23-29) mEq/L BUN 17 (6-20) mg/dL Creatinine 0.95 (0.70-1.30) mg/dL Glucose 150 H (70-105) mg/dL Calcium 8.9 (8.6-10.3) mg/dL Adrenal panel 08/13/18 Range/Units 05:50 Sodium 137 (136-145) mEq/L Potassium 3.6 (3.5-5.1) mEq/L Chloride 105 (98-107) mEq/L Carbon Dioxide 26 (23-29) mEq/L BUN 17 (6-20) mg/dL Creatinine 0.95 (0.70-1.30) mg/dL Glucose 150 H (70-105) mg/dL Calcium 8.9 (8.6-10.3) mg/dL Consult Discharge Plan - Plan Instructions: Diverticulitis (DC), Diverticulitis (GEN), Colectomy (DC), Colectomy (GEN) Referrals: Deep Harper MD [Partnered Physician] - 10/19/18 11:00 am Mateusz Orantes MD [Non-Partnered Physician] - Sandhya Acuña MD [Primary Care Provider] - 08/20/18 10:00 am Prescriptions: OxyCODONE/APAP 5/325 [Percocet 5/325 MG] 1 each PO Q6HR PRN 5 Days #15 tablet PRN Reason: Moderate Pain Potassium Chloride 20 meq PO DAILY #30 tab.er.prt
== END 2018-08-13 13:56 | disposition home or self-care (01) | DRG 854 ==
LOC: 3BNU 13:02 → EMEROOARM 13:02 → SUATTDRO 18:32 → 3BNU 20:05 → 3ANU 08-07 15:06
PROVIDERS: ADMIT Internal Medicine; ATTEND Family Medicine

== ENCOUNTER 2018-11-17 20:59 | Observation (INO) ==
[2018-11-17 21:24] LABS: Basophils # 0.1 K/mcL (0.0-0.2); Basophils % 0.6 %; Eosinophils # 0.2 K/mcL (0.0-0.6); Eosinophils % 2.4 %; Hematocrit 43.3 % (37.5-50.1); Hemoglobin 14.7 g/dL (12.9-16.9); Immature Granulocytes % 0.4 % (0-4); Lymphocytes # 2.8 K/mcL (0.6-4.6); Lymphocytes % 33.7 %; Mean Corpuscular HGB Conc 33.9 g/dL (31.6-35.5); Mean Corpuscular Hemoglobin 28.5 pg (28.0-33.3); Mean Corpuscular Volume 83.9 fL (83.0-100.0); Mean Platelet Volume 10.2 fL (9.4-12.4); Monocytes # 0.5 K/mcL (0.0-1.3); Monocytes % 6.4 %; Neutrophils # 4.7 K/mcL (1.6-8.9); Platelet Count 281 K/mcL (140-400); Red Blood Count 5.16 M/mcL (4.19-5.50); Segmented Neutrophils % 56.5 %
[2018-11-17 21:50] LABS: BUN/Creatinine Ratio 18 (6-26); Blood Urea Nitrogen 21 mg/dL (6-20); Calcium 9.9 mg/dL (8.6-10.3); Carbon Dioxide 24 mEq/L (23-29); Chloride 101 mEq/L (98-107); Glucose 221 mg/dL (70-105); Osmolality,Calculated 294 (280-300); Potassium 4.2 mEq/L (3.5-5.1); Sodium 137 mEq/L (136-145); Troponin I < 0.03 ng/mL (< 0.04); eGFR For Non-African Americans > 60 (> 60)
[2018-11-17] MEDS ORDERED: Isovue-370 500 ML BOTTLE IVP ONE (21:50)
[2018-11-17 21:58] LABS: INR 2.5; Prothrombin Time 28.3 Seconds (9.4-12.1)
--- NOTE | 2018-11-17 22:33 | Emergency Department Note ---
Disposition Clinical Impression: Chest pain Qualifiers: Chest pain type: unspecified Qualified Code(s): R07.9 - Chest pain, unspecified Disposition: Admitted As Inpatient Condition: Fair Referrals: Sandhya Acuña MD [Primary Care Provider] - Forms: ED Satisfaction Letter Time of Disposition: 01:37 Chest Pain HPI - General Chief Complaint: ED Chest Pain Stated Complaint: Chest Pain Time Seen by Provider: 11/17/18 21:12 Source: patient Mode of arrival: ambulatory Limitations: no limitations Vital Signs Reviewed: Yes Nursing Notes Reviewed: Yes - History of Present Illness HPI Narrative: 58-year-old male presents to the emergency department complaining of chest pain. Says mainly in the left side. She became all of a sudden he was sitting down. Started approximate 3 days ago whenever he laid down seem to get worse. Worsened today where he is describing the chest pain he has 8 out of 10. He describes as a dull ache worse whenever you push on his chest. He has not taken anything for the pain at this time. 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 Said this is a different feeling of chest pain. Never had any cardiac stents or any cardiac issues. Does have history of diabetes, high blood pressure, smoking, hypercholesterolemia. He has not noted any worsening shortness of breath outside of his normal. No he has been coughing up some phlegm but there is no color to it. There is been no congestion. Does not know any fevers. Otherwise no other complaints Severity scale (1-10): 1 - Related Data Home Medications Medication Instructions Recorded Confirmed Albuterol Sulfate [Proair 1 - 2 puff IH Q4-6H PRN 07/30/15 11/17/18 Respiclick] Furosemide [Lasix] 40 mg PO QAM 07/30/15 11/17/18 Lisinopril [Zestril] 10 mg PO BID 07/30/15 11/17/18 Finasteride [Proscar] 5 mg PO DAILY 01/31/17 11/17/18 Omeprazole [PriLOSEC] 40 mg PO DAILY 01/31/17 11/17/18 Venlafaxine XR (24 HR) [Effexor XR] 150 mg PO DAILY 01/31/17 11/17/18 Simvastatin [Zocor] 40 mg PO DAILY 02/01/17 11/17/18 Multivitamin [Multivitamins] 1 each PO DAILY 03/23/17 11/17/18 Fluticasone Propionate Nasal 1 spray NS DAILY 11/05/17 11/17/18 [Flonase] Beclomethasone Dipropionate [QVAR 1 puff IH DAILY 08/03/18 09/15/18 80 mcg REDIHALER] Metformin HCl 1,000 mg PO BID 08/03/18 11/17/18 [place]-3/Dha/Epa/Fish Oil [[facility] Fish 1 cap PO DAILY 08/03/18 11/17/18 Oil 1,000 mg Softgel] Metoprolol [Lopressor] 25 mg PO BID 09/15/18 11/17/18 Warfarin [Coumadin] 7.5 mg PO 1800 09/15/18 11/17/18 Fexofenadine/Pseudoephedrine 1 each PO DAILY 11/17/18 11/17/18 [Keisha-D 24 Hour Tablet] Warfarin [Coumadin] 5 mg PO 1800 11/17/18 11/17/18 Previous Rx's Medication Instructions Recorded Insulin NPH Hum/Reg Insulin Hm 58 unit SQ BID #0 08/13/18 [Novolin 70-30 100 Unit/ml Vial] Allergies Allergy/AdvReac Type Severity Reaction Status Date / Time amlodipine [From Norvasc] Allergy Rash Verified 09/15/18 12:55 bupropion [From Wellbutrin] Allergy Rash Verified 09/15/18 12:55 gabapentin Allergy Rash Verified 09/15/18 12:55 morphine AdvReac Confusion Verified 09/15/18 12:55 rivaroxaban [From Xarelto] AdvReac Cough Verified 09/15/18 12:55 All systems ED: reviewed and negative except as stated. Review of Systems: As Per HPI Chest Pain PMH - Past Medical History Medical history: Reports: diabetes, hypertension, other Surgical history: Reports: colectomy, orthopedic, other, other Psychiatric history: Reports: anxiety, depression - Social History Smoking Status: Never smoker Alcohol use: Reports: none Drug use: Reports: none Physical Exam - General Limitations: no limitations General appearance: alert, in no apparent distress - Head Head exam: atraumatic, normocephalic, normal inspection - Eye Eye exam: Present: normal appearance, PERRL, EOMI - ENT ENT exam: normal exam, normal oropharynx, mucous membranes moist - Neck Neck exam: Present: normal inspection, full ROM, trachea midline - Chest Chest inspection: Present: normal inspection, symmetric chest wall rise, tenderness (While palpating the left side of the chest.) - Respiratory Respiratory exam: Present: normal lung sounds bilaterally - Cardiovascular Cardiovascular exam: Present: regular rate, normal rhythm, normal heart sounds - Abdominal Exam Abdominal exam: Present: soft, Non-Tender. Absent: tenderness, distention, guarding, rebound, rigidity - Extremities Exam Extremities exam: Present: normal inspection, full ROM, pedal edema (1+ bilaterally). Absent: tenderness - Back Exam Back exam: Present: normal inspection, full ROM. Absent: tenderness, CVA tenderness (R), CVA tenderness (L) - Neurological Exam Neurological exam: Present: alert, oriented X3 - Skin Skin exam: Present: warm, dry, intact, normal color Course Vital Signs Temperature 98.0 F 11/17/18 21:05 Pulse Rate 108 11/17/18 21:05 Respiratory Rate 16 11/17/18 21:05 Blood Pressure 164/100 11/17/18 21:05 O2 Sat by Pulse Oximetry 97 11/17/18 21:05 Temperature 98.0 F 11/17/18 21:05 Pulse Rate 96 11/18/18 00:08 Respiratory Rate 16 11/18/18 00:08 Blood Pressure 147/88 11/18/18 00:08 O2 Sat by Pulse Oximetry 95 11/18/18 00:08 Oxygen Delivery Oxygen Delivery Room Air Chest Pain - [facility] Narrative Medical decision making narrative: 58-year-old male presented to the emergency department with 3 days of chest pain says it occurs at night has worsened today that cause him to come in. Troponin came back negative chest x-ray no acute findings. Did do CT angiogram of the chest due to recent PE history a came back negative as well for PE. Patient's pain is reproducible. He is complaining of 2/10 all the time chest pain. I did offer aspirin he declined to the fact that he is on Coumadin. INR is stable at 2.5. He declined also nitroglycerin. Patient has a heart score of 5. EKG had no acute findings. Due to the heart score of 5. I felt more comfortable admitting the patient for further cardiac evaluation. Patient has requested risk factors I think he needs further workup. I spoke with Dr. Mello who agreed to admit the patient their service. Patient admitted in stable condition. Chest X-Ray 11/17/18 21:12 IMPRESSION: Negative portable chest. D/ / Luke Dunn MD / Luke Dunn MD Interpreting Provider: Luke Dunn MD Chest CTA 11/17/18 21:50 IMPRESSION: No evidence of pulmonary embolism or acute pulmonary abnormality. D/ / Laisha Russ Cha, MD / Laisha Russ Cha, MD Interpreting Provider: Laisha Russ Cha, MD - Medical Records Medical records reviewed: Yes I reviewed the patient's medical records. - Lab Data Lab results reviewed: Yes I reviewed the patient's lab results. Result diagrams: 11/17/18 21:13 11/17/18 21:13 Lab Results 11/17/18 11/17/18 11/17/18 Range/Units 21:13 21:13 21:39 WBC 8.3 (4.3-11.1) K/mcL RBC 5.16 (4.19-5.50) M/mcL Hgb 14.7 (12.9-16.9) g/dL Hct 43.3 (37.5-50.1) % MCV 83.9 (83.0-100.0) fL MCH 28.5 (28.0-33.3) pg MCHC 33.9 (31.6-35.5) g/dL RDW 14.0 (11.5-14.5) % Plt Count 281 (140-400) K/mcL MPV 10.2 (9.4-12.4) fL Immature Gran % 0.4 (0-4) % Seg Neutrophils % 56.5 % Lymphocytes % 33.7 % Monocytes % 6.4 % Eosinophils % 2.4 % Basophils % 0.6 % Neutrophils # 4.7 (1.6-8.9) K/mcL Lymphocytes # 2.8 (0.6-4.6) K/mcL Monocytes # 0.5 (0.0-1.3) K/mcL Eosinophils # 0.2 (0.0-0.6) K/mcL Basophils # 0.1 (0.0-0.2) K/mcL PT 28.3 H (9.4-12.1) Seconds INR 2.5 Sodium 137 (136-145) mEq/L Potassium 4.2 (3.5-5.1) mEq/L Chloride 101 (98-107) mEq/L Carbon Dioxide 24 (23-29) mEq/L BUN 21 H (6-20) mg/dL Creatinine 1.16 (0.70-1.30) mg/dL Est GFR ( Amer) > 60 (> 60) Est GFR (Non-Af Amer) > 60 (> 60) BUN/Creatinine Ratio 18 (6-26) Glucose 221 H (70-105) mg/dL Calculated Osmolality 294 (280-300) Calcium 9.9 (8.6-10.3) mg/dL Troponin I < 0.03 (< 0.04) ng/mL - Radiology Data Radiology results reviewed: Yes I reviewed the patient's radiology results. - EKG Data EKG attestation: Yes I reviewed and interpreted this EKG. EKG results narrative: EKG done at 20 10 a review myself and the attending shows sinus tachycardia at a rate of 103, MO interval 201, QRS 105, QTC 477. There is no acute ST changes no acute T-wave abnormalities no new signs of ischemia. No signs of hypertrophy, heart strain, heart block. No WPW/Brugada/HOCM. EKG unchanged when compared with old EKG done 08/25/18 Heart Score - Score History: Moderately Suspicious EKG: Non Specific repolarisation Disturbance Age: 45-65 Risk Factors: Equal/Greater than 3 risk factor or history of atherosclerotic disease Troponin: Less than normal limit HEART Score Total: 5
--- NOTE | 2018-11-17 22:53 | Emergency Department Note ---
Disposition Clinical Impression: Chest pain Qualifiers: Chest pain type: unspecified Qualified Code(s): R07.9 - Chest pain, unspecified Disposition: Admitted As Inpatient Condition: Fair Time of Disposition: 01:37 General Adult HPI - General Chief complaint: ED Chest Pain Stated complaint: Chest Pain Time Seen by Provider: 11/17/18 21:12 Source: patient Mode of arrival: ambulatory Limitations: no limitations Nursing Notes Reviewed: Yes Vital Signs Reviewed: Yes - History of Present Illness Pain Scale: 1 - Related Data Home Medications Medication Instructions Recorded Confirmed Albuterol Sulfate [Proair 1 - 2 puff IH Q4-6H PRN 07/30/15 11/17/18 Respiclick] Furosemide [Lasix] 40 mg PO QAM 07/30/15 11/17/18 Lisinopril [Zestril] 10 mg PO BID 07/30/15 11/17/18 Finasteride [Proscar] 5 mg PO DAILY 01/31/17 11/17/18 Omeprazole [PriLOSEC] 40 mg PO DAILY 01/31/17 11/17/18 Venlafaxine XR (24 HR) [Effexor XR] 150 mg PO DAILY 01/31/17 11/17/18 Simvastatin [Zocor] 40 mg PO DAILY 02/01/17 11/17/18 Multivitamin [Multivitamins] 1 each PO DAILY 03/23/17 11/17/18 Fluticasone Propionate Nasal 1 spray NS DAILY 11/05/17 11/17/18 [Flonase] Beclomethasone Dipropionate [QVAR 1 puff IH DAILY 08/03/18 09/15/18 80 mcg REDIHALER] Metformin HCl 1,000 mg PO BID 08/03/18 11/17/18 [place]-3/Dha/Epa/Fish Oil [[facility]vs Fish 1 cap PO DAILY 08/03/18 11/17/18 Oil 1,000 mg Softgel] Metoprolol [Lopressor] 25 mg PO BID 09/15/18 11/17/18 Warfarin [Coumadin] 7.5 mg PO 1800 09/15/18 11/17/18 Fexofenadine/Pseudoephedrine 1 each PO DAILY 11/17/18 11/17/18 [Keisha-D 24 Hour Tablet] Warfarin [Coumadin] 5 mg PO 1800 11/17/18 11/17/18 Previous Rx's Medication Instructions Recorded Insulin NPH Hum/Reg Insulin Hm 58 unit SQ BID #0 08/13/18 [Novolin 70-30 100 Unit/ml Vial] Allergies Allergy/AdvReac Type Severity Reaction Status Date / Time amlodipine [From Norvasc] Allergy Rash Verified 09/15/18 12:55 bupropion [From Wellbutrin] Allergy Rash Verified 09/15/18 12:55 gabapentin Allergy Rash Verified 09/15/18 12:55 morphine AdvReac Confusion Verified 09/15/18 12:55 rivaroxaban [From Xarelto] AdvReac Cough Verified 09/15/18 12:55 Past Medical History - Past Medical History Medical history: Reports: diabetes, hypertension, other Surgical history: Reports: colectomy, orthopedic, other, other Psychiatric history: Reports: anxiety, depression - Social History Smoking Status: Never smoker Smokeless Tobacco Status: No Alcohol use: Reports: none Drug use: Reports: none Physical Exam - General Limitations: no limitations General appearance: alert, in no apparent distress Course Vital Signs Temperature 98.0 F 11/17/18 21:05 Pulse Rate 108 11/17/18 21:05 Respiratory Rate 16 11/17/18 21:05 Blood Pressure 164/100 11/17/18 21:05 O2 Sat by Pulse Oximetry 97 11/17/18 21:05 Temperature 98.0 F 11/17/18 21:05 Pulse Rate 96 11/18/18 00:08 Respiratory Rate 16 11/18/18 00:08 Blood Pressure 147/88 11/18/18 00:08 O2 Sat by Pulse Oximetry 95 11/18/18 00:08 Oxygen Delivery Oxygen Delivery Room Air Medical Decision Making - Medical Records Medical records reviewed: Yes I reviewed the patient's medical records. - Lab Data Lab results reviewed: Yes I reviewed the patient's lab results. Result diagrams: 11/17/18 21:13 11/17/18 21:13 Lab Results 11/17/18 11/17/18 11/17/18 Range/Units 21:13 21:13 21:39 WBC 8.3 (4.3-11.1) K/mcL RBC 5.16 (4.19-5.50) M/mcL Hgb 14.7 (12.9-16.9) g/dL Hct 43.3 (37.5-50.1) % MCV 83.9 (83.0-100.0) fL MCH 28.5 (28.0-33.3) pg MCHC 33.9 (31.6-35.5) g/dL RDW 14.0 (11.5-14.5) % Plt Count 281 (140-400) K/mcL MPV 10.2 (9.4-12.4) fL Immature Gran % 0.4 (0-4) % Seg Neutrophils % 56.5 % Lymphocytes % 33.7 % Monocytes % 6.4 % Eosinophils % 2.4 % Basophils % 0.6 % Neutrophils # 4.7 (1.6-8.9) K/mcL Lymphocytes # 2.8 (0.6-4.6) K/mcL Monocytes # 0.5 (0.0-1.3) K/mcL Eosinophils # 0.2 (0.0-0.6) K/mcL Basophils # 0.1 (0.0-0.2) K/mcL PT 28.3 H (9.4-12.1) Seconds INR 2.5 Sodium 137 (136-145) mEq/L Potassium 4.2 (3.5-5.1) mEq/L Chloride 101 (98-107) mEq/L Carbon Dioxide 24 (23-29) mEq/L BUN 21 H (6-20) mg/dL Creatinine 1.16 (0.70-1.30) mg/dL Est GFR ( Amer) > 60 (> 60) Est GFR (Non-Af Amer) > 60 (> 60) BUN/Creatinine Ratio 18 (6-26) Glucose 221 H (70-105) mg/dL Calculated Osmolality 294 (280-300) Calcium 9.9 (8.6-10.3) mg/dL Troponin I < 0.03 (< 0.04) ng/mL - Radiology Data Radiology results reviewed: Yes I reviewed the patient's radiology results. Chest X-Ray 11/17/18 21:12 IMPRESSION: Negative portable chest. D/ / Luke Dunn MD / Luke Dunn MD Interpreting Provider: Luke Dunn MD Chest CTA 11/17/18 21:50 IMPRESSION: No evidence of pulmonary embolism or acute pulmonary abnormality. D/ / Laisha Russ Cha, MD / Laisha Russ Cha, MD Interpreting Provider: Laisha Russ Cha, MD - EKG Data EKG #1 EKG attestation: Yes I reviewed and interpreted this EKG. EKG results narrative: EKG shows a sinus tachycardia with ventricular rate of 103. No arrhythmia or ectopy. No significant ST segment elevation or depression. No change from prior EKG dated 08/25/2018. Attestation Statement - Attestation Attestation: I, Inocencio Dyson MD, personally evaluated this patient and discussed their management with the resident physician. I reviewed the resident's note and agree with the documented findings, medical decision making, and plan of care. I reviewed the residents documentation and agree with the residents assessment and plan of care. I have personally had face to face time with the patient. I personally supervised and was present for the ballesteros/critical portions of the following procedures completed by the resident: EKG interpretation. 58-year-old male presents to the emergency department with a complaint of some left-sided mid chest pain for the past 2 days. reports that it occurs primarily in the evenings. Patient states it is kind of there all the time but he gets worse in the evenings. It does not seem to be worse with exertion. It is not pleuritic or worse with breathing. There has been mild shortness of breath. No radiation of the pain. Patient does have a prior history of a saddl e pulmonary embolus 3 months ago and is on Coumadin. He denies any known cardiac disease however he does have a history of hypertension, hypercholesterolemia, and diabetes. At present he rates the pain a 1 out of 10. Also he has noticed that the pain is worse with pressing on his chest over the left anterior chest. On examination patient is a well-developed obese male in no acute distress. He is alert and oriented 3. There is no cyanosis or diaphoresis. There is mild tenderness to palpation over the mid left anterior chest wall with no bony crepitus or subcutaneous emphysema. Breath sounds are clear and equal bilaterally. Heart regular with a mild tachycardia. Abdomen is soft and nontender with normal bowel sounds. One plus pedal edema bilaterally. EKG shows a sinus tachycardia with ventricular rate of 103. No arrhythmia or ectopy. No significant ST segment elevation or depression. No change from prior EKG dated 08/25/2018. Chest x-ray negative. Labs reviewed and unrem arkable. Troponin negative. INR 2.5. A CTA of the chest was obtained and showed no evidence of pulmonary embolism or other acute pulmonary abnormality. The hospitalist, Dr. Fischer, was consulted and accepted admission of the patient.
[2018-11-18] MEDS ORDERED: traMADol 50 MG TABLET PO PRN (02:20)
[2018-11-18] MEDS ORDERED: Acetaminophen 325 MG TABLET PO PRN (02:20)
[2018-11-18] MEDS ORDERED: Naloxone 0.4 MG/ML INJ IVP PRN (02:20)
[2018-11-18] MEDS ORDERED: *HR* Promethazine 25 MG/ML VIAL IVP PRN (02:20)
[2018-11-18] MEDS ORDERED: D5% in Water 1,000 ML IVC PRN (02:30)
[2018-11-18] MEDS ORDERED: *HR* Dextrose 50 % in Water (Syg) 50 ML SYRINGE IVP PRN (02:30)
[2018-11-18] MEDS ORDERED: Dextrose Gel 15 GM/37.5 ML TUBE PO PRN ×2 (02:30)
--- NOTE | 2018-11-18 03:03 | Internal Med History&Physical ---
Date of Encounter: 11/18/18 Time of Encounter: 01:30 Internal Medicine - H&P: HPI Chief complaint: CP Admitted From: Emergency Dept Plans for Post Hospital Care: Home History of present illness: Mr. Almeida is a 58 year old male w/PMH of diabetes, HTN, HLD, COPD, ADALID, anxiety, and depression presents from the ED w/CC of CP that started three days ago and worsened tonight at approximately 20:15 following choir practice. Pt. describes pain as constant pressure in left chest w/o radiation. Associated sx: diaphoresis. No alleviating or aggravating factors. Last episode was approximately 10 years ago. Pt. had hx of saddle PE and was placed on Coumadin. CTA shows no evidence of PE. Last Echocardiogram was on 08/03/18 which showed LVEF of 50-55%, mild concentric left ventricular hypertrophy, normal left ventricular diastolic function, normal right ventricular structure and function, no significant valvular dysfunction, unable to estimate RVSP due to lack of TR jet. Previous stress test on 03/16/17 showed resting ECG demonstrated sinus tachycardia of 117 bpm, left axis deviation, poor R-wave progression, and no nspecific ST-T wave abnormality. Gated LVEF >70%, small to medium sized moderate intensity reversible perfusion defect involving the basal inferior wall and basal mid inferolateral wall. Findings are consistent with reversible myocardial ischemia. Recommend cardiology consultation. Pt. also reports previous C w/o stent placement. Pt. reports weakness and SOB but denies recent illness, fever, chills, nausea, vomiting, headache, changes in vision, unusual bleeding, abdominal pain, diarrhea, constipation, cough, chest congestion, dizziness, lightheadedness, numbness, tingling, pre-syncope, or syncope. Past Med Surg Social Fam HX - Past Medical History Source: patient, old records reviewed, obtained from family Medical history: COPD, diabetes, hyperlipidemia, hypertension, other Additional medical history: sleep apnea, diverticulitis, colon polyps, fatty liver, chronic lumbago, pancreatitis, TTE with LVEF, sick sinus rhythm Psychiatric history: anxiety, depression - Past Surgical History Surgical History: colectomy, orthopedic, other, other Additional surgical history: left knee arthroscopy, bladder surgery, colonoscopy, EGD, heart cath, sigmoid colon removed - Social History Smoking Status: Never smoker Smokeless Tobacco Status: No Alcohol use: none Drug use: none Current living situation: Home, With Family Activity Level: Independent ambulation Recent Out of Country Travel Within the Last 8 Weeks: No Exposure or Possible Exposure to Illness During Travel: No - Family History Father Race: Family Member Ethnicity: Non- Living Status: Age at : 59 Cause of : NH Hx Family Cardiac Disorders: Yes (NH, CAD) Mother Race: Family Member Ethnicity: Non- Living Status: Still Living Hx Family Cardiac Disorders: Yes (HTN) Hx Family Cancer: Yes (Colon Cancer) Hx Family Genitourinary Disorders: Yes (CKD) Hx Family Neuromuscular Disorders: No Hx Family Neurologic Disorders: No Hx Family HEENT Disorders: No Hx Family Autoimmune Disorders: No Brother Race: Family Member Ethnicity: Non- Living Status: Still Living Hx Family Cardiac Disorders: Yes (CAD) Sister Race: Family Member Ethnicity: Non- Living Status: Still Living Hx Family Endocrine Disorder: Yes (DM) Grandmother Race: Family Member Ethnicity: Non- Living Status: Age at : 80 Cause of : Breast cancer Hx Family Cancer: Yes (Breast) Grandfather Race: Family Member Ethnicity: Non- Living Status: Age at : 62 Cause of : NH Hx Family Cardiac Disorders: Yes (NH) Hx Family Endocrine Disorder: Yes (DM) Internal Medicine - H&P: Meds Albuterol Sulfate [Proair Respiclick] 1 - 2 puff IH Q4-6H PRN 07/30/15 [History] Furosemide [Lasix] 40 mg PO QAM 07/30/15 [History] Lisinopril [Zestril] 10 mg PO BID 07/30/15 [History] Finasteride [Proscar] 5 mg PO DAILY 01/31/17 [History] Omeprazole [PriLOSEC] 40 mg PO DAILY 01/31/17 [History] Venlafaxine XR (24 HR) [Effexor XR] 150 mg PO DAILY 01/31/17 [History] Simvastatin [Zocor] 40 mg PO DAILY 02/01/17 [History] Multivitamin [Multivitamins] 1 each PO DAILY 03/23/17 [History] Fluticasone Propionate Nasal [Flonase] 1 spray NS DAILY 11/05/17 [History] Beclomethasone Dipropionate [QVAR 80 mcg REDIHALER] 1 puff IH DAILY 08/03/18 [History] Metformin HCl 1,000 mg PO BID 08/03/18 [History] [place]-3/Dha/Epa/Fish Oil [Cvs Fish Oil 1,000 mg Softgel] 1 cap PO DAILY 08/03/18 [History] Insulin NPH Hum/Reg Insulin Hm [Novolin 70-30 100 Unit/ml Vial] 58 unit SQ BID #0 08/13/18 [Rx] Metoprolol [Lopressor] 25 mg PO BID 09/15/18 [History] Warfarin [Coumadin] 7.5 mg PO 1800 09/15/18 [History] Fexofenadine/Pseudoephedrine [Keisha-D 24 Hour Tablet] 1 each PO DAILY 11/17/18 [History] Warfarin [Coumadin] 5 mg PO 1800 11/17/18 [History] Allergy/AdvReac Type Severity Reaction Status Date / Time amlodipine [From Norvasc] Allergy Rash Verified 09/15/18 12:55 bupropion [From Wellbutrin] Allergy Rash Verified 09/15/18 12:55 gabapentin Allergy Rash Verified 09/15/18 12:55 morphine AdvReac Confusion Verified 09/15/18 12:55 rivaroxaban [From Xarelto] AdvReac Cough Verified 09/15/18 12:55 All Systems PM: A 10-system review of systems was performed and is negative for pertinent findings except as documented above in the HPI. - Constitutional Constitutional: as per HPI, weakness, no chills, no fever(s), no night sweats - EENT Eyes: no change in vision, no discharge, no pain, no photophobia Ears: no ear discharge, no ear pain, no tinnitus Nose, mouth and throat: no dysphagia, no nasal discharge, no neck pain, no sore throat - Breasts Breasts: as per HPI - Cardiovascular Cardiovascular ROS IM: as per HPI, chest pain, diaphoresis, dyspnea, dyspnea on exertion, no lightheadedness, no palpitations, no syncope - Respiratory Respiratory: dyspnea, dyspnea on exertion, no cough, no wheezing, no excessive phlegm production - Gastrointestinal Gastrointestinal: no abdominal pain, no diarrhea, no hematemesis, no hematoch ezia, no melena, no nausea, no vomiting - Genitourinary Genitourinary ROS male: as per HPI - Musculoskeletal Musculoskeletal ROS IM: as per HPI, no numbness, no tingling - Integumentary Integumentary IM: as per HPI, no rash, no unusual bruising - Neurological Neurological ROS: as per HPI, weakness, no confusion, no convulsions, no focal weakness, no numbness, no tingling, no tremor(s) - Psychiatric Psychiatric: as per HPI, anxiety, depression - Endocrine Endocrine IM: as per HPI - Hematologic/Lymphatic Hematologic/Lymphatic: no easy bruising - Allergic/Immunologic Allergic/Immunologic: as per HPI - Constitutional Vitals: Temp Pulse Resp BP Pulse Ox 97.9 F 96 17 132/78 91 11/18/18 02:28 11/18/18 02:28 11/18/18 02:28 11/18/18 02:28 11/18/18 02:28 General appearance: Present: cooperative, mild distress (CP), A&O X 3, morbidly obese, pleasant, answers questions appropriately Exam: Patient examined at bedside. Pt. was resting in bed and reporting mild CP that is constant. Denies SOB, N/V, or diaphoresis on exam. Pt. denies any other sx or complaints on exam. VS: 97.9F temp, HR 96, RR 20, BP 153/68, SPO2 93% on room air. - Head Head exam: Present: atraumatic, normocephalic - Eye Eye exam: Present: PERRL, conjuntiva pink, sclera anicteric Pupils: Present: PERRL - ENT ENT exam: Present: normal exam - Neck Neck exam general surgery: Present: normal inspection, supple, trachea midline. Absent: lymphadenopathy - Respiratory Respiratory exam: Present: CTAB. Absent: accessory muscle use, rales, rhonchi, wheezes - Cardiovascular Cardiovascular exam: Present: RRR, +S1, +S2. Absent: diastolic murmur, gallop, rubs, systolic murmur - GI/Abdominal GI/Abdominal exam: Present: normal bowel sounds, soft, no peritoneal signs. Absent: distended, tenderness - Rectal Rectal exam: Present: deferred - Additional comments: exam deferred. - Extremities Exam Extremities exam: Present: pedal edema, warm, radial pulses palpable and symmetrical. Absent: calf tenderness, cyanotic - Back Exam Back exam: Present: normal inspection - Neurological Exam Neurological exam: Present: alert, CN II-XII intact, oriented X3, no focal deficits. Absent: pronater drift, facial droop, speech deficit - Psychiatric Psychiatric exam: Present: normal affect, normal mood - Skin Skin exam: Present: dry, intact Internal Med - H&P Results - Labs CBC & Chem 7: 11/17/18 21:13 11/17/18 21:13 Labs: Short CBC 11/17/18 Range/Units 21:13 WBC 8.3 (4.3-11.1) K/mcL Hgb 14.7 (12.9-16.9) g/dL Hct 43.3 (37.5-50.1) % Plt Count 281 (140-400) K/mcL Neutrophils # 4.7 (1.6-8.9) K/mcL BMP 11/17/18 21:13 Sodium 137 Potassium 4.2 Chloride 101 Carbon Dioxide 24 BUN 21 H Creatinine 1.16 Glucose 221 H Calcium 9.9 Cardiac Enzymes 11/17/18 Range/Units 21:13 Troponin I < 0.03 (< 0.04) ng/mL - EKG Data EKG shows normal: sinus rhythm Rate: tachycardia - EKG Data Prior EKG available for review: yes EKG comments: 11/18/18 03:08 EKG dated 08/25/18 shows sinus rhythm with prolonged MI interval. EKG dated 11/17/18 shows sinus tachycardia with borderline prolonged MI interval, left anterior fascicular block, abnormal R-wave progression in late transition, and borderline prolonged QT interval. - Impressions ITS Impressions Chest X-Ray 11/17/18 21:12 IMPRESSION: Negative portable chest. D/ / Luke Dunn MD / Luke Dunn MD Interpreting Provider: Luke Dunn MD Chest CTA 11/17/18 21:50 IMPRESSION: No evidence of pulmonary embolism or acute pulmonary abnormality. D/ / Laisha Russ Cha, MD / Laisha Russ Cha, MD Interpreting Provider: Laisha Russ Cha, MD - Diagnostic Studies Chest x-ray Additional comments: Impressions Chest X-Ray 11/17/18 21:12 IMPRESSION: Negative portable chest. D/ / Luke Dunn MD / Luke Dunn MD Interpreting Provider: Luke Dunn MD CT scan - chest Additional comments: Impressions Chest CTA 11/17/18 21:50 IMPRESSION: No evidence of pulmonary embolism or acute pulmonary abnormality. D/ / Laisha Russ Cha, MD / Laisha Russ Cha, MD Interpreting Provider: Laisha Russ Cha, MD - Assessment and Plan (1) Chest pain Current Visit: Yes Status: Acute Assessment and plan: Acute CP that started three days ago and worsened tonight at approximately 20:15 following choir practice. Pt. describes pain as constant pressure in left chest w/o radiation. Associated sx: diaphoresis. No alleviating or aggravating factors. Last episode was approximately 10 years ago. Pt. had hx of saddle PE and was placed on Coumadin. CTA shows no evidence of PE. Last Echocardiogram was on 08/03/18 which showed LVEF of 50-55%, mild concentric left ventricular hypertrophy, normal left ventricular diastolic function, normal right ventricular structure and function, no significant valvular dysfunction, unable to estimate RVSP due to lack of TR jet. Last nuclear stress test was 03/16/17 and was abnormal. Initial troponin <0.03. Trending. No ASA d/t Coumadin. 80 mg Lipitor once. SL nitro PRN. Limited Echocardiogram ordered. NPO now for a.m. nuclear pharm stress test if troponins remain WNL. Consider Cardiology consult if troponins, Echocardiogram, and/or stress test results abnormal. Pt. is high risk for cardiac event and further morbidity d/t current CP that came on at rest and presents as constant, familial hx of NH and CAD (father and grandmother), hx of previous CP; and risk factors of DM, HLD, HTN, ADALID, and morbid obesity. Observation. Qualifiers: Chest pain type: unspecified Qualified Code(s): R07.9 - Chest pain, unsp ecified (2) Weakness Current Visit: Yes Status: Acute Assessment and plan: Acute weakness accompanying CP sx. Falls/safety precautions and up with assist only. Pt. instructed not to get out of bed w/o assistance and use Call Light for assistance d/t current weakness. Pt. expressed understanding and agreement to plan. (3) COPD (chronic obstructive pulmonary disease) Current Visit: Yes Status: Chronic Assessment and plan: Hx of chronic COPD. Pt. denies home O2 use but reports CPAP HS for ADALID. Continue pts. albuterol IH PRN. Supplemental O2 with titration and SPO2 monitoring. Qualifiers: COPD type: unspecified COPD Qualified Code(s): J44.9 - Chronic obstructive pulmonary disease, unspecified (4) HTN (hypertension) Current Visit: Yes Status: Chronic Assessment and plan: Hx of chronic HTN. Monitor pt. and VS. Continue pts. Lopressor and lisinopril. Qualifiers: Hypertension type: essential hypertension Qualified Code(s): I10 - Essential (primary) hypertension (5) HLD (hyperlipidemia) Current Visit: Yes Status: Chronic Assessment and plan: Hx of chronic HLD. Lipid panel in a.m. labs. 80 mg Lipitor once for current CP. Continue pts. PO Zocor tomorrow. Qualifiers: Hyperlipidemia type: pure hypercholesterolemia Qualified Code(s): E78.00 - Pure hypercholesterolemia, unspecified; E78.0 - Pure hypercholesterolemia (6) Diabetes mellitus Current Visit: Yes Status: Chronic Assessment and plan: Hx of chronic diabetes controlled by metformin and insulin. Hold metformin while admitted and administer SS correction insulin w/hypoglycemic protocol. Q6HR insulin and BG checks while NPO for stress test, then ACHS insulin and BG checks once diet ordered. A1c in a.m. labs. 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 CPAP ordered HS. (8) Morbid obesity with BMI of 45.0-49.9, adult Current Visit: Yes Status: Chronic Assessment and plan: Hx of chronic morbid obesity. BMI currently 47.4. Lifestyle modifications encouraged. (9) DVT prophylaxis Current Visit: Yes Status: Acute Assessment and plan: Continue pts. Coumadin w/Pharmacy dosing. Monitor pt. for signs of bleeding. - Time Spent With Patient Total time spent is greater than 50% in coordination of care (as documented) at patient's floor/unit and/or counseling patient: Greater than 35 minutes
[2018-11-18] MEDS ORDERED: Nitroglycerin 0.4 MG TAB.SUBL SL PRN (03:22)
[2018-11-18 05:01] LABS: Hematocrit 40.6 % (37.5-50.1); Hemoglobin 13.2 g/dL (12.9-16.9); Mean Corpuscular HGB Conc 32.5 g/dL (31.6-35.5); Mean Corpuscular Hemoglobin 27.6 pg (28.0-33.3); Mean Corpuscular Volume 84.8 fL (83.0-100.0); Mean Platelet Volume 10.4 fL (9.4-12.4); Platelet Count 234 K/mcL (140-400); Red Blood Count 4.79 M/mcL (4.19-5.50); Red Cell Distribution Width 14.1 % (11.5-14.5)
[2018-11-18 05:09] LABS: INR 2.4; Prothrombin Time 26.7 Seconds (9.4-12.1)
[2018-11-18 05:11] LABS: Activated Partial Thrombo Time 43.6 Seconds (26.0-36.0)
[2018-11-18 05:21] LABS: BUN/Creatinine Ratio 21 (6-26); Blood Urea Nitrogen 21 mg/dL (6-20); Calcium 9.5 mg/dL (8.6-10.3); Carbon Dioxide 27 mEq/L (23-29); Chloride 102 mEq/L (98-107); Chol/HDL Ratio 4.9 (0-4.9); Cholesterol 143 mg/dL (< 200); Glucose 156 mg/dL (70-105); HDL Cholesterol 29 mg/dL (40-59); Magnesium 1.9 mg/dL (1.6-2.6); Osmolality,Calculated 294 (280-300); Potassium 3.6 mEq/L (3.5-5.1); Sodium 139 mEq/L (136-145); Triglycerides 603 mg/dL (< 150); eGFR For Non-African Americans > 60 (> 60)
[2018-11-18 05:33] LABS: Thyroid Stimulating Hormone 2.766 mcIU/mL (0.340-5.600)
[2018-11-18] MEDS ORDERED: Insulin LISPRO 300 UNITS/3 ML VIAL SQ SCH ×2 (06:00→21:00)
[2018-11-18] MEDS ORDERED: Regadenoson 0.4 MG/5 ML SYRINGE IVP ONE (06:23)
[2018-11-18] MEDS: Insulin LISPRO 300 UNITS/3 ML VIAL SQ SCH ×3 (06:40→17:36)
--- NOTE | 2018-11-18 09:29 | Electrocardiograph Report ---
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
[2018-11-18] MEDS: Finasteride 5 MG TABLET PO SCH (09:47)
[2018-11-18] MEDS: Furosemide 20 MG TABLET PO SCH (09:48)
[2018-11-18] MEDS: Fluticasone Propionate Nasal 50 MCG/SPRAY BOTTLE NS SCH (09:48)
[2018-11-18] MEDS: Loratadine/Pseudophed (12 HR) 1 EACH TABLET PO SCH ×3 (09:48→21:04)
[2018-11-18 12:11] LABS: Estimated Average Glucose 177 mg/dl; Hemoglobin A1C 7.8 %
--- NOTE | 2018-11-18 12:51 | Internal Med Progress Note ---
Hospitalist Progress Note - Encounter Date of Encounter: 11/18/18 Time of Encounter: 11:00 - Subjective Interval History: Mr. Almeida is a 58 year old male with known PMH of diabetes, HTN, HLD, COPD, ADALID, anxiety, and depression presented to ER with c/o of intermittent CP that started three days ago and progressively worsening now. He was admitted in the hospital and placed him on tele. His serial trop were negative so far. He denied any CP now. - Exam Vitals: Temp Pulse Resp BP Pulse Ox 98.1 F 81 18 155/94 91 11/18/18 11:00 11/18/18 11:00 11/18/18 03:53 11/18/18 11:11/18/18 02:28 Exam: Gen: Alert, awake, Oriented to time,place and person Chest: Diminished breath sounds B/L, No wheezing, No crackles, No rales Heart: S1S2+ RRR No murmurs Abd: Soft, NT, BS +, No organomegaly Ext: No edema, pulses are palpable, No calf tenderness Neuro : Benign findings Skin: No rash. - Assessment and Plan (1) Chest pain Current Visit: Yes Status: Acute Assessment and Plan: So far negative top x 3 No acute ischemia changes noticed on EKG cont on tele needed 2 days stress test due to high BMI cont ASA, Statin, ACEI and BB (2) ADALID (obstructive sleep apnea) Current Visit: Yes Status: Chronic Assessment and Plan: Hx of chronic ADALID. CPAP ordered HS. (3) Diabetes mellitus Current Visit: Yes Status: Chronic Assessment and Plan: on ADA diet and ISS (4) Morbid obesity with BMI of 45.0-49.9, adult Current Visit: Yes Status: Chronic Assessment and Plan: Hx of chronic morbid obesity. BMI currently 47.4. Lifestyle modifications encouraged. (5) COPD (chronic obstructive pulmonary disease) Current Visit: Yes Status: Chronic Assessment and Plan: Hx of chronic COPD. Pt. denies home O2 use but reports CPAP HS for ADALID. Continue pts. albuterol IH PRN. Supplemental O2 with titration and SPO2 monitoring. (6) HTN (hypertension) Current Visit: Yes Status: Chronic Assessment and Plan: cont home meds (7) HLD (hyperlipidemia) Current Visit: Yes Status: Chronic Assessment and Plan: Cont home med Zocor (8) DVT prophylaxis Current Visit: Yes Status: Acute Assessment and Plan: Continue pts. Coumadin w/Pharmacy dosing. Monitor pt. for signs of bleeding. - Time Spent with Patient Total time spent is greater than 50% in coordination of care (as documented) at patient's floor/unit and/or counseling patient: Internal Medicine: Result - Labs CBC & Chem 7: 11/18/18 04:00 11/18/18 04:00 Labs: Short CBC 11/17/18 11/18/18 Range/Units 21:13 04:00 WBC 8.3 5.8 (4.3-11.1) K/mcL Hgb 14.7 13.2 D (12.9-16.9) g/dL Hct 43.3 40.6 (37.5-50.1) % Plt Count 281 234 (140-400) K/mcL Neutrophils # 4.7 (1.6-8.9) K/mcL BMP 11/17/18 11/18/18 21:13 04:00 Sodium 137 139 Potassium 4.2 3.6 Chloride 101 102 Carbon Dioxide 24 27 BUN 21 H 21 H Creatinine 1.16 1.01 Glucose 221 H 156 H Calcium 9.9 9.5 Cardiac Enzymes 11/17/18 11/18/18 11/18/18 Range/Units 21:13 04:00 10:00 Troponin I < 0.03 < 0.03 < 0.03 (< 0.04) ng/mL - ABG Interpretation ABG results: PT/INR, D-dimer PT 26.7 Seconds (9.4-12.1) H 11/18/18 04:00 - Impressions Impressions Chest X-Ray 11/17/18 21:12 IMPRESSION: Negative portable chest. D/ / Luke Dunn MD / Luke Dunn MD Interpreting Provider: Luke Dunn MD Chest CTA 11/17/18 21:50 IMPRESSION: No evidence of pulmonary embolism or acute pulmonary abnormality. D/ / Laisha Russ Cha, MD / Laisha Russ Cha, MD Interpreting Provider: Laisha Russ Cha, MD Echocardiogram Limited Views 11/18/18 02:19 Impressions: LVEF 65%. Moderate concentric left ventricular hypertrophy. Normal LV chamber size and systolic function. The pericardium appears normal. Left Ventricular Wall Motion: Rest Echo Findings All wall segments showed normal motion. Findings: Study Quality * Technically adequate exam. ECG Findings * Normal sinus rhythm. Left Ventricle * LVEF 65%. * Moderate concentric left ventricular hypertrophy. * Normal LV chamber size and systolic function. Pericardium * The pericardium appears normal. 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
[2018-11-18] MEDS ORDERED: *HR* Warfarin 5 MG TABLET PO ONE (18:00)
[2018-11-18] MEDS ORDERED: Warfarin perPT PO PRN (18:00)
[2018-11-19 06:23] LABS: Hematocrit 39.7 % (37.5-50.1); Hemoglobin 12.8 g/dL (12.9-16.9); Mean Corpuscular HGB Conc 32.2 g/dL (31.6-35.5); Mean Corpuscular Hemoglobin 27.7 pg (28.0-33.3); Mean Corpuscular Volume 85.9 fL (83.0-100.0); Platelet Count 195 K/mcL (140-400); Red Blood Count 4.62 M/mcL (4.19-5.50)
[2018-11-19 06:30] LABS: INR 1.8; Prothrombin Time 20.7 Seconds (9.4-12.1)
[2018-11-19 06:41] LABS: BUN/Creatinine Ratio 18 (6-26); Blood Urea Nitrogen 20 mg/dL (6-20); Calcium 9.1 mg/dL (8.6-10.3); Carbon Dioxide 27 mEq/L (23-29); Chloride 101 mEq/L (98-107); Glucose 217 mg/dL (70-105); Osmolality,Calculated 295 (280-300); Potassium 3.9 mEq/L (3.5-5.1); Sodium 138 mEq/L (136-145); eGFR For Non-African Americans > 60 (> 60)
[2018-11-19] MEDS: Finasteride 5 MG TABLET PO SCH (08:52)
[2018-11-19] MEDS: Furosemide 20 MG TABLET PO SCH (08:52)
[2018-11-19] MEDS: Insulin LISPRO 300 UNITS/3 ML VIAL SQ SCH ×2 (08:52→12:19)
[2018-11-19] MEDS: Fluticasone Propionate Nasal 50 MCG/SPRAY BOTTLE NS SCH (08:52)
[2018-11-19] MEDS: Loratadine/Pseudophed (12 HR) 1 EACH TABLET PO SCH (08:52)
[2018-11-19] MEDS ORDERED: Aspirin Enteric Coated 81 MG Tablet PO SCH (09:00)
[2018-11-19 11:38] VITALS: BP 154/79
--- NOTE | 2018-11-19 14:28 | Discharge Summary ---
- NOTES TO OUTPATIENT PROVIDER Notes to Outpatient Provider: Follow with PCP in one week Orders not resulted at time of discharge: Pending orders 11/18/18 02:24 NM alfred perf SPECT multi [NM] Routine Date of Encounter: 11/19/18 Time of Encounter: 14:26 - Discharge Diagnosis (1) Chest pain Priority: Primary Status: Acute Qualifiers: Chest pain type: unspecified Qualified Code(s): R07.9 - Chest pain, unspecified (2) ADALID (obstructive sleep apnea) Priority: Secondary Status: Chronic (3) Diabetes mellitus Priority: Secondary Status: Chronic Qualifiers: Diabetes mellitus type: type 2 Diabetes mellitus usp insulin use: with usp use Diabetes mellitus complication status: with neurologic complications Diabetes mellitus complication detail: with autonomic neuropathy Qualified Code(s): E11.43 - Type 2 diabetes mellitus with diabetic autonomic (poly)neuropathy; 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 (4) Morbid obesity with BMI of 45.0-49.9, adult Priority: Secondary Status: Chronic (5) COPD (chronic obstructive pulmonary disease) Priority: Secondary Status: Chronic Qualifiers: COPD type: unspecified COPD Qualified Code(s): J44.9 - Chronic obstructive pulmonary disease, unspecified (6) HTN (hypertension) Priority: Secondary Status: Chronic Qualifiers: Hypertension type: essential hypertension Qualified Code(s): I10 - Essential (primary) hypertension (7) HLD (hyperlipidemia) Priority: Secondary Status: Chronic Qualifiers: Hyperlipidemia type: pure hypercholesterolemia Qualified Code(s): E78.00 - Pure hypercholesterolemia, unspecified; E78.0 - Pure hypercholesterolemia (8) DVT prophylaxis Priority: Secondary Status: Acute Hospital course: Mr. Almeida is a 58 year old male with known PMH of diabetes, HTN, HLD, COPD, ADALID, anxiety, and depression who recently had DVT, PE on Coumadin for anti coagulation , now he presented to ER with c/o of intermittent CP that started three days ago and progressively worsening now. He was admitted in the hospital and placed him on tele. His serial trop were negative. Since his high risk for ACS she did go for nuclear stress test, which came back as negative for ischemia/infarction. He denied any CP now. This afternoon patient left AMA since he did not want to wait until his stress report comes back. - Time Spent with Patient Total time spent providing and/or coordinating discharge services: - Discharge Medications Prescriptions: Continued Finasteride [Proscar] 5 mg PO DAILY Simvastatin [Zocor] 40 mg PO DAILY Multivitamin [Multivitamins] 1 each PO DAILY Fluticasone Propionate Nasal [Flonase] 2 spray NS DAILY Metformin HCl 1,000 mg PO BID Beclomethasone Dipropionate [QVAR 80 mcg REDIHALER] 1 puff IH BID Warfarin [Coumadin] 7.5 mg PO MOFR Metoprolol [Lopressor] 25 mg PO BID Warfarin [Coumadin] 5 mg PO SUTUWETHSA Albuterol Sulfate [Proair Hfa] 2 puff IH BID Fexofenadine HCl 60 mg PO DAILY Fish Oil/Dha/Epa [Fish Oil 1,200 mg Fish Oil] 1,200 mg PO DAILY Furosemide [Lasix] 40 mg PO DAILY Insulin NPH Hum/Reg Insulin Hm [Relion Novolin 70-30 Flexpen] 55 units SQ BID Lisinopril [Zestril] 10 mg PO DAILY Omeprazole Magnesium [Prilosec Otc] 40 mg PO DAILY Venlafaxine XR (24 HR) [Effexor Xr] 150 mg PO DAILY Home Medications: Finasteride [Proscar] 5 mg PO DAILY 01/31/17 [History] Simvastatin [Zocor] 40 mg PO DAILY 02/01/17 [History] Multivitamin [Multivitamins] 1 each PO DAILY 03/23/17 [History] Fluticasone Propionate Nasal [Flonase] 2 spray NS DAILY 11/05/17 [History] Beclomethasone Dipropionate [QVAR 80 mcg REDIHALER] 1 puff IH BID 08/03/18 [History] Metformin HCl 1,000 mg PO BID 08/03/18 [History] Metoprolol [Lopressor] 25 mg PO BID 09/15/18 [History] Warfarin [Coumadin] 7.5 mg PO MOFR 09/15/18 [History] Warfarin [Coumadin] 5 mg PO SUTUWETHSA 11/17/18 [History] Albuterol Sulfate [Proair Hfa] 2 puff IH BID 11/18/18 [History] Fexofenadine HCl 60 mg PO DAILY 11/18/18 [History] Fish Oil/Dha/Epa [Fish Oil 1,200 mg Fish Oil] 1,200 mg PO DAILY 11/18/18 [History] Furosemide [Lasix] 40 mg PO DAILY 11/18/18 [History] Insulin NPH Hum/Reg Insulin Hm [Relion Novolin 70-30 Flexpen] 55 units SQ BID 11/18/18 [History] Lisinopril [Zestril] 10 mg PO DAILY 11/18/18 [History] Omeprazole Magnesium [Prilosec Otc] 40 mg PO DAILY 11/18/18 [History] Venlafaxine XR (24 HR) [Effexor Xr] 150 mg PO DAILY 11/18/18 [History] Allergies/Adverse Reactions: Allergy/AdvReac Type Severity Reaction Status Date / Time amlodipine [From Norvasc] Allergy Rash Verified 11/18/18 13:07 bupropion [From Wellbutrin] Allergy Rash Verified 11/18/18 13:07 gabapentin Allergy Rash Verified 11/18/18 13:07 morphine AdvReac Confusion Verified 11/18/18 13:07 rivaroxaban [From Xarelto] AdvReac Cough Verified 11/18/18 13:10 Date of admission: 11/18/18 01:46 Primary care physician: Sandhya Acuña MD Consults: 11/18/18 03:17 Consult to Pastoral Services [CONS] Routine Comment: - Constitutional Vitals: Temp Pulse Resp BP Pulse Ox 98.2 F 82 16 154/79 96 11/19/18 11:32 11/19/18 11:32 11/19/18 11:32 11/19/18 11:32 11/19/18 11:32 General appearance: Present: cooperative, A&O X 3, morbidly obese, pleasant, answers questions appropriately Exam: Gen: Alert, awake, Oriented to time,place and person Chest: Diminished breath sounds B/L, No wheezing, No crackles, No rales Heart: S1S2+ RRR No murmurs Abd: Soft, NT, BS +, No organomegaly Ext: No edema, pulses are palpable, No calf tenderness Neuro : Benign findings Skin: No rash. - Patient Status Disposition: Left Against Medical Advice Condition: Fair - Discharge Instructions Instructions: Chest Pain (DC), Diverticulitis (DC), Depression (DC) Follow Up With: Sandhya Acuña MD [Primary Care Provider] -
[2018-11-19] MEDS ORDERED: *HR* Warfarin 7.5 MG TABLET PO ONE (18:00)
== END 2018-11-19 13:40 | disposition left against medical advice (07) ==
LOC: EMEROOARM 20:59 → 3BNU 20:59 → SUATTDRO 11-18 01:46 → 3BNU 11-18 02:20
PROVIDERS: ADMIT Internal Medicine; ATTEND Family Medicine

== ENCOUNTER 2019-01-05 07:01 | Inpatient (IN) ==
--- NOTE | 2019-01-05 07:25 | History & Physical Report ---
Date of Encounter: 01/05/19 Time of Encounter: 07:25 24 Hour HP Update - Instructions Instructions: If the History and Physical is less than 30 days old and was completed prior to A.M. admission and or procedure and has NOT been updated on calendar day of procedure please complete this update prior to performing procedure. - Update Patient reports changes in Medical Condition: No Changes in examination, assessment, or condition: No Changes in Medication: No Preop tests/diagnostics Reviewed: Yes Surgery Remains Indicated: Yes Consent for Planned Operative Procedure(s) Verified: Yes - Pre-Operative Checklist Preoperative Checklist Indicated: Yes Prophylactic Antibiotic Ordered: Yes Home Medications Include Beta Marco: Yes Beta Marco Taken Today (Day of Surgery): Yes Beta Marco Taken Yesterday (Day Prior to Surgery): Yes Is VTE Prophylaxis Indicated?: Yes
--- NOTE | 2019-01-05 07:31 | Anesthesia Evaluation PreOp ---
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 (Depression) Other Medical History: Hepatic (Fatty liver), Diabetes Type II, Other (BMI 50, cholelithiasis, diverticular disease, colon polyps, pancreatitis, h/o DVT) Anesthesia History: No Prior Anesthetic Complications, Past Anesthesia (lt knee arthroscopy, bladder surgery, colonoscopy, EGD, LHC (no stents) sigmoid colectomy) Alcohol Use: none Drug use: none Medications and Allergies Finasteride [Proscar] 5 mg PO DAILY 01/31/17 [History] Simvastatin [Zocor] 40 mg PO DAILY 02/01/17 [History] Multivitamin [Multivitamins] 1 each PO DAILY 03/23/17 [History] Fluticasone Propionate Nasal [Flonase] 2 spray NS DAILY 11/05/17 [History] Beclomethasone Dipropionate [QVAR 80 mcg REDIHALER] 1 puff IH BID 08/03/18 [History] Metformin HCl 1,000 mg PO BID 08/03/18 [History] Metoprolol [Lopressor] 25 mg PO BID 09/15/18 [History] Warfarin [Coumadin] 7.5 mg PO MOFR 09/15/18 [History] Warfarin [Coumadin] 5 mg PO SUTUWETHSA 11/17/18 [History] Albuterol Sulfate [Proair Hfa] 2 puff IH BID 11/18/18 [History] Fexofenadine HCl 60 mg PO DAILY 11/18/18 [History] Fish Oil/Dha/Epa [Fish Oil 1,200 mg Fish Oil] 1,200 mg PO DAILY 11/18/18 [History] Furosemide [Lasix] 40 mg PO DAILY 11/18/18 [History] Insulin NPH Hum/Reg Insulin Hm [Relion Novolin 70-30 Flexpen] 55 units SQ BID 11/18/18 [History] Lisinopril [Zestril] 10 mg PO DAILY 11/18/18 [History] Omeprazole Magnesium [Prilosec Otc] 40 mg PO DAILY 11/18/18 [History] Venlafaxine XR (24 HR) [Effexor Xr] 150 mg PO DAILY 11/18/18 [History] Allergy/AdvReac Type Severity Reaction Status Date / Time amlodipine [From Norvasc] Allergy Rash Verified 11/18/18 13:07 bupropion [From Wellbutrin] Allergy Rash Verified 11/18/18 13:07 gabapentin Allergy Rash Verified 11/18/18 13:07 morphine AdvReac Confusion Verified 11/18/18 13:07 rivaroxaban [From Xarelto] AdvReac Cough Verified 11/18/18 13:10 - Meds/Allergy Pre-op Review Medications Reviewed: Yes Allergies Reviewed: Yes Beta Blockers on Current Med List: Yes (metoprolol) If Beta Blockers taken, Date/Time (Last Dose taken): 01/05/19 06:40 Anesthesia Results - Labs Laboratory Tests 01/05/19 07:31 PT 11.8 INR 1.0 APTT 32.7 - Imaging EKG: image reviewed (ST, borderline prolonged QT interval), other ( Impression: Pharmacologic stress ECG is negative for ischemia at level of heart rate achieved. Gated EF = 77%. Perfusion imaging was negative for ischemia or infarct.) Anesthesia Exam O2 Sat Height 1.85 m Height 1.85 m Weight 172.819 kg Weight 172.819 kg O2 Sat by Pulse Oximetry 95 Vital Signs Temp Pulse Resp BP Pulse Ox 97.7 F 85 18 103/62 95 01/05/19 08:10 01/05/19 08:10 01/05/19 08:10 01/05/19 08:10 01/05/19 08:10 Blood glucose: 143 (Hgb A1C 8.6) Height: 6'1 Weight: 172 kg NPO (# of Hours): >8 hrs Pain Scale: 0 Pain Scale Used: Numeric (1 - 10) - HEENT Pupil (Motor): Pupils equal Mallampati: III Teeth: Normal Oral Opening: Greater than 3 - GLASS MECHANIC GLASS MECHANIC Motor: Normal RUE, Normal LUE, Normal RLE, Normal LLE, Normal Face GLASS MECHANIC Sensory: Normal: RUE, LUE, RLE, LLE, Face - Cardiac Rhythm: Regular Murmur: None - Pulmonary Breath Sounds: bilateral Clear Respiratory Effort: Symmetrical Anesthesia Assess/Plan ASA Score: 3 Level of consciousness: Cooperative Anesthetic Plan: General Recovery Plan: PACU
[2019-01-05] MEDS ORDERED: CeFAZolin Syr 3,000MG/30 ML 3,000 MG/30 ML SYRINGE IVPB ONE (07:39)
[2019-01-05] MEDS ORDERED: Albuterol 2.5 MG/3 ML NEBULIZER IH ONE (07:55)
[2019-01-05 07:59] LABS: Prothrombin Time 11.8 Seconds (9.4-12.1)
[2019-01-05 08:01] LABS: Activated Partial Thrombo Time 32.7 Seconds (26.0-36.0)
[2019-01-05] MEDS ORDERED: *HR* HYDROmorphone (PF) 1 MG/ML SYRINGE IVP PRN ×2 (08:02→17:09)
[2019-01-05] MEDS ORDERED: *HR* OxyCODONE Immed Rel 5 MG TABLET PO PRN (08:02)
[2019-01-05] MEDS ORDERED: Albuterol 2.5 MG/3 ML NEBULIZER ONE (08:03)
[2019-01-05] MEDS: Ringers Solution, Lactated 1,000 ML IVC SCH ×2 (08:06→15:15)
[2019-01-05] MEDS ORDERED: Bupivacaine/EPI 1:200k 0.25%PF 30 ML VIAL ONE (09:01)
[2019-01-05] MEDS ORDERED: *HR* Propofol 200 MG/20 ML VIAL IVP ONE (09:02)
[2019-01-05] MEDS ORDERED: *HR* FentaNYL (PF) 100 MCG/2 ML VIAL ONE (09:02)
[2019-01-05] MEDS ORDERED: *HR* Midazolam HCl 2 MG/2 ML VIAL ONE (09:03)
[2019-01-05] MEDS ORDERED: Isovue-300 50 ML VIAL ONE (09:14)
[2019-01-05] MEDS ORDERED: *HR* PHENYLEPHRINE 1,000 MCG/10 ML SYRINGE IVP ONE ×2 (09:53→10:34)
[2019-01-05] MEDS ORDERED: Albuterol 2.5 MG/3 ML NEBULIZER IH PRN ×2 (11:01→17:09)
[2019-01-05] MEDS ORDERED: Ringers Solution, Lactated 500 ML IVC ONE (11:01)
[2019-01-05] MEDS ORDERED: *HR* OxyCODONE/APAP 5/325 TABLET PO PRN ×2 (11:01→17:09)
--- NOTE | 2019-01-05 11:07 | Operative Note ---
Date of procedure: 01/05/19 Pre-op diagnosis: recurrent chest and abdominal pain, cholelithiasis Post-op diagnosis: same Procedure: laparoscopic cholecystectomy Complications: none apparent Anesthesia: GETA Local Anesthetics: 0.25% Sensorcaine HCL with Epinephrine 1:200,000 SubQ (cc) (30 mL) Surgeon: Mateusz Orantes Was there an career services assistant present: No Estimated blood loss (cc): 100 IV fluids (cc): 1,800 Specimen: gallbladder Condition: stable Disposition: PACU Procedure in Detail: Brief history: 58-year-old male presents for cholecystectomy after repeated episodes of bilateral chest and upper abdominal pain. He has known cholelithiasis per previous imaging. The patient has a recent history of acute perforated sigmoid diverticulitis for which a primary sigmoid colectomy was ultimately performed. The postoperative course was complicated by DVT which ultimately caused a pulmonary embolism. The patient has chronic swelling of the left lower extremity and continues to be on anticoagulation. Warfarin anticoagulation has been held for the past 5 days with Lovenox bridge therapy. The patient presents today for cholecystectomy. Historical details and physical findings are available in the dictated H&P. Technique: The patient was transported to the OR where he was placed supine on the procedure table. The patient was identified to appropriate person and procedure. The accuracy of this information was confirmed by the patient and procedure team. The patient was then intubated and anesthetized under the supervision of Dr Andrzej Willson. The abdomen was prepped and draped in usual sterile fashion. Due to the prior history of sigmoid colectomy via a midline incision in the lower abdomen the laparoscopic approach was initiated in the right upper quadrant midclavicular line. Several milliliters of 0.25% bupivacaine with 1-200,000 epinephrine was infiltrated into the skin. A small transverse incision was made. A 5 mm Xcel port was established. The rigid laparoscope was placed within the obturator to visualize passage through the layers of the anterior abdominal wall. Once the abdominal cavity was accessed, the obturator was replaced by the rigid laparoscope. The abdomen was insufflated with gaseous carbon dioxide. There was no obvious visible injury from establishing the port. Under direct visualization, an 11 mm Xcel was placed cephalad to the umbilicus at the superior pole of the midline incision. It was in this area where the adhesions and it and the port could be placed safely. The rigid laparoscope was shifted to this location to visualize the placement of the remaining ports along the right costal margin. All port sites were infiltrated with the bupivacaine with epinephrine solution. The gallbladder was tensely distended without obvious inflammation.. Approximately 75 mL jovel green fluid was aspirated. This allowed the gallbladder to be grasped and retracted. The patient's body habitus limited visualization of the structures of the rashid hepatis. This was remedied by placing a 12 mm port essentially midway between the supraumbilical and subxiphoid ports. A 12 mm paddle retractor was placed with significant improvement in visualization. The hepatoduodenal ligament was dissected until the cystic duct could be identified and skeletonized. During this dissection pulsatile bleeding from the area of the infundibulum of the gallbladder was encountered and controlled with hemoclips. The dissection of the cystic duct was identified. The cystic duct was clipped once proximally and twice distally before it was divided. The c ystic artery was identified, once proximally and divided using the Ethicon harmonic timi. The gallbladder was then dissected from the liver bed using the Ethicon harmonic timi. When the gallbladder was from the liver bed was placed in an endoscopic pouch and extracted through the supraumbilical port. The gallbladder was retrieved and sent to pathology. Despite radiologic evidence of stones, there were no palpable stones within the gallbladder. The liver bed was inspected. Hemostasis seemed adequate. The pneumoperitoneum was evacuated, the laparoscopic instrumentation removed. The fascia of the supraumbilical and 12 mm port placed midepigastrium was closed with interrupted [id number] 0 Vicryl using S retractors. The skin edges of all ports were approximated with subcuticular 4-0 Vicryl. The incisions were sealed with Dermabond dermal adhesive. The patient was taken to recovery in stable condition., Sponge, and instrument counts were correct at the end of the case.
--- NOTE | 2019-01-05 15:29 | Anesthesia Evaluation Post Op ---
Date of Encounter: 01/05/19 Time of Encounter: 15:28 - Vital Signs Vital Signs: Vital Signs/O2 Sat, Most Current Temp Pulse Resp BP Pulse Ox 98.1 F 95 22 147/97 96 01/05/19 11:38 01/05/19 15:21 01/05/19 15:21 01/05/19 15:21 01/05/19 15:21 - Lungs Lungs: Clear Ascult./Percussion - Airway Airway: Non-obstructed - Cardiovascular Regular Rate - Mental Status Mental Status: Alert & Oriented, Answers Appropriately - Pain Pain Scale: 5 Pain Scale used: Numeric (1 - 10) - Nausea Vomiting Nausea Vomiting: Not Present - Hydration Hydration: Tolerates oral liquids, Able to void - Discharge PostOp Status: Transfer Patient to floor
--- NOTE | 2019-01-05 15:49 | General Surgery Progress Note ---
Date of Encounter: 01/05/19 Time of Encounter: 15:55 Subjective Narrative: General Surgery - post operative status - this is a delayed dictation Patient s/p laparoscopic cholecystectomy earlier today. The patient is doing well, remaining afebrile and hemodynamically stable through the course of his postoperative recovery. Pulse 93-95 and regular; respiratory rate 16-18, blood pressure 131/86- 147/97. Lungs clear bilaterally though bibasilar breath sounds are diminished likely due to the patient's body habitus Abd: soft with minimal tenderness around the port sites related to the recent cholecystectomy. Active bowel sounds. No rebound or peritoneal signs. The patient's indicates that he has had significant increased left lower extremity leg swelling for the past several weeks. The patient initially denied this but then it admitted the same. There is also a complaint of numbness/diminished sensation in the left lower extremity. The patient has a history of DVT/PE following sigmoid colectomy for acute perforated sigmoid diverticulitis, 08/06/2018. The patient has been on anticoagulation since the diagnosis of his DVT/PE. This is being managed through the Coumadin clinic. In preparation for the cholecystectomy today, warfarin had been discontinued but the patient is on appropriate bridge therapy (Lovenox). Based on this information, bilateral Doppler venograms were obtained. These demonstrated no significant findings in the right lower extremity but evidence of acute recurrent DVT. There is evidence of chronic clot consistent with the patient's prior history. Dr Paz was contacted to discuss further care of this patient. The patient will be admitted to for further management and care. The Doppler venography findings and treatment recommendations discussed extensively with the patient, his and his sister. The patient agrees to be admitted to Objective Vital Signs - Last 8 Hours Temp Pulse Resp BP Pulse Ox 01/05/19 15:21 95 22 147/97 96 01/05/19 14:35 93 16 131/86 96 01/05/19 13:35 93 18 137/92 95 01/05/19 12:32 95 16 92/61 97 01/05/19 12:05 94 16 105/69 94 01/05/19 11:38 98.1 F 95 16 106/69 95 01/05/19 11:34 98.1 F 93 16 106/95 94 01/05/19 11:24 93 16 115/71 93 01/05/19 11:14 91 16 101/55 93 01/05/19 11:04 97.0 F L 90 16 98/66 93 01/05/19 08:17 18 103/62 95 01/05/19 08:10 97.7 F 85 18 103/62 95 Intake and Output 01/04/19 01/05/19 01/05/19 23:59 07:59 15:59 Intake Total 20 / 20 Output Total 100 / 100 Balance -80 / -80 Intake: IV Fluids 20 / 20 Ancef Syringe 3,000 MG/30 ML 3, 20 / 20 000 mg In 30 ml @ 200 mls/hr IVPB PREOP ONE Rx#:[id number] Output: Estimated Blood Loss 100 / 100 Other: Weight 172.819 kg Blood Glucose* 143 Patient Weight 01/05/19 23:59 Weight 172.819 kg Consult Discharge Plan - Plan Referrals: Alejandro Hagan Jr, MD [Primary Care Provider] -
[2019-01-05] MEDS ORDERED: Ondansetron 4 MG/2 ML VIAL IVP PRN (15:59)
[2019-01-05] MEDS ORDERED: Acetaminophen 325 MG TABLET PO PRN ×3 (15:59→17:09)
[2019-01-05] MEDS ORDERED: *HR* HYDROcodone/Acet 5/325 mg TABLET PO PRN ×2 (15:59→17:09)
[2019-01-05] MEDS ORDERED: Naloxone 0.4 MG/ML INJ IVP PRN (15:59)
[2019-01-05] MEDS ORDERED: Isovue-370 500 ML BOTTLE IVP ONE ×2 (16:03→17:09)
[2019-01-05] MEDS ORDERED: Heparin 25,000 UNIT/250 ML D5W 25,000 UNIT/250 ML IV.SOLN IVC SCH (16:15)
--- NOTE | 2019-01-05 16:17 | Internal Med History&Physical ---
Date of Encounter: 01/05/19 Time of Encounter: 16:08 Internal Medicine - H&P: HPI Chief complaint: Acute DVT Admitted From: Emergency Dept Plans for Post Hospital Care: Home History of present illness: Mr. Almeida is a 58 year old male with known PMH of diabetes, HTN, HLD, COPD, ADALID, anxiety, and depression who recently had DVT and PE on Coumadin for anti coagulation who scheduled for active cholecystectomy today, and currently on Lovenox therapy to bridge with Coumadin for his surgery preparation, patient complained about 3 to 4 days of worsening swelling and erythema and tenderness in both legs more significant on the left leg. Patient had an active cholecystectomy done today by Dr. Orantes, after the surgery Dr. orantes ordered venous Doppler of both legs, Prelim report came back as acute DVT in Left leg. I was asked to to admit the pt under our service to take care of his current acute on chronic DVT. When I examined the patient on same-day surgery recovery room, he is more alert, awake, O x 4. He denied any chest pain. However he complained about shortness of breath couple of days ago. He did mention has been having worsening swelling and tenderness in both legs more significant left . Past Med Surg Social Fam HX - Past Medical History Medical history: COPD, DVT, diabetes, hyperlipidemia, hypertension, other Additional medical history: Depression. Sleep Apnea- uses CPAP. Diverticulosis with Hx of Diverticulitis. Colon Polyps. Diverticular Disease. Fatty Liver. Chronic Lumbago. Pancreatitis. TTE with LVEF 60-65%, Mild Concentric Hyperotrophy of the Ventricule, Mild LV Diastolic Dysfunction. PE Psychiatric history: anxiety, depression - Past Surgical History Surgical History: arthroscopy Additional surgical history: Bladder Sx. Colonoscopy. EGD. LHC. Sigmoid Colectomy - Social History Smoking Status: Never smoker Smokeless Tobacco Status: No Alcohol use: none Drug use: none - Family History Father Family Member Ethnicity: Non- Living Status: Hx Family Cardiac Disorders: Yes ([place], CAD) Brother Family Member Ethnicity: Non- Living Status: Still Living Hx Family Cardiac Disorders: Yes (CAD) Sister Family Member Ethnicity: Non- Living Status: Still Living Hx Family Endocrine Disorder: Yes (DM) Grandmother Family Member Ethnicity: Non- Living Status: Hx Family Cancer: Yes (Breast) Grandfather Family Member Ethnicity: Non- Living Status: Hx Family Cardiac Disorders: Yes ([place]) Hx Family Endocrine Disorder: Yes (DM) Mother Family Member Ethnicity: Non- Living Status: Still Living Hx Family Cardiac Disorders: Yes (HTN) Hx Family Respiratory Disorders: No Hx Family Cancer: Yes (Colon Cancer) Hx Family GI Disorders: No Hx Family Endocrine Disorder: No Hx Family Neuromuscular Disorders: No Hx Family Neurologic Disorders: No Hx Family HEENT Disorders: No Hx Family Autoimmune Disorders: No Internal Medicine - H&P: Meds Finasteride [Proscar] 5 mg PO QAM 01/31/17 [History] Simvastatin [Zocor] 40 mg PO QPM 02/01/17 [History] Multivitamin [Multivitamins] 1 each PO QAM 03/23/17 [History] Fluticasone Propionate Nasal [Flonase] 2 spray NS DAILY 11/05/17 [History] Metformin HCl 1,000 mg PO BID 08/03/18 [History] Metoprolol [Lopressor] 25 mg PO BID 09/15/18 [History] Warfarin [Coumadin] 5 mg PO SUTUWETHSA 11/17/18 [History] Fexofenadine HCl 60 mg PO QAM 11/18/18 [History] Fish Oil/Dha/Epa [Fish Oil 1,200 mg Fish Oil] 1,200 mg PO DAILY 11/18/18 [History] Furosemide [Lasix] 40 mg PO QAM 11/18/18 [History] Insulin NPH Hum/Reg Insulin Hm [Relion Novolin 70-30 Flexpen] 55 units SQ BID 11/18/18 [History] Lisinopril [Zestril] 10 mg PO QAM 11/18/18 [History] Omeprazole Magnesium [Prilosec Otc] 20 mg PO BID 11/18/18 [History] Venlafaxine XR (24 HR) [Effexor Xr] 150 mg PO QAM 11/18/18 [History] Cinnamon Bark [Cinnamon] 500 mg PO QAM 01/05/19 [History] Enoxaparin [Lovenox] 150 mg SQ BID 01/05/19 [History] Trazodone HCl 50 mg PO HS 01/05/19 [History] Venlafaxine HCl [Venlafaxine HCl ER] 75 mg PO QAM 01/05/19 [History] Warfarin [Coumadin] 7.5 mg PO MOFR 01/05/19 [History] Allergy/AdvReac Type Severity Reaction Status Date / Time amlodipine [From Norvasc] Allergy Rash Verified 01/05/19 08:26 bupropion [From Wellbutrin] Allergy Rash Verified 01/05/19 08:26 gabapentin Allergy Rash Verified 01/05/19 08:26 morphine AdvReac Confusion Verified 01/05/19 08:26 rivaroxaban [From Xarelto] AdvReac Cough Verified 01/05/19 08:26 SURGICAL TAPE AdvReac Blister Uncoded 01/05/19 08:26 All Systems PM: A 10-system review of systems was performed and is negative for pertinent findings except as documented above in the HPI. Review of systems: All the systems are reviewed everything is benign except the systems and symptoms I mentioned in the history of present illness - Constitutional Vitals: Temp Pulse Resp BP Pulse Ox 98.1 F 95 22 147/97 96 01/05/19 11:38 01/05/19 15:21 01/05/19 15:21 01/05/19 15:21 01/05/19 15:21 General appearance: Present: cooperative, A&O X 3, no acute distress, answers questions appropriately Exam: a - Head Head exam: Present: atraumatic, normal inspection - Neck Neck exam general surgery: Present: supple - Respiratory Respiratory exam: Present: decreased breath sounds. Absent: rales, respiratory distress, rhonchi, wheezes - Cardiovascular Cardiovascular exam: Present: RRR, +S1, +S2. Absent: tachycardia - GI/Abdominal GI/Abdominal exam: Present: normal bowel sounds, soft, tenderness (mild discomfort at incision areas). Absent: distended, rebound, rigid - Extremities Exam Extremities exam: Present: calf tenderness, pedal edema (2-3+), tenderness, warm - Back Exam Back exam: Absent: CVA tenderness (L), CVA tenderness (R) - Neurological Exam Neurological exam: Present: alert, oriented X3 - Psychiatric Psychiatric exam: Present: normal affect, normal mood - Skin Skin exam: Present: rash - Assessment and Plan (1) DVT (deep venous thrombosis) Current Visit: Yes Status: Acute Assessment and plan: Place the pt into Tele for observation his prelim report showed acute DVT in Left leg It seems pt is non compliance with his medication, which could be the reason for his current acute DVT however with his multiple risk factors, recurrent DVT and h/o PE, consulted Vascular surgery for further eval Also ordered CTA of chest since he s/o SOB started him on Heparin gtt talked to surgeon Dr. Orantes , he is ok to start heparin gtt with no loading / initial bolus and repeating boluses for next 12 hrs cont close monitoring Qualifiers: DVT location: lower extremity Affected thrombotic vein of extremity: unspecified vein of extremity Chronicity: acute Laterality: left Qualified Code(s): I82.402 - Acute embolism and thrombosis of unspecified deep veins of left lower extremity (2) Bilateral leg edema Current Visit: No Status: Acute Assessment and plan: Mutli factorial DVT , Deconditioning, dependent edema and Diastolic CHF exacerbation Reviewed his 2D Echo from 11/14 showed LVEF 60%, LVH Will start him on IV lasix in AM since he just had surgery (3) ADALID on CPAP Current Visit: No Status: Acute Assessment and plan: will place him CPAP tonight (4) COPD (chronic obstructive pulmonary disease) Current Visit: No Status: Chronic Assessment and plan: cont Neb treatment Qualifiers: COPD type: unspecified COPD Qualified Code(s): J44.9 - Chronic obstructive pulmonary disease, unspecified (5) Diabetes mellitus type II, non insulin dependent Current Visit: No Status: Chronic Assessment and plan: on ISS ADA diet (6) HLD (hyperlipidemia) Current Visit: No Status: Chronic Assessment and plan: on statin Qualifiers: Hyperlipidemia type: pure hypercholesterolemia Qualified Code(s): E78.00 - Pure hypercholesterolemia, unspecified; E78.0 - Pure hypercholesterolemia (7) HTN (hypertension) Current Visit: No Status: Chronic Assessment and plan: stable BP will resume home meds Qualifiers: Hypertension type: essential hypertension Qualified Code(s): I10 - Essential (primary) hypertension (8) Morbid obesity with BMI of 45.0-49.9, adult Current Visit: No Status: Chronic - Time Spent With Patient Total time spent is greater than 50% in coordination of care (as documented) at patient's floor/unit and/or counseling patient:
[2019-01-05 16:30] LABS: Prothrombin Time 11.9 Seconds (9.4-12.1)
[2019-01-05 16:43] LABS: BUN/Creatinine Ratio 19 (6-26); Blood Urea Nitrogen 22 mg/dL (6-20); Calcium 9.5 mg/dL (8.6-10.3); Carbon Dioxide 28 mEq/L (23-29); Chloride 99 mEq/L (98-107); Glucose 198 mg/dL (70-105); Osmolality,Calculated 295 (280-300); Potassium 4.8 mEq/L (3.5-5.1); Sodium 138 mEq/L (136-145); eGFR For African Americans > 60 (> 60); eGFR For Non-African Americans > 60 (> 60)
[2019-01-05] MEDS: Finasteride 5 MG TABLET PO SCH (17:30)
[2019-01-05 17:56] LABS: Hematocrit 39.5 % (37.5-50.1); Hemoglobin 12.8 g/dL (12.9-16.9); Mean Corpuscular HGB Conc 32.4 g/dL (31.6-35.5); Mean Corpuscular Hemoglobin 27.5 pg (28.0-33.3); Mean Corpuscular Volume 84.9 fL (83.0-100.0); Mean Platelet Volume 9.9 fL (9.4-12.4); Platelet Count 182 K/mcL (140-400); Red Blood Count 4.65 M/mcL (4.19-5.50); Red Cell Distribution Width 14.8 % (11.5-14.5); White Blood Count 6.3 K/mcL (4.3-11.1)
[2019-01-05] MEDS: Insulin NPH/REG 70/30 100 UNIT/ML (x5UNIT) SQ SCH (18:19)
[2019-01-05] MEDS: Heparin 25,000 UNIT/250 ML D5W 25,000 UNIT/250 ML IV.SOLN IVC SCH (18:19)
[2019-01-05] MEDS ORDERED: [UNRECOGNIZED DRUG - OTHER] SQ SCH (21:00)
[2019-01-05] MEDS ORDERED: REG INSULIN SQ SCH (21:00)
[2019-01-05] MEDS ORDERED: INSULIN NPH HUM SQ SCH (21:00)
[2019-01-06 01:05] LABS: Basophils % 0.1 %; Hematocrit 37.6 % (37.5-50.1); Hemoglobin 12.3 g/dL (12.9-16.9); Immature Granulocytes % 0.5 % (0-4); Lymphocytes % 13.4 %; Mean Corpuscular HGB Conc 32.7 g/dL (31.6-35.5); Mean Corpuscular Hemoglobin 27.8 pg (28.0-33.3); Mean Corpuscular Volume 85.1 fL (83.0-100.0); Mean Platelet Volume 10.1 fL (9.4-12.4); Monocytes # 0.4 K/mcL (0.0-1.3); Neutrophils # 6.3 K/mcL (1.6-8.9); Platelet Count 205 K/mcL (140-400); Red Blood Count 4.42 M/mcL (4.19-5.50); Red Cell Distribution Width 14.7 % (11.5-14.5); White Blood Count 7.8 K/mcL (4.3-11.1)
[2019-01-06 01:25] LABS: Alanine Aminotransferase 28 Units/L (7-52); Albumin 3.6 g/dL (3.5-5.7); Albumin/Globulin Ratio 1.2 (1.1-2.2); Alkaline Phosphatase 51 Units/L (34-104); Aspartate Amino Transferase 28 Units/L (13-39); BUN/Creatinine Ratio 21 (6-26); Bilirubin,Total 0.4 mg/dL (0.3-1.0); Blood Urea Nitrogen 24 mg/dL (6-20); Carbon Dioxide 22 mEq/L (23-29); Chloride 101 mEq/L (98-107); Globulin 2.9 g/dL (2.4-3.5); Glucose 197 mg/dL (70-105); Osmolality,Calculated 288 (280-300); Potassium 4.4 mEq/L (3.5-5.1); Sodium 134 mEq/L (136-145); Total Protein 6.5 g/dL (6.4-8.9); eGFR For African Americans > 60 (> 60); eGFR For Non-African Americans > 60 (> 60)
[2019-01-06] MEDS: Heparin 25,000 UNIT/250 ML D5W 25,000 UNIT/250 ML IV.SOLN IVC SCH ×2 (04:55→14:30)
[2019-01-06] MEDS: Insulin NPH/REG 70/30 100 UNIT/ML (x5UNIT) SQ SCH ×2 (07:47→18:29)
[2019-01-06] MEDS: Finasteride 5 MG TABLET PO SCH (07:48)
[2019-01-06] MEDS ORDERED: Furosemide 40 MG TABLET PO SCH (09:00)
[2019-01-06] MEDS ORDERED: Furosemide 40 MG in 0.9 % Sodium Chloride 50 ML IV SCH (09:40)
--- NOTE | 2019-01-06 11:51 | Vascular/Endovasc Consult Note ---
Date of Encounter: 01/06/19 Time of Encounter: 11:46 Assessment and Plan (1) DVT (deep venous thrombosis) Current Visit: Yes Status: Acute Patient has what appears to be acute DVT in the distal superficial femoral vein and popliteal vein and superficial thrombus in the lesser saphenous vein. I question whether this may also represent acute on chronic DVT as this is the same location in the deep venous system of the DVT that was identified in July. At this point I do not recommend insertion of an IVC filter. I agree with use of intravenous heparin drip with conversion back to Coumadin therapy. I explained to the patient that he needs to have his INR run at a higher level and I would recommend his goal should be an INR of 2.5-3.5. I recommended that the lower extremity be elevated with his knee and ankle higher than the heart as much as possible and particularly while sleeping. I recommended increased physical activity and recommend walking on a regular basis with avoidance of prolonged standing. I recommended the use of knee-high compression stockings which may begin in 2 weeks once his INR has stabilized as an outpatient. I recommended weight loss and avoidance of high sodium foods and beverages. Agree with use of lifelong anticoagulation therapy. Should the anticoagulation therapy need to be interrupted in the future I would recommend insertion of an IVC filter at that time. Qualifiers: DVT location: lower extremity Affected thrombotic vein of extremity: unspecified vein of extremity Chronicity: acute Laterality: left Qualified Code(s): I82.402 - Acute embolism and thrombosis of unspecified deep veins of left lower extremity (2) Obesity hypoventilation syndrome Current Visit: No Status: Chronic Chronic obesity. (3) COPD (chronic obstructive pulmonary disease) Current Visit: No Status: Chronic Chronic COPD Qualifiers: COPD type: unspecified COPD Qualified Code(s): J44.9 - Chronic obstructive pulmonary disease, unspecified (4) Diabetes mellitus Current Visit: Yes Status: Chronic Patient has chronic diabetes. 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 Almeida is a 58 year old male With a very complicated past medical history over these past number of months. The patient was admitted following a laparoscopic cholecystectomy yesterday because of left lower extremity pain and swelling. A venous duplex scan was performed. This demonstrated either persistent or acute on chronic deep venous thrombosis in the left distal superficial femoral vein, popliteal vein, and lesser saphenous vein. The patient was placed on intravenous heparin. His history is significant in that he had undergone a sigmoid colectomy for perforated sigmoid diverticulitis in July. Proximally 2 weeks postop he was found to have a left lower extremity DVT and bilateral pulmonary embolization. He was originally started on Zaroxolyn therapy but had complications and was eventually transferred to [facility] because of the bilateral pulmonary embolism. According to the patient and the family he did not receive thrombolytic agents. He was then placed on Coumadin therapy. He was also seen in hematology clinic in September where continued lifelong use of Coumadin therapy was confirmed. In anticipation for this cholecystectomy his Coumadin therapy was stopped 6 days preop and he was started on subcutaneous Lovenox injections for days preop. The patient has been followed through the Coumadin clinic for management of his INR and Coumadin dosing. The patient states that he has been taking his medicine as prescribed and that his INR levels have been between 2.0 and 3.0. He denies any active bleeding at this time or other complications of anticoagulation therapy. As part of his evaluation he had a chest x-ray during this admission which was without acute findings. He also had a CT Vania Josue of the chest to rule out recurrent pulmonary embolization last night which was negative. The patient has multiple other ongoing medical problems including marked obesity, diabetes, hyperlipidemia, COPD, obstructive sleep apnea, hypertension, and an aneurysm of the ascending aorta. Past Med Surg Social Fam HX - Past Medical History Medical history: COPD, DVT, diabetes, hyperlipidemia, hypertension, other Additional medical history: Depression. Sleep Apnea- uses CPAP. Diverticulosis with Hx of Diverticulitis. Colon Polyps. Diverticular Disease. Fatty Liver. Chronic Lumbago. Pancreatitis. TTE with LVEF 60-65%, Mild Concentric Hyperotrophy of the Ventricule, Mild LV Diastolic Dysfunction. PE Psychiatric history: anxiety, depression - Past Surgical History Surgical History: arthroscopy Additional surgical history: Bladder Sx. Colonoscopy. EGD. LHC. Sigmoid Colectomy - Social History Smoking Status: Never smoker Smokeless Tobacco Status: No Alcohol use: none Drug use: none - Family History Father Family Member Ethnicity: Non- Living Status: Hx Family Cardiac Disorders: Yes ([place], CAD) Brother Family Member Ethnicity: Non- Living Status: Still Living Hx Family Cardiac Disorders: Yes (CAD) Sister Family Member Ethnicity: Non- Living Status: Still Living Hx Family Endocrine Disorder: Yes (DM) Grandmother Family Member Ethnicity: Non- Living Status: Hx Family Cancer: Yes (Breast) Grandfather Family Member Ethnicity: Non- Living Status: Hx Family Cardiac Disorders: Yes ([place]) Hx Family Endocrine Disorder: Yes (DM) Mother Family Member Ethnicity: Non- Living Status: Still Living Hx Family Cardiac Disorders: Yes (HTN) Hx Family Respiratory Disorders: No Hx Family Cancer: Yes (Colon Cancer) Hx Family GI Disorders: No Hx Family Endocrine Disorder: No Hx Family Neuromuscular Disorders: No Hx Family Neurologic Disorders: No Hx Family HEENT Disorders: No Hx Family Autoimmune Disorders: No Medications and Allergies Finasteride [Proscar] 5 mg PO QAM 01/31/17 [History] Simvastatin [Zocor] 40 mg PO QPM 02/01/17 [History] Multivitamin [Multivitamins] 1 each PO QAM 03/23/17 [History] Fluticasone Propionate Nasal [Flonase] 2 spray NS DAILY 11/05/17 [History] Metformin HCl 1,000 mg PO BID 08/03/18 [History] Metoprolol [Lopressor] 25 mg PO BID 09/15/18 [History] Warfarin [Coumadin] 5 mg PO SUTUWETHSA 11/17/18 [History] Fexofenadine HCl 60 mg PO QAM 11/18/18 [History] Fish Oil/Dha/Epa [Fish Oil 1,200 mg Fish Oil] 1,200 mg PO DAILY 11/18/18 [History] Furosemide [Lasix] 40 mg PO QAM 11/18/18 [History] Insulin NPH Hum/Reg Insulin Hm [Relion Novolin 70-30 Flexpen] 55 units SQ BID 11/18/18 [History] Lisinopril [Zestril] 10 mg PO QAM 11/18/18 [History] Omeprazole Magnesium [Prilosec Otc] 20 mg PO BID 11/18/18 [History] Venlafaxine XR (24 HR) [Effexor Xr] 150 mg PO QAM 11/18/18 [History] Cinnamon Bark [Cinnamon] 500 mg PO QAM 01/05/19 [History] Enoxaparin [Lovenox] 150 mg SQ BID 01/05/19 [History] Trazodone HCl 50 mg PO HS 01/05/19 [History] Venlafaxine HCl [Venlafaxine HCl ER] 75 mg PO QAM 01/05/19 [History] Warfarin [Coumadin] 7.5 mg PO MOFR 01/05/19 [History] Allergy/AdvReac Type Severity Reaction Status Date / Time amlodipine [From Norvasc] Allergy Rash Verified 01/05/19 08:26 bupropion [From Wellbutrin] Allergy Rash Verified 01/05/19 08:26 gabapentin Allergy Rash Verified 01/05/19 08:26 morphine AdvReac Confusion Verified 01/05/19 08:26 rivaroxaban [From Xarelto] AdvReac Cough Verified 01/05/19 08:26 SURGICAL TAPE AdvReac Blister Uncoded 01/05/19 08:26 All Systems Review: The remainder of the systems were reviewed and are negative Exam Vital Signs, Last 4 Hours Temp Pulse Resp BP Pulse Ox 01/06/19 11:35 98.7 F 95 18 142/81 94 General: Present: Conversant, No Apparent Distress, Well developed, Well nourished, Other (Markedly obese white male) HEENT: Present: Atraumatic, Normocephaly, Trachea midline Neck: Absent: JVD Neuro: Present: Alert and responsive, No focal deficits noted, Cranial nerves grossly intact Abdomen: Present: Soft, Non-tender Vascular: Present: Normal capillary refill, Edema (Patient has bilateral lower extremity edema slightly more on the left side than on the right. This is nontender. There is no erythema. There are no palpable cords. There are no ulcerations. There is no sign of cellulitis.), Color/Temperature (Normal color and temperature of lower extremities.), Surgical incisions (Patient has multiple abdominal incisions from his radius operations withdraw healing well.) Skin: Present: No rashes noted on visualized skin. Absent: Wound/ulcer(s) Consult Discharge Plan - Plan Referrals: Alejandro Hagan Jr, MD [Primary Care Provider] -
[2019-01-06] MEDS: Furosemide 40 MG/4 ML VIAL IVP SCH ×3 (13:46→23:11)
--- NOTE | 2019-01-06 14:14 | Internal Med Progress Note ---
Hospitalist Progress Note - Encounter Date of Encounter: 01/06/19 Time of Encounter: 09:45 - Subjective Interval History: Pt was seen and examined at bed side. He denied any CP / SOB. He still has diffuse swelling in both legs.. Pt stated his pain in both legs are better today. His abd pain is better and tolerating oral intake well. - Exam Vitals: Temp Pulse Resp BP Pulse Ox 98.7 F 95 18 142/81 94 01/06/19 11:35 01/06/19 11:35 01/06/19 11:35 01/06/19 11:35 01/06/19 11:35 Exam: Gen: Alert, awake, Oriented to time,place and person Chest: Diminished breath sounds B/L, No wheezing, No crackles, No rales Heart: S1S2+ RRR No murmurs Abd: Soft, NT, BS +, No organomegaly.. clean incisions Ext: 3+ diffuse pitting edema, pulses are palpable, mild tenderness left leg, improved erythema in Left leg Neuro : No acute focal neuro deficits noticed Skin: No rash. - Assessment and Plan (1) DVT (deep venous thrombosis) Current Visit: Yes Status: Acute Assessment and Plan: His venous doppler showed left superficial femoral vein and popliteal vein demonstrates acute thrombosis Talked to Vascular surgery Dr. Orantes, who do not recommend any interventions n ow He recommended to continue Coumadin and keep INR @ 2.5-3.5 Will switch him to Lovenox Inj to bridge with Coumadin His CTA of chest ruled out PE (2) Bilateral leg edema Current Visit: No Status: Acute Assessment and Plan: Mutli factorial DVT , Deconditioning, dependent edema and Diastolic CHF exacerba tion Reviewed his 2D Echo from 11/14 showed LVEF 60%, LVH started him on IV Lasix 40 Q8hr (3) ADALID on CPAP Current Visit: No Status: Acute Assessment and Plan: cont using home CPAP at HS (4) COPD (chronic obstructive pulmonary disease) Current Visit: No Status: Chronic Assessment and Plan: cont Neb treatment (5) Diabetes mellitus type II, non insulin dependent Current Visit: No Status: Chronic Assessment and Plan: on ISS ADA diet (6) HLD (hyperlipidemia) Current Visit: No Status: Chronic Assessment and Plan: on statin (7) HTN (hypertension) Current Visit: No Status: Chronic Assessment and Plan: stable BP Continue current home meds (8) Morbid obesity with BMI of 45.0-49.9, adult Current Visit: No Status: Chronic - Time Spent with Patient Total time spent is greater than 50% in coordination of care (as documented) at patient's floor/unit and/or counseling patient: Internal Medicine: Result - Labs CBC & Chem 7: 01/06/19 00:32 01/06/19 00:32 Labs: Short CBC 01/05/19 01/06/19 Range/Units 17:22 00:32 WBC 6.3 7.8 (4.3-11.1) K/mcL Hgb 12.8 L 12.3 L (12.9-16.9) g/dL Hct 39.5 37.6 (37.5-50.1) % Plt Count 182 205 (140-400) K/mcL Neutrophils # 6.3 (1.6-8.9) K/mcL BMP 01/05/19 01/06/19 16:05 00:32 Sodium 138 134 L Potassium 4.8 4.4 Chloride 99 101 Carbon Dioxide 28 22 L BUN 22 H 24 H Creatinine 1.15 1.14 Glucose 198 H 197 H Calcium 9.5 9.0 Liver Function 01/06/19 Range/Units 00:32 Total Bilirubin 0.4 (0.3-1.0) mg/dL AST 28 (13-39) Units/L ALT 28 (7-52) Units/L Alkaline Phosphatase 51 (34-104) Units/L Albumin 3.6 (3.5-5.7) g/dL - ABG Interpretation ABG results: PT/INR, D-dimer PT 11.9 Seconds (9.4-12.1) 01/05/19 16:05 - Impressions Impressions Chest CTA 01/05/19 00:00 IMPRESSION: No evidence of pulmonary embolism or acute pulmonary abnormality. D/ / Dimitri Taveras MD / Dimitri Taveras MD Interpreting Provider: Dimitri Taveras MD Chest X-Ray 01/05/19 21:31 IMPRESSION: No acute cardiopulmonary process D/ / Ted Agustin / Ted Agustin Interpreting Provider: Ted Agustin Consult Discharge Plan - Plan Referrals: Alejandro Hagan Jr, MD [Primary Care Provider] - (1) DVT (deep venous thrombosis) Qualifiers: DVT location: lower extremity Affected thrombotic vein of extremity: unspecified vein of extremity Chronicity: acute Laterality: left Qualified Code(s): I82.402 - Acute embolism and thrombosis of unspecified deep veins of left lower extremity (4) COPD (chronic obstructive pulmonary disease) Qualifiers: COPD type: unspecified COPD Qualified Code(s): J44.9 - Chronic obstructive pulmonary disease, unspecified (6) HLD (hyperlipidemia) Qualifiers: Hyperlipidemia type: pure hypercholesterolemia Qualified Code(s): E78.00 - Pure hypercholesterolemia, unspecified; E78.0 - Pure hypercholesterolemia (7) HTN (hypertension) Qualifiers: Hypertension type: essential hypertension Qualified Code(s): I10 - Essential (primary) hypertension
[2019-01-06 15:42] LABS: Prothrombin Time 11.1 Seconds (9.4-12.1)
--- NOTE | 2019-01-06 17:52 | General Surgery Progress Note ---
Date of Encounter: 01/06/19 Time of Encounter: 17:45 Subjective Patient reports: feels better Narrative: General Surgery - POD #1 Feeling well. Reports preoperative upper abdominal and bilateral chest pain resolved since cholecystectomy Tolerating diet, no nausea or vomiting. No fevers The patient has remained afebrile, currently 97.9, pulse ranging 95-104, respirations 18 and nonlabored, blood pressure 155/96. SPO2 on room air 94% Lungs: Clear bilaterally; abdominal pain with deep inspiration Abdomen: Obese, soft, nontender. Port sites intact clean and dry. Active bowel sounds Laboratories: CBC 7.8, hemoglobin 12.3, hematocrit 37.6. Platelet count 2 85,000; differential within normal limits. PT 11.1, INR 1.0 - apparent target range is an INR of 2.5-3.5; patient currently on enoxaparin for bridge therapy Electrolytes notable for sodium 134 without sequela. BUN 24 creatinine 1.14. LFTs within normal limits. Operative pathology: Pending Impression: POD #1 - s/p laparoscopic cholecystectomy. Patient doing well post op - afebrile, hemodynamically stable, with resolution of preoperative symptoms Left leg swelling, predating surgery, consistent with acute on chronic DVT stable. Appreciate Dr Paz and Dr Vann assist Acceptable postoperative status - possible discharge in a.m. pending control of the patient's recurrent DVT left lower extremity Plan: Outpatient surgical follow-up, 01/13/19. Patient and his are aware of these recommendations for outpatient surgical follow-up. Anticipate anticoagulation to be managed by the Coumadin Clinic Objective Vital Signs - Last 8 Hours Temp Pulse Resp BP Pulse Ox 01/06/19 15:47 97.9 F 104 18 155/96 94 01/06/19 11:35 98.7 F 95 18 142/81 94 Intake and Output 01/06/19 01/06/19 01/06/19 07:59 15:59 23:59 Intake Total 360.0 / 685.0 250 / 685.0 75 / 685.0 Output Total 150 / 1650 1500 / 1650 Balance 210.0 / -965.0 -1250 / -965.0 75 / -965.0 Intake: IV Fluids 360.0 / 685.0 250 / 685.0 75 / 685.0 Heparin 25,000 UNIT/250 ML D5W 250.0 / 575.0 250 / 575.0 75 / 575.0 25,000 unit In 250 ml @ 14 UNIT /KG/HR 24.195 mls/hr IVC . [id number] [facility] Rx#:[id number] Lactated Ringers 1,000 ML @ 25 100 / 100 mls/hr IVC .Q24H [facility] Rx#: [id number] Ancef Syringe 3,000 MG/30 ML 3, 10 / 10 000 mg In 30 ml @ 200 mls/hr IVPB [facility] Rx#:[id number] Output: Urine 150 / 1650 1500 / 1650 Other: Weight 173 kg Blood Glucose* 194 179 Patient Weight 01/06/19 23:59 Weight 173 kg - Labs 01/06/19 00:32 01/06/19 00:32 Diabetes panel 01/06/19 Range/Units 00:32 Sodium 134 L (136-145) mEq/L Potassium 4.4 (3.5-5.1) mEq/L Chloride 101 (98-107) mEq/L Carbon Dioxide 22 L (23-29) mEq/L BUN 24 H (6-20) mg/dL Creatinine 1.14 (0.70-1.30) mg/dL Glucose 197 H (70-105) mg/dL Calcium 9.0 (8.6-10.3) mg/dL AST 28 (13-39) Units/L ALT 28 (7-52) Units/L Alkaline Phosphatase 51 (34-104) Units/L Albumin 3.6 (3.5-5.7) g/dL Calcium panel 01/06/19 Range/Units 00:32 Calcium 9.0 (8.6-10.3) mg/dL Albumin 3.6 (3.5-5.7) g/dL Pituitary panel 01/06/19 Range/Units 00:32 Sodium 134 L (136-145) mEq/L Potassium 4.4 (3.5-5.1) mEq/L Chloride 101 (98-107) mEq/L Carbon Dioxide 22 L (23-29) mEq/L BUN 24 H (6-20) mg/dL Creatinine 1.14 (0.70-1.30) mg/dL Glucose 197 H (70-105) mg/dL Calcium 9.0 (8.6-10.3) mg/dL Adrenal panel 01/06/19 Range/Units 00:32 Sodium 134 L (136-145) mEq/L Potassium 4.4 (3.5-5.1) mEq/L Chloride 101 (98-107) mEq/L Carbon Dioxide 22 L (23-29) mEq/L BUN 24 H (6-20) mg/dL Creatinine 1.14 (0.70-1.30) mg/dL Glucose 197 H (70-105) mg/dL Calcium 9.0 (8.6-10.3) mg/dL Total Bilirubin 0.4 (0.3-1.0) mg/dL AST 28 (13-39) Units/L ALT 28 (7-52) Units/L Alkaline Phosphatase 51 (34-104) Units/L Albumin 3.6 (3.5-5.7) g/dL Consult Discharge Plan - Plan Referrals: Alejandro Hagan Jr, MD [Primary Care Provider] -
[2019-01-06] MEDS ORDERED: *HR* Warfarin 7.5 MG TABLET PO ONE (18:00)
[2019-01-06] MEDS ORDERED: Warfarin perPT PO PRN (18:00)
[2019-01-06] MEDS: *HR* Enoxaparin 80 MG/0.8 ML SYRINGE SQ SCH (18:58)
[2019-01-07] MEDS: *HR* Enoxaparin 80 MG/0.8 ML SYRINGE SQ SCH (05:16)
[2019-01-07 07:43] LABS: INR 1.1; Prothrombin Time 12.1 Seconds (9.4-12.1)
[2019-01-07 07:56] LABS: BUN/Creatinine Ratio 22 (6-26); Blood Urea Nitrogen 26 mg/dL (6-20); Calcium 9.1 mg/dL (8.6-10.3); Carbon Dioxide 29 mEq/L (23-29); Chloride 101 mEq/L (98-107); Glucose 130 mg/dL (70-105); Magnesium 2.1 mg/dL (1.6-2.6); Osmolality,Calculated 301 (280-300); Potassium 3.6 mEq/L (3.5-5.1); Sodium 142 mEq/L (136-145); eGFR For African Americans > 60 (> 60); eGFR For Non-African Americans > 60 (> 60)
[2019-01-07 08:52] LABS: Hematocrit 38.8 % (37.5-50.1); Hemoglobin 12.6 g/dL (12.9-16.9); Mean Corpuscular HGB Conc 32.5 g/dL (31.6-35.5); Mean Corpuscular Hemoglobin 27.9 pg (28.0-33.3); Mean Corpuscular Volume 85.8 fL (83.0-100.0); Mean Platelet Volume 10.2 fL (9.4-12.4); Platelet Count 209 K/mcL (140-400); Red Blood Count 4.52 M/mcL (4.19-5.50); Red Cell Distribution Width 15.4 % (11.5-14.5); White Blood Count 6.3 K/mcL (4.3-11.1)
[2019-01-07] MEDS: Finasteride 5 MG TABLET PO SCH (09:23)
[2019-01-07] MEDS: Furosemide 40 MG/4 ML VIAL IVP SCH (09:23)
[2019-01-07] MEDS: Insulin NPH/REG 70/30 100 UNIT/ML (x5UNIT) SQ SCH (09:24)
[2019-01-07 11:20] VITALS: BP 138/98
--- NOTE | 2019-01-07 12:23 | Discharge Summary ---
- NOTES TO OUTPATIENT PROVIDER Notes to Outpatient Provider: f/u with PCP in one week. f/u with surgery Dr. Orantes as scheduled. Please start taking coumadin 7.5mg PO Daily until Thursday.. Go for PT / INR on Thursday and f/u with Coumadin clinic for further dosing. Also please start taking Lovenox 180mg ( 150mg +30mg vials ) SQ BID t ill Thursday. Your new PT / INR goal is 2.5-3.5 as per vascular surgery recommendations. Orders not resulted at time of discharge: Pending orders 01/05/19 10:40 Surgical Pathology [PTH] Routine 01/08/19 04:00 INR/PT [Prothrombin Time INR] [COAG] AM 0400 01/09/19 04:00 INR/PT [Prothrombin Time INR] [COAG] AM 0400 01/10/19 04:00 INR/PT [Prothrombin Time INR] [COAG] AM 0400 Date of Encounter: 01/07/19 Time of Encounter: 12:21 - Discharge Diagnosis (1) DVT (deep venous thrombosis) Priority: Primary Status: Acute Qualifiers: DVT location: lower extremity Affected thrombotic vein of extremity: unspecified vein of extremity Chronicity: acute Laterality: left Qualified Code(s): I82.402 - Acute embolism and thrombosis of unspecified deep veins of left lower extremity (2) Bilateral leg edema Priority: Primary Status: Acute (3) S/P cholecystectomy Priority: Secondary Status: Acute (4) ADALID on CPAP Priority: Secondary Status: Acute (5) COPD (chronic obstructive pulmonary disease) Priority: Secondary Status: Chronic Qualifiers: COPD type: unspecified COPD Qualified Code(s): J44.9 - Chronic obstructive pulmonary disease, unspecified (6) Diabetes mellitus type II, non insulin dependent Priority: Secondary Status: Chronic (7) HLD (hyperlipidemia) Priority: Secondary Status: Chronic Qualifiers: Hyperlipidemia type: pure hypercholesterolemia Qualified Code(s): E78.00 - Pure hypercholesterolemia, unspecified; E78.0 - Pure hypercholesterolemia (8) HTN (hypertension) Priority: Secondary Status: Chronic Qualifiers: Hypertension type: essential hypertension Qualified Code(s): I10 - Essential (primary) hypertension (9) Morbid obesity with BMI of 45.0-49.9, adult Priority: Secondary Status: Chronic Hospital course: Mr. Almeida is a 58 year old male with known PMH of diabetes, HTN, HLD, COPD, ADALID, anxiety, and depression who recently had DVT and PE on Coumadin for anti coagulation who scheduled for elective cholecystectomy, and currently on Lovenox therapy to bridge with Coumadin for his surgery preparation, patient complained about 3 to 4 days of worsening swelling and erythema and tenderness in both legs more significant on the left leg. Patient had an active cholecystectomy done today by Dr. Orantes, after the surgery Dr. orantes ordered venous Doppler of both legs, Prelim report came back as acute DVT in Left leg. He was admitted in the hospital and started him on heparin gtt. His venous doppler showed left superficial femoral vein and popliteal vein demonstrates acute thrombosis. Pt was evaluated by vascular surgery who recommended to continue Coumadin , however keep PT / INR at 2.5-3.5 range. So eventually we switched to Lovenox inj to bridge with coumadin. His CTA of chest ruled out PE. He does have diffuse b/l LE edema which mostly dependent and due to DVT. With aggressive IV diuresis his leg edema improved. So will d/c him back to home in stable condition today with Lovenox inj and Coumadin. - Time Spent with Patient Total time spent providing and/or coordinating discharge services: - Discharge Medications Prescriptions: New Enoxaparin [Lovenox] 30 mg SQ Q12HR #8 syr Continued Finasteride [Proscar] 5 mg PO QAM Simvastatin [Zocor] 40 mg PO QPM Multivitamin [Multivitamins] 1 each PO QAM Fluticasone Propionate Nasal [Flonase] 2 spray NS DAILY Metformin HCl 1,000 mg PO BID Metoprolol [Lopressor] 25 mg PO BID Fexofenadine HCl 60 mg PO QAM Fish Oil/Dha/Epa [Fish Oil 1,200 mg Fish Oil] 1,200 mg PO DAILY Furosemide [Lasix] 40 mg PO QAM Insulin NPH Hum/Reg Insulin Hm [Relion Novolin 70-30 Flexpen] 55 units SQ BID Lisinopril [Zestril] 10 mg PO QAM Omeprazole Magnesium [Prilosec Otc] 20 mg PO BID Venlafaxine XR (24 HR) [Effexor Xr] 150 mg PO QAM Cinnamon Bark [Cinnamon] 500 mg PO QAM Enoxaparin [Lovenox] 150 mg SQ BID Trazodone HCl 50 mg PO HS Venlafaxine HCl [Venlafaxine HCl ER] 75 mg PO QAM Changed Warfarin [Coumadin] 7.5 mg PO DAILY #0 Discontinued Warfarin [Coumadin] 5 mg PO SUTUWETHSA Home Medications: Finasteride [Proscar] 5 mg PO QAM 01/31/17 [History] Simvastatin [Zocor] 40 mg PO QPM 02/01/17 [History] Multivitamin [Multivitamins] 1 each PO QAM 03/23/17 [History] Fluticasone Propionate Nasal [Flonase] 2 spray NS DAILY 11/05/17 [History] Metformin HCl 1,000 mg PO BID 08/03/18 [History] Metoprolol [Lopressor] 25 mg PO BID 09/15/18 [History] Fexofenadine HCl 60 mg PO QAM 11/18/18 [History] Fish Oil/Dha/Epa [Fish Oil 1,200 mg Fish Oil] 1,200 mg PO DAILY 11/18/18 [History] Furosemide [Lasix] 40 mg PO QAM 11/18/18 [History] Insulin NPH Hum/Reg Insulin Hm [Relion Novolin 70-30 Flexpen] 55 units SQ BID 11/18/18 [History] Lisinopril [Zestril] 10 mg PO QAM 11/18/18 [History] Omeprazole Magnesium [Prilosec Otc] 20 mg PO BID 11/18/18 [History] Venlafaxine XR (24 HR) [Effexor Xr] 150 mg PO QAM 11/18/18 [History] Cinnamon Bark [Cinnamon] 500 mg PO QAM 01/05/19 [History] Enoxaparin [Lovenox] 150 mg SQ BID 01/05/19 [History] Trazodone HCl 50 mg PO HS 01/05/19 [History] Venlafaxine HCl [Venlafaxine HCl ER] 75 mg PO QAM 01/05/19 [History] Enoxaparin [Lovenox] 30 mg SQ Q12HR #8 syr 01/07/19 [Rx] Warfarin [Coumadin] 7.5 mg PO DAILY #0 01/07/19 [Rx] Allergies/Adverse Reactions: Allergy/AdvReac Type Severity Reaction Status Date / Time amlodipine [From [facility]] Allergy Rash Verified 01/05/19 08:26 bupropion [From Wellbutrin] Allergy Rash Verified 01/05/19 08:26 gabapentin Allergy Rash Verified 01/05/19 08:26 morphine AdvReac Confusion Verified 01/05/19 08:26 rivaroxaban [From Xarelto] AdvReac Cough Verified 01/05/19 08:26 SURGICAL TAPE AdvReac Blister Uncoded 01/05/19 08:26 Date of admission: 01/05/19 18:21 Primary care physician: Alejandro Hagan Jr, MD Consults: 01/05/19 16:04 Consult to Vascular Surgery [CONS] Routine Consulting Provider: Vascular Surgery [place] Reason for Consult: Acute Left LE DVT Time Notified: 16:05 Call Completed: Yes - Constitutional Vitals: Temp Pulse Resp BP Pulse Ox 97.8 F 98 17 138/98 95 01/07/19 11:06 01/07/19 11:06 01/07/19 11:06 01/07/19 11:06 01/07/19 11:06 General appearance: Present: cooperative, A&O X 3, no acute distress, answers questions appropriately Exam: Gen: Alert, awake, Oriented to time,place and person Chest: Diminished breath sounds B/L, No wheezing, No crackles, No rales Heart: S1S2+ RRR No murmurs Abd: Soft, NT, BS +, No organomegaly.. clean incisions Ext: improved pitting edema, pulses are palpable, mild tenderness left leg, improved erythema in Left leg Neuro : No acute focal neuro deficits noticed Skin: No rash. - Patient Status Disposition: Home, Self-Care Condition: Good Overall status at discharge: patient is back to baseline - Discharge Instructions Follow Up With: Alejandro Hagan Jr, MD [Primary Care Provider] - Mateusz Orantes MD [Non-Partnered Physician] - - Diet and Activity Activity: increase activity as tolerated Diet: low salt diet
[2019-01-07] MEDS ORDERED: *HR* Warfarin 7.5 MG TABLET PO ONE (18:00)
== END 2019-01-07 13:50 | disposition home or self-care (01) | DRG 417 ==
LOC: 3BNU 07:01 → SAMDAY 07:01
PROVIDERS: ADMIT Family Medicine; ATTEND Family Medicine

== ENCOUNTER 2019-01-16 20:17 | Inpatient (IN) ==
[2019-01-16] MEDS ORDERED: Isovue-370 500 ML BOTTLE IVP ONE (20:32)
[2019-01-16] MEDS ORDERED: *HR* FentaNYL (PF) 100 MCG/2 ML VIAL IVP ONE (20:39)
--- NOTE | 2019-01-16 21:36 | Emergency Department Note ---
Disposition Clinical Impression: Abdominal pain Qualifiers: Abdominal location: left lower quadrant Qualified Code(s): R10.32 - Left lower quadrant pain Pancreatitis Qualifiers: Chronicity: acute Pancreatitis type: unspecified pancreatitis type Acute pancreatitis complication: unspecified Qualified Code(s): K85.90 - Acute pancreatitis without necrosis or infection, unspecified Disposition: Admitted As Inpatient Condition: Fair Time of Disposition: 06:17 General Adult HPI - General Chief complaint: ED Chest Pain Stated complaint: chest pain Time Seen by Provider: 01/16/19 20:30 Source: patient, family, EMS Nursing Notes Reviewed: Yes Vital Signs Reviewed: Yes - History of Present Illness HPI Narrative: 58-year-old male, with past medical history of diabetes, saddle embolism, COPD, hypertension, hyperlipidemia presents with new onset severe epigastric pain that is a 10 out of 10 that is worse with deep inspiration that he says radiates and tingles down into his left leg. Patient recently underwent gallbladder surgery on January 05, and also is status post a sigmod colonectomy in Jul. Patient states that the pain started at 5:00pm after lutheran. Patient is nauseous, diaphoretic, clammy, pale, short of breath, and somnolent but answers questions appropriately and responds to all commands. Pain Scale: 8 - Related Data Home Medications Medication Instructions Recorded Confirmed Finasteride [Proscar] 5 mg PO QAM 01/31/17 01/16/19 Simvastatin [Zocor] 40 mg PO QPM 02/01/17 01/16/19 Multivitamin [Multivitamins] 1 each PO QAM 03/23/17 01/16/19 Fluticasone Propionate Nasal 2 spray NS DAILY 11/05/17 01/16/19 [Flonase] Metformin HCl 1,000 mg PO BID 08/03/18 01/16/19 Metoprolol [Lopressor] 25 mg PO BID 09/15/18 01/16/19 Fexofenadine HCl 60 mg PO QAM 11/18/18 01/16/19 Fish Oil/Dha/Epa [Fish Oil 1,200 1,200 mg PO DAILY 11/18/18 01/16/19 mg Fish Oil] Furosemide [Lasix] 40 mg PO QAM 11/18/18 01/16/19 Insulin NPH Hum/Reg Insulin Hm 55 units SQ BID 11/18/18 01/16/19 [Relion Novolin 70-30 Flexpen] Lisinopril [Zestril] 10 mg PO QAM 11/18/18 01/16/19 Omeprazole Magnesium [Prilosec Otc] 40 mg PO BID 11/18/18 01/16/19 Cinnamon Bark [Cinnamon] 1,000 mg PO QAM 01/05/19 01/16/19 Trazodone HCl 50 mg PO HS 01/05/19 01/16/19 Venlafaxine HCl [Venlafaxine HCl 225 mg PO QAM 01/05/19 01/16/19 ER] Enoxaparin [Lovenox] 180 mg SQ DAILY 01/16/19 01/16/19 Previous Rx's Medication Instructions Recorded Warfarin [Coumadin] 7.5 mg PO DAILY #0 01/07/19 Allergies Allergy/AdvReac Type Severity Reaction Status Date / Time amlodipine [From Norvasc] Allergy Rash Verified 01/16/19 20:54 bupropion [From Wellbutrin] Allergy Rash Verified 01/16/19 20:54 gabapentin Allergy Rash Verified 01/16/19 20:54 morphine AdvReac Confusion Verified 01/16/19 20:54 rivaroxaban [From Xarelto] AdvReac Cough Verified 01/16/19 20:54 SURGICAL TAPE AdvReac Blister Uncoded 01/16/19 20:54 All systems ED: reviewed and negative except as stated. Review of Systems: As Per HPI Constitutional: Reports: weakness Cardiovascular: Reports: chest pain Gastrointestinal: Reports: abdominal pain, nausea Neurological: Reports: weakness, other (Somnolent) Past Medical History - Past Medical History Attestation: Yes The following information was validated with the patient. Medical history: Reports: COPD, DVT, diabetes, hyperlipidemia, hypertension, other Surgical history: Reports: arthroscopy Psychiatric history: Reports: anxiety, depression - Social History Smoking Status: Never smoker Smokeless Tobacco Status: No Alcohol use: Reports: none Drug use: Reports: none Physical Exam Vital signs noted please see nurse's notes. Gen.: Well-developed, well-nourished patient lying in bed who appears in acute distress, diaphoretic. Head: Atraumatic, normocephalic. Eyes: Sclerae anicteric. ENT: Mucous membranes moist. Neck: No JVD. Heart: Regular rate and rhythm without appreciable murmur, gallops, or rubs. Lungs: Normal respiratory pattern without respiratory distress, lungs clear to auscultation bilaterally. Abdomen: Soft, tender in the epigastric region, multiple surgical scars from reports from cholecystectomy surgery are visible, nondistended, no guarding or peritoneal signs. No hepatojugular reflex Skin: Warm and dry without rash. Neurologic: Awake, but midline, normal speech and mental status. Cranial nerves grossly intact. No focal deficits or lateralizing signs. Psychiatric: Normal mood and affect. Musculoskeletal: No peripheral edema. No signs of trauma or DVT. Peripheral Vascular: Radial pulses 2+ and symmetrical b/l. - General General appearance: alert Course - Consultations Consultation #1: General surgery, Dr. Orantes. Time: 23:59 Vital Signs Temperature 98.2 F 01/16/19 20:20 Pulse Rate 98 01/16/19 20:20 Respiratory Rate 20 01/16/19 20:20 Blood Pressure 112/78 01/16/19 20:20 O2 Sat by Pulse Oximetry 93 01/16/19 20:20 Temperature 97.8 F 01/17/19 06:04 Pulse Rate 106 01/17/19 06:04 Respiratory Rate 26 01/17/19 06:04 Blood Pressure 135/96 01/17/19 06:04 O2 Sat by Pulse Oximetry 91 01/17/19 06:04 Oxygen Delivery Oxygen Delivery Room Air Medical Decision Making - [facility] Narrative Medical decision making narrative: Patient was greeted upon arrival to the emergency Department an IV, O2, and monitor were established. A thorough history and physical exam were obtained from the patient. Given the patient's clinical presentation, serial EKGs, and, and an urgent CT of the chest abdomen and pelvis with contrast were ordered. A Broad differential was explored including pulmonary embolism, acute coronary syndrome, bowel infarct, acute pancreatitis, and aortic dissection. The patient was followed to the CT scanner by me, given his clinical status and fear for rapid progression of deterioration. CT revealed that there was no pulmonary embolism and no aortic dissection. It did reveal an acute pancreatitis. His labs were also highly suggestive of pancreatitis, with a lipase of 1800 and amylase of 948, and a white count of 15.4.. The patient was given 2L fluid bolus of lactated Ringer's. He was given IV Zofran, and IV fentanyl for nausea and pain. The patient will be admitted to the hospital in stable condition. He will be accepted under the care of . His condition was also related to his surgeon, Dr. Orantes - Medical Records Medical records reviewed: Yes I reviewed the patient's medical records. - Lab Data Lab results reviewed: Yes I reviewed the patient's lab results. Result diagrams: 01/17/19 04:21 01/17/19 04:21 Lab Results 01/16/19 01/16/19 01/16/19 Range/Units 21:25 21:25 21:25 WBC 15.4 H (4.3-11.1) K/mcL RBC 5.48 (4.19-5.50) M/mcL Hgb 15.2 (12.9-16.9) g/dL Hct 46.4 (37.5-50.1) % MCV 84.7 (83.0-100.0) fL MCH 27.7 L (28.0-33.3) pg MCHC 32.8 (31.6-35.5) g/dL RDW 15.0 H (11.5-14.5) % Plt Count 247 (140-400) K/mcL MPV 10.1 (9.4-12.4) fL Immature Gran % 0.6 (0-4) % Seg Neutrophils % 78.9 % Lymphocytes % 14.2 % Monocytes % 5.9 % Eosinophils % 0.2 % Basophils % 0.2 % Neutrophils # 12.1 H (1.6-8.9) K/mcL Lymphocytes # 2.2 (0.6-4.6) K/mcL Monocytes # 0.9 (0.0-1.3) K/mcL Eosinophils # 0.0 (0.0-0.6) K/mcL Basophils # 0.0 (0.0-0.2) K/mcL PT 21.9 H (9.4-12.1) Seconds INR 1.9 APTT 37.8 H (26.0-36.0) Seconds Sodium (136-145) mEq/L Potassium (3.5-5.1) mEq/L Chloride (98-107) mEq/L Carbon Dioxide (23-29) mEq/L BUN (6-20) mg/dL Creatinine (0.70-1.30) mg/dL Est GFR ( Amer) (> 60) Est GFR (Non-Af Amer) (> 60) BUN/Creatinine Ratio (6-26) Glucose (70-105) mg/dL Calculated Osmolality (280-300) Calcium (8.6-10.3) mg/dL Troponin I (< 0.04) ng/mL B-Natriuretic Peptide 16 (Less than 100) pg/mL Amylase (29-103) Units/L Lipase (11-82) Units/L // Range/Units 21:25 WBC (4.3-11.1) K/mcL RBC (4.19-5.50) M/mcL Hgb (12.9-16.9) g/dL Hct (37.5-50.1) % MCV (83.0-100.0) fL MCH (28.0-33.3) pg MCHC (31.6-35.5) g/dL RDW (11.5-14.5) % Plt Count (140-400) K/mcL MPV (9.4-12.4) fL Immature Gran % (0-4) % Seg Neutrophils % % Lymphocytes % % Monocytes % % Eosinophils % % Basophils % % Neutrophils # (1.6-8.9) K/mcL Lymphocytes # (0.6-4.6) K/mcL Monocytes # (0.0-1.3) K/mcL Eosinophils # (0.0-0.6) K/mcL Basophils # (0.0-0.2) K/mcL PT (9.4-12.1) Seconds INR APTT (26.0-36.0) Seconds Sodium 137 (136-145) mEq/L Potassium 4.2 (3.5-5.1) mEq/L Chloride 100 (98-107) mEq/L Carbon Dioxide 24 (23-29) mEq/L BUN 28 H (6-20) mg/dL Creatinine 1.84 H (0.70-1.30) mg/dL Est GFR ( Amer) 46 L (> 60) Est GFR (Non-Af Amer) 38 L (> 60) BUN/Creatinine Ratio 15 (6-26) Glucose 162 H (70-105) mg/dL Calculated Osmolality 293 (280-300) Calcium 9.3 (8.6-10.3) mg/dL Troponin I 0.03 (< 0.04) ng/mL B-Natriuretic Peptide (Less than 100) pg/mL Amylase 948 H (29-103) Units/L Lipase > 1800 H (11-82) Units/L - Radiology Data Radiology results reviewed: Yes I reviewed the patient's radiology results. CT Dissection 01/16/19 20:32 IMPRESSION: Findings consistent with acute pancreatitis and nonvisualization of the superior mesenteric vein which may be related to suboptimal phase of contrast enhancement. Attention on follow-up imaging is recommended. Negative for dissection Ascending thoracic aortic enlargement which measures 4.9 cm. D/ / Phoenix Diaz MD / Phoenix Diaz MD Interpreting Provider: Phoenix Diaz MD - EKG Data EKG #1 EKG attestation: Yes I reviewed and interpreted this EKG. EKG results narrative: 20:26 EKG shows normal sinus rhythm with ventricular rate of 100. PVC. Minimal ST segment elevation in leads 1, aVL, and V6. The elevation in aVL and V6 was present on prior EKG dated 11/17/2018. 20:34 repeat EKG obtained and is unchanged other than the ST elevation in V6 has now resolved. Repeat EKG obtained at 21:18 remains unchanged
[2019-01-16] MEDS ORDERED: Ringers Solution, Lactated 1,000 ML IVC ONE ×2 (21:53→22:58)
[2019-01-16] MEDS ORDERED: Ondansetron 4 MG/2 ML VIAL IVP ONE ×2 (21:54→23:21)
[2019-01-16 21:59] LABS: Basophils % 0.2 %; Eosinophils % 0.2 %; Hematocrit 46.4 % (37.5-50.1); Hemoglobin 15.2 g/dL (12.9-16.9); Immature Granulocytes % 0.6 % (0-4); Lymphocytes # 2.2 K/mcL (0.6-4.6); Lymphocytes % 14.2 %; Mean Corpuscular HGB Conc 32.8 g/dL (31.6-35.5); Mean Corpuscular Hemoglobin 27.7 pg (28.0-33.3); Mean Corpuscular Volume 84.7 fL (83.0-100.0); Mean Platelet Volume 10.1 fL (9.4-12.4); Monocytes # 0.9 K/mcL (0.0-1.3); Monocytes % 5.9 %; Neutrophils # 12.1 K/mcL (1.6-8.9); Platelet Count 247 K/mcL (140-400); Red Blood Count 5.48 M/mcL (4.19-5.50); Segmented Neutrophils % 78.9 %; White Blood Count 15.4 K/mcL (4.3-11.1)
[2019-01-16] MEDS: *HR* FentaNYL (PF) 100 MCG/2 ML VIAL IVP PRN (22:04)
[2019-01-16 22:06] LABS: INR 1.9; Prothrombin Time 21.9 Seconds (9.4-12.1)
[2019-01-16 22:09] LABS: Activated Partial Thrombo Time 37.8 Seconds (26.0-36.0)
[2019-01-16 22:44] LABS: Amylase 948 Units/L (29-103); BUN/Creatinine Ratio 15 (6-26); Blood Urea Nitrogen 28 mg/dL (6-20); Calcium 9.3 mg/dL (8.6-10.3); Carbon Dioxide 24 mEq/L (23-29); Chloride 100 mEq/L (98-107); Glucose 162 mg/dL (70-105); Lipase > 1800 Units/L (11-82); Osmolality,Calculated 293 (280-300); Potassium 4.2 mEq/L (3.5-5.1); Sodium 137 mEq/L (136-145); Troponin I 0.03 ng/mL (< 0.04); eGFR For African Americans 46 (> 60); eGFR For Non-African Americans 38 (> 60)
[2019-01-16] MEDS ORDERED: Ondansetron 4 MG/2 ML VIAL IVP PRN (23:56)
[2019-01-17] MEDS: *HR* FentaNYL (PF) 100 MCG/2 ML VIAL IVP PRN ×2 (00:13→16:25)
[2019-01-17] MEDS ORDERED: Naloxone 0.4 MG/ML INJ IVP PRN (00:40)
[2019-01-17] MEDS ORDERED: *HR* Dextrose 50 % in Water (Syg) 50 ML SYRINGE IVP PRN (00:43)
[2019-01-17] MEDS ORDERED: Dextrose Gel 15 GM/37.5 ML TUBE PO PRN ×2 (00:43)
[2019-01-17] MEDS ORDERED: D5% in Water 1,000 ML IVC PRN (00:43)
--- NOTE | 2019-01-17 00:46 | Internal Med History&Physical ---
<Stephane Goins - Last Filed: 01/17/19 02:39> Date of Encounter: 01/17/19 Time of Encounter: 00:10 Internal Medicine - H&P: HPI Chief complaint: Abdominal pain Admitted From: Emergency Dept Plans for Post Hospital Care: Home History of present illness: Mr. Almeida is a 58 year old male with past medical history of COPD, diabetes, DVT, hypertension, hyperlipidemia presents emergency department with the complaint of abdominal pain. Patient states that around 1700 yesterday evening he began to experience sudden onset epigastric abdominal pain with radiation to his lower extremities. He states he just finished eating dinner when this occurred. It is associated with nausea and vomiting of gastric contents. Patient is notably drowsy during time of interview and majority of history is obtained per . Patient also notably recently had a laparoscopic cholecystectomy with Dr. Orantes on 01/05/19. Patient states that he tolerated the procedure well without any potential complications however he did A acute on chronic DVT in his right lower extremity while holding his Coumadin prior to niru jhonny. Patient's states that he was instructed to try and keep his INR between 2.5 and 3.5 and was prescribed Lovenox to bridge, however they have been unable to afford this prescription and not been taking it. Patient denies any symptoms of fevers, chills, chest pains, shortness of breath, urinary symptoms, constipation, hematochezia/melena. He does admit to one loose bowel movement this evening. He has had pancreatitis in the past approximately 6 years ago but states it was never this bad. In the emergency room, vital signs were initially significant for a respiratory rate of 20 and heart rate of 98. He was placed on 3.5 L of oxygen and was saturating 93%. Lab show leukocytosis of 15.4, INR 1.9, BUNs/creatinine of 28/1.84, glucose 162, amylase 948, lipase greater than 1800. EKG was obtained 3 due to borderline results of minimal ST elevation in leads 3 and V6. After the repeat, there is no change Troponin was within normal limits. CTA dissection site was obtained and showed peripancreatic stranding with nonvisualization of the SMV but this may be related to suboptimal phase of contrast enhancement. There is also some ascending thoracic aortic enlargement which measures 4.9 cm. At time of interview, patient is drowsy but does answer questions properly. His pain is now better controlled. He is not currently nauseous. PMHx: as above PSHx: cholecystectomy, sigmoid colectomy Social: never smoker, denies alcohol or drug use Family history: heart disease in father Past Med Surg Social Fam HX - Past Medical History Medical history: COPD, DVT, diabetes, hyperlipidemia, hypertension, other Additional medical history: Sleep Apnea- uses CPAP. Diverticulosis with Hx of Diverticulitis. Colon Polyps. Diverticular Disease. Fatty Liver. Chronic Lumbago. Pancreatitis. TTE with LVEF 60-65%, Mild Concentric Hyperotrophy of the Ventricule, Mild LV Diastolic Dysfunction. PE Psychiatric history: anxiety, depression - Past Surgical History Surgical History: arthroscopy Additional surgical history: Bladder Sx. Colonoscopy. EGD. LHC. Sigmoid Colectomy - Social History Smoking Status: Never smoker Smokeless Tobacco Status: No Alcohol use: none Drug use: none - Family History Father Family Member Ethnicity: Non- Living Status: Hx Family Cardiac Disorders: Yes (OR, CAD) Brother Family Member Ethnicity: Non- Living Status: Still Living Hx Family Cardiac Disorders: Yes (CAD) Sister Family Member Ethnicity: Non- Living Status: Still Living Hx Family Endocrine Disorder: Yes (DM) Grandmother Family Member Ethnicity: Non- Living Status: Hx Family Cancer: Yes (Breast) Grandfather Family Member Ethnicity: Non- Living Status: Hx Family Cardiac Disorders: Yes (OR) Hx Family Endocrine Disorder: Yes (DM) Mother Family Member Ethnicity: Non- Living Status: Still Living Hx Family Cardiac Disorders: Yes (HTN) Hx Family Respiratory Disorders: No Hx Family Cancer: Yes (Colon Cancer) Hx Family GI Disorders: No Hx Family Endocrine Disorder: No Hx Family Neuromuscular Disorders: No Hx Family Neurologic Disorders: No Hx Family HEENT Disorders: No Hx Family Autoimmune Disorders: No Internal Medicine - H&P: Meds Finasteride [Proscar] 5 mg PO QAM 01/31/17 [History] Simvastatin [Zocor] 40 mg PO QPM 02/01/17 [History] Multivitamin [Multivitamins] 1 each PO QAM 03/23/17 [History] Fluticasone Propionate Nasal [Flonase] 2 spray NS DAILY 05/10/18 [History] Metformin HCl 1,000 mg PO BID 08/03/18 [History] Metoprolol [Lopressor] 25 mg PO BID 09/15/18 [History] Fexofenadine HCl 60 mg PO QAM 11/18/18 [History] Fish Oil/Dha/Epa [Fish Oil 1,200 mg Fish Oil] 1,200 mg PO DAILY 11/18/18 [History] Furosemide [Lasix] 40 mg PO QAM 11/18/18 [History] Insulin NPH Hum/Reg Insulin Hm [Relion Novolin 70-30 Flexpen] 55 units SQ BID 11/18/18 [History] Lisinopril [Zestril] 10 mg PO QAM 11/18/18 [History] Omeprazole Magnesium [Prilosec Otc] 40 mg PO BID 11/18/18 [History] Cinnamon Bark [Cinnamon] 1,000 mg PO QAM 01/05/19 [History] Trazodone HCl 50 mg PO HS 01/05/19 [History] Venlafaxine HCl [Venlafaxine HCl ER] 225 mg PO QAM 01/05/19 [History] Warfarin [Coumadin] 7.5 mg PO DAILY #0 01/07/19 [Rx] Enoxaparin [Lovenox] 180 mg SQ DAILY 01/16/19 [History] Allergy/AdvReac Type Severity Reaction Status Date / Time amlodipine [From Norvasc] Allergy Rash Verified 01/16/19 20:54 bupropion [From Wellbutrin] Allergy Rash Verified 01/16/19 20:54 gabapentin Allergy Rash Verified 01/16/19 20:54 morphine AdvReac Confusion Verified 01/16/19 20:54 rivaroxaban [From Xarelto] AdvReac Cough Verified 01/16/19 20:54 SURGICAL TAPE AdvReac Blister Uncoded 01/16/19 20:54 All Systems PM: A 10-system review of systems was performed and is negative for pertinent findings except as documented above in the HPI. Review of systems: - Constitutional: Denies fevers, chills, weight loss, generalized fatigue - Head/Neck: Denies SUNSHINE, neck stiffness - EENT: Denies vision changes/blurriness, rhinorrhea, congestion, sore throat, odynaphagia - CVS: Denies chest pain, palpitations, SOTO, orthopnea, edema, PND, - Pulm: Denies SOB, cough, sputum, hematemesis, wheezing - GI: Admits to abdominal pain, nausea. Denies vomiting, diarrhea, constipation, melena - : Denies dysuria, increased frequency, urgency, hematuria, - Skin: Denies rashes, ulcers, color changes, - Neuro: Denies SUNSHINE, paresthesias, focal deficits, ataxia, - Constitutional Vitals: Temp Pulse Resp BP Pulse Ox 98.2 F 96 16 171/102 98 01/16/19 20:20 01/17/19 00:16 01/17/19 00:16 01/17/19 00:16 01/17/19 00:16 Exam: Gen.: Vitals noted. No acute distress. AAOx3, diaphoretic, lethargic. HEENT: PERRL/EOMI, oropharynx clear, Normocephalic, atraumatic, MMM Cardiac: tachycardic regular. no murmur, +S1/S2, trace BLE edema Pulmonary: CTA bilaterally, no wheezes, rales or rhonchi, equal chest expansion, unlabored breathing Abdomen: soft, diffusely tender, most prominent in epigastric and RUQ, BS hypoactive, no guarding, no palpable HSM Skin: warm and dry, no visible lesions. MSK: ROM intact, no joint swelling noted, gait no assessed while in bed. Non tender calf or clubbing Neuro: A&Ox3, moves all extremities, no focal deficits, sensation intact Psych: Appropriate mood and behavior, AOx3 Internal Med - H&P Results - Labs CBC & Chem 7: 01/16/19 21:25 01/16/19 21:25 Labs: Short CBC 01/16/19 Range/Units 21:25 WBC 15.4 H (4.3-11.1) K/mcL Hgb 15.2 (12.9-16.9) g/dL Hct 46.4 (37.5-50.1) % Plt Count 247 (140-400) K/mcL Neutrophils # 12.1 H (1.6-8.9) K/mcL BMP 01/16/19 21:25 Sodium 137 Potassium 4.2 Chloride 100 Carbon Dioxide 24 BUN 28 H Creatinine 1.84 H Glucose 162 H Calcium 9.3 Cardiac Enzymes 01/16/19 Range/Units 21:25 Troponin I 0.03 (< 0.04) ng/mL - Impressions ITS Impressions CT Dissection 01/16/19 20:32 IMPRESSION: Findings consistent with acute pancreatitis and nonvisualization of the superior mesenteric vein which may be related to suboptimal phase of contrast enhancement. Attention on follow-up imaging is recommended. Negative for dissection Ascending thoracic aortic enlargement which measures 4.9 cm. D/ / Phoenix Diaz MD / Phoenix Diaz MD Interpreting Provider: Phoenix Diaz MD - Assessment and Plan (1) Pancreatitis Current Visit: Yes Status: Acute Assessment and plan: - Possibly secondary to recent surgery vs retained stone vs idiopathic - Family denies any history of alcohol abuse or hypertriglyceridemia - Evidence by lipase >1800, amylase 948 - CT of the abdomen shows peripancreatic stranding - LFTs pending - Patient does have prior history without known cause - Given 2L LR in ED Plan - Continue fluids started in ED - Supportive care - NPO - Pain control - Will also order abd US to assess for stones Qualifiers: Chronicity: acute Pancreatitis type: unspecified pancreatitis type Acute pancreatitis complication: unspecified Qualified Code(s): K85.90 - Acute pancreatitis without necrosis or infection, unspecified (2) Diabetes mellitus type II, non insulin dependent Current Visit: Yes Status: Chronic Assessment and plan: - Bs of 162 on presentation - A1c of 8.6% earlier this month - Will order SSI and q6h accuchecks (3) ADALID (obstructive sleep apnea) Current Visit: Yes Status: Chronic Assessment and plan: cpap at night (4) Acute kidney injury Current Visit: Yes Status: Resolved Assessment and plan: BUN/ Cr of 28/1.84 - Baseline Cr of 1.1 - Suspect etiology is pre-renal in the setting of pancreatitis - Patient did reportedly tolerated oral intake until this evening however - Patient denies NSAIDs, holding John, lasix, metformin - Will give fluids as above and monitor (5) Sepsis Current Visit: Yes Status: Suspected Assessment and plan: does meet 3/4 SIRS with tachycardia, RR 24, WBC 15 - Suspect that this is more related to pancreatitis and pain however, no obvious source of infection - Will not treat with abx - Will give fluids as above for pancreatitis - Expect these to resolve with supportive care. - Continue to monitor for signs of intra-abdominal infection Qualifiers: Sepsis type: sepsis due to unspecified organism Qualified Code(s): A41.9 - Sepsis, unspecified organism (6) COPD (chronic obstructive pulmonary disease) Current Visit: Yes Status: Chronic Assessment and plan: does not appear to be in acute exacerbation Qualifiers: COPD type: unspecified COPD Qualified Code(s): J44.9 - Chronic obstructive pulmonary disease, unspecified (7) HTN (hypertension) Current Visit: Yes Status: Chronic Assessment and plan: mildly elevated at this time, possible secondary to pain will continue home meds once reconciled- may need IV option PRN while NPO Qualifiers: Hypertension type: essential hypertension Qualified Code(s): I10 - Essential (primary) hypertension (8) HLD (hyperlipidemia) Current Visit: Yes Status: Chronic Assessment and plan: will order lipid panel hold statin Qualifiers: Hyperlipidemia type: pure hypercholesterolemia Qualified Code(s): E78.00 - Pure hypercholesterolemia, unspecified; E78.0 - Pure hypercholesterolemia (9) DVT (deep venous thrombosis) Current Visit: Yes Status: Acute Assessment and plan: - Continue coumadin, pharmacy to dose - Will add heparin to bridge. Patient was supposed to bridge with lovenoxart er was unable to afford this Qualifiers: DVT location: lower extremity Affected thrombotic vein of extremity: unspecified vein of extremity Chronicity: acute Laterality: left Qualified Code(s): I82.402 - Acute embolism and thrombosis of unspecified deep veins of left lower extremity (10) S/P cholecystectomy Current Visit: Yes Status: Chronic Assessment and plan: as above (11) DVT prophylaxis Current Visit: Yes Status: Acute Assessment and plan: will add heparin gtt to home coumadin in the setting of acute DVT Per vascular, goal INR of 2.5-3.5 - Time Spent With Patient Total time spent is greater than 50% in coordination of care (as documented) at patient's floor/unit and/or counseling patient: <AldojulianaYvonne Cleopatra - Last Filed: 01/17/19 07:32> Date of Encounter: 01/17/19 Internal Medicine - H&P: HPI History of present illness: Mr. Almeida is a 58 year old male All Systems PM: A 10-system review of systems was performed and is negative for pertinent findings except as documented above in the HPI. - Constitutional Vitals: Temp Pulse Resp BP Pulse Ox 97.8 F 110 26 159/111 91 01/17/19 06:04 01/17/19 06:48 01/17/19 06:04 01/17/19 06:48 01/17/19 06:04 Internal Med - H&P Results - Labs CBC & Chem 7: 01/17/19 04:21 01/17/19 04:21 Labs: Short CBC 01/16/19 01/17/19 Range/Units 21:25 04:21 WBC 15.4 H 13.1 H (4.3-11.1) K/mcL Hgb 15.2 15.4 (12.9-16.9) g/dL Hct 46.4 47.4 (37.5-50.1) % Plt Count 247 242 (140-400) K/mcL Neutrophils # 12.1 H 11.7 H (1.6-8.9) K/mcL BMP 01/16/19 01/17/19 21:25 04:21 Sodium 137 138 Potassium 4.2 4.6 Chloride 100 99 Carbon Dioxide 24 21 L BUN 28 H 27 H Creatinine 1.84 H 1.50 H Glucose 162 H 394 H Calcium 9.3 9.1 Cardiac Enzymes 01/16/19 Range/Units 21:25 Troponin I 0.03 (< 0.04) ng/mL Liver Function 01/17/19 01/17/19 Range/Units 01:06 04:21 Total Bilirubin 0.4 0.5 (0.3-1.0) mg/dL Direct Bilirubin 0.1 (0.0-0.2) mg/dL AST 21 32 (13-39) Units/L ALT 30 31 (7-52) Units/L Alkaline Phosphatase 64 63 (34-104) Units/L Albumin 4.0 4.0 (3.5-5.7) g/dL - Impressions ITS Impressions CT Dissection 01/16/19 20:32 IMPRESSION: Findings consistent with acute pancreatitis and nonvisualization of the superior mesenteric vein which may be related to suboptimal phase of contrast enhancement. Attention on follow-up imaging is recommended. Negative for dissection Ascending thoracic aortic enlargement which measures 4.9 cm. D/ / Phoenix Diaz MD / Phoenix Diaz MD Interpreting Provider: Phoenix Diaz MD - Time Spent With Patient Total time spent is greater than 50% in coordination of care (as documented) at patient's floor/unit and/or counseling patient: - Attending Attestation I performed a history and physical examination of the patient and discussed his management with the resident. I reviewed the residents note and agree with the documented findings and plan of care.
[2019-01-17] MEDS ORDERED: *HR* Heparin 5,000 UNIT/ML VIAL IVP PRN ×2 (00:48)
[2019-01-17] MEDS ORDERED: *HR* Heparin 5,000 UNIT/ML VIAL IVP ONE (00:48)
[2019-01-17 01:30] LABS: Heparin anti-factor XA UFH 0.08 IU/mL (0.30-0.70)
[2019-01-17 01:31] LABS: INR 1.9; Prothrombin Time 21.9 Seconds (9.4-12.1)
[2019-01-17 01:41] LABS: Albumin/Globulin Ratio 1.4 (1.1-2.2); Bilirubin,Direct 0.1 mg/dL (0.0-0.2); Bilirubin,Indirect 0.3 mg/dL (0.0-1.2); Bilirubin,Total 0.4 mg/dL (0.3-1.0); Globulin 2.9 g/dL (2.4-3.5); Total Protein 6.9 g/dL (6.4-8.9)
[2019-01-17] MEDS: Ringers Solution, Lactated 1,000 ML IVC SCH ×3 (01:59→16:36)
[2019-01-17] MEDS: Heparin 25,000 UNIT/250 ML D5W 25,000 UNIT/250 ML IV.SOLN IVC SCH ×3 (02:08→23:17)
[2019-01-17] MEDS ORDERED: *HR* Metoprolol 5 MG/5 ML VIAL IVP ONE ×2 (04:08→05:08)
--- NOTE | 2019-01-17 05:17 | Emergency Department Note ---
Disposition Clinical Impression: Abdominal pain Qualifiers: Abdominal location: left lower quadrant Qualified Code(s): R10.32 - Left lower quadrant pain Pancreatitis Qualifiers: Chronicity: acute Pancreatitis type: unspecified pancreatitis type Acute pancreatitis complication: unspecified Qualified Code(s): K85.90 - Acute pancreatitis without necrosis or infection, unspecified Disposition: Admitted As Inpatient Condition: Fair Time of Disposition: 23:30 General Adult HPI - General Chief complaint: ED Chest Pain Stated complaint: chest pain Time Seen by Provider: 01/16/19 20:30 Source: patient, family, EMS Nursing Notes Reviewed: Yes Vital Signs Reviewed: Yes - History of Present Illness Pain Scale: 4 - Related Data Home Medications Medication Instructions Recorded Confirmed Finasteride [Proscar] 5 mg PO QAM 01/31/17 01/16/19 Simvastatin [Zocor] 40 mg PO QPM 02/01/17 01/16/19 Multivitamin [Multivitamins] 1 each PO QAM 03/23/17 01/16/19 Fluticasone Propionate Nasal 2 spray NS DAILY 11/05/17 01/16/19 [Flonase] Metformin HCl 1,000 mg PO BID 08/03/18 01/16/19 Metoprolol [Lopressor] 25 mg PO BID 09/15/18 01/16/19 Fexofenadine HCl 60 mg PO QAM 11/18/18 01/16/19 Fish Oil/Dha/Epa [Fish Oil 1,200 1,200 mg PO DAILY 11/18/18 01/16/19 mg Fish Oil] Furosemide [Lasix] 40 mg PO QAM 11/18/18 01/16/19 Insulin NPH Hum/Reg Insulin Hm 55 units SQ BID 11/18/18 01/16/19 [Relion Novolin 70-30 Flexpen] Lisinopril [Zestril] 10 mg PO QAM 11/18/18 01/16/19 Omeprazole Magnesium [Prilosec Otc] 40 mg PO BID 11/18/18 01/16/19 Cinnamon Bark [Cinnamon] 1,000 mg PO QAM 01/05/19 01/16/19 Trazodone HCl 50 mg PO HS 01/05/19 01/16/19 Venlafaxine HCl [Venlafaxine HCl 225 mg PO QAM 01/05/19 01/16/19 ER] Enoxaparin [Lovenox] 180 mg SQ DAILY 01/16/19 01/16/19 Previous Rx's Medication Instructions Recorded Warfarin [Coumadin] 7.5 mg PO DAILY #0 01/07/19 Allergies Allergy/AdvReac Type Severity Reaction Status Date / Time amlodipine [From Norvasc] Allergy Rash Verified 01/16/19 20:54 bupropion [From Wellbutrin] Allergy Rash Verified 01/16/19 20:54 gabapentin Allergy Rash Verified 01/16/19 20:54 morphine AdvReac Confusion Verified 01/16/19 20:54 rivaroxaban [From Xarelto] AdvReac Cough Verified 01/16/19 20:54 SURGICAL TAPE AdvReac Blister Uncoded 01/16/19 20:54 Constitutional: Reports: weakness Cardiovascular: Reports: chest pain Gastrointestinal: Reports: abdominal pain, nausea Neurological: Reports: weakness, other (Somnolent) Past Medical History - Past Medical History Medical history: Reports: COPD, DVT, diabetes, hyperlipidemia, hypertension, other Surgical history: Reports: arthroscopy Psychiatric history: Reports: anxiety, depression - Social History Smoking Status: Never smoker Smokeless Tobacco Status: No Alcohol use: Reports: occasionally Drug use: Reports: none Physical Exam - General General appearance: alert Course Vital Signs Temperature 98.2 F 01/16/19 20:20 Pulse Rate 98 01/16/19 20:20 Respiratory Rate 20 01/16/19 20:20 Blood Pressure 112/78 01/16/19 20:20 O2 Sat by Pulse Oximetry 93 01/16/19 20:20 Temperature 98.1 F 01/17/19 04:56 Pulse Rate 104 01/17/19 04:56 Respiratory Rate 28 01/17/19 04:56 Blood Pressure 159/104 01/17/19 04:56 O2 Sat by Pulse Oximetry 93 01/17/19 04:56 Oxygen Delivery Oxygen Delivery Room Air Medical Decision Making - Medical Records Medical records reviewed: Yes I reviewed the patient's medical records. - Lab Data Lab results reviewed: Yes I reviewed the patient's lab results. Result diagrams: 01/16/19 21:25 01/16/19 21:25 Lab Results 01/16/19 01/16/19 01/16/19 Range/Units 21:25 21:25 21:25 WBC 15.4 H (4.3-11.1) K/mcL RBC 5.48 (4.19-5.50) M/mcL Hgb 15.2 (12.9-16.9) g/dL Hct 46.4 (37.5-50.1) % MCV 84.7 (83.0-100.0) fL MCH 27.7 L (28.0-33.3) pg MCHC 32.8 (31.6-35.5) g/dL RDW 15.0 H (11.5-14.5) % Plt Count 247 (140-400) K/mcL MPV 10.1 (9.4-12.4) fL Immature Gran % 0.6 (0-4) % Seg Neutrophils % 78.9 % Lymphocytes % 14.2 % Monocytes % 5.9 % Eosinophils % 0.2 % Basophils % 0.2 % Neutrophils # 12.1 H (1.6-8.9) K/mcL Lymphocytes # 2.2 (0.6-4.6) K/mcL Monocytes # 0.9 (0.0-1.3) K/mcL Eosinophils # 0.0 (0.0-0.6) K/mcL Basophils # 0.0 (0.0-0.2) K/mcL PT 21.9 H (9.4-12.1) Seconds INR 1.9 APTT 37.8 H (26.0-36.0) Seconds Sodium (136-145) mEq/L Potassium (3.5-5.1) mEq/L Chloride (98-107) mEq/L Carbon Dioxide (23-29) mEq/L BUN (6-20) mg/dL Creatinine (0.70-1.30) mg/dL Est GFR ( Amer) (> 60) Est GFR (Non-Af Amer) (> 60) BUN/Creatinine Ratio (6-26) Glucose (70-105) mg/dL Calculated Osmolality (280-300) Calcium (8.6-10.3) mg/dL Troponin I (< 0.04) ng/mL B-Natriuretic Peptide 16 (Less than 100) pg/mL Amylase (29-103) Units/L Lipase (11-82) Units/L 07//19 Range/Units 21:25 WBC (4.3-11.1) K/mcL RBC (4.19-5.50) M/mcL Hgb (12.9-16.9) g/dL Hct (37.5-50.1) % MCV (83.0-100.0) fL MCH (28.0-33.3) pg MCHC (31.6-35.5) g/dL RDW (11.5-14.5) % Plt Count (140-400) K/mcL MPV (9.4-12.4) fL Immature Gran % (0-4) % Seg Neutrophils % % Lymphocytes % % Monocytes % % Eosinophils % % Basophils % % Neutrophils # (1.6-8.9) K/mcL Lymphocytes # (0.6-4.6) K/mcL Monocytes # (0.0-1.3) K/mcL Eosinophils # (0.0-0.6) K/mcL Basophils # (0.0-0.2) K/mcL PT (9.4-12.1) Seconds INR APTT (26.0-36.0) Seconds Sodium 137 (136-145) mEq/L Potassium 4.2 (3.5-5.1) mEq/L Chloride 100 (98-107) mEq/L Carbon Dioxide 24 (23-29) mEq/L BUN 28 H (6-20) mg/dL Creatinine 1.84 H (0.70-1.30) mg/dL Est GFR ( Amer) 46 L (> 60) Est GFR (Non-Af Amer) 38 L (> 60) BUN/Creatinine Ratio 15 (6-26) Glucose 162 H (70-105) mg/dL Calculated Osmolality 293 (280-300) Calcium 9.3 (8.6-10.3) mg/dL Troponin I 0.03 (< 0.04) ng/mL B-Natriuretic Peptide (Less than 100) pg/mL Amylase 948 H (29-103) Units/L Lipase > 1800 H (11-82) Units/L - Radiology Data Radiology results reviewed: Yes I reviewed the patient's radiology results. CT Dissection 01/16/19 20:32 IMPRESSION: Findings consistent with acute pancreatitis and nonvisualization of the superior mesenteric vein which may be related to suboptimal phase of contrast enhancement. Attention on follow-up imaging is recommended. Negative for dissection Ascending thoracic aortic enlargement which measures 4.9 cm. D/ / Phoenix Diaz MD / Phoenix Diaz MD Interpreting Provider: Phoenix Diaz MD - EKG Data EKG #1 EKG attestation: Yes I reviewed and interpreted this EKG. EKG results narrative: 20:26 EKG shows normal sinus rhythm with ventricular rate of 100. PVC. Minimal ST segment elevation in leads 1, aVL, and V2. The elevation in aVL and V2 was present on prior EKG dated 11/17/2018. EKG #2 EKG attestation: Yes I reviewed and interpreted this EKG. EKG results narrative: 20:34 repeat EKG obtained and is unchanged other than the ST elevation in V6 has now resolved. EKG #3 EKG attestation: Yes I reviewed and interpreted this EKG. EKG results narrative: Repeat EKG obtained at 21:18 remains unchanged. Critical Care Time Critical Care Time: Yes Total Critical Care Time: 40 Attestation: Critical care performed: Time is exclusive of separately billable procedures. Time includes: direct patient care, patient reassessment, coordination of patient care, interpretation of data (laboratory data, radiology data, and respiratory data), review of patient's medical records, medical consultation and documentation of patient care. Procedures included in critical care time: Procedures excluded from critical care time: Attestation Statement - Attestation Attestation: I, Inocencio Dyson MD, personally evaluated this patient and discussed their management with the resident physician. I reviewed the resident's note and agree with the documented findings, medical decision making, and plan of care. 58-year-old male presents to the emergency department with a complaint of severe epigastric pain which started around 5:30 or 6 PM this evening. Pain rapidly got progressively worse. Patient became diaphoretic. Severe nausea but no a ctual vomiting. Patient is 11 days status post cholecystectomy by Dr. schmidt. He does complain of some shortness of breath and also that it hurts to breathe. Patient had a colon resection in July and developed a DVT and subtle pulmonary embolism. As been on Coumadin which was discontinued when he had his gallbladder surgery and he apparently then developed a new DVT. He is back on his Coumadin for now. On examination patient is a well-developed morbidly obese male in moderate distress. He is alert and oriented 3. He is pale and diaphoretic. No cyanosis. Breath sounds are clear and equal bilaterally. Heart regular rate and rhythm. Abdomen is soft with moderate epigastric tenderness. Bowel sounds present. Patient had a CTA dissection study which was negative for dissection but did show acute pancreatitis. Labs reviewed. Amylase 948. Lipase greater than 1800. EKG initially showed some minimal ST segment elevation in leads 1, aVL, and V2. Repeat EKG was obtained and this remained unchanged with no progression. The patient's surgeon, Dr. schmidt, was consulted and will follow with the patient in the hospital. The hospitalist, Dr. Garduno, was consulted and acce pted admission of the patient.
[2019-01-17 05:22] LABS: Basophils % 0.1 %; Hematocrit 47.4 % (37.5-50.1); Hemoglobin 15.4 g/dL (12.9-16.9); Immature Granulocytes % 0.4 % (0-4); Lymphocytes # 0.7 K/mcL (0.6-4.6); Mean Corpuscular HGB Conc 32.5 g/dL (31.6-35.5); Mean Corpuscular Hemoglobin 27.6 pg (28.0-33.3); Mean Corpuscular Volume 84.9 fL (83.0-100.0); Mean Platelet Volume 10.5 fL (9.4-12.4); Monocytes # 0.7 K/mcL (0.0-1.3); Monocytes % 5.2 %; Neutrophils # 11.7 K/mcL (1.6-8.9); Platelet Count 242 K/mcL (140-400); Red Blood Count 5.58 M/mcL (4.19-5.50); Segmented Neutrophils % 89.3 %; White Blood Count 13.1 K/mcL (4.3-11.1)
[2019-01-17 05:28] LABS: INR 2.2; Prothrombin Time 24.6 Seconds (9.4-12.1)
[2019-01-17 05:37] LABS: Albumin/Globulin Ratio 1.4 (1.1-2.2); Bilirubin,Total 0.5 mg/dL (0.3-1.0); Calcium 9.1 mg/dL (8.6-10.3); Globulin 2.8 g/dL (2.4-3.5); Magnesium 1.5 mg/dL (1.6-2.6); Potassium 4.6 mEq/L (3.5-5.1); Total Protein 6.8 g/dL (6.4-8.9)
[2019-01-17] MEDS: Insulin LISPRO 300 UNITS/3 ML VIAL SQ SCH ×4 (06:12→23:20)
[2019-01-17] MEDS: *HR* Promethazine 25 MG/ML VIAL IVP PRN ×2 (09:09→16:12)
[2019-01-17] MEDS ORDERED: Ketorolac 15 MG/ML VIAL IVP ONE ×2 (09:48→15:43)
[2019-01-17 09:52] LABS: Chol/HDL Ratio 4.2 (0-4.9)
[2019-01-17 12:00] LABS: ABG Base Excess 1 mEq/L (-2 to 3); ABG HCO3 22 mEq/L (21-27); ABG Oxygen Saturation 99 % (95-98); ABG PCO2 27 mmHg (35-45); ABG PH 7.52 pH Units (7.32-7.45); ABG PO2 104 mmHg (85-104); ABG TCO2 23 mEq/L (20-26)
--- NOTE | 2019-01-17 12:59 | General Surgery Consult Note ---
Date of Encounter: 01/17/19 Time of Encounter: 12:48 History of Present Illness Consult date: 01/17/19 Reason for consult: other (acute pancreatitis) Requesting physician: Gregory Izaguirre History of present illness: 58 yo well known to me related to prior history refractory/recurrent sigmoid diverticulitis for which primary resection of the sigmoid colon was completed 08/06/18. An incidental appendectomy was performed at the time of that surgery. More recently, the patient presented with recurrent chest and abdominal pain with radiologic evidence of cholelithiasis. Laparoscopic cholecystectomy was completed 01/05/19. Despite cholelithiasis seen on imaging pathology identified no stones at the time of cholecystectomy describing slight chronic cholecystitis. The patient appears several recovered from that surgery without complication but returns today with abrupt onset abdominal pain nausea and vomiting due to acute pancreatitis. The patient was seen and examined. His abdominal pain is still quite pron ounced. Full surgical consultation to be dictated. Recommendations: Maintain nothing by mouth until the acute pancreatitis has resolved and the patient is no longer experiencing abdominal pain. Will allow ice chips. IV fluids as needed to return BUN and creatinine to more normal limits; current BUN 27, creatinine 1.5 (yesterday BUN 28, creatinine 1.84. Historical data shows normal creatinines with estimated GFR greater than 60. Current calculated osmolality 308 Pain control as needed ERCP once acute pancreatitis has resolved Sliding scale insulin coverage to control hyperglycemia. AM glucose 394. Maintain anticoagulation due to history DVT/PE The patient and his are aware of these recommendations as they were discussed during my presentation to the patient's bedside. I will follow along with you. At present time, no finding requiring surgical intervention have been identified. Past Med Surg Social Fam HX - Past Medical History Medical history: COPD, DVT, diabetes, hyperlipidemia, hypertension, other Additional medical history: Sleep Apnea- uses CPAP. Diverticulosis with Hx of Diverticulitis. Colon Polyps. Diverticular Disease. Fatty Liver. Chronic Lumbago. Pancreatitis. TTE with LVEF 60-65%, Mild Concentric Hyperotrophy of the Ventricule, Mild LV Diastolic Dysfunction. PE Psychiatric history: anxiety, depression - Past Surgical History Surgical History: arthroscopy Additional surgical history: Bladder Sx. Colonoscopy. EGD. LHC. Sigmoid Colectomy - Social History Smoking Status: Never smoker Smokeless Tobacco Status: No Alcohol use: occasionally Drug use: none - Family History Father Family Member Ethnicity: Non- Living Status: Hx Family Cardiac Disorders: Yes (LA, CAD) Brother Family Member Ethnicity: Non- Living Status: Still Living Hx Family Cardiac Disorders: Yes (CAD) Sister Family Member Ethnicity: Non- Living Status: Still Living Hx Family Endocrine Disorder: Yes (DM) Grandmother Family Member Ethnicity: Non- Living Status: Hx Family Cancer: Yes (Breast) Grandfather Family Member Ethnicity: Non- Living Status: Hx Family Cardiac Disorders: Yes (LA) Hx Family Endocrine Disorder: Yes (DM) Mother Family Member Ethnicity: Non- Living Status: Still Living Hx Family Cardiac Disorders: Yes (HTN) Hx Family Respiratory Disorders: No Hx Family Cancer: Yes (Colon Cancer) Hx Family GI Disorders: No Hx Family Endocrine Disorder: No Hx Family Neuromuscular Disorders: No Hx Family Neurologic Disorders: No Hx Family HEENT Disorders: No Hx Family Autoimmune Disorders: No Medications and Allergies Finasteride [Proscar] 5 mg PO QAM 01/31/17 [History] Simvastatin [Zocor] 40 mg PO QPM 02/01/17 [History] Multivitamin [Multivitamins] 1 each PO QAM 03/23/17 [History] Fluticasone Propionate Nasal [Flonase] 2 spray NS DAILY 11/05/17 [History] Metformin HCl 1,000 mg PO BID 08/03/18 [History] Metoprolol [Lopressor] 25 mg PO BID 09/15/18 [History] Fexofenadine HCl 60 mg PO QAM 11/18/18 [History] Fish Oil/Dha/Epa [Fish Oil 1,200 mg Fish Oil] 1,200 mg PO DAILY 11/18/18 [History] Furosemide [Lasix] 40 mg PO QAM 11/18/18 [History] Insulin NPH Hum/Reg Insulin Hm [Relion Novolin 70-30 Flexpen] 55 units SQ BID 11/18/18 [History] Lisinopril [Zestril] 10 mg PO QAM 11/18/18 [History] Omeprazole Magnesium [Prilosec Otc] 40 mg PO BID 11/18/18 [History] Cinnamon Bark [Cinnamon] 1,000 mg PO QAM 01/05/19 [History] Trazodone HCl 50 mg PO HS 01/05/19 [History] Venlafaxine HCl [Venlafaxine HCl ER] 225 mg PO QAM 01/05/19 [History] Warfarin [Coumadin] 7.5 mg PO DAILY #0 01/07/19 [Rx] Enoxaparin [Lovenox] 180 mg SQ DAILY 01/16/19 [History] Allergy/AdvReac Type Severity Reaction Status Date / Time amlodipine [From Norvasc] Allergy Rash Verified 01/16/19 20:54 bupropion [From Wellbutrin] Allergy Rash Verified 01/16/19 20:54 gabapentin Allergy Rash Verified 01/16/19 20:54 morphine AdvReac Confusion Verified 01/16/19 20:54 rivaroxaban [From Xarelto] AdvReac Cough Verified 01/16/19 20:54 SURGICAL TAPE AdvReac Blister Uncoded 01/16/19 20:54 Review of Systems All systems PM: The remainder of the systems were reviewed and are negative General Surgery Exam Initial Vital Signs Temp Pulse Resp BP Pulse Ox 98.2 F 98 20 112/78 93 01/16/19 20:20 01/16/19 20:20 01/16/19 20:20 01/16/19 20:20 01/16/19 20:20 Exam Initial Vital Signs Temp Pulse Resp BP Pulse Ox 98.2 F 98 20 112/78 93 01/16/19 20:20 01/16/19 20:20 01/16/19 20:20 01/16/19 20:20 01/16/19 20:20 Results - Labs 01/17/19 04:21 01/17/19 04:21 Abnormal lab results WBC 13.1 K/mcL (4.3-11.1) H 01/17/19 04:21 RBC 5.58 M/mcL (4.19-5.50) H 01/17/19 04:21 MCH 27.6 pg (28.0-33.3) L 01/17/19 04:21 RDW 15.0 % (11.5-14.5) H 01/17/19 04:21 Neutrophils # 11.7 K/mcL (1.6-8.9) H 01/17/19 04:21 PT 24.6 Seconds (9.4-12.1) H 01/17/19 04:21 APTT 37.8 Seconds (26.0-36.0) H 01/16/19 21:25 Heparin Anti-Xa, Unfract 0.08 IU/mL (0.30-0.70) L 01/17/19 01:06 ABG pH 7.52 pH Units (7.32-7.45) H 01/17/19 11:55 ABG pCO2 27 mmHg (35-45) L 01/17/19 11:55 ABG O2 Saturation 99 % (95-98) H 01/17/19 11:55 Carbon Dioxide 21 mEq/L (23-29) L 01/17/19 04:21 BUN 27 mg/dL (6-20) H 01/17/19 04:21 Creatinine 1.50 mg/dL (0.70-1.30) H 01/17/19 04:21 Est GFR ( Amer) 59 (> 60) L 01/17/19 04:21 Est GFR (Non-Af Amer) 48 (> 60) L 01/17/19 04:21 Glucose 394 mg/dL (70-105) H 01/17/19 04:21 POC Glucose 264 mg/dL (70-99) H 01/17/19 08:47 Calculated Osmolality 308 (280-300) H 01/17/19 04:21 Magnesium 1.5 mg/dL (1.6-2.6) L 01/17/19 04:21 Triglycerides 198 mg/dL (< 150) H 01/17/19 04:21 VLDL Cholesterol, Calc 40 mg/dL (< 31) H 01/17/19 04:21 HDL Cholesterol 36 mg/dL (40-59) L 01/17/19 04:21 Amylase 948 Units/L (29-103) H 01/16/19 21:25 Lipase > 1800 Units/L (11-82) H 01/16/19 21:25 Diabetes panel 01/16/19 01/17/19 01/17/19 Range/Units 21:25 01:06 04:21 Sodium 137 138 (136-145) mEq/L Potassium 4.2 4.6 (3.5-5.1) mEq/L Chloride 100 99 (98-107) mEq/L Carbon Dioxide 24 21 L (23-29) mEq/L BUN 28 H 27 H (6-20) mg/dL Creatinine 1.84 H 1.50 H (0.70-1.30) mg/dL Glucose 162 H 394 H (70-105) mg/dL Calcium 9.3 9.1 (8.6-10.3) mg/dL AST 21 32 (13-39) Units/L ALT 30 31 (7-52) Units/L Alkaline Phosphatase 64 63 (34-104) Units/L Albumin 4.0 4.0 (3.5-5.7) g/dL Triglycerides 198 H (< 150) mg/dL HDL Cholesterol 36 L (40-59) mg/dL Calcium panel 01/16/19 01/17/19 01/17/19 Range/Units 21:25 01:06 04:21 Calcium 9.3 9.1 (8.6-10.3) mg/dL Albumin 4.0 4.0 (3.5-5.7) g/dL Pituitary panel 01/16/19 01/17/19 Range/Units 21:25 04:21 Sodium 137 138 (136-145) mEq/L Potassium 4.2 4.6 (3.5-5.1) mEq/L Chloride 100 99 (98-107) mEq/L Carbon Dioxide 24 21 L (23-29) mEq/L BUN 28 H 27 H (6-20) mg/dL Creatinine 1.84 H 1.50 H (0.70-1.30) mg/dL Glucose 162 H 394 H (70-105) mg/dL Calcium 9.3 9.1 (8.6-10.3) mg/dL Adrenal panel 01/16/19 01/17/19 01/17/19 Range/Units 21:25 01:06 04:21 Sodium 137 138 (136-145) mEq/L Potassium 4.2 4.6 (3.5-5.1) mEq/L Chloride 100 99 (98-107) mEq/L Carbon Dioxide 24 21 L (23-29) mEq/L BUN 28 H 27 H (6-20) mg/dL Creatinine 1.84 H 1.50 H (0.70-1.30) mg/dL Glucose 162 H 394 H (70-105) mg/dL Calcium 9.3 9.1 (8.6-10.3) mg/dL Total Bilirubin 0.4 0.5 (0.3-1.0) mg/dL AST 21 32 (13-39) Units/L ALT 30 31 (7-52) Units/L Alkaline Phosphatase 64 63 (34-104) Units/L Albumin 4.0 4.0 (3.5-5.7) g/dL All other labs normal. Consult Discharge Plan - Plan Referrals: Alejandro Hagan Jr, MD [Primary Care Provider] -
[2019-01-17] MEDS: *HR* Metoprolol 5 MG/5 ML VIAL IVP PRN (13:43)
--- NOTE | 2019-01-17 14:24 | Electrocardiograph Report ---
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
--- NOTE | 2019-01-17 14:28 | Electrocardiograph Report ---
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
--- NOTE | 2019-01-17 15:34 | Internal Med Progress Note ---
<Tristan Ambrose I - Last Filed: 01/17/19 19:07> Hospitalist Progress Note - Encounter Date of Encounter: 01/17/19 Time of Encounter: 08:30 - Subjective Interval History: Mr Almeida is admitted due to acute epigastric pain and diagnosed with acute pancreatitis . patient is un stable his blood pressure was elevated also his heart rate . he was on loppresor PRN but his vitals were not controlled , he is now on labetalol drips last BP read was 132/97, and hr 107 . he still has epiogastric pain and RUQ and he is dyspnic - Exam Vitals: Temp Pulse Resp BP Pulse Ox 98.4 F 120 28 142/94 94 01/17/19 11:45 01/17/19 12:09 01/17/19 11:45 01/17/19 11:45 01/17/19 12:09 Exam: Gen.:patient is diaphoretic . AAOx3, HEENT: PERRL/EOMI, Normocephalic, atraumatic Cardiac: tachycardic +S1/S2, trace BLE edema Pulmonary: CTA bilaterally, no wheezes, rales or rhonchi Abdomen: soft, diffusely tender, most prominent in epigastric and RUQ Skin: warm and dry, no visible lesions. MSK: ROM intact. Non tender calf or clubbing Neuro: A&Ox3, moves all extremities, no focal deficits psych : normal mood and behavior - Assessment and Plan (1) Pancreatitis Current Visit: Yes Status: Acute Assessment and Plan: patient presented with epigastric pain, nause and vomiting , sweating , tachycardia and dyspnea patient was diagnosed with pancreatitis , cause unclear till now he developed high BP and tachycardia . pt is now on labetolol drips Lipase : >1800 WBC :13.1 ABG : PH 7.52, PCO2 27 , PO2 104, HCO3 22 CT abdomen on 01/17 : show signs of acute pancreatitis Abdomen Ultrasound 01/17/19 : Diffusely abnormal echotexture throughout the liver suggestive of hepatic steatosis, without focal mass. patient recieve several boluses of lactated ringer Plan : NPO vitals monitoring (2) Tachycardia Current Visit: Yes Status: Acute Assessment and Plan: patient had tachycardia today ranging between 120-140 patient is on 25 mg IV Lopressor PRN and she had one dose of toradol, he was still tachycardic . he is now on labetolol drips plan : continue vitals monitoring stop labetolo at heart rate of 100 (3) Diabetes mellitus type II, non insulin dependent Current Visit: Yes Status: Chronic Assessment and Plan: His blood sugar today is 254 plan : Detemir 8 unit at night medium dose SSI continue accu check Q6 diabetic diet (4) HTN (hypertension) Current Visit: Yes Status: Chronic Assessment and Plan: patient hads high blood pressure today . he is now on labetolol drips the goal is 130/90 . (5) Sepsis Current Visit: Yes Status: Suspected Assessment and Plan: does meet 3/4 SIRS with tachycardia, RR 24, WBC 15 - Suspect that this is more related to pancreatitis and pain however, no obvious source of infection - Will not treat with abx - Will give fluids as above for pancreatitis - Expect these to resolve with supportive care. - Continue to monitor for signs of intra-abdominal infection (6) S/P cholecystectomy Current Visit: Yes Status: Chronic Assessment and Plan: patient had surgery 10 days ago follow up with the surgeon . patient has generalized abdominal tenderness specially at eoigastric and RUQ (7) COPD (chronic obstructive pulmonary disease) Current Visit: Yes Status: Chronic Assessment and Plan: does not appear to be in acute exacerbation DVT Prophylaxis: added heparin to home coumadin in the setting of acute DVT Per vascular, goal INR of 2.5-3.5 - Time Spent with Patient Total time spent is greater than 50% in coordination of care (as documented) at patient's floor/unit and/or counseling patient: Internal Medicine: Result - Labs CBC & Chem 7: 01/17/19 04:21 01/17/19 04:21 Labs: Short CBC 01/16/19 01/17/19 Range/Units 21:25 04:21 WBC 15.4 H 13.1 H (4.3-11.1) K/mcL Hgb 15.2 15.4 (12.9-16.9) g/dL Hct 46.4 47.4 (37.5-50.1) % Plt Count 247 242 (140-400) K/mcL Neutrophils # 12.1 H 11.7 H (1.6-8.9) K/mcL BMP 01/16/19 01/17/19 21:25 04:21 Sodium 137 138 Potassium 4.2 4.6 Chloride 100 99 Carbon Dioxide 24 21 L BUN 28 H 27 H Creatinine 1.84 H 1.50 H Glucose 162 H 394 H Calcium 9.3 9.1 Cardiac Enzymes 01/16/19 01/17/19 Range/Units 21:25 14:20 Troponin I 0.03 < 0.03 (< 0.04) ng/mL Liver Function 01/17/19 01/17/19 Range/Units 01:06 04:21 Total Bilirubin 0.4 0.5 (0.3-1.0) mg/dL Direct Bilirubin 0.1 (0.0-0.2) mg/dL AST 21 32 (13-39) Units/L ALT 30 31 (7-52) Units/L Alkaline Phosphatase 64 63 (34-104) Units/L Albumin 4.0 4.0 (3.5-5.7) g/dL - ABG Interpretation ABG results: ABG ABG pH 7.52 pH Units (7.32-7.45) H 01/17/19 11:55 ABG pCO2 27 mmHg (35-45) L 01/17/19 11:55 ABG pO2 104 mmHg (85-104) 01/17/19 11:55 ABG O2 Saturation 99 % (95-98) H 01/17/19 11:55 PT/INR, D-dimer PT 24.6 Seconds (9.4-12.1) H 01/17/19 04:21 - Impressions Impressions CT Dissection 01/16/19 20:32 IMPRESSION: Findings consistent with acute pancreatitis and nonvisualization of the superior mesenteric vein which may be related to suboptimal phase of contrast enhancement. Attention on follow-up imaging is recommended. Negative for dissection Ascending thoracic aortic enlargement which measures 4.9 cm. D/ / Phoenix Diaz MD / Phoenix Diaz MD Interpreting Provider: Phoenix Diaz MD Abdomen Ultrasound 01/17/19 14:30 IMPRESSION: Diffusely abnormal echotexture throughout the liver suggestive of hepatic steatosis, without focal mass. D/ / Kenton Max MD / Kenton Max MD Interpreting Provider: Kenton Max MD Consult Discharge Plan - Plan Referrals: Alejandro Hagan Jr, MD [Primary Care Provider] - <JonnyHarley A - Last Filed: 01/17/19 19:21> Hospitalist Progress Note - Encounter Date of Encounter: 01/17/19 - Exam Vitals: Temp Pulse Resp BP Pulse Ox 99.3 F 109 20 146/99 92 01/17/19 16:42 01/17/19 18:30 01/17/19 18:08 01/17/19 18:30 01/17/19 18:08 - Assessment and Plan (1) Pancreatitis Current Visit: Yes Status: Acute (2) DVT (deep venous thrombosis) Current Visit: Yes Status: Acute (3) HTN (hypertension) Current Visit: Yes Status: Chronic (4) Morbid obesity with BMI of 45.0-49.9, adult Current Visit: No Status: Chronic (5) Diabetes mellitus type II, non insulin dependent Current Visit: Yes Status: Chronic (6) ADALID on CPAP Current Visit: No Status: Chronic - Time Spent with Patient Total time spent is greater than 50% in coordination of care (as documented) at patient's floor/unit and/or counseling patient: Internal Medicine: Result - Labs CBC & Chem 7: 01/17/19 04:21 01/17/19 04:21 Labs: Short CBC 01/16/19 01/17/19 Range/Units 21:25 04:21 WBC 15.4 H 13.1 H (4.3-11.1) K/mcL Hgb 15.2 15.4 (12.9-16.9) g/dL Hct 46.4 47.4 (37.5-50.1) % Plt Count 247 242 (140-400) K/mcL Neutrophils # 12.1 H 11.7 H (1.6-8.9) K/mcL BMP 01/16/19 01/17/19 21:25 04:21 Sodium 137 138 Potassium 4.2 4.6 Chloride 100 99 Carbon Dioxide 24 21 L BUN 28 H 27 H Creatinine 1.84 H 1.50 H Glucose 162 H 394 H Calcium 9.3 9.1 Cardiac Enzymes 01/16/19 01/17/19 Range/Units 21:25 14:20 Troponin I 0.03 < 0.03 (< 0.04) ng/mL Liver Function 01/17/19 01/17/19 Range/Units 01:06 04:21 Total Bilirubin 0.4 0.5 (0.3-1.0) mg/dL Direct Bilirubin 0.1 (0.0-0.2) mg/dL AST 21 32 (13-39) Units/L ALT 30 31 (7-52) Units/L Alkaline Phosphatase 64 63 (34-104) Units/L Albumin 4.0 4.0 (3.5-5.7) g/dL - ABG Interpretation ABG results: ABG ABG pH 7.52 pH Units (7.32-7.45) H 01/17/19 11:55 ABG pCO2 27 mmHg (35-45) L 01/17/19 11:55 ABG pO2 104 mmHg (85-104) 01/17/19 11:55 ABG O2 Saturation 99 % (95-98) H 01/17/19 11:55 PT/INR, D-dimer PT 24.6 Seconds (9.4-12.1) H 01/17/19 04:21 - Impressions Impressions CT Dissection 01/16/19 20:32 IMPRESSION: Findings consistent with acute pancreatitis and nonvisualization of the superior mesenteric vein which may be related to suboptimal phase of contrast enhancement. Attention on follow-up imaging is recommended. Negative for dissection Ascending thoracic aortic enlargement which measures 4.9 cm. D/ / Phoenix Diaz MD / Phoenix Diaz MD Interpreting Provider: Phoenix Diaz MD Abdomen Ultrasound 01/17/19 14:30 IMPRESSION: Diffusely abnormal echotexture throughout the liver suggestive of hepatic steatosis, without focal mass. D/ / Kenton Max MD / Kenton Max MD Interpreting Provider: Kenton Max MD - Attending Attestation I examined this patient and my medical decision-making was reviewed with the Resident Physician on 01/17/19. I agree with the documented findings, disposition and treatment plan as described except to the extent set forth below. Mr Almeida was admitted this AM for acute pancreatitis. He has been transferred to . He remains on fluids and pain control. His BP and heart rate have been elevated. Labetalol drip has helped. Will continue supportive care as ordered. <Tristan Ambrose I - Last Filed: 01/17/19 19:07> (1) Pancreatitis Qualifiers: Chronicity: acute Pancreatitis type: unspecified pancreatitis type Acute pancreatitis complication: unspecified Qualified Code(s): K85.90 - Acute pancreatitis without necrosis or infection, unspecified (4) HTN (hypertension) Qualifiers: Hypertension type: essential hypertension Qualified Code(s): I10 - Essential (primary) hypertension (5) Sepsis Qualifiers: Sepsis type: sepsis due to unspecified organism Qualified Code(s): A41.9 - Sepsis, unspecified organism (7) COPD (chronic obstructive pulmonary disease) Qualifiers: COPD type: unspecified COPD Qualified Code(s): J44.9 - Chronic obstructive pulmonary disease, unspecified <Harley Fuller A - Last Filed: 01/17/19 19:21> (1) Pancreatitis Qualifiers: Chronicity: acute Pancreatitis type: idiopathic Acute pancreatitis complication: no infection or necrosis Qualified Code(s): K85.00 - Idiopathic acute pancreatitis without necrosis or infection (2) DVT (deep venous thrombosis) Qualifiers: DVT location: lower extremity Affected thrombotic vein of extremity: popliteal Chronicity: acute Laterality: left Qualified Code(s): I82.432 - Acute embolism and thrombosis of left popliteal vein (3) HTN (hypertension) Qualifiers: Hypertension type: essential hypertension Qualified Code(s): I10 - Essential (primary) hypertension
[2019-01-17] MEDS ORDERED: Ringers Solution, Lactated 1,000 ML ONE (16:10)
[2019-01-17] MEDS: Labetalol 200 MG in D5% in Water 250 ML IVC SCH (17:54)
[2019-01-17] MEDS ORDERED: *HR* Warfarin 10 MG TABLET PO ONE (18:00)
[2019-01-17] MEDS ORDERED: Warfarin perPT PO PRN (18:00)
[2019-01-17] MEDS ORDERED: *HR* Warfarin 7.5 MG TABLET PO ONE (18:00)
[2019-01-17] MEDS: Piperacillin/Tazobactam 3.375 GM in 0.9 % Sodium Chloride Mini Bag 100 ML IVPB SCH (23:18)
[2019-01-18 01:22] LABS: Basophils # 0.1 K/mcL (0.0-0.2); Basophils % 0.2 %; Hematocrit 46.7 % (37.5-50.1); Hemoglobin 15.5 g/dL (12.9-16.9); Immature Granulocytes % 0.9 % (0-4); Lymphocytes # 1.1 K/mcL (0.6-4.6); Lymphocytes % 4.4 %; Mean Corpuscular HGB Conc 33.2 g/dL (31.6-35.5); Mean Corpuscular Hemoglobin 27.9 pg (28.0-33.3); Mean Corpuscular Volume 84.1 fL (83.0-100.0); Mean Platelet Volume 10.2 fL (9.4-12.4); Monocytes % 6.2 %; Neutrophils # 22.1 K/mcL (1.6-8.9); Platelet Count 271 K/mcL (140-400); Red Blood Count 5.55 M/mcL (4.19-5.50); Red Cell Distribution Width 16.2 % (11.5-14.5); Segmented Neutrophils % 88.3 %
[2019-01-18 01:24] LABS: INR 2.1; Monocytes # 1.6 K/mcL (0.0-1.3); Prothrombin Time 24.3 Seconds (9.4-12.1)
[2019-01-18 01:47] LABS: Platelet Estimate Normal (Normal)
[2019-01-18 01:54] LABS: Alanine Aminotransferase 31 Units/L (7-52); Albumin 3.8 g/dL (3.5-5.7); Albumin/Globulin Ratio 1.2 (1.1-2.2); Alkaline Phosphatase 60 Units/L (34-104); Amylase 310 Units/L (29-103); Aspartate Amino Transferase 47 Units/L (13-39); BUN/Creatinine Ratio 20 (6-26); Bilirubin,Total 1.2 mg/dL (0.3-1.0); Blood Urea Nitrogen 29 mg/dL (6-20); Calcium 9.3 mg/dL (8.6-10.3); Carbon Dioxide 26 mEq/L (23-29); Chloride 101 mEq/L (98-107); Globulin 3.3 g/dL (2.4-3.5); Glucose 348 mg/dL (70-105); Lipase 985 Units/L (11-82); Osmolality,Calculated 306 (280-300); Sodium 138 mEq/L (136-145); Total Protein 7.1 g/dL (6.4-8.9); eGFR For African Americans > 60 (> 60); eGFR For Non-African Americans 51 (> 60)
[2019-01-18] MEDS: Ringers Solution, Lactated 1,000 ML IVC SCH ×3 (02:15→21:20)
[2019-01-18] MEDS: *HR* Metoprolol 5 MG/5 ML VIAL IVP PRN ×3 (03:46→21:25)
[2019-01-18] MEDS: Insulin LISPRO 300 UNITS/3 ML VIAL SQ SCH ×5 (05:53→23:46)
[2019-01-18] MEDS ORDERED: *HR* Metoprolol 5 MG/5 ML VIAL IVP ONE (05:57)
[2019-01-18] MEDS: Piperacillin/Tazobactam 3.375 GM in 0.9 % Sodium Chloride Mini Bag 100 ML IVPB SCH ×3 (07:36→23:44)
--- NOTE | 2019-01-18 07:45 | Internal Med Progress Note ---
<Harley Fuller - Last Filed: 01/18/19 12:56> Hospitalist Progress Note - Encounter Date of Encounter: 01/18/19 - Exam Vitals: Temp Pulse Resp BP Pulse Ox 98.8 F 109 25 160/103 91 01/18/19 11:46 01/18/19 11:46 01/18/19 11:46 01/18/19 11:46 01/18/19 11:46 - Assessment and Plan (1) Pancreatitis Current Visit: Yes Status: Acute (2) DVT (deep venous thrombosis) Current Visit: Yes Status: Acute (3) HTN (hypertension) Current Visit: Yes Status: Chronic (4) Morbid obesity with BMI of 45.0-49.9, adult Current Visit: No Status: Chronic (5) Diabetes mellitus type II, non insulin dependent Current Visit: Yes Status: Chronic (6) ADALID on CPAP Current Visit: No Status: Chronic (7) Sepsis Current Visit: Yes Status: Acute - Time Spent with Patient Total time spent is greater than 50% in coordination of care (as documented) at patient's floor/unit and/or counseling patient: Internal Medicine: Result - Labs CBC & Chem 7: 01/18/19 01:00 01/18/19 01:00 Labs: Short CBC 01/18/19 Range/Units 01:00 WBC 25.0 H D (4.3-11.1) K/mcL Hgb 15.5 (12.9-16.9) g/dL Hct 46.7 (37.5-50.1) % Plt Count 271 (140-400) K/mcL Neutrophils # 22.1 H (1.6-8.9) K/mcL BMP 01/18/19 01:00 Sodium 138 Potassium 4.0 Chloride 101 Carbon Dioxide 26 BUN 29 H Creatinine 1.44 H Glucose 348 H Calcium 9.3 Cardiac Enzymes 01/17/19 01/17/19 Range/Units 14:20 19:09 Troponin I < 0.03 < 0.03 (< 0.04) ng/mL Liver Function 01/18/19 Range/Units 01:00 Total Bilirubin 1.2 H (0.3-1.0) mg/dL AST 47 H (13-39) Units/L ALT 31 (7-52) Units/L Alkaline Phosphatase 60 (34-104) Units/L Albumin 3.8 (3.5-5.7) g/dL - ABG Interpretation ABG results: ABG ABG pH 7.52 pH Units (7.32-7.45) H 01/17/19 11:55 ABG pCO2 27 mmHg (35-45) L 01/17/19 11:55 ABG pO2 104 mmHg (85-104) 01/17/19 11:55 ABG O2 Saturation 99 % (95-98) H 01/17/19 11:55 PT/INR, D-dimer PT 24.3 Seconds (9.4-12.1) H 01/18/19 01:00 - Impressions Impressions Abdomen Ultrasound 01/17/19 14:30 IMPRESSION: Diffusely abnormal echotexture throughout the liver suggestive of hepatic steatosis, without focal mass. D/ / Kenton Max MD / Kenton Max MD Interpreting Provider: Kenton Max MD Consult Discharge Plan - Plan Referrals: Alejandro Hagan Jr, MD [Primary Care Provider] - - Attending Attestation I examined this patient and my medical decision-making was reviewed with the Resident Physician on 01/18/19. I agree with the documented findings, disposition and treatment plan as described except to the extent set forth below. Mr Almeida is currently admitted for acute pancreatitis. He remains moderate to high risk due to potential for worsening clinical status. Mr Almeiad is up in chair. He is getting bath. Overall says he is feeling a little better. Had an episode of fever last night. Started on IV Zosyn. No further fever. BP and heart rate have been hard to control. That seems somewhat better today as well. Exam: Alert Comfortable. Mucus membranes dry. NC. Neck supple. Heart tachy and regular. Decreased breath sounds. Abd soft. Epigastric discomfort. Edema present throughout. No rash. Moves all extremities. Plan: Continue IV fluids - decrease to 75ml/hr. Glucose control. IV Zosyn. ERCP when improved. Continue only ice chips today. <Tristan Ambrose I - Last Filed: 01/18/19 13:52> Hospitalist Progress Note - Encounter Date of Encounter: 01/18/19 Time of Encounter: 07:30 - Subjective Interval History: Mr. Almeida is seen and examined today . his abdominal kaylyn is slightly impr refugio . no nausea or vomiting , he had high temperature yesterday 101.1 and he received and responded well to Tylenol . his blood pressure dropped yesterday to 97/75 on labetolol drips and it was discontinued . he is getting high blood pressure today again with elevated heart rate . he said also his urine is very dark and brown in color . able to pass gas but not popped . - Exam Vitals: Temp Pulse Resp BP Pulse Ox 99.2 F 104 23 168/102 91 01/18/19 03:20 01/18/19 06:16 01/18/19 03:20 01/18/19 06:16 01/18/19 03:20 Exam: General : no acute distress, sitting in chair . AAOx3, HEENT: PERRL/EOMI, Normocephalic, atraumatic Cardiac: tachycardic +S1/S2, trace BLE edema Pulmonary: CTA bilaterally, no wheezes, rales or rhonchi Abdomen: soft, epigastric and RUQ tenderness Skin: warm and dry, no visible lesions. MSK: ROM intact. Non tender calf or clubbing Neuro: A&Ox3, moves all extremities, no focal deficits psych : normal mood and behavior - Assessment and Plan (1) Pancreatitis Current Visit: Yes Status: Acute Assessment and Plan: patient presented with epigastric pain, nause and vomiting , sweating , tachycardia and dyspnea patient was diagnosed with pancreatitis , cause unclear till now he developed high BP and tachycardia . pt was on labetolol drips Lipase : >1800 WBC :13.1 ABG : PH 7.52, PCO2 27 , PO2 104, HCO3 22 CT abdomen on 01/17 : show signs of acute pancreatitis Abdomen Ultrasound 01/17/19 : Diffusely abnormal echotexture throughout the liver suggestive of hepatic steatosis, without focal mass. patient recieve several boluses of lactated ringer today : his abdominal kaylyn is slightly improved . no nausea or vomiting , he had high temperature yesterday 101.1 today T 99.2 . his blood pressure dropped yesterday to 97/75 on labetolol drips and it was discontinued today is 168/102. his blood sugar is also elevated 348 ..added basal insulin BID and medium SSI his creatinine today 1.44, BUN 29 PT24.3 , INR 2.1 lipid panel was done and TG is 198 lipase 985, amylase 310 , also AST slightly elevated today 47 wbc is elevated 25 , 2 blood cultures are pending and he is on zosyn day 2 surgery was consulted too and they recommend NPO vitals monitoring continue IVF to retain RFT to normal limit pain control ERCP once pancreatitis resolved maintain anticoagulation Plan : NPO vitals monitoring continue IVF LR at rate 75 ml/hr lopressor PRN for elevated BP continue zosin day 2 (2) Sepsis Current Visit: Yes Status: Suspected Assessment and Plan: does meet 3/4 SIRS at admission with tachycardia, RR 24, WBC 15 and again today wbc 25 , hr 108 , with high tempreture 101.1 at night - sepsis most likley due to pancreatitis - 2 blood cultures are pending - Will give zosin today day 2 - Will give fluids as above for pancreatitis - Continue to monitor for signs of intra-abdominal infection (3) Tachycardia Current Visit: Yes Status: Acute Assessment and Plan: he is getting high blood pressure today again with elevated heart rate . heart rate 108 , on leppresor PRN plan as above (4) Diabetes mellitus type II, non insulin dependent Current Visit: Yes Status: Chronic Assessment and Plan: his blood sugar is also elevated 348 ..added basal insulin BID 25 units and high SSI continuw acce check (5) HTN (hypertension) Current Visit: Yes Status: Chronic Assessment and Plan: his blood pressure dropped yesterday to 97/75 on labetolol drips and it was discontinued today is 168/102. on loppresor PRN . plan as above (6) S/P cholecystectomy Current Visit: Yes Status: Chronic Assessment and Plan: patient had surgery 10 days ago follow up with the surgeon . patient has generalized abdominal tenderness specially at eoigastric and RUQ (7) COPD (chronic obstructive pulmonary disease) Current Visit: Yes Status: Chronic Assessment and Plan: does not appear to be in acute exacerbation DVT Prophylaxis: added heparin to home coumadin in the setting of acute DVT Per vascular, goal INR of 2.5-3.5 - Time Spent with Patient Total time spent is greater than 50% in coordination of care (as documented) at patient's floor/unit and/or counseling patient: Internal Medicine: Result - Labs CBC & Chem 7: 01/18/19 01:00 01/18/19 01:00 Labs: Short CBC 01/18/19 Range/Units 01:00 WBC 25.0 H D (4.3-11.1) K/mcL Hgb 15.5 (12.9-16.9) g/dL Hct 46.7 (37.5-50.1) % Plt Count 271 (140-400) K/mcL Neutrophils # 22.1 H (1.6-8.9) K/mcL BMP 01/17/19 01/18/19 04:21 01:00 Sodium 138 138 Potassium 4.6 4.0 Chloride 99 101 Carbon Dioxide 21 L 26 BUN 27 H 29 H Creatinine 1.50 H 1.44 H Glucose 394 H 348 H Calcium 9.1 9.3 Cardiac Enzymes 01/17/19 01/17/19 Range/Units 14:20 19:09 Troponin I < 0.03 < 0.03 (< 0.04) ng/mL Liver Function 01/17/19 01/18/19 Range/Units 04:21 01:00 Total Bilirubin 0.5 1.2 H (0.3-1.0) mg/dL AST 32 47 H (13-39) Units/L ALT 31 31 (7-52) Units/L Alkaline Phosphatase 63 60 (34-104) Units/L Albumin 4.0 3.8 (3.5-5.7) g/dL - ABG Interpretation ABG results: ABG ABG pH 7.52 pH Units (7.32-7.45) H 01/17/19 11:55 ABG pCO2 27 mmHg (35-45) L 01/17/19 11:55 ABG pO2 104 mmHg (85-104) 01/17/19 11:55 ABG O2 Saturation 99 % (95-98) H 01/17/19 11:55 PT/INR, D-dimer PT 24.3 Seconds (9.4-12.1) H 01/18/19 01:00 - Impressions Impressions Abdomen Ultrasound 01/17/19 14:30 IMPRESSION: Diffusely abnormal echotexture throughout the liver suggestive of hepatic steatosis, without focal mass. D/ / Kenton Max MD / Kenton Max MD Interpreting Provider: Kenton Max MD <Harley Fuller A - Last Filed: 01/18/19 12:56> (1) Pancreatitis Qualifiers: Chronicity: acute Pancreatitis type: idiopathic Acute pancreatitis complication: no infection or necrosis Qualified Code(s): K85.00 - Idiopathic acute pancreatitis without necrosis or infection (2) DVT (deep venous thrombosis) Qualifiers: DVT location: lower extremity Affected thrombotic vein of extremity: popliteal Chronicity: acute Laterality: left Qualified Code(s): I82.432 - Acute embolism and thrombosis of left popliteal vein (3) HTN (hypertension) Qualifiers: Hypertension type: essential hypertension Qualified Code(s): I10 - Essential (primary) hypertension (7) Sepsis Qualifiers: Sepsis type: sepsis due to unspecified organism Qualified Code(s): A41.9 - Sepsis, unspecified organism <Tristan Ambrose I - Last Filed: 01/18/19 13:52> (1) Pancreatitis Qualifiers: Chronicity: acute Pancreatitis type: idiopathic Acute pancreatitis complic ation: no infection or necrosis Qualified Code(s): K85.00 - Idiopathic acute pancreatitis without necrosis or infection (2) Sepsis Qualifiers: Sepsis type: sepsis due to unspecified organism Qualified Code(s): A41.9 - Sepsis, unspecified organism (5) HTN (hypertension) Qualifiers: Hypertension type: essential hypertension Qualified Code(s): I10 - Essential (primary) hypertension (7) COPD (chronic obstructive pulmonary disease) Qualifiers: COPD type: unspecified COPD Qualified Code(s): J44.9 - Chronic obstructive pulmonary disease, unspecified
[2019-01-18] MEDS: Insulin DETEMIR 100 UNIT/ML X5UNITS SQ SCH ×2 (08:26→21:25)
[2019-01-18] MEDS: Heparin 25,000 UNIT/250 ML D5W 25,000 UNIT/250 ML IV.SOLN IVC SCH (08:54)
[2019-01-18] MEDS: *HR* FentaNYL (PF) 100 MCG/2 ML VIAL IVP PRN ×2 (09:23→10:24)
--- NOTE | 2019-01-18 10:43 | General Surgery Progress Note ---
Date of Encounter: 01/18/19 Time of Encounter: 10:00 Subjective Patient reports: feels better, still having pain Narrative: [facility] Patient feeling better; describes abdominal pain as diminished. Patient was notably febrile at 101.1 through the night; likely due to the acute pancre the patient is currently afebrile at 98.0; he is been tachycardic as high as 119. The patient has been intermittently hypoxic with elevated Respiratory rate el evated, as high as 28. Signs and symptoms are likely due to the acute pancreatitis and pulmonary effects that often accompany acute pancreatitis. BP has been elevated ranging 149/90 178/100. The patient is presently seated at bedside. He is in no acute distress. Lungs: Clear though inspiratory efforts remains limited due to abdominal pain Abdomen: Diffusely tender but less so than on examination yesterday. Active bowel sounds Laboratories: CBC is increased to 25.0 with 22.1 neutrophils; hemoglobin 15.5, hematocrit 46.7. Platelet count 271,000. PT 24.3, INR 2.1 Electrolytes stable, sodium 138, potassium 4.0, chloride 101 BUN remains elevated above baseline at 29; creatinine slightly improved to 1.44; eGFR has improved to 51. Accu-Cheks still elevated 348 and 394. Amylase 310, lipase 985 (previous amylase 948, lipase greater than 1800) Impression: Acute pancreatitis, resolving. Recommendations: Maintain nothing by mouth except for ice chips sparingly until abdominal pain resolved and abnormal amylase/lipase improved Increase Accu-Cheks to every 4 hours; increase sliding scale to high coverage for better control of elevated blood sugars Continue IV fluids as needed to return BUN/creatinine are normal levels. Discussed with Dr. Harley Fuller as well as patient and his . Objective Vital Signs - Last 8 Hours Temp Pulse Resp BP Pulse Ox 01/18/19 08:31 114 01/18/19 08:29 98 F 117 28 149/90 88 01/18/19 06:16 104 168/102 01/18/19 05:30 119 178/100 01/18/19 05:00 115 185/102 01/18/19 04:00 106 144/99 01/18/19 03:30 111 147/92 01/18/19 03:20 99.2 F 114 23 159/93 91 01/18/19 02:30 116 150/113 Intake and Output 01/17/19 01/18/19 01/18/19 23:59 07:59 15:59 Intake Total 411 / 2661 1167.7 / 1350.0 182.3 / 1350.0 Output Total 200 / 750 300 / 600 300 / 600 Balance 1 867.7 / 750.0 -117.7 / 750.0 Intake: IV Fluids 411 / 2661 1167.7 / 1350.0 182.3 / 1350.0 Heparin 25,000 UNIT/250 ML D5W 250 / 500 67.7 / 250.0 182.3 / 250.0 25,000 unit In 250 ml @ 14 UNIT /KG/HR 23.934 mls/hr IVC . [id number] [facility] Rx#:[id number] Labetalol 200 MG In Dextrose 5% 57 / 57 250 ML @ 0.5 MG/MIN 43.5 mls/ hr IVC CONT EUGENIO Rx#:[id number] Lactated Ringers 1,000 ML @ 125 1000 / 1000 mls/hr IVC .Q8H [facility] Rx#: [id number] Magnesium Sulfate 2 GM In 0.9 % 104 / 104 Sodium Chloride 100 ML @ 104 mls/hr IVPB ONCE ONE Rx#: [id number] Zosyn 3.375 GM In 0.9 % Sodium 100 / 100 Chloride (Mini-Bag +) 100 ML @ 25 mls/hr IVPB Q8HR [facility] Rx#: [id number] Output: Urine 200 / 750 300 / 600 300 / 600 Other: Blood Glucose* 328 317 - Labs 01/18/19 01:00 01/18/19 01:00 Diabetes panel 01/18/19 Range/Units 01:00 Sodium 138 (136-145) mEq/L Potassium 4.0 (3.5-5.1) mEq/L Chloride 101 (98-107) mEq/L Carbon Dioxide 26 (23-29) mEq/L BUN 29 H (6-20) mg/dL Creatinine 1.44 H (0.70-1.30) mg/dL Glucose 348 H (70-105) mg/dL Calcium 9.3 (8.6-10.3) mg/dL AST 47 H (13-39) Units/L ALT 31 (7-52) Units/L Alkaline Phosphatase 60 (34-104) Units/L Albumin 3.8 (3.5-5.7) g/dL Calcium panel 01/18/19 Range/Units 01:00 Calcium 9.3 (8.6-10.3) mg/dL Albumin 3.8 (3.5-5.7) g/dL Pituitary panel 01/18/19 Range/Units 01:00 Sodium 138 (136-145) mEq/L Potassium 4.0 (3.5-5.1) mEq/L Chloride 101 (98-107) mEq/L Carbon Dioxide 26 (23-29) mEq/L BUN 29 H (6-20) mg/dL Creatinine 1.44 H (0.70-1.30) mg/dL Glucose 348 H (70-105) mg/dL Calcium 9.3 (8.6-10.3) mg/dL Adrenal panel 01/18/19 Range/Units 01:00 Sodium 138 (136-145) mEq/L Potassium 4.0 (3.5-5.1) mEq/L Chloride 101 (98-107) mEq/L Carbon Dioxide 26 (23-29) mEq/L BUN 29 H (6-20) mg/dL Creatinine 1.44 H (0.70-1.30) mg/dL Glucose 348 H (70-105) mg/dL Calcium 9.3 (8.6-10.3) mg/dL Total Bilirubin 1.2 H (0.3-1.0) mg/dL AST 47 H (13-39) Units/L ALT 31 (7-52) Units/L Alkaline Phosphatase 60 (34-104) Units/L Albumin 3.8 (3.5-5.7) g/dL Consult Discharge Plan - Plan Referrals: Alejandro Hagan Jr, MD [Primary Care Provider] -
[2019-01-18 13:12] LABS: Bilirubin,Urine Negative (Negative); Blood,Urine Large (Negative); Clarity,Urine Cloudy (Clear); Color,Urine Yellow (Yellow); Glucose,Urine (UA) >=1000 mg/dL (Normal); Ketones,Urine Negative (Negative); Leukocyte Esterase,Urine Negative (Negative); Nitrite,Urine Negative (Negative); Protein,Urine >=300 mg/dL (Neg-Trace); Specific Gravity,Urine > 1.030 (1.010-1.025); Urobilinogen,Urine Normal (Normal)
[2019-01-18 13:23] LABS: Bacteria,Urine None Seen per hpf (None-Few); Hyaline Casts,Urine None Seen per lpf (None-Few); Squamous Epithelial Cell,Urine Many per lpf (None-Few); WBC,Urine 30-50 per hpf (0-3)
--- NOTE | 2019-01-18 13:35 | Electrocardiograph Report ---
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
[2019-01-18 13:42] LABS: Yeast,Urine Few per hpf (None Seen)
[2019-01-18] MEDS: Acetaminophen 325 MG TABLET PO PRN ×2 (14:14→21:25)
[2019-01-18] MEDS ORDERED: *HR* Warfarin 5 MG TABLET PO ONE (18:00)
[2019-01-18] MEDS: Labetalol 200 MG in D5% in Water 250 ML IVC SCH (22:33)
[2019-01-19] MEDS: Insulin LISPRO 300 UNITS/3 ML VIAL SQ SCH ×5 (03:23→20:45)
[2019-01-19 05:56] LABS: Basophils % 0.2 %; Eosinophils % 0.2 %; Hematocrit 38.6 % (37.5-50.1); Immature Granulocytes % 1.9 % (0-4); Lymphocytes # 1.1 K/mcL (0.6-4.6); Lymphocytes % 5.9 %; Mean Corpuscular HGB Conc 31.9 g/dL (31.6-35.5); Mean Corpuscular Hemoglobin 27.6 pg (28.0-33.3); Mean Corpuscular Volume 86.5 fL (83.0-100.0); Mean Platelet Volume 10.1 fL (9.4-12.4); Monocytes # 1.1 K/mcL (0.0-1.3); Monocytes % 5.7 %; Platelet Count 223 K/mcL (140-400); Red Blood Count 4.46 M/mcL (4.19-5.50); Red Cell Distribution Width 16.3 % (11.5-14.5); Segmented Neutrophils % 86.1 %; White Blood Count 18.4 K/mcL (4.3-11.1)
[2019-01-19 06:02] LABS: Hemoglobin 12.3 g/dL (12.9-16.9); Neutrophils # 15.8 K/mcL (1.6-8.9)
[2019-01-19 06:03] LABS: INR 2.4; Prothrombin Time 27.2 Seconds (9.4-12.1)
[2019-01-19 06:14] LABS: Alanine Aminotransferase 23 Units/L (7-52); Albumin 3.5 g/dL (3.5-5.7); Alkaline Phosphatase 63 Units/L (34-104); Amylase 99 Units/L (29-103); Aspartate Amino Transferase 29 Units/L (13-39); BUN/Creatinine Ratio 18 (6-26); Bilirubin,Total 1.5 mg/dL (0.3-1.0); Blood Urea Nitrogen 20 mg/dL (6-20); Calcium 9.4 mg/dL (8.6-10.3); Carbon Dioxide 31 mEq/L (23-29); Chloride 97 mEq/L (98-107); Globulin 3.5 g/dL (2.4-3.5); Glucose 186 mg/dL (70-105); Lipase 250 Units/L (11-82); Osmolality,Calculated 297 (280-300); Potassium 3.5 mEq/L (3.5-5.1); Sodium 140 mEq/L (136-145); eGFR For African Americans > 60 (> 60); eGFR For Non-African Americans > 60 (> 60)
[2019-01-19 06:23] LABS: Platelet Estimate Normal (Normal)
[2019-01-19 06:24] LABS: Anisocytosis 1+ (Not Present)
[2019-01-19] MEDS: Piperacillin/Tazobactam 3.375 GM in 0.9 % Sodium Chloride Mini Bag 100 ML IVPB SCH ×3 (07:59→22:58)
[2019-01-19] MEDS: *HR* Metoprolol 5 MG/5 ML VIAL IVP PRN (08:04)
[2019-01-19] MEDS: Insulin DETEMIR 100 UNIT/ML X5UNITS SQ SCH ×2 (08:12→20:45)
--- NOTE | 2019-01-19 11:04 | Internal Med Progress Note ---
<Tristan Ambrose Ron - Last Filed: 01/19/19 13:51> Hospitalist Progress Note - Encounter Date of Encounter: 01/19/19 Time of Encounter: 09:00 - Subjective Interval History: Mr Morrell is seen and examined today , he is doing better , still has mild epigastric pain specially after he ate his liquid clear diet , no fever , no chest pain or SOB , his urine color is still brown , no difficulty with urination - Exam Vitals: Temp Pulse Resp BP Pulse Ox 98.2 F 109 17 163/102 96 01/19/19 07:42 01/19/19 07:42 01/19/19 07:42 01/19/19 07:42 01/19/19 07:42 Exam: General : no acute distress, sitting in chair . AAOx3, HEENT: PERRL/EOMI, Normocephalic, atraumatic Cardiac: tachycardic +S1/S2, trace BLE edema Pulmonary: CTA bilaterally, no wheezes, rales or rhonchi Abdomen: soft, epigastric and RUQ tenderness Skin: warm and dry, no visible lesions. MSK: ROM intact. Non tender calf or clubbing Neuro: A&Ox3, moves all extremities, no focal deficits psych : normal mood and behavior - Assessment and Plan (1) Pancreatitis Current Visit: Yes Status: Acute Assessment and Plan: patient presented with epigastric pain, nause and vomiting , sweating , tachycardia and dyspnea patient was diagnosed with pancreatitis , cause unclear till now at time of admission Lipase : >1800 WBC :13.1 ABG : PH 7.52, PCO2 27 , PO2 104, HCO3 22 CT abdomen on 01/17 : show signs of acute pancreatitis Abdomen Ultrasound 01/17/19 : Diffusely abnormal echotexture throughout the liver suggestive of hepatic steatosis, without focal mass. patient recieve several boluses of lactated ringer surgery was consulted too and they recommend NPO till epigastric pain improve vitals monitoring continue IVF to retain RFT to normal limit pain control ERCP once pancreatitis resolved maintain anticoagulation today : his abdominal pain is better , no fever , started liquid clear diet and tolerate it . his vital are better BP149/103 , hr 97 LABS WBC 18.4 , ELECTROLYTE STABLE , GLUCOSE 186 LIPASE 250 improving plan : continue LR fluid 75ml/hr continue zosin today is day 3 monitor vital sings (2) Sepsis Current Visit: Yes Status: Suspected Assessment and Plan: does meet 3/4 SIRS at admission with tachycardia, RR 24, WBC 15 , today his wbc 18.4 , t 98.7 , hr 97 - sepsis was most likley due to pancreatitis - 2 blood cultures are pending - Will give zosin today day 3 - Will give fluids as above for pancreatitis - Continue to monitor for signs of intra-abdominal infection (3) Tachycardia Current Visit: Yes Status: Acute Assessment and Plan: heart rate 97 . on telemetry . lopresor PRN continue monitoring (4) Diabetes mellitus type II, non insulin dependent Current Visit: Yes Status: Chronic Assessment and Plan: today his blood sugar is 196 . continue accu check continue high SSI and 25 unit detemir (5) HTN (hypertension) Current Visit: Yes Status: Chronic Assessment and Plan: bp today 140/80 .. improved continue monitoring he has Lopressor PRN (6) S/P cholecystectomy Current Visit: Yes Status: Chronic Assessment and Plan: patient had surgery 10 days ago follow up with the surgeon . patient has generalized abdominal tenderness specially at eoigastric and RUQ (7) COPD (chronic obstructive pulmonary disease) Current Visit: Yes Status: Chronic Assessment and Plan: chronic condition does not appear to be in acute exacerbation DVT Prophylaxis: added heparin to home coumadin in the setting of acute DVT Per vascular, goal INR of 2.5-3.5 - Time Spent with Patient Total time spent is greater than 50% in coordination of care (as documented) at patient's floor/unit and/or counseling patient: Internal Medicine: Result - Labs CBC & Chem 7: 01/19/19 05:01 01/19/19 05:01 Labs: Short CBC 01/19/19 Range/Units 05:01 WBC 18.4 H (4.3-11.1) K/mcL Hgb 12.3 L D (12.9-16.9) g/dL Hct 38.6 (37.5-50.1) % Plt Count 223 (140-400) K/mcL Neutrophils # 15.8 H (1.6-8.9) K/mcL BMP 01/19/19 05:01 Sodium 140 Potassium 3.5 Chloride 97 L Carbon Dioxide 31 H BUN 20 Creatinine 1.12 Glucose 186 H Calcium 9.4 Liver Function 01/19/19 Range/Units 05:01 Total Bilirubin 1.5 H (0.3-1.0) mg/dL AST 29 (13-39) Units/L ALT 23 (7-52) Units/L Alkaline Phosphatase 63 (34-104) Units/L Albumin 3.5 (3.5-5.7) g/dL Urine 01/18/19 Range/Units 12:30 Urine Color Yellow (Yellow) Urine Clarity Cloudy A (Clear) Urine pH 6.0 (5.0-8.0) pH Units Ur Specific Covert > 1.030 H (1.010-1.025) Urine Protein >=300 H (Neg-Trace) mg/dL Urine Glucose (UA) >=1000 H (Normal) mg/dL - ABG Interpretation ABG results: ABG ABG pH 7.52 pH Units (7.32-7.45) H 01/17/19 11:55 ABG pCO2 27 mmHg (35-45) L 01/17/19 11:55 ABG pO2 104 mmHg (85-104) 01/17/19 11:55 ABG O2 Saturation 99 % (95-98) H 01/17/19 11:55 PT/INR, D-dimer PT 27.2 Seconds (9.4-12.1) H 01/19/19 05:01 Consult Discharge Plan - Plan Referrals: Alejandro Hagan Jr, MD [Primary Care Provider] - <Heber Raymond - Last Filed: 01/19/19 14:50> Hospitalist Progress Note - Encounter Date of Encounter: 01/19/19 Time of Encounter: 09:45 - Exam Vitals: Temp Pulse Resp BP Pulse Ox 98.7 F 97 20 142/80 95 01/19/19 11:59 01/19/19 11:59 01/19/19 11:59 01/19/19 11:59 01/19/19 11:59 - Assessment and Plan (1) Diabetes mellitus type II, non insulin dependent Current Visit: Yes Status: Chronic (2) ADALID on CPAP Current Visit: No Status: Chronic (3) Morbid obesity with BMI of 45.0-49.9, adult Current Visit: No Status: Chronic (4) HTN (hypertension) Current Visit: Yes Status: Chronic (5) DVT (deep venous thrombosis) Current Visit: Yes Status: Acute (6) Pancreatitis Current Visit: Yes Status: Acute (7) Sepsis Current Visit: Yes Status: Acute - Time Spent with Patient Total time spent is greater than 50% in coordination of care (as documented) at patient's floor/unit and/or counseling patient: Internal Medicine: Result - Labs CBC & Chem 7: 01/19/19 05:01 01/19/19 05:01 Labs: Short CBC 01/19/19 Range/Units 05:01 WBC 18.4 H (4.3-11.1) K/mcL Hgb 12.3 L D (12.9-16.9) g/dL Hct 38.6 (37.5-50.1) % Plt Count 223 (140-400) K/mcL Neutrophils # 15.8 H (1.6-8.9) K/mcL BMP 01/19/19 05:01 Sodium 140 Potassium 3.5 Chloride 97 L Carbon Dioxide 31 H BUN 20 Creatinine 1.12 Glucose 186 H Calcium 9.4 Liver Function 01/19/19 Range/Units 05:01 Total Bilirubin 1.5 H (0.3-1.0) mg/dL AST 29 (13-39) Units/L ALT 23 (7-52) Units/L Alkaline Phosphatase 63 (34-104) Units/L Albumin 3.5 (3.5-5.7) g/dL - ABG Interpretation ABG results: ABG ABG pH 7.52 pH Units (7.32-7.45) H 01/17/19 11:55 ABG pCO2 27 mmHg (35-45) L 01/17/19 11:55 ABG pO2 104 mmHg (85-104) 01/17/19 11:55 ABG O2 Saturation 99 % (95-98) H 01/17/19 11:55 PT/INR, D-dimer PT 27.2 Seconds (9.4-12.1) H 01/19/19 05:01 - Attending Attestation I saw evaluated and examined this patient and my medical decision-making was reviewed with the Resident Physician, Tristan Ambrose. I agree with the documented findings, disposition and treatment plan as described except to any changes set forth below. We independently had [id number] contact with the patient. Patient was feeling comfortable this morning. He did tolerate clear liquid diet before but within the day began to have abdominal pain again. Also continues to have dark colored urine. On exam, abdomen is soft with epigastric tenderness present. Continue supportive care with gentle IV hydration. Patient has elevated bilirubin which likely is the cause for his dark-colored urine. Lipase and amylase trending down. Will consult GI to evaluate for ERCP. In the meantime will hold Coumadin and place patient on IV heparin once INR less than 2. <Tristan Ambrose I - Last Filed: 01/19/19 13:51> (1) Pancreatitis Qualifiers: Chronicity: acute Pancreatitis type: idiopathic Acute pancreatitis complication: no infection or necrosis Qualified Code(s): K85.00 - Idiopathic acute pancreatitis without necrosis or infection (2) Sepsis Qualifiers: Sepsis type: sepsis due to unspecified organism Qualified Code(s): A41.9 - Sepsis, unspecified organism (5) HTN (hypertension) Qualifiers: Hypertension type: essential hypertension Qualified Code(s): I10 - Essential (primary) hypertension (7) COPD (chronic obstructive pulmonary disease) Qualifiers: COPD type: unspecified COPD Qualified Code(s): J44.9 - Chronic obstructive pulmonary disease, unspecified <Heber Raymond - Last Filed: 01/19/19 14:50> (4) HTN (hypertension) Qualifiers: Hypertension type: essential hypertension Qualified Code(s): I10 - Essential (primary) hypertension (5) DVT (deep venous thrombosis) Qualifiers: DVT location: lower extremity Affected thrombotic vein of extremity: popliteal Chronicity: acute Laterality: left Qualified Code(s): I82.432 - Acute embolism and thrombosis of left popliteal vein (6) Pancreatitis Qualifiers: Chronicity: acute Pancreatitis type: idiopathic Acute pancreatitis complication: no infection or necrosis Qualified Code(s): K85.00 - Idiopathic acute pancreatitis without necrosis or infection (7) Sepsis Qualifiers: Sepsis type: sepsis due to unspecified organism Qualified Code(s): A41.9 - Sepsis, unspecified organism
[2019-01-19] MEDS: Ringers Solution, Lactated 1,000 ML IVC SCH ×2 (12:03→22:58)
--- NOTE | 2019-01-19 15:02 | General Surgery Progress Note ---
Date of Encounter: 01/19/19 Time of Encounter: 14:54 Subjective Narrative: General Surgery - The patient is feeling better. The patient has remained afebrile for the last 24 hours; Tmax 99.6. HR still elevated, 108-123; RR 16-21 BP better, 135/70 - 165/95 Patient still with epigastric pain, slightly increased after consuming clear liquids. The patient did not exercise moderation when diet permitted. Some Nausea as a result. WBC slightly better, 18.4 with neurtrophils improved to 15.8 Amylase and lipase 99 and 250 respectively electrolytes, BUN Cr back to normal limits Accuchecks approx 231 Acceptable status. Acute pancreatitis appears to be resolving. Consult with GI pending. Anticipate ERCP in the next 48 hours. Objective Vital Signs - Last 8 Hours Temp Pulse Resp BP Pulse Ox 01/19/19 11:59 98.7 F 97 20 142/80 95 01/19/19 07:42 98.2 F 109 17 163/102 96 Intake and Output 01/18/19 01/19/19 01/19/19 23:59 07:59 15:59 Intake Total 1250 / 3700.0 100 / 2140 2040 / 2140 Output Total 600 / 1200 450 / 450 Balance 650 / 2500.0 -350 / 1690 2040 / 1690 Intake: IV Fluids 1100 / 3550.0 100 / 1100 1000 / 1100 Lactated Ringers 1,000 ML @ 75 1000 / 3000 1000 / 1000 mls/hr IVC .[id number] EUGEN[facility] Rx#: [id number] Zosyn 3.375 GM In 0.9 % Sodium 100 / 300 100 / 100 Chloride (Mini-Bag +) 100 ML @ 25 mls/hr IVPB Q8HR EUGENIO Rx#: [id number] Oral 150 / 150 1040 / 1040 Output: Urine 600 / 1200 450 / 450 Other: Meal Lunch Blood Glucose* 228 200 189 - Labs 01/19/19 05:01 01/19/19 05:01 Diabetes panel 01/19/19 Range/Units 05:01 Sodium 140 (136-145) mEq/L Potassium 3.5 (3.5-5.1) mEq/L Chloride 97 L (98-107) mEq/L Carbon Dioxide 31 H (23-29) mEq/L BUN 20 (6-20) mg/dL Creatinine 1.12 (0.70-1.30) mg/dL Glucose 186 H (70-105) mg/dL Calcium 9.4 (8.6-10.3) mg/dL AST 29 (13-39) Units/L ALT 23 (7-52) Units/L Alkaline Phosphatase 63 (34-104) Units/L Albumin 3.5 (3.5-5.7) g/dL Calcium panel 01/19/19 Range/Units 05:01 Calcium 9.4 (8.6-10.3) mg/dL Albumin 3.5 (3.5-5.7) g/dL Pituitary panel 01/19/19 Range/Units 05:01 Sodium 140 (136-145) mEq/L Potassium 3.5 (3.5-5.1) mEq/L Chloride 97 L (98-107) mEq/L Carbon Dioxide 31 H (23-29) mEq/L BUN 20 (6-20) mg/dL Creatinine 1.12 (0.70-1.30) mg/dL Glucose 186 H (70-105) mg/dL Calcium 9.4 (8.6-10.3) mg/dL Adrenal panel 01/19/19 Range/Units 05:01 Sodium 140 (136-145) mEq/L Potassium 3.5 (3.5-5.1) mEq/L Chloride 97 L (98-107) mEq/L Carbon Dioxide 31 H (23-29) mEq/L BUN 20 (6-20) mg/dL Creatinine 1.12 (0.70-1.30) mg/dL Glucose 186 H (70-105) mg/dL Calcium 9.4 (8.6-10.3) mg/dL Total Bilirubin 1.5 H (0.3-1.0) mg/dL AST 29 (13-39) Units/L ALT 23 (7-52) Units/L Alkaline Phosphatase 63 (34-104) Units/L Albumin 3.5 (3.5-5.7) g/dL Consult Discharge Plan - Plan Referrals: Alejandro Hagan Jr, MD [Primary Care Provider] -
--- NOTE | 2019-01-19 15:31 | Event Note ---
Date of Encounter: 01/19/19 Time of Encounter: 15:30 Chart reviewed and discussed with Dr Irwin. Pt takes coumadin, INR currently 2.4, please correct INR for possible ERCP on Thursday. Will see pt tomorrow with full consult to follow.
[2019-01-19] MEDS ORDERED: *HR* Warfarin 10 MG TABLET PO ONE (18:00)
[2019-01-19] MEDS: Sennosides/Docusate Sodium TABLET PO SCH (20:45)
[2019-01-20] MEDS: *HR* Metoprolol 5 MG/5 ML VIAL IVP PRN ×3 (03:59→18:11)
[2019-01-20 04:02] LABS: Basophils % 0.2 %; Eosinophils # 0.1 K/mcL (0.0-0.6); Hematocrit 33.6 % (37.5-50.1); Hemoglobin 11.3 g/dL (12.9-16.9); Immature Granulocytes % 0.7 % (0-4); Lymphocytes # 1.1 K/mcL (0.6-4.6); Lymphocytes % 8.6 %; Mean Corpuscular HGB Conc 33.6 g/dL (31.6-35.5); Mean Corpuscular Hemoglobin 28.3 pg (28.0-33.3); Mean Corpuscular Volume 84.2 fL (83.0-100.0); Mean Platelet Volume 9.8 fL (9.4-12.4); Monocytes # 0.9 K/mcL (0.0-1.3); Neutrophils # 10.9 K/mcL (1.6-8.9); Platelet Count 175 K/mcL (140-400); Red Blood Count 3.99 M/mcL (4.19-5.50); Red Cell Distribution Width 15.8 % (11.5-14.5); Segmented Neutrophils % 82.5 %; White Blood Count 13.2 K/mcL (4.3-11.1)
[2019-01-20 04:12] LABS: INR 2.3; Prothrombin Time 26.2 Seconds (9.4-12.1)
[2019-01-20 04:22] LABS: Amylase 31 Units/L (29-103); BUN/Creatinine Ratio 15 (6-26); Blood Urea Nitrogen 14 mg/dL (6-20); Calcium 8.6 mg/dL (8.6-10.3); Carbon Dioxide 26 mEq/L (23-29); Chloride 98 mEq/L (98-107); Glucose 196 mg/dL (70-105); Lipase 81 Units/L (11-82); Osmolality,Calculated 280 (280-300); Potassium 3.3 mEq/L (3.5-5.1); Sodium 132 mEq/L (136-145); eGFR For African Americans > 60 (> 60); eGFR For Non-African Americans > 60 (> 60)
[2019-01-20] MEDS: Sennosides/Docusate Sodium TABLET PO SCH ×2 (08:06→20:22)
[2019-01-20] MEDS: Venlafaxine XR (24 HR) 75 MG CAP.ER.24H PO SCH (08:06)
[2019-01-20] MEDS: Piperacillin/Tazobactam 3.375 GM in 0.9 % Sodium Chloride Mini Bag 100 ML IVPB SCH ×3 (08:09→23:05)
[2019-01-20] MEDS: Insulin LISPRO 300 UNITS/3 ML VIAL SQ SCH ×4 (08:16→20:22)
[2019-01-20] MEDS: Insulin DETEMIR 100 UNIT/ML X5UNITS SQ SCH ×2 (08:21→20:22)
[2019-01-20] MEDS ORDERED: *HR* Heparin 5,000 UNIT/ML VIAL IVP PRN (10:14)
[2019-01-20] MEDS ORDERED: *HR* Heparin 5,000 UNIT/ML VIAL IVP ONE (10:14)
--- NOTE | 2019-01-20 10:51 | Gastroenterology Consult Note ---
<Sandra Downey - Last Filed: 01/20/19 10:47> Date of Encounter: 01/20/19 Time of Encounter: 09:30 - Assessment and plan (1) Pancreatitis Current Visit: Yes Status: Acute Assessment and plan: patient was admitted with acute pancreatitis. He is status post recent cholecystectomy. There is concern for possible obstruction in the need for ERCP. Discussed with Dr. Arreola will check MRCP today if abnormal we will proceed with ERCP tomorrow. He is on Coumadin, today's INR is 2.3 he will need vitamin K if ERCP is planned for tomorrow. Qualifiers: Chronicity: acute Pancreatitis type: idiopathic Acute pancreatitis complication: no infection or necrosis Qualified Code(s): K85.00 - Idiopathic acute pancreatitis without necrosis or infection (2) Abdominal pain Current Visit: Yes Status: Acute Qualifiers: Abdominal location: left lower quadrant Qualified Code(s): R10.32 - Left lower quadrant pain - Time Spent With Patient Total time spent is greater than 50% in coordination of care (as documented) at patient's floor/unit and/or counseling patient: GI History of Present Illness - Data of Consult Patient: known to practice within the last 3 years Consult date: 01/20/19 Requesting Physician: Heber Raymond MD - Consult Narrative Reason for consult: pancreatitis History of present illness: Mr. Almeida is a 58 year old male with past medical history of COPD, diabetes, DVT, hypertension, hyperlipidemia He presented to the emergency department with the complaint of abdominal pain. He is status post laparoscopic cholecystectomy on 01/05/[address] Orantes. He states he had been doing well after surgery until 2 days ago he had a large meal including fried chicken and immediately began having severe pain nausea and vomiting. He does admit to one loose bowel movement that evening as well. He has had pancreatitis in the past approximately 6 years ago but states it was never this bad. Us abdomen showed Diffusely abnormal echotexture throughout the liver suggestive of hepatic steatosis, without focal mass. CTA showed Findings consistent with acute pancreatitis and nonvisualization of the superior mesenteric vein which may be related to suboptimal phase of contrast enhancement. On admission lipase was greater than 1800 has trended down and is currently 81.he states pain is much improved. He denies any nausea or vomiting. He denies any hematochezia or melena. EGD: 11/05/[address] Irwin normal esophagus medium amount of food residue in the stomach, normal duodenum. Colonoscopy: 03/11/2018 Dr. Morfin nonbleeding internal hemorrhoids, diverticulosis. Anticoagulants: Coumadin INR today is 2.3 Past Med Surg Social Fam HX - Past Medical History Medical history: COPD, DVT, diabetes, hyperlipidemia, hypertension, other Additional medical history: Sleep Apnea- uses CPAP. Diverticulosis with Hx of Diverticulitis. Colon Polyps. Diverticular Disease. Fatty Liver. Chronic Lumbago. Pancreatitis. TTE with LVEF 60-65%, Mild Concentric Hyperotrophy of the Ventricule, Mild LV Diastolic Dysfunction. PE Psychiatric history: anxiety, depression - Past Surgical History Surgical History: arthroscopy Additional surgical history: Bladder Sx. Colonoscopy. EGD. LHC. Sigmoid Colectomy - Social History Smoking Status: Never smoker Smokeless Tobacco Status: No Alcohol use: occasionally Drug use: none - Family History Father Family Member Ethnicity: Non- Living Status: Hx Family Cardiac Disorders: Yes (OR, CAD) Brother Family Member Ethnicity: Non- Living Status: Still Living Hx Family Cardiac Disorders: Yes (CAD) Sister Family Member Ethnicity: Non- Living Status: Still Living Hx Family Endocrine Disorder: Yes (DM) Grandmother Family Member Ethnicity: Non- Living Status: Hx Family Cancer: Yes (Breast) Grandfather Family Member Ethnicity: Non- Living Status: Hx Family Cardiac Disorders: Yes (OR) Hx Family Endocrine Disorder: Yes (DM) Mother Family Member Ethnicity: Non- Living Status: Still Living Hx Family Cardiac Disorders: Yes (HTN) Hx Family Respiratory Disorders: No Hx Family Cancer: Yes (Colon Cancer) Hx Family GI Disorders: No Hx Family Endocrine Disorder: No Hx Family Neuromuscular Disorders: No Hx Family Neurologic Disorders: No Hx Family HEENT Disorders: No Hx Family Autoimmune Disorders: No Review of Systems: GI: as per [facility] GENERAL: denies fever, has some chills EYES: denies yellow discoloration ENT: denies pain with swallowing or difficulty swallowing CARDIO: denies chest pain, palpitations RESP: Shortness of breath with exertion : denies change in color of urine NEURO: denies any weakness HEME: Denies any bruising MS: denies joint pain, joint swelling or back pain. DERM: denies rash or itching PSYCH: Denies history of anxiety or depression - Constitutional Vitals: Temp Pulse Resp BP Pulse Ox 98.4 F 101 18 166/100 92 01/20/19 08:12 01/20/19 08:12 01/20/19 08:12 01/20/19 08:12 01/20/19 05:00 Exam: CONSTITUTIONAL:alert, no acute distress.HEAD:normocephalic.EYES:no jaundice.NECK:no obvious swelling.HEART:regular rate and rhythm, no murmurs.LUNGS:bilateral good air entry.ABDOMEN: obese,non distended, soft, non tender, no masses palpable, no organomegaly, laproscopic scars noted without redness, drainage or bruising.RECTAL EXAM:Deferred.EXTREMITIES:no clubbing, cyanosis or edema.SKIN:no stigmata of chronic liver disease.NEUROLOGIC:no obvious focal defect Results - Labs CBC & Chem 7: 01/20/19 03:40 01/20/19 03:40 Labs: Last Result 01/20/19 03:40 Calcium 8.6 Entire Visit 01/20/19 01/20/19 01/20/19 03:40 03:40 03:40 Hgb 11.3 L Hct 33.6 L PT 26.2 H Amylase 31 Lipase 81 - ABG ABG results: ABG ABG pH 7.52 pH Units (7.32-7.45) H 01/17/19 11:55 ABG pCO2 27 mmHg (35-45) L 01/17/19 11:55 ABG pO2 104 mmHg (85-104) 01/17/19 11:55 ABG O2 Saturation 99 % (95-98) H 01/17/19 11:55 PT/INR, D-dimer PT 26.2 Seconds (9.4-12.1) H 01/20/19 03:40 Consult Discharge Plan - Plan Referrals: Alejandro Hagan Jr, MD [Primary Care Provider] - <Ping Irwin - Last Filed: 01/20/19 17:44> Date of Encounter: 01/20/19 Time of Encounter: 17:30 - Time Spent With Patient Total time spent is greater than 50% in coordination of care (as documented) at patient's floor/unit and/or counseling patient: GI History of Present Illness - Data of Consult Requesting Physician: Heber Raymond MD - Consult Narrative History of present illness: Mr. Almeida is a 58 year old male - Constitutional Vitals: Temp Pulse Resp BP Pulse Ox 98.7 F 100 20 186/84 95 01/20/19 16:46 01/20/19 16:46 01/20/19 16:46 01/20/19 16:46 01/20/19 16:46 Results - Labs CBC & Chem 7: 01/20/19 10:49 01/20/19 03:40 Labs: Entire Visit 01/20/19 01/20/19 10:49 10:49 Hgb 11.8 L Hct 36.4 L PT 24.7 H - ABG ABG results: ABG ABG pH 7.52 pH Units (7.32-7.45) H 01/17/19 11:55 ABG pCO2 27 mmHg (35-45) L 01/17/19 11:55 ABG pO2 104 mmHg (85-104) 01/17/19 11:55 ABG O2 Saturation 99 % (95-98) H 01/17/19 11:55 PT/INR, D-dimer PT 24.7 Seconds (9.4-12.1) H 01/20/19 10:49 - Impressions Impressions Abdomen MRI 01/20/19 08:56 IMPRESSION: 1. Evaluation is significantly limited secondary to motion and body habitus. 2. Sequela of acute pancreatitis as described above. More focal loculated fluid collection is seen between the pancreas and stomach measuring 4.2 x 3.0 cm, which may represent a forming pseudocyst. 3. Status post cholecystectomy. No intra- or extrahepatic biliary dilatation. No choledocholithiasis. 4. Hepatic steatosis. 5. Trace left pleural effusion. D/ / 01/20/2019 11:49:36 Brianne Shine MD / earnold Interpreting Provider: Brianne Shine MD - Attending Attestation I have personally performed a face to face evaluation on this patient. I have reviewed and agree with the care plan. History and Exam by me shows: Patient seen and abdominal pain is better on examination: Obese patient with abdominal mild tenderness on deep palpation. Assessment: Patient with pa ncreatitis unclear etiology. MRCP is negative and LFTs are normal. Recommendation: Symptomatic treatment for his pancreatitis. Need a CT of the abdomen in 4-6 weeks to make sure that the peripancreatic fluid collections are resolving. No need for ERCP
[2019-01-20 11:01] LABS: Hematocrit 36.4 % (37.5-50.1); Hemoglobin 11.8 g/dL (12.9-16.9); Mean Corpuscular HGB Conc 32.4 g/dL (31.6-35.5); Mean Corpuscular Hemoglobin 27.3 pg (28.0-33.3); Mean Corpuscular Volume 84.3 fL (83.0-100.0); Mean Platelet Volume 9.8 fL (9.4-12.4); Platelet Count 196 K/mcL (140-400); Red Blood Count 4.32 M/mcL (4.19-5.50); Red Cell Distribution Width 15.8 % (11.5-14.5); White Blood Count 13.4 K/mcL (4.3-11.1)
[2019-01-20 11:10] LABS: INR 2.2; Prothrombin Time 24.7 Seconds (9.4-12.1)
[2019-01-20] MEDS: Heparin 25,000 UNIT/250 ML D5W 25,000 UNIT/250 ML IV.SOLN IVC SCH ×2 (11:15→20:22)
--- NOTE | 2019-01-20 12:43 | General Surgery Progress Note ---
Date of Encounter: 01/20/19 Time of Encounter: 12:28 Subjective Patient reports: feels better Narrative: General Surgey - Patient feeling better, denies abdominal pain. The patient remains afebrile, maximum temperature 99.4. The patient remains tachycardic but rate has diminished. Most recent range 97-105. Respiratory rate 18 -22 without obvious respiratory distress BP is still elevated as high as 171/105 Abdomen is soft, no obvious tenderness. No obvious intra-abdominal masses though abdominal exam is limited by body habitus. No rebound WBC has fallen to 13.4, hemoglobin has also decreased to 11.8 but this is likely d/t dilution / IV fluids. Neutrophils have improved to 10.9. Amylase and lipase have normalized - 31 and 81 respectively Electrolytes notable for hypokalemia 3.5. BUN 14, creatinine 0.91 PT 24.7; INR 2.2 Abdominal MR - Findings include increased signal intensity of the hepatic parenchyma consistent with steatosis. Prior cholecystectomy without intra-or extrahepatic ductal dilatation; focal loculated fluid collection between the pancreas and stomach measuring 3.0 x 4.2 cm, possible pseudocyst; no evidence of choledocholithiasis. Impression: Acute pancreatitis without evidence of choledocholithiasis. This is suggestive of idiopathic pancreatitis. Hepatic steatosis compatible with MCINTOSH Diabetes possible pseudocyst - pseudocyst less than 6 cm may resolve with appropirate medical management and controll of multiple co morbidities. If pseudocyst persists, allow for maturation of the cyst (approx 6-8 weeks) followed by transgastric drainage. The patient is not an ideal surgical candidate due to multiple prior abd surgeries complicated by DVT/PE, morbid obesity, ADALID, hypertension and cardiac abnormalities DVT/PE requiring chronic anticoagulation. It is my understanding goal INR = 2.5. Patient currently on Heparin as warfarin has been held for possible invasive procedure (ERCP) Morbid obesity Hypertension Obstructive sleep apnea concentric ventricular hypertrophy likely due to hypertension and mild LV diastolic dysfunction RECOMMENDATIONS - medical management per Hospitalist Service and GI. No surgical intervention anticipated at this time. Objective Vital Signs - Last 8 Hours Temp Pulse Resp BP Pulse Ox 01/20/19 11:57 98.9 F 103 18 161/95 01/20/19 08:12 98.4 F 101 18 166/100 01/20/19 05:00 98.4 F 102 18 171/105 92 Intake and Output 01/19/19 01/20/19 01/20/19 23:59 07:59 15:59 Intake Total 1340 / 3580 340 / 820 480 / 820 Output Total 180 / 630 500 / 800 300 / 800 Balance 1160 / 2950 -160 / 20 180 / 20 Intake: IV Fluids 1100 / 2300 100 / 100 Lactated Ringers 1,000 ML @ 75 1000 / 2000 mls/hr IVC .[id number] EUGENIO Rx#: [id number] Zosyn 3.375 GM In 0.9 % Sodium 100 / 300 100 / 100 Chloride (Mini-Bag +) 100 ML @ 25 mls/hr IVPB Q8HR [facility] Rx#: [id number] Oral 240 / 1280 240 / 720 480 / 720 Output: Urine 180 / 630 500 / 800 300 / 800 Other: Meal Dinner Breakfast Percent of Meal Consumed 65% Stool Size Small Moderate Stool Consistency loose loose soft Stool Color Brown # Voids 1 1 # Bowel Movements 1 1 Weight 188.2 kg Blood Glucose* 200 211 Patient Weight 01/20/19 23:59 Weight 188.2 kg - Labs 01/20/19 10:49 01/20/19 03:40 Diabetes panel 01/20/19 Range/Units 03:40 Sodium 132 L (136-145) mEq/L Potassium 3.3 L (3.5-5.1) mEq/L Chloride 98 (98-107) mEq/L Carbon Dioxide 26 (23-29) mEq/L BUN 14 (6-20) mg/dL Creatinine 0.91 (0.70-1.30) mg/dL Glucose 196 H (70-105) mg/dL Calcium 8.6 (8.6-10.3) mg/dL Calcium panel 01/20/19 Range/Units 03:40 Calcium 8.6 (8.6-10.3) mg/dL Pituitary panel 01/20/19 Range/Units 03:40 Sodium 132 L (136-145) mEq/L Potassium 3.3 L (3.5-5.1) mEq/L Chloride 98 (98-107) mEq/L Carbon Dioxide 26 (23-29) mEq/L BUN 14 (6-20) mg/dL Creatinine 0.91 (0.70-1.30) mg/dL Glucose 196 H (70-105) mg/dL Calcium 8.6 (8.6-10.3) mg/dL Adrenal panel 01/20/19 Range/Units 03:40 Sodium 132 L (136-145) mEq/L Potassium 3.3 L (3.5-5.1) mEq/L Chloride 98 (98-107) mEq/L Carbon Dioxide 26 (23-29) mEq/L BUN 14 (6-20) mg/dL Creatinine 0.91 (0.70-1.30) mg/dL Glucose 196 H (70-105) mg/dL Calcium 8.6 (8.6-10.3) mg/dL Consult Discharge Plan - Plan Referrals: Alejandro Hagan Jr, MD [Primary Care Provider] -
--- NOTE | 2019-01-20 13:34 | Internal Med Progress Note ---
<Heber Raymond - Last Filed: 01/20/19 14:34> Hospitalist Progress Note - Encounter Date of Encounter: 01/20/19 Time of Encounter: 11:00 - Exam Vitals: Temp Pulse Resp BP Pulse Ox 98.9 F 103 18 161/95 92 01/20/19 11:57 01/20/19 11:57 01/20/19 11:57 01/20/19 11:57 01/20/19 05:00 - Assessment and Plan (1) Diabetes mellitus type II, non insulin dependent Current Visit: Yes Status: Chronic (2) ADALID on CPAP Current Visit: No Status: Chronic (3) Morbid obesity with BMI of 45.0-49.9, adult Current Visit: No Status: Chronic (4) HTN (hypertension) Current Visit: Yes Status: Chronic (5) DVT (deep venous thrombosis) Current Visit: Yes Status: Acute (6) Pancreatitis Current Visit: Yes Status: Acute (7) Sepsis Current Visit: Yes Status: Acute - Time Spent with Patient Total time spent is greater than 50% in coordination of care (as documented) at patient's floor/unit and/or counseling patient: Internal Medicine: Result - Labs CBC & Chem 7: 01/20/19 10:49 01/20/19 03:40 Labs: Short CBC 01/20/19 01/20/19 Range/Units 03:40 10:49 WBC 13.2 H 13.4 H (4.3-11.1) K/mcL Hgb 11.3 L 11.8 L (12.9-16.9) g/dL Hct 33.6 L 36.4 L (37.5-50.1) % Plt Count 175 196 (140-400) K/mcL Neutrophils # 10.9 H (1.6-8.9) K/mcL BMP 01/20/19 03:40 Sodium 132 L Potassium 3.3 L Chloride 98 Carbon Dioxide 26 BUN 14 Creatinine 0.91 Glucose 196 H Calcium 8.6 - ABG Interpretation ABG results: ABG ABG pH 7.52 pH Units (7.32-7.45) H 01/17/19 11:55 ABG pCO2 27 mmHg (35-45) L 01/17/19 11:55 ABG pO2 104 mmHg (85-104) 01/17/19 11:55 ABG O2 Saturation 99 % (95-98) H 01/17/19 11:55 PT/INR, D-dimer PT 24.7 Seconds (9.4-12.1) H 01/20/19 10:49 - Impressions Impressions Abdomen MRI 01/20/19 08:56 IMPRESSION: 1. Evaluation is significantly limited secondary to motion and body habitus. 2. Sequela of acute pancreatitis as described above. More focal loculated fluid collection is seen between the pancreas and stomach measuring 4.2 x 3.0 cm, which may represent a forming pseudocyst. 3. Status post cholecystectomy. No intra- or extrahepatic biliary dilatation. No choledocholithiasis. 4. Hepatic steatosis. 5. Trace left pleural effusion. D/ / 01/20/2019 11:49:36 Brianne Shine MD / francis Interpreting Provider: Brianne Shine MD Consult Discharge Plan - Plan Referrals: Alejandro Hagan Jr, MD [Primary Care Provider] - - Attending Attestation I saw evaluated and examined this patient and my medical decision-making was reviewed with the Resident Physician, Tristan Ambrose. I agree with the documented findings, disposition and treatment plan as described except to any changes set forth below. We independently had [id number] contact with the patient. Patient is tolerating diet better. Her abdominal pain is improving. Acute pancreatitis appears to be resolving. MRCP done which shows possible developing pancreatic pseudocyst. No choledocholithiasis noted. Will discuss with GI surgery's concerns and recommendations regarding ERCP. If agreeable, plan for ERCP tomorrow. Recommend giving patient fresh frozen plasma and morning to bring her INR down to around 1.5. Resume Coumadin postprocedure. In the meantime, patient will be on IV heparin. <Tristan Ambrose I - Last Filed: 01/20/19 16:36> Hospitalist Progress Note - Encounter Date of Encounter: 01/20/19 - Subjective Interval History: patient is seen and examined today , he is improving , he is tolerating liquid c lear diet , he has very minimal abdominal pain that is very tolerable .his urine color is improving it is not brown like yesterday . patient denies , fever , no SOB , CP no N/V/D and constipation - Exam Vitals: Temp Pulse Resp BP Pulse Ox 98.9 F 103 18 161/95 92 01/20/19 11:57 01/20/19 11:57 01/20/19 11:57 01/20/19 11:57 01/20/19 05:00 Exam: General : no acute distress, sitting in chair . AAOx3, HEENT: PERRL/EOMI, Normocephalic, atraumatic Cardiac: tachycardic +S1/S2, trace BLE edema Pulmonary: CTA bilaterally, no wheezes, rales or rhonchi Abdomen: soft, no tenderness, +bowel sound Skin: warm and dry, no visible lesions. MSK: ROM intact. Non tender calf or clubbing Neuro: A&Ox3, moves all extremities, no focal deficits psych : normal mood and behavior - Assessment and Plan (1) Pancreatitis Current Visit: Yes Status: Acute Assessment and Plan: patient presented with epigastric pain, nause and vomiting , sweating , tachycardia and dyspnea patient was diagnosed with pancreatitis , cause unclear till now MOSTLY IDIOPATHIC at time of admission Lipase : >1800 WBC :13.1 ABG : PH 7.52, PCO2 27 , PO2 104, HCO3 22 CT abdomen on 01/17 : show signs of acute pancreatitis Abdomen Ultrasound 01/17/19 : Diffusely abnormal echotexture throughout the liver suggestive of hepatic steatosis, without focal mass. toady pt is doing better , tolerating liquid diet , and very mild abdominal pain his wbc is 13, k is 3.3 was repleted his INR is 2.2 , his lipase and amylase came back to normal today General Surgeon did MRCP :focal loculated fluid collection between the pancreas and stomach measuring 3.0 x 4.2 cm, possible pseudocyst; no evidence of choledocholithiasis. GIT consult : they didnt recomment ERCP (2) Sepsis Current Visit: Yes Status: Suspected Assessment and Plan: does meet 3/4 SIRS at admission with tachycardia, RR 24, WBC 15 , today his wbc 18.4 , t 98.7 , hr 97 - sepsis was most likley due to pancreatitis . now resolved - 2 blood cultures are pending - Will give zosin today day 4 - Continue to monitor for signs of intra-abdominal infection (3) Tachycardia Current Visit: Yes Status: Acute Assessment and Plan: heart rate 103 . on telemetry . lopresor PRN continue monitoring (4) Diabetes mellitus type II, non insulin dependent Current Visit: Yes Status: Chronic Assessment and Plan: today his blood sugar is 262 . continue accu check continue high SSI and 25 unit detemir (5) HTN (hypertension) Current Visit: Yes Status: Chronic Assessment and Plan: bp today 161/95 continue monitoring he has Lopressor PRN (6) S/P cholecystectomy Current Visit: Yes Status: Chronic Assessment and Plan: Assessment and Plan: patient had surgery 2 weeks ago follow up with the surgeon . patient has generalized abdominal tenderness specially at eoigastric and RUQ (7) COPD (chronic obstructive pulmonary disease) Current Visit: Yes Status: Chronic Assessment and Plan: chronic condition does not appear to be in acute exacerbation - Time Spent with Patient Total time spent is greater than 50% in coordination of care (as documented) at patient's floor/unit and/or counseling patient: Internal Medicine: Result - Labs CBC & Chem 7: 01/20/19 10:49 01/20/19 03:40 Labs: Short CBC 01/20/19 01/20/19 Range/Units 03:40 10:49 WBC 13.2 H 13.4 H (4.3-11.1) K/mcL Hgb 11.3 L 11.8 L (12.9-16.9) g/dL Hct 33.6 L 36.4 L (37.5-50.1) % Plt Count 175 196 (140-400) K/mcL Neutrophils # 10.9 H (1.6-8.9) K/mcL BMP 01/20/19 03:40 Sodium 132 L Potassium 3.3 L Chloride 98 Carbon Dioxide 26 BUN 14 Creatinine 0.91 Glucose 196 H Calcium 8.6 - ABG Interpretation ABG results: ABG ABG pH 7.52 pH Units (7.32-7.45) H 01/17/19 11:55 ABG pCO2 27 mmHg (35-45) L 01/17/19 11:55 ABG pO2 104 mmHg (85-104) 01/17/19 11:55 ABG O2 Saturation 99 % (95-98) H 01/17/19 11:55 PT/INR, D-dimer PT 24.7 Seconds (9.4-12.1) H 01/20/19 10:49 - Impressions Impressions Abdomen MRI 01/20/19 08:56 IMPRESSION: 1. Evaluation is significantly limited secondary to motion and body habitus. 2. Sequela of acute pancreatitis as described above. More focal loculated fluid collection is seen between the pancreas and stomach measuring 4.2 x 3.0 cm, which may represent a forming pseudocyst. 3. Status post cholecystectomy. No intra- or extrahepatic biliary dilatation. No choledocholithiasis. 4. Hepatic steatosis. 5. Trace left pleural effusion. D/ / 01/20/2019 11:49:36 Brianne Shine MD / [facility] Interpreting Provider: Brianne Shine MD <Heber Raymond - Last Filed: 01/20/19 14:34> (4) HTN (hypertension) Qualifiers: Hypertension type: essential hypertension Qualified Code(s): I10 - Essential (primary) hypertension (5) DVT (deep venous thrombosis) Qualifiers: DVT location: lower extremity Affected thrombotic vein of extremity: popliteal Chronicity: acute Laterality: left Qualified Code(s): I82.432 - Acute embolism and thrombosis of left popliteal vein (6) Pancreatitis Qualifiers: Chronicity: acute Pancreatitis type: idiopathic Acute pancreatitis complicat ion: no infection or necrosis Qualified Code(s): K85.00 - Idiopathic acute pancreatitis without necrosis or infection (7) Sepsis Qualifiers: Sepsis type: sepsis due to unspecified organism Qualified Code(s): A41.9 - Sepsis, unspecified organism <Tristan Ambrose I - Last Filed: 01/20/19 16:36> (1) Pancreatitis Qualifiers: Chronicity: acute Pancreatitis type: idiopathic Acute pancreatitis complication: no infection or necrosis Qualified Code(s): K85.00 - Idiopathic acute pancreatitis without necrosis or infection (2) Sepsis Qualifiers: Sepsis type: sepsis due to unspecified organism Qualified Code(s): A41.9 - Sepsis, unspecified organism (5) HTN (hypertension) Qualifiers: Hypertension type: essential hypertension Qualified Code(s): I10 - Essential (primary) hypertension (7) COPD (chronic obstructive pulmonary disease) Qualifiers: COPD type: unspecified COPD Qualified Code(s): J44.9 - Chronic obstructive pulmonary disease, unspecified
[2019-01-20] MEDS ORDERED: *HR* Warfarin 10 MG TABLET PO ONE (18:00)
[2019-01-20] MEDS: *HR* Heparin 5,000 UNIT/ML VIAL IVP PRN (18:32)
[2019-01-21 01:24] LABS: Basophils % 0.2 %; Eosinophils # 0.2 K/mcL (0.0-0.6); Eosinophils % 1.9 %; Hematocrit 32.8 % (37.5-50.1); Hemoglobin 10.7 g/dL (12.9-16.9); Immature Granulocytes % 0.8 % (0-4); Lymphocytes # 1.2 K/mcL (0.6-4.6); Lymphocytes % 11.6 %; Mean Corpuscular HGB Conc 32.6 g/dL (31.6-35.5); Mean Corpuscular Volume 85.9 fL (83.0-100.0); Monocytes # 0.9 K/mcL (0.0-1.3); Monocytes % 8.8 %; Neutrophils # 8.1 K/mcL (1.6-8.9); Platelet Count 190 K/mcL (140-400); Red Blood Count 3.82 M/mcL (4.19-5.50); Red Cell Distribution Width 15.6 % (11.5-14.5); Segmented Neutrophils % 76.7 %; White Blood Count 10.6 K/mcL (4.3-11.1)
[2019-01-21 01:30] LABS: INR 2.4; Prothrombin Time 26.8 Seconds (9.4-12.1)
[2019-01-21] MEDS: *HR* Heparin 5,000 UNIT/ML VIAL IVP PRN (01:59)
[2019-01-21 02:14] LABS: Alanine Aminotransferase 22 Units/L (7-52); Albumin 3.2 g/dL (3.5-5.7); Alkaline Phosphatase 67 Units/L (34-104); Aspartate Amino Transferase 19 Units/L (13-39); BUN/Creatinine Ratio 13 (6-26); Bilirubin,Total 0.9 mg/dL (0.3-1.0); Blood Urea Nitrogen 13 mg/dL (6-20); Calcium 9.2 mg/dL (8.6-10.3); Carbon Dioxide 28 mEq/L (23-29); Chloride 99 mEq/L (98-107); Globulin 3.2 g/dL (2.4-3.5); Glucose 160 mg/dL (70-105); Osmolality,Calculated 282 (280-300); Potassium 3.5 mEq/L (3.5-5.1); Sodium 134 mEq/L (136-145); Total Protein 6.4 g/dL (6.4-8.9); eGFR For African Americans > 60 (> 60); eGFR For Non-African Americans > 60 (> 60)
[2019-01-21] MEDS: Heparin 25,000 UNIT/250 ML D5W 25,000 UNIT/250 ML IV.SOLN IVC SCH (06:38)
[2019-01-21] MEDS: Insulin DETEMIR 100 UNIT/ML X5UNITS SQ SCH (07:53)
[2019-01-21] MEDS: Piperacillin/Tazobactam 3.375 GM in 0.9 % Sodium Chloride Mini Bag 100 ML IVPB SCH (07:53)
[2019-01-21] MEDS: Sennosides/Docusate Sodium TABLET PO SCH (07:53)
[2019-01-21] MEDS: Venlafaxine XR (24 HR) 75 MG CAP.ER.24H PO SCH (07:53)
[2019-01-21] MEDS: Insulin LISPRO 300 UNITS/3 ML VIAL SQ SCH ×2 (07:54→11:51)
--- NOTE | 2019-01-21 08:37 | Internal Med Progress Note ---
Hospitalist Progress Note - Encounter Date of Encounter: 01/21/19 - Exam Vitals: Temp Pulse Resp BP Pulse Ox 98.2 F 101 18 163/110 95 01/21/19 07:28 01/21/19 07:28 01/21/19 07:28 01/21/19 07:28 01/21/19 07:28 - Assessment and Plan (1) Pancreatitis Current Visit: Yes Status: Acute (2) Sepsis Current Visit: Yes Status: Suspected (3) Tachycardia Current Visit: Yes Status: Acute (4) Diabetes mellitus type II, non insulin dependent Current Visit: Yes Status: Chronic (5) HTN (hypertension) Current Visit: Yes Status: Chronic (6) S/P cholecystectomy Current Visit: Yes Status: Chronic (7) COPD (chronic obstructive pulmonary disease) Current Visit: Yes Status: Chronic - Time Spent with Patient Total time spent is greater than 50% in coordination of care (as documented) at patient's floor/unit and/or counseling patient: Internal Medicine: Result - Labs CBC & Chem 7: 01/21/19 00:59 01/21/19 00:59 Labs: Short CBC 01/20/19 01/21/19 Range/Units 10:49 00:59 WBC 13.4 H 10.6 (4.3-11.1) K/mcL Hgb 11.8 L 10.7 L (12.9-16.9) g/dL Hct 36.4 L 32.8 L (37.5-50.1) % Plt Count 196 190 (140-400) K/mcL Neutrophils # 8.1 (1.6-8.9) K/mcL BMP 01/21/19 00:59 Sodium 134 L Potassium 3.5 Chloride 99 Carbon Dioxide 28 BUN 13 Creatinine 1.02 Glucose 160 H Calcium 9.2 Liver Function 01/21/19 Range/Units 00:59 Total Bilirubin 0.9 (0.3-1.0) mg/dL AST 19 (13-39) Units/L ALT 22 (7-52) Units/L Alkaline Phosphatase 67 (34-104) Units/L Albumin 3.2 L (3.5-5.7) g/dL - ABG Interpretation ABG results: ABG ABG pH 7.52 pH Units (7.32-7.45) H 01/17/19 11:55 ABG pCO2 27 mmHg (35-45) L 01/17/19 11:55 ABG pO2 104 mmHg (85-104) 01/17/19 11:55 ABG O2 Saturation 99 % (95-98) H 01/17/19 11:55 PT/INR, D-dimer PT 26.8 Seconds (9.4-12.1) H 01/21/19 00:59 - Impressions Impressions Abdomen MRI 01/20/19 08:56 IMPRESSION: 1. Evaluation is significantly limited secondary to motion and body habitus. 2. Sequela of acute pancreatitis as described above. More focal loculated fluid collection is seen between the pancreas and stomach measuring 4.2 x 3.0 cm, which may represent a forming pseudocyst. 3. Status post cholecystectomy. No intra- or extrahepatic biliary dilatation. No choledocholithiasis. 4. Hepatic steatosis. 5. Trace left pleural effusion. D/ / 01/20/2019 11:49:36 [facility] Inter[facility] Provider: Brianne Shine MD Consult Discharge Plan - Plan Referrals: Alejandro Hagan Jr, MD [Primary Care Provider] - (1) Pancreatitis Qualifiers: Chronicity: acute Pancreatitis type: idiopathic Acute pancreatitis complication: no infection or necrosis Qualified Code(s): K85.00 - Idiopathic acute pancreatitis without necrosis or infection (2) Sepsis Qualifiers: Sepsis type: sepsis due to unspecified organism Qualified Code(s): A41.9 - Sepsis, unspecified organism (5) HTN (hypertension) Qualifiers: Hypertension type: essential hypertension Qualified Code(s): I10 - Essential (primary) hypertension (7) COPD (chronic obstructive pulmonary disease) Qualifiers: COPD type: unspecified COPD Qualified Code(s): J44.9 - Chronic obstructive pulmonary disease, unspecified
[2019-01-21] MEDS ORDERED: Furosemide 40 MG TABLET PO SCH (10:30)
--- NOTE | 2019-01-21 10:34 | Discharge Summary ---
<KemarricardoHeber - Last Filed: 01/21/19 14:52> Orders not resulted at time of discharge: Pending orders 01/17/19 19:50 Culture,Blood [BC] Stat Date of Encounter: 01/21/19 Time of Encounter: 10:20 - Discharge Diagnosis (1) Diabetes mellitus type II, non insulin dependent Status: Chronic (2) ADALID on CPAP Status: Chronic (3) Morbid obesity with BMI of 45.0-49.9, adult Status: Chronic (4) HTN (hypertension) Status: Chronic Qualifiers: Hypertension type: essential hypertension Qualified Code(s): I10 - Essential (primary) hypertension (5) DVT (deep venous thrombosis) Status: Acute Qualifiers: DVT location: lower extremity Affected thrombotic vein of extremity: popliteal Chronicity: acute Laterality: left Qualified Code(s): I82.432 - Acute embolism and thrombosis of left popliteal vein (6) Pancreatitis Status: Acute Qualifiers: Chronicity: acute Pancreatitis type: idiopathic Acute pancreatitis complication: no infection or necrosis Qualified Code(s): K85.00 - Idiopathic acute pancreatitis without necrosis or infection (7) Sepsis Status: Acute Qualifiers: Sepsis type: sepsis due to unspecified organism Qualified Code(s): A41.9 - Sepsis, unspecified organism Hospital course: Mr. Almeida is a 58 year old male - Time Spent with Patient Total time spent providing and/or coordinating discharge services: Time spent: Less than 30 minutes (10 min) - Discharge Medications Prescriptions: Continued Finasteride [Proscar] 5 mg PO QAM Simvastatin [Zocor] 40 mg PO QPM Multivitamin [Multivitamins] 1 each PO QAM Fluticasone Propionate Nasal [Flonase] 2 spray NS DAILY Metformin HCl 1,000 mg PO BID Fexofenadine HCl 60 mg PO QAM Fish Oil/Dha/Epa [Fish Oil 1,200 mg Fish Oil] 1,200 mg PO DAILY Furosemide [Lasix] 40 mg PO QAM Insulin NPH Hum/Reg Insulin Hm [Relion Novolin 70-30 Flexpen] 55 units SQ BID Lisinopril [Zestril] 10 mg PO QAM Omeprazole Magnesium [Prilosec Otc] 40 mg PO BID Cinnamon Bark [Cinnamon] 1,000 mg PO QAM Trazodone HCl 50 mg PO HS Venlafaxine HCl [Venlafaxine HCl ER] 225 mg PO QAM Warfarin Sodium 10 mg PO FR Warfarin Sodium 7.5 mg PO SUMOTUWETHSA Changed Metoprolol [Lopressor] 50 mg PO BID #60 tablet Discontinued Enoxaparin [Lovenox] 180 mg SQ DAILY Home Medications: Finasteride [Proscar] 5 mg PO QAM 01/31/17 [History] Simvastatin [Zocor] 40 mg PO QPM 02/01/17 [History] Multivitamin [Multivitamins] 1 each PO QAM 03/23/17 [History] Fluticasone Propionate Nasal [Flonase] 2 spray NS DAILY 11/05/17 [History] Metformin HCl 1,000 mg PO BID 08/03/18 [History] Fexofenadine HCl 60 mg PO QAM 11/18/18 [History] Fish Oil/Dha/Epa [Fish Oil 1,200 mg Fish Oil] 1,200 mg PO DAILY 11/18/18 [History] Furosemide [Lasix] 40 mg PO QAM 11/18/18 [History] Insulin NPH Hum/Reg Insulin Hm [Relion Novolin 70-30 Flexpen] 55 units SQ BID 11/18/18 [History] Lisinopril [Zestril] 10 mg PO QAM 11/18/18 [History] Omeprazole Magnesium [Prilosec Otc] 40 mg PO BID 11/18/18 [History] Cinnamon Bark [Cinnamon] 1,000 mg PO QAM 01/05/19 [History] Trazodone HCl 50 mg PO HS 01/05/19 [History] Venlafaxine HCl [Venlafaxine HCl ER] 225 mg PO QAM 01/05/19 [History] Warfarin Sodium 7.5 mg PO SUMOTUWETHSA 01/18/19 [History] Warfarin Sodium 10 mg PO FR 01/18/19 [History] Metoprolol [Lopressor] 50 mg PO BID #60 tablet 01/21/19 [Rx] Allergies/Adverse Reactions: Allergy/AdvReac Type Severity Reaction Status Date / Time amlodipine [From Norvasc] Allergy Rash Verified 01/16/19 20:54 bupropion [From Wellbutrin] Allergy Rash Verified 01/16/19 20:54 gabapentin Allergy Rash Verified 01/16/19 20:54 morphine AdvReac Confusion Verified 01/16/19 20:54 rivaroxaban [From Xarelto] AdvReac Cough Verified 01/16/19 20:54 SURGICAL TAPE AdvReac Blister Uncoded 01/16/19 20:54 Date of admission: 01/17/19 08:39 Primary care physician: Alejandro Hagan Jr, MD Consults: 01/17/19 00:59 Consult to Surgery [CONS] Stat Consulting Provider: [facility] [place] Reason for Consult: Pancreatitis Time Notified: 12:00 Call Completed: Yes 01/17/19 11:27 Consult to Surgery [CONS] Routine Consulting Provider: [facility] [place] Reason for Consult: acute pancreatitis Call Completed: No 01/19/19 13:43 Consult to Gastroenterology [CONS] Routine Consulting Provider: [facility] [place] Reason for Consult: ercp Call Completed: No - Constitutional Vitals: Temp Pulse Resp BP Pulse Ox 98.2 F 107 18 168/98 96 01/21/19 11:18 01/21/19 11:18 01/21/19 11:18 01/21/19 13:51 01/21/19 11:18 - Patient Status Disposition: Home, Self-Care Condition: Fair - Discharge Instructions Instructions: Pancreatitis (DC), Meal Planning with Diabetes Exchanges (DC), Hypertension (DC) Follow Up With: Coumadin,Clinic [Other] - 01/24/19 1:15 pm Alejandro Hagan Jr, MD [Primary Care Provider] - 01/28/19 11:00 am Mateusz Orantes MD [Non-Partnered Physician] - Additional Instructions: follow up with surgery Dr Orantes . repeat CT scan in 4-6 weeks. blood pressures have been elevated here so your metoprolol dosage has been increased to 50 mg by mouth twice a day. also we stopped Lovenox - Attending Attestation I saw evaluated and examined this patient and my medical decision-making was reviewed with the Resident Physician, Tristan Ambrose. I agree with the documented findings, disposition and treatment plan as described except to any changes set forth below. We independently had [id number] contact with the patient. Patient with history of DVT, COPD, diabetes, hypertension and hyperlipidemia who recently underwent laparoscopic cholecystectomy was hospitalized here with acute pancreatitis. He was evaluated by surgery and kept nothing by mouth and treated with pain medications, fluids. His pancreatitis improved slowly and he was then evaluated by GI to see if he would require an ERCP. Patient underwent an MRCP which did not show any choledocholithiasis. He therefore did not undergo ERCP. She is now tolerating oral diet well. He is clinically stable for discharge and will follow up with surgery. He was found to have possible developing pseudocyst which will need to be followed up as outpatient with a repeat CT scan in 4-6 weeks. Also his blood pressures have been elevated here and so his metoprolol dosage has been increased to 50 mg by mouth twice a day. <Tristan Ambrose I - Last Filed: 01/21/19 16:39> - NOTES TO OUTPATIENT PROVIDER Notes to Outpatient Provider: Patient was admitted due to acute pancreatitis .He is clinically stable for discharge and will follow up with surgery. He was found to have possible developing pseudocyst which will need to be followed up as outpatient with a repeat CT scan in 4-6 weeks. Also his blood pressures have been elevated here and so his metoprolol dosage has been increased to 50 mg by mouth twice a day. we stop his home lovenox too Orders not resulted at time of discharge: Pending orders 01/17/19 19:50 Culture,Blood [BC] Stat 01/22/19 04:00 Complete Blood Count [HEME] AM 0400 Prothrombin Time INR [COAG] AM 0400 01/23/19 04:00 Prothrombin Time INR [COAG] AM 0400 01/24/19 04:00 Prothrombin Time INR [COAG] AM 0400 Date of Encounter: 01/21/19 - Discharge Diagnosis (1) Pancreatitis Priority: Primary Status: Acute Qualifiers: Chronicity: acute Pancreatitis type: idiopathic Acute pancreatitis complication: no infection or necrosis Qualified Code(s): K85.00 - Idiopathic acute pancreatitis without necrosis or infection (2) Sepsis Priority: Secondary Status: Suspected Qualifiers: Sepsis type: sepsis due to unspecified organism Qualified Code(s): A41.9 - Sepsis, unspecified organism (3) Tachycardia Priority: Secondary Status: Acute (4) Diabetes mellitus type II, non insulin dependent Priority: Secondary Status: Chronic (5) HTN (hypertension) Priority: Secondary Status: Chronic Qualifiers: Hypertension type: essential hypertension Qualified Code(s): I10 - Essential (primary) hypertension (6) S/P cholecystectomy Priority: Secondary Status: Chronic (7) COPD (chronic obstructive pulmonary disease) Priority: Secondary Status: Chronic Qualifiers: COPD type: unspecified COPD Qualified Code(s): J44.9 - Chronic obstructive pulmonary disease, unspecified Hospital course: Mr. Almeida is a 58 year old male presented to ER with epigastric pain, nause and vomiting , sweating , tachycardia and dyspnea , patient was diagnosed with pancreatitis , cause unclear till now at time of admission Lipase : >1800 ,WBC :13.1,ABG : PH 7.52, PCO2 27 , PO2 104, HCO3 22 , CT abdomen on 01/17 : show signs of acute pancreatitis , Abdomen Ultrasound 01/17/19 : Diffusely abnormal echotexture throughout the liver suggestive of hepatic steatosis, without focal mass.patient recieve several boluses of lactated ringer ,surgery was consulted too and they recommend NPO till epigastric pain improve and continue IVF . His pancreatitis improved slowly he was started on clear liquid diet and he was tolerating it then soft diet and he was then evaluated by GI to see if he would require an ERCP. Patient underwent an MRCP which did not show any choledocholithiasis. He therefore did not undergo ERCP. He is clinically stable for discharge and will follow up with surgery. He was found to have possible developing pseudocyst which will need to be followed up as outpatient with a repeat CT scan in 4-6 weeks. Also his blood pressures have been elevated here and so his metoprolol dosage has been increased to 50 mg by mouth twice a day.and we stopped his lovenox . patient is stable and understand the treatment and plan . - Time Spent with Patient Total time spent providing and/or coordinating discharge services: Date of admission: 01/17/19 08:39 Primary care physician: Alejandro Hagan Jr, MD Consults: 01/17/19 00:59 Consult to Surgery [CONS] Stat Consulting Provider: [facility] [place] Reason for Consult: Pancreatitis Time Notified: 12:00 Call Completed: Yes 01/17/19 11:27 Consult to Surgery [CONS] Routine Consulting Provider: [facility] [place] Reason for Consult: acute pancreatitis Call Completed: No 01/19/19 13:43 Consult to Gastroenterology [CONS] Routine Consulting Provider: [facility] [place] Reason for Consult: ercp Call Completed: No Discharging clinician: Heber Raymond Anticipated date of discharge: 01/21/19 - Constitutional Vitals: Temp Pulse Resp BP Pulse Ox 98.2 F 101 18 163/110 95 01/21/19 07:28 01/21/19 07:28 01/21/19 07:28 01/21/19 07:28 01/21/19 07:28 General appearance: Present: A&O X 3, no acute distress, obese Exam: . - Head Head exam: Present: atraumatic, normal inspection - Eye Eye exam: Present: EOMI, PERRL, sclera anicteric - Neck Neck exam general surgery: Present: full ROM, normal inspection, supple, trachea midline - Respiratory Respiratory exam: Present: CTAB - Cardiovascular Cardiovascular exam: Present: RRR, +S1, +S2 - GI/Abdominal GI/Abdominal exam: Present: normal bowel sounds, soft, no peritoneal signs - Neurological Exam Neurological exam: Present: alert, normal gait, oriented X3 - Psychiatric Psychiatric exam: Present: normal affect, normal mood - Patient Status Functional capacity at discharge: independent ambulation Overall status at discharge: patient is back to baseline
[2019-01-21 15:10] VITALS: BP 152/91
[2019-01-21] MEDS ORDERED: *HR* Warfarin 10 MG TABLET PO ONE (18:00)
== END 2019-01-21 16:24 | disposition home or self-care (01) | DRG 871 ==
LOC: 3ANU 20:17 → EMEROOARM 20:17 → SUATTDRO 01-17 00:09 → 3ANU 01-17 01:21 → 2NNU 01-17 08:38 → SUATTDRO 01-17 08:39
PROVIDERS: ADMIT Internal Medicine Nephrology; ATTEND Internal Medicine

== ENCOUNTER 2019-01-31 16:45 | Observation (INO) ==
[2019-01-31 17:36] LABS: Basophils # 0.1 K/mcL (0.0-0.2); Basophils % 0.4 %; Eosinophils # 0.3 K/mcL (0.0-0.6); Eosinophils % 2.5 %; Immature Granulocytes % 0.4 % (0-4); Lymphocytes # 2.4 K/mcL (0.6-4.6); Lymphocytes % 20.4 %; Mean Corpuscular HGB Conc 31.7 g/dL (31.6-35.5); Mean Corpuscular Hemoglobin 27.5 pg (28.0-33.3); Mean Corpuscular Volume 86.7 fL (83.0-100.0); Mean Platelet Volume 9.1 fL (9.4-12.4); Monocytes # 0.7 K/mcL (0.0-1.3); Monocytes % 5.8 %; Neutrophils # 8.3 K/mcL (1.6-8.9); Platelet Count 580 K/mcL (140-400); Red Blood Count 4.73 M/mcL (4.19-5.50); Red Cell Distribution Width 14.9 % (11.5-14.5); Segmented Neutrophils % 70.5 %; White Blood Count 11.8 K/mcL (4.3-11.1)
[2019-01-31 17:56] LABS: Alanine Aminotransferase 21 Units/L (7-52); Albumin 3.8 g/dL (3.5-5.7); Alkaline Phosphatase 79 Units/L (34-104); Aspartate Amino Transferase 20 Units/L (13-39); BUN/Creatinine Ratio 16 (6-26); Bilirubin,Direct 0.2 mg/dL (0.0-0.2); Bilirubin,Indirect 0.1 mg/dL (0.0-1.2); Bilirubin,Total 0.3 mg/dL (0.3-1.0); Blood Urea Nitrogen 17 mg/dL (6-20); Calcium 9.9 mg/dL (8.6-10.3); Carbon Dioxide 29 mEq/L (23-29); Chloride 100 mEq/L (98-107); Globulin 3.9 g/dL (2.4-3.5); Glucose 131 mg/dL (70-105); Osmolality,Calculated 291 (280-300); Potassium 4.1 mEq/L (3.5-5.1); Sodium 139 mEq/L (136-145); Total Protein 7.7 g/dL (6.4-8.9); eGFR For African Americans > 60 (> 60); eGFR For Non-African Americans > 60 (> 60)
[2019-01-31 18:02] LABS: Bilirubin,Urine Negative (Negative); Blood,Urine Negative (Negative); Clarity,Urine Clear (Clear); Color,Urine Yellow (Yellow); Glucose,Urine (UA) Normal (Normal); Ketones,Urine Negative (Negative); Leukocyte Esterase,Urine Negative (Negative); Nitrite,Urine Negative (Negative); PH,Urine 5.5 pH Units (5.0-8.0); Protein,Urine 100 mg/dL (Neg-Trace); Specific Gravity,Urine 1.022 (1.010-1.025); Urobilinogen,Urine Normal (Normal)
[2019-01-31 18:04] LABS: Bacteria,Urine None Seen per hpf (None-Few); RBC,Urine 0-3 per hpf (0-3); Squamous Epithelial Cell,Urine Many per lpf (None-Few)
[2019-01-31 18:21] LABS: Hyaline Casts,Urine Few per lpf (None-Few); WBC,Urine 0-3 per hpf (0-3)
[2019-01-31 20:09] LABS: Lipase 157 Units/L (11-82)
[2019-01-31] MEDS ORDERED: Isovue-370 500 ML BOTTLE IVP ONE (20:12)
[2019-01-31] MEDS ORDERED: *HR* FentaNYL (PF) 100 MCG/2 ML VIAL IVP ONE (20:13)
--- NOTE | 2019-01-31 20:27 | Emergency Department Note ---
Disposition Clinical Impression: Pancreatitis Qualifiers: Chronicity: acute Pancreatitis type: idiopathic Acute pancreatitis complication: unspecified Qualified Code(s): K85.00 - Idiopathic acute pancreatitis without necrosis or infection Disposition: Still a Patient Condition: Fair Referrals: Alejandro Hagan Jr, MD [Primary Care Provider] - Forms: ED Satisfaction Letter, Work/School Release Time of Disposition: 21:09 General Adult HPI - General Chief complaint: ED Abdominal Pain Stated complaint: Abd Pain Time Seen by Provider: 01/31/19 19:49 Source: patient, family Limitations: no limitations Nursing Notes Reviewed: Yes Vital Signs Reviewed: Yes - History of Present Illness Pain Scale: 4 - Related Data Home Medications Medication Instructions Recorded Confirmed Finasteride [Proscar] 5 mg PO QAM 01/31/17 01/18/19 Simvastatin [Zocor] 40 mg PO QPM 02/01/17 01/18/19 Multivitamin [Multivitamins] 1 each PO QAM 03/23/17 01/18/19 Fluticasone Propionate Nasal 2 spray NS DAILY 11/05/17 01/18/19 [Flonase] Metformin HCl 1,000 mg PO BID 08/03/18 01/18/19 Fexofenadine HCl 60 mg PO QAM 11/18/18 01/18/19 Fish Oil/Dha/Epa [Fish Oil 1,200 1,200 mg PO DAILY 11/18/18 01/18/19 mg Fish Oil] Furosemide [Lasix] 40 mg PO QAM 11/18/18 01/18/19 Insulin NPH Hum/Reg Insulin Hm 55 units SQ BID 11/18/18 01/18/19 [Relion Novolin 70-30 Flexpen] Lisinopril [Zestril] 10 mg PO QAM 11/18/18 01/18/19 Omeprazole Magnesium [Prilosec Otc] 40 mg PO BID 11/18/18 01/18/19 Cinnamon Bark [Cinnamon] 1,000 mg PO QAM 01/05/19 01/18/19 Trazodone HCl 50 mg PO HS 01/05/19 01/18/19 Venlafaxine HCl [Venlafaxine HCl 225 mg PO QAM 01/05/19 01/18/19 ER] Warfarin Sodium 7.5 mg PO SUMOTUWETHSA 01/18/19 01/18/19 Warfarin Sodium 10 mg PO FR 01/18/19 01/18/19 Previous Rx's Medication Instructions Recorded Metoprolol [Lopressor] 50 mg PO BID #60 tablet 01/21/19 Allergies Allergy/AdvReac Type Severity Reaction Status Date / Time amlodipine [From Norvasc] Allergy Rash Verified 01/16/19 20:54 bupropion [From Wellbutrin] Allergy Rash Verified 01/16/19 20:54 gabapentin Allergy Rash Verified 01/16/19 20:54 morphine AdvReac Confusion Verified 01/16/19 20:54 rivaroxaban [From Xarelto] AdvReac Cough Verified 01/16/19 20:54 SURGICAL TAPE AdvReac Blister Uncoded 01/16/19 20:54 Past Medical History - Past Medical History Medical history: Reports: COPD, DVT, diabetes, hyperlipidemia, hypertension, other Surgical history: Reports: arthroscopy Psychiatric history: Reports: anxiety, depression - Social History Smoking Status: Never smoker Smokeless Tobacco Status: No Alcohol use: Reports: occasionally Drug use: Reports: none Physical Exam - General Limitations: no limitations General appearance: alert, in no apparent distress, appears intoxicated Course Vital Signs Temperature 99.2 F 01/31/19 16:54 Pulse Rate 112 01/31/19 16:54 Respiratory Rate 20 01/31/19 16:54 Blood Pressure 131/81 01/31/19 16:54 O2 Sat by Pulse Oximetry 96 01/31/19 16:54 Temperature 98.4 F 01/31/19 19:56 Pulse Rate 11 01/31/19 19:56 Respiratory Rate 20 01/31/19 19:56 Blood Pressure 139/79 01/31/19 19:56 O2 Sat by Pulse Oximetry 95 01/31/19 19:56 Oxygen Delivery Oxygen Delivery Room Air Medical Decision Making - Lab Data Result diagrams: 01/31/19 17:02 01/31/19 17:02 Lab Results 01/31/19 01/31/19 01/31/19 Range/Units 17:02 17:02 17:45 WBC 11.8 H (4.3-11.1) K/mcL RBC 4.73 (4.19-5.50) M/mcL Hgb 13.0 (12.9-16.9) g/dL Hct 41.0 (37.5-50.1) % MCV 86.7 (83.0-100.0) fL MCH 27.5 L (28.0-33.3) pg MCHC 31.7 (31.6-35.5) g/dL RDW 14.9 H (11.5-14.5) % Plt Count 580 H (140-400) K/mcL MPV 9.1 L (9.4-12.4) fL Immature Gran % 0.4 (0-4) % Seg Neutrophils % 70.5 % Lymphocytes % 20.4 % Monocytes % 5.8 % Eosinophils % 2.5 % Basophils % 0.4 % Neutrophils # 8.3 (1.6-8.9) K/mcL Lymphocytes # 2.4 (0.6-4.6) K/mcL Monocytes # 0.7 (0.0-1.3) K/mcL Eosinophils # 0.3 (0.0-0.6) K/mcL Basophils # 0.1 (0.0-0.2) K/mcL Sodium 139 (136-145) mEq/L Potassium 4.1 (3.5-5.1) mEq/L Chloride 100 (98-107) mEq/L Carbon Dioxide 29 (23-29) mEq/L BUN 17 (6-20) mg/dL Creatinine 1.08 (0.70-1.30) mg/dL Est GFR ( Amer) > 60 (> 60) Est GFR (Non-Af Amer) > 60 (> 60) BUN/Creatinine Ratio 16 (6-26) Glucose 131 H (70-105) mg/dL Calculated Osmolality 291 (280-300) Calcium 9.9 (8.6-10.3) mg/dL Total Bilirubin 0.3 (0.3-1.0) mg/dL Direct Bilirubin 0.2 (0.0-0.2) mg/dL Indirect Bilirubin 0.1 (0.0-1.2) mg/dL AST 20 (13-39) Units/L ALT 21 (7-52) Units/L Alkaline Phosphatase 79 (34-104) Units/L Serum Total Protein 7.7 (6.4-8.9) g/dL Albumin 3.8 (3.5-5.7) g/dL Globulin 3.9 H (2.4-3.5) g/dL Albumin/Globulin Ratio 1.0 L (1.1-2.2) Lipase 157 H (11-82) Units/L Urine Color Yellow (Yellow) Urine Clarity Clear (Clear) Urine pH 5.5 (5.0-8.0) pH Units Ur Specific [place] 1.022 (1.010-1.025) Urine Protein 100 H (Neg-Trace) mg/dL Urine Glucose (UA) Normal (Normal) mg/dL Urine Ketones Negative (Negative) mg/dL Urine Blood Negative (Negative) Urine Nitrite Negative (Negative) Urine Bilirubin Negative (Negative) Urine Urobilinogen Normal (Normal) mg/dL Ur Leukocyte Esterase Negative (Negative) Urine Microscopic RBC 0-3 (0-3) per hpf Urine Microscopic WBC 0-3 (0-3) per hpf Ur Squamous Epith Cells Many H (None-Few) per lpf Urine Bacteria None Seen (None-Few) per hpf Hyaline Casts Few (None-Few) per lpf Ur Culture Indicated? NO (NO) Attestation Statement - Attestation Attestation: I examined this patient and my medical decision-making was reviewed with the Resident Physician. I agree with the documented findings, disposition and treatment plan as described except to the extent set forth below. Patient presents to the ED with a chief complaint of upper abdominal pain. The patient had a recent admission for acute pancreatitis. They have a concern for choledocholithiasis at that time as it had a recent cholecystectomy. Did an MRCP that was negative for any ductal dilatation. He was feeling better and was sent home. Family concerned he was sent home too early as he could not eat. He is now back with increasing pain again. Unable to eat. He called his surgeon today and was sent back to the ED. On exam he appears uncomfortable but in no distress. He has upper abdominal tenderness with guarding. Plan. Basic labs show elevation in his lipase, however is not close to the level was the last admission. We will check a CT abdomen pelvis. Likely readmission. Patient signed out to pending CT abdomen pelvis.
--- NOTE | 2019-01-31 20:47 | Emergency Department Note ---
Disposition Clinical Impression: Pancreatitis Qualifiers: Chronicity: acute Pancreatitis type: idiopathic Acute pancreatitis complication: unspecified Qualified Code(s): K85.00 - Idiopathic acute pancreatitis without necrosis or infection Disposition: Still a Patient Condition: Fair Referrals: Alejandro Hagan Jr, MD [Primary Care Provider] - Forms: ED Satisfaction Letter, Work/School Release Time of Disposition: 21:07 Abdominal Pain HPI - General Chief Complaint: ED Abdominal Pain Stated Complaint: Abd Pain Time Seen by Provider: 01/31/19 19:49 Source: patient, family Nursing Notes Reviewed: Yes Vital Signs Reviewed: Yes - History of Present Illness HPI Narrative: Mr. Almeida is a 58-year-old male past medical history of having diabetes type 2, hyperlipidemia, hypertension, COPD, history of PE on Coumadin, recent hospitalization for acute pancreatitis who presented to the ED for diffuse abdominal pain. 2 weeks ago patient was hospitalized for acute pancreatitis unknown etiology. Patient states that over the past 2 weeks pain has improved but was still unable to advance diet pass soft. Patient states that a couple days ago began having worsening abdominal pain and associated nausea. Patient states that he call Dr. Orantes's office and they recommended he come in. P atmichelle states that he had a cholecystectomy on 01/05. No alcohol use. Admits to associated diarrhea 2-3 times per day. Denies fevers. He has not taken any pain medication today or Tylenol or ibuprofen. Pain Scale: 4 - Related Data Home Medications Medication Instructions Recorded Confirmed Finasteride [Proscar] 5 mg PO QAM 01/31/17 01/18/19 Simvastatin [Zocor] 40 mg PO QPM 02/01/17 01/18/19 Multivitamin [Multivitamins] 1 each PO QAM 03/23/17 01/18/19 Fluticasone Propionate Nasal 2 spray NS DAILY 11/05/17 01/18/19 [Flonase] Metformin HCl 1,000 mg PO BID 08/03/18 01/18/19 Fexofenadine HCl 60 mg PO QAM 11/18/18 01/18/19 Fish Oil/Dha/Epa [Fish Oil 1,200 1,200 mg PO DAILY 11/18/18 01/18/19 mg Fish Oil] Furosemide [Lasix] 40 mg PO QAM 11/18/18 01/18/19 Insulin NPH Hum/Reg Insulin Hm 55 units SQ BID 11/18/18 01/18/19 [Relion Novolin 70-30 Flexpen] Lisinopril [Zestril] 10 mg PO QAM 11/18/18 01/18/19 Omeprazole Magnesium [Prilosec Otc] 40 mg PO BID 11/18/18 01/18/19 Cinnamon Bark [Cinnamon] 1,000 mg PO QAM 01/05/19 01/18/19 Trazodone HCl 50 mg PO HS 01/05/19 01/18/19 Venlafaxine HCl [Venlafaxine HCl 225 mg PO QAM 01/05/19 01/18/19 ER] Warfarin Sodium 7.5 mg PO SUMOTUWETHSA 01/18/19 01/18/19 Warfarin Sodium 10 mg PO FR 01/18/19 01/18/19 Previous Rx's Medication Instructions Recorded Metoprolol [Lopressor] 50 mg PO BID #60 tablet 01/21/19 Allergies Allergy/AdvReac Type Severity Reaction Status Date / Time amlodipine [From Norvasc] Allergy Rash Verified 01/16/19 20:54 bupropion [From Wellbutrin] Allergy Rash Verified 01/16/19 20:54 gabapentin Allergy Rash Verified 01/16/19 20:54 morphine AdvReac Confusion Verified 01/16/19 20:54 rivaroxaban [From Xarelto] AdvReac Cough Verified 01/16/19 20:54 SURGICAL TAPE AdvReac Blister Uncoded 01/16/19 20:54 All systems ED: reviewed and negative except as stated. Abdominal Pain PMH - Past Medical History Medical history: Reports: COPD, DVT, diabetes, hyperlipidemia, hypertension, other Male Surgical History: Reports: cholecystectomy Psychiatric history: Reports: anxiety, depression - Social History Smoking status: Never smoker Alcohol use: Reports: occasionally Drug use: Reports: none Physical Exam Constitutional: Alert, in no acute distress Head: Normocephalic, atraumatic Heart: Normal, regular rate and rhythm, no murmurs Lungs: Clear to auscultation, no wheezes, rales, or rhonchi Abdomen: obese, healing incision sites on abdomen without signs of infection, diffuse tenderness worse in the left lower quadrant, Soft, nondistended, bowel sounds present and normal, no guarding or rigidity. Extremities: pitting edema +1, No clubbing, radial pulse +2/4, capillary refill <2sec. Skin: Skin warm and dry, no lesions, no rashes, no jaundice Psych: Cooperative with exam, good eye contact, cognitive function intact, speech clear, thought process logical, and goal directed - General Limitations: no limitations General appearance: alert, in no apparent distress, appears intoxicated Course Course Narrative: Based on Patient's presentation likely abdominal pain is due to pancreatitis. Hx is characteristic of pancreatitis and previously having pancreatitis 2 weeks ago with similar pain. Per Dr. Mathur's request, CT of abdomen and pelvis without contrast was obtained. Labs obtained which showed normal WBC but elevated lipase at 157, worst than previous lipase on 01/20 but not as elevated as it was 2 weeks ago. - Reevaluation(s) Reevaluation #1: Patient is still waiting to go to CT. Patient was signed out to Dr. Vieira. Will most likely need to admission to the floor for pancreatitis. Vital Signs Temperature 99.2 F 01/31/19 16:54 Pulse Rate 112 01/31/19 16:54 Respiratory Rate 20 01/31/19 16:54 Blood Pressure 131/81 01/31/19 16:54 O2 Sat by Pulse Oximetry 96 01/31/19 16:54 Temperature 98.4 F 01/31/19 19:56 Pulse Rate 11 01/31/19 19:56 Respiratory Rate 20 01/31/19 19:56 Blood Pressure 139/79 01/31/19 19:56 O2 Sat by Pulse Oximetry 95 01/31/19 19:56 Oxygen Delivery Oxygen Delivery Room Air Abdominal Pain - Lab Data Result diagrams: 01/31/19 17:02 01/31/19 17:02 Lab Results 01/31/19 01/31/19 01/31/19 Range/Units 17:02 17:02 17:45 WBC 11.8 H (4.3-11.1) K/mcL RBC 4.73 (4.19-5.50) M/mcL Hgb 13.0 (12.9-16.9) g/dL Hct 41.0 (37.5-50.1) % MCV 86.7 (83.0-100.0) fL MCH 27.5 L (28.0-33.3) pg MCHC 31.7 (31.6-35.5) g/dL RDW 14.9 H (11.5-14.5) % Plt Count 580 H (140-400) K/mcL MPV 9.1 L (9.4-12.4) fL Immature Gran % 0.4 (0-4) % Seg Neutrophils % 70.5 % Lymphocytes % 20.4 % Monocytes % 5.8 % Eosinophils % 2.5 % Basophils % 0.4 % Neutrophils # 8.3 (1.6-8.9) K/mcL Lymphocytes # 2.4 (0.6-4.6) K/mcL Monocytes # 0.7 (0.0-1.3) K/mcL Eosinophils # 0.3 (0.0-0.6) K/mcL Basophils # 0.1 (0.0-0.2) K/mcL Sodium 139 (136-145) mEq/L Potassium 4.1 (3.5-5.1) mEq/L Chloride 100 (98-107) mEq/L Carbon Dioxide 29 (23-29) mEq/L BUN 17 (6-20) mg/dL Creatinine 1.08 (0.70-1.30) mg/dL Est GFR ( Amer) > 60 (> 60) Est GFR (Non-Af Amer) > 60 (> 60) BUN/Creatinine Ratio 16 (6-26) Glucose 131 H (70-105) mg/dL Calculated Osmolality 291 (280-300) Calcium 9.9 (8.6-10.3) mg/dL Total Bilirubin 0.3 (0.3-1.0) mg/dL Direct Bilirubin 0.2 (0.0-0.2) mg/dL Indirect Bilirubin 0.1 (0.0-1.2) mg/dL AST 20 (13-39) Units/L ALT 21 (7-52) Units/L Alkaline Phosphatase 79 (34-104) Units/L Serum Total Protein 7.7 (6.4-8.9) g/dL Albumin 3.8 (3.5-5.7) g/dL Globulin 3.9 H (2.4-3.5) g/dL Albumin/Globulin Ratio 1.0 L (1.1-2.2) Lipase 157 H (11-82) Units/L Urine Color Yellow (Yellow) Urine Clarity Clear (Clear) Urine pH 5.5 (5.0-8.0) pH Units Ur Specific [place] 1.022 (1.010-1.025) Urine Protein 100 H (Neg-Trace) mg/dL Urine Glucose (UA) Normal (Normal) mg/dL Urine Ketones Negative (Negative) mg/dL Urine Blood Negative (Negative) Urine Nitrite Negative (Negative) Urine Bilirubin Negative (Negative) Urine Urobilinogen Normal (Normal) mg/dL Ur Leukocyte Esterase Negative (Negative) Urine Microscopic RBC 0-3 (0-3) per hpf Urine Microscopic WBC 0-3 (0-3) per hpf Ur Squamous Epith Cells Many H (None-Few) per lpf Urine Bacteria None Seen (None-Few) per hpf Hyaline Casts Few (None-Few) per lpf Ur Culture Indicated? NO (NO)
--- NOTE | 2019-01-31 23:16 | Emergency Department Note ---
Disposition Clinical Impression: Pancreatic pseudocyst Pancreatitis Qualifiers: Chronicity: acute Pancreatitis type: idiopathic Acute pancreatitis complica tion: unspecified Qualified Code(s): K85.00 - Idiopathic acute pancreatitis without necrosis or infection Disposition: Admitted As Inpatient Condition: Fair Referrals: Alejandro Hagan Jr, MD [Primary Care Provider] - Forms: ED Satisfaction Letter, Work/School Release Time of Disposition: 23:16 General Adult HPI - General Chief complaint: ED Abdominal Pain Stated complaint: Abd Pain Time Seen by Provider: 01/31/19 19:49 Source: patient, family Limitations: no limitations - History of Present Illness Pain Scale: 2 - Related Data Home Medications Medication Instructions Recorded Confirmed Finasteride [Proscar] 5 mg PO QAM 01/31/17 01/31/19 Simvastatin [Zocor] 40 mg PO QPM 02/01/17 01/31/19 Multivitamin [Multivitamins] 1 each PO QAM 03/23/17 01/31/19 Fluticasone Propionate Nasal 2 spray NS DAILY 11/05/17 01/31/19 [Flonase] Metformin HCl 1,000 mg PO BID 08/03/18 01/31/19 Fexofenadine HCl 60 mg PO QAM 11/18/18 01/31/19 Fish Oil/Dha/Epa [Fish Oil 1,200 1,200 mg PO DAILY 11/18/18 01/31/19 mg Fish Oil] Furosemide [Lasix] 40 mg PO QAM 11/18/18 01/31/19 Insulin NPH Hum/Reg Insulin Hm 55 units SQ BID 11/18/18 01/31/19 [Relion Novolin 70-30 Flexpen] Lisinopril [Zestril] 10 mg PO QAM 11/18/18 01/31/19 Omeprazole Magnesium [Prilosec Otc] 40 mg PO BID 11/18/18 01/31/19 Cinnamon Bark [Cinnamon] 1,000 mg PO QAM 01/05/19 01/31/19 Trazodone HCl 50 mg PO HS 01/05/19 01/31/19 Venlafaxine HCl [Venlafaxine HCl 225 mg PO QAM 01/05/19 01/31/19 ER] Warfarin Sodium 7.5 mg PO SUMOTUWETHSA 01/18/19 01/31/19 Warfarin Sodium 10 mg PO FR 01/18/19 01/31/19 Previous Rx's Medication Instructions Recorded Metoprolol [Lopressor] 50 mg PO BID #60 tablet 01/21/19 Allergies Allergy/AdvReac Type Severity Reaction Status Date / Time amlodipine [From Norvasc] Allergy Rash Verified 01/16/19 20:54 bupropion [From Wellbutrin] Allergy Rash Verified 01/16/19 20:54 gabapentin Allergy Rash Verified 01/16/19 20:54 morphine AdvReac Confusion Verified 01/16/19 20:54 rivaroxaban [From Xarelto] AdvReac Cough Verified 01/16/19 20:54 SURGICAL TAPE AdvReac Blister Uncoded 01/16/19 20:54 Past Medical History - Past Medical History Medical history: Reports: COPD, DVT, diabetes, hyperlipidemia, hypertension, other Surgical history: Reports: arthroscopy Psychiatric history: Reports: anxiety, depression - Social History Smoking Status: Never smoker Smokeless Tobacco Status: No Alcohol use: Reports: occasionally Drug use: Reports: none Physical Exam - General Limitations: no limitations General appearance: alert, in no apparent distress, appears intoxicated Course Vital Signs Temperature 99.2 F 01/31/19 16:54 Pulse Rate 112 01/31/19 16:54 Respiratory Rate 20 01/31/19 16:54 Blood Pressure 131/81 01/31/19 16:54 O2 Sat by Pulse Oximetry 96 01/31/19 16:54 Temperature 98.5 F 01/31/19 22:26 Pulse Rate 101 01/31/19 22:26 Respiratory Rate 20 01/31/19 22:26 Blood Pressure 127/80 01/31/19 22:26 O2 Sat by Pulse Oximetry 95 01/31/19 22:26 Oxygen Delivery Oxygen Delivery Room Air Medical Decision Making - MDM Narrative Medical decision making narrative: I received this patient in sign out from my colleague Dr. miller, please see documentation from her for full H&P. CT scan of the abdomen and pelvis was pending, at the time of sign out, I have followed up on the CT scan which shows a 8 x 10.6 cm developing pseudocyst in the lesser sac of the pancreas with findings of increasing pancreatitis with increasing inflammation. I called and discussed this with surgery Dr. schmidt, who performed his prior gallbladder removal in December, he states that this is not surgical, he would r ecommend that the patient be admitted to the hospitalist service with consultation from GI to undergo an ERCP to make sure that there is no evidence of retained stone by ERCP, as well then have referral if this does not show any evidence of stone, as an outpatient to have a drain placed through IR if this does not resolve over the next 6 weeks you would expect that because it is greater than 6 cm in size that it will likely require drainage as it is less likely to resolve on its own but he recommends that this patient be admitted for symptomatic management, make sure that his diabetes is well-controlled. Hospitalist was contacted for admission. - Lab Data Result diagrams: 01/31/19 17:02 01/31/19 17:02 Lab Results 01/31/19 01/31/19 01/31/19 Range/Units 17:02 17:02 17:45 WBC 11.8 H (4.3-11.1) K/mcL RBC 4.73 (4.19-5.50) M/mcL Hgb 13.0 (12.9-16.9) g/dL Hct 41.0 (37.5-50.1) % MCV 86.7 (83.0-100.0) fL MCH 27.5 L (28.0-33.3) pg MCHC 31.7 (31.6-35.5) g/dL RDW 14.9 H (11.5-14.5) % Plt Count 580 H (140-400) K/mcL MPV 9.1 L (9.4-12.4) fL Immature Gran % 0.4 (0-4) % Seg Neutrophils % 70.5 % Lymphocytes % 20.4 % Monocytes % 5.8 % Eosinophils % 2.5 % Basophils % 0.4 % Neutrophils # 8.3 (1.6-8.9) K/mcL Lymphocytes # 2.4 (0.6-4.6) K/mcL Monocytes # 0.7 (0.0-1.3) K/mcL Eosinophils # 0.3 (0.0-0.6) K/mcL Basophils # 0.1 (0.0-0.2) K/mcL Sodium 139 (136-145) mEq/L Potassium 4.1 (3.5-5.1) mEq/L Chloride 100 (98-107) mEq/L Carbon Dioxide 29 (23-29) mEq/L BUN 17 (6-20) mg/dL Creatinine 1.08 (0.70-1.30) mg/dL Est GFR ( Amer) > 60 (> 60) Est GFR (Non-Af Amer) > 60 (> 60) BUN/Creatinine Ratio 16 (6-26) Glucose 131 H (70-105) mg/dL Calculated Osmolality 291 (280-300) Calcium 9.9 (8.6-10.3) mg/dL Total Bilirubin 0.3 (0.3-1.0) mg/dL Direct Bilirubin 0.2 (0.0-0.2) mg/dL Indirect Bilirubin 0.1 (0.0-1.2) mg/dL AST 20 (13-39) Units/L ALT 21 (7-52) Units/L Alkaline Phosphatase 79 (34-104) Units/L Serum Total Protein 7.7 (6.4-8.9) g/dL Albumin 3.8 (3.5-5.7) g/dL Globulin 3.9 H (2.4-3.5) g/dL Albumin/Globulin Ratio 1.0 L (1.1-2.2) Lipase 157 H (11-82) Units/L Urine Color Yellow (Yellow) Urine Clarity Clear (Clear) Urine pH 5.5 (5.0-8.0) pH Units Ur Specific [place] 1.022 (1.010-1.025) Urine Protein 100 H (Neg-Trace) mg/dL Urine Glucose (UA) Normal (Normal) mg/dL Urine Ketones Negative (Negative) mg/dL Urine Blood Negative (Negative) Urine Nitrite Negative (Negative) Urine Bilirubin Negative (Negative) Urine Urobilinogen Normal (Normal) mg/dL Ur Leukocyte Esterase Negative (Negative) Urine Microscopic RBC 0-3 (0-3) per hpf Urine Microscopic WBC 0-3 (0-3) per hpf Ur Squamous Epith Cells Many H (None-Few) per lpf Urine Bacteria None Seen (None-Few) per hpf Hyaline Casts Few (None-Few) per lpf Ur Culture Indicated? NO (NO)
[2019-01-31] MEDS: *HR* FentaNYL (PF) 100 MCG/2 ML VIAL IVP ONE (23:49)
[2019-01-31] MEDS ORDERED: 0.9 % Sodium Chloride 1,000 ML ONE (23:59)
[2019-02-01] MEDS: *HR* FentaNYL (PF) 100 MCG/2 ML VIAL IVP ONE (00:25)
[2019-02-01] MEDS ORDERED: 0.9 % Sodium Chloride 1,000 ML IV SCH (00:30)
[2019-02-01] MEDS ORDERED: Naloxone 0.4 MG/ML INJ IVP PRN (00:36)
[2019-02-01] MEDS ORDERED: Dextrose Gel 15 GM/37.5 ML TUBE PO PRN ×2 (00:36)
[2019-02-01] MEDS ORDERED: *HR* Dextrose 50 % in Water (Syg) 50 ML SYRINGE IVP PRN (00:36)
[2019-02-01] MEDS ORDERED: Ketorolac 30 MG/ML VIAL IVP PRN (00:36)
--- NOTE | 2019-02-01 01:16 | Internal Med History&Physical ---
Date of Encounter: 02/01/19 Time of Encounter: 01:13 Internal Medicine - H&P: HPI Chief complaint: abdominal pain Admitted From: Home Plans for Post Hospital Care: Home History of present illness: Graham Almeida is a 58-year-old obese white man with multiple comorbidities including hypertension, diabetes, hyperlipidemia, VTE on warfarin, COPD and ADALID who underwent a sigmoid colectomy in Jul 2018 for refractory/recurrent sigmoid diverticulitis and a laparoscopic cholecystectomy on 01/05/19. He was admitted again 2 weeks ago with complaints of abdominal pain. He was found to have acute pancreatitis of idiopathic etiology and suggestions of a pancreatic pseudocyst measuring 3.0 x 4.2cm on MRI. It was managed conservatively with outpatient follow up recommend with the thought it should resolve over a period of time. He was discharged on 01/21 but now presents to the emergency room stating that his abdominal pain never completely resolved and is now worse, localizing the aches to his epigastrium and left upper quadrant. He has been unable to eat because of this pain. It worsened significantly over the past 2-3 days and is associated with nausea and diarrhea. He denies fever and chills. No dysuric symptoms, productive cough or chest pain. A CT was done during focal fluid in the lesser sac adjacent to the posterior aspect of the stomach measuring 8.0 x 10.6 cm in size as well as significant progression of inflammatory changes involving the pancreas. He was given 2 doses of fentanyl for pain control and he is admitted for further care. Vitals: Reviewed General: Morbidly obese white man lying in bed in notable discomfort with antalgic posturing. Skin: Warm, pale and supple. HEENT: Moist mucous membranes. No conjunctivae pallor. Neck: No lymphadenopathy. No JVD. No carotid bruits. No palpable thyroid. Chest: Normal thoracic expansion. Normal breath sounds. Clear to auscultation. Heart: Normal S1 & S2; rhythmic. No rubs or murmurs. Abdomen: Non-distended, soft and notably tender to palpation in the epigastrium and LUQ. Extremities: No calf tenderness. Normal distal pulses. Neurological: Awake, alert and oriented to person, place and time. No focal deficits. Psych: Affect appropriate. Assessment/Plan 1. Acute pancreatitis: The etiology of which is unclear. Will hold all his medications at this time and will keep him NPO and on IV PPI alone with analgesics/antiemetics as needed. 2. Pancreatic pseudocyst: Notably symptomatic and it has rapidly and significantly enlarged in size. Given these features, he may benefit from endoscopic drainage procedures if the collection is deemed mature enough. Will place a GI consult for evaluation. There are no systemic signs of illness suggesting it is infected however therefore antimicrobials are not warranted. 3. VTE: The patient is on warfarin for known DVT. Will check INR to ensure he is in therapeutic range. If a procedure is planned, this will need to be held temporarily. 4. ADALID: CPAP qhs ordered. 5. Obesity: Counseled and educated on therapeutic lifestyle changes for weight loss as it will be of benefit in controlling comorbidities. Press Hand evaluation advised. 6. Diabetes: Will place him on insulin sliding scale for now. Past Med Surg Social Fam HX - Past Medical History Medical history: COPD, DVT, diabetes, hyperlipidemia, hypertension, other Additional medical history: Sleep Apnea- uses CPAP. Diverticulosis with Hx of Diverticulitis. Colon Polyps. Diverticular Disease. Fatty Liver. Chronic Lumbago. Pancreatitis. TTE with LVEF 60-65%, Mild Concentric Hyperotrophy of the Ventricule, Mild LV Diastolic Dysfunction. PE Psychiatric history: anxiety, depression - Past Surgical History Surgical History: arthroscopy Additional surgical history: Bladder Sx. Colonoscopy. EGD. LHC. Sigmoid Colectomy - Social History Smoking Status: Never smoker Smokeless Tobacco Status: No Alcohol use: occasionally Drug use: none - Family History Father Family Member Ethnicity: Non- Living Status: Hx Family Cardiac Disorders: Yes ([place], CAD) Brother Family Member Ethnicity: Non- Living Status: Still Living Hx Family Cardiac Disorders: Yes (CAD) Sister Family Member Ethnicity: Non- Living Status: Still Living Hx Family Endocrine Disorder: Yes (DM) Grandmother Family Member Ethnicity: Non- Living Status: Hx Family Cancer: Yes (Breast) Grandfather Family Member Ethnicity: Non- Living Status: Hx Family Cardiac Disorders: Yes ([place]) Hx Family Endocrine Disorder: Yes (DM) Mother Family Member Ethnicity: Non- Living Status: Still Living Hx Family Cardiac Disorders: Yes (HTN) Hx Family Respiratory Disorders: No Hx Family Cancer: Yes (Colon Cancer) Hx Family GI Disorders: No Hx Family Endocrine Disorder: No Hx Family Neuromuscular Disorders: No Hx Family Neurologic Disorders: No Hx Family HEENT Disorders: No Hx Family Autoimmune Disorders: No Internal Medicine - H&P: Meds Finasteride [Proscar] 5 mg PO QAM 01/31/17 [History] Simvastatin [Zocor] 40 mg PO QPM 02/01/17 [History] Multivitamin [Multivitamins] 1 each PO QAM 03/23/17 [History] Fluticasone Propionate Nasal [Flonase] 2 spray NS DAILY 11/05/17 [History] Metformin HCl 1,000 mg PO BID 08/03/18 [History] Fexofenadine HCl 60 mg PO QAM 11/18/18 [History] Fish Oil/Dha/Epa [Fish Oil 1,200 mg Fish Oil] 1,200 mg PO DAILY 11/18/18 [History] Furosemide [Lasix] 40 mg PO QAM 11/18/18 [History] Insulin NPH Hum/Reg Insulin Hm [Relion Novolin 70-30 Flexpen] 55 units SQ BID 11/18/18 [History] Lisinopril [Zestril] 10 mg PO QAM 11/18/18 [History] Omeprazole Magnesium [Prilosec Otc] 40 mg PO BID 11/18/18 [History] Cinnamon Bark [Cinnamon] 1,000 mg PO QAM 01/05/19 [History] Trazodone HCl 50 mg PO HS 01/05/19 [History] Venlafaxine HCl [Venlafaxine HCl ER] 225 mg PO QAM 01/05/19 [History] Warfarin Sodium 7.5 mg PO SUMOTUWETHSA 01/18/19 [History] Warfarin Sodium 10 mg PO FR 01/18/19 [History] Metoprolol [Lopressor] 50 mg PO BID #60 tablet 01/21/19 [Rx] Allergy/AdvReac Type Severity Reaction Status Date / Time amlodipine [From Norvasc] Allergy Rash Verified 01/16/19 20:54 bupropion [From Wellbutrin] Allergy Rash Verified 01/16/19 20:54 gabapentin Allergy Rash Verified 01/16/19 20:54 morphine AdvReac Confusion Verified 01/16/19 20:54 rivaroxaban [From Xarelto] AdvReac Cough Verified 01/16/19 20:54 SURGICAL TAPE AdvReac Blister Uncoded 01/16/19 20:54 All Systems PM: A 10-system review of systems was performed and is negative for pertinent findings except as documented above in the HPI. - Constitutional Vitals: Temp Pulse Resp BP Pulse Ox 98.5 F 101 20 127/80 95 01/31/19 22:26 01/31/19 22:26 01/31/19 22:26 01/31/19 22:26 01/31/19 22:26 Exam: . Internal Med - H&P Results - Labs CBC & Chem 7: 01/31/19 17:02 01/31/19 17:02 Labs: Short CBC 01/31/19 Range/Units 17:02 WBC 11.8 H (4.3-11.1) K/mcL Hgb 13.0 (12.9-16.9) g/dL Hct 41.0 (37.5-50.1) % Plt Count 580 H (140-400) K/mcL Neutrophils # 8.3 (1.6-8.9) K/mcL BMP 01/31/19 17:02 Sodium 139 Potassium 4.1 Chloride 100 Carbon Dioxide 29 BUN 17 Creatinine 1.08 Glucose 131 H Calcium 9.9 Liver Function 01/31/19 Range/Units 17:02 Total Bilirubin 0.3 (0.3-1.0) mg/dL Direct Bilirubin 0.2 (0.0-0.2) mg/dL AST 20 (13-39) Units/L ALT 21 (7-52) Units/L Alkaline Phosphatase 79 (34-104) Units/L Albumin 3.8 (3.5-5.7) g/dL Urine 01/31/19 Range/Units 17:45 Urine Color Yellow (Yellow) Urine Clarity Clear (Clear) Urine pH 5.5 (5.0-8.0) pH Units Ur Specific [place] 1.022 (1.010-1.025) Urine Protein 100 H (Neg-Trace) mg/dL Urine Glucose (UA) Normal (Normal) mg/dL - Impressions ITS Impressions Abdomen/Pelvis CT 01/31/19 20:12 IMPRESSION: 1. Acute pancreatitis with progression of the inflammatory changes. Developing pseudocyst in the lesser sac. Inflammatory changes extending to the proximal jejunum just beyond the ligament of [place]. 2. No other acute findings within the abdomen or pelvis. 3. Previous cholecystectomy, appendectomy and partial colectomy. D/ / 01/31/2019 22:01:18 Kenton Wharton MD [facility] Interpreting Provider: Kenton Wharton MD - Time Spent With Patient Total time spent is greater than 50% in coordination of care (as documented) at patient's floor/unit and/or counseling patient:
[2019-02-01] MEDS: Ringers Solution, Lactated 1,000 ML IVC SCH ×2 (01:24→04:59)
[2019-02-01] MEDS: Pantoprazole 40 MG VIAL IVP SCH ×2 (04:59→17:45)
[2019-02-01 06:18] LABS: Basophils % 0.3 %; Eosinophils # 0.2 K/mcL (0.0-0.6); Eosinophils % 1.6 %; Hematocrit 37.6 % (37.5-50.1); Hemoglobin 12.1 g/dL (12.9-16.9); Immature Granulocytes % 0.5 % (0-4); Lymphocytes # 1.6 K/mcL (0.6-4.6); Lymphocytes % 15.6 %; Mean Corpuscular HGB Conc 32.2 g/dL (31.6-35.5); Mean Corpuscular Hemoglobin 27.5 pg (28.0-33.3); Mean Corpuscular Volume 85.5 fL (83.0-100.0); Monocytes # 0.8 K/mcL (0.0-1.3); Monocytes % 7.6 %; Neutrophils # 7.7 K/mcL (1.6-8.9); Platelet Count 429 K/mcL (140-400); Red Cell Distribution Width 14.9 % (11.5-14.5); Segmented Neutrophils % 74.4 %; White Blood Count 10.4 K/mcL (4.3-11.1)
[2019-02-01 06:27] LABS: INR 2.4; Prothrombin Time 27.5 Seconds (9.4-12.1)
[2019-02-01] MEDS: Insulin LISPRO 300 UNITS/3 ML VIAL SQ SCH ×3 (06:27→17:54)
[2019-02-01 06:30] LABS: Activated Partial Thrombo Time 39.2 Seconds (26.0-36.0)
[2019-02-01 06:36] LABS: Alanine Aminotransferase 16 Units/L (7-52); Albumin 3.3 g/dL (3.5-5.7); Albumin/Globulin Ratio 0.9 (1.1-2.2); Alkaline Phosphatase 69 Units/L (34-104); Aspartate Amino Transferase 13 Units/L (13-39); BUN/Creatinine Ratio 17 (6-26); Bilirubin,Direct 0.1 mg/dL (0.0-0.2); Bilirubin,Indirect 0.3 mg/dL (0.0-1.2); Bilirubin,Total 0.4 mg/dL (0.3-1.0); Blood Urea Nitrogen 17 mg/dL (6-20); Calcium 9.4 mg/dL (8.6-10.3); Carbon Dioxide 31 mEq/L (23-29); Chloride 97 mEq/L (98-107); Globulin 3.6 g/dL (2.4-3.5); Glucose 196 mg/dL (70-105); Osmolality,Calculated 291 (280-300); Potassium 4.4 mEq/L (3.5-5.1); Sodium 137 mEq/L (136-145); Total Protein 6.9 g/dL (6.4-8.9); eGFR For African Americans > 60 (> 60); eGFR For Non-African Americans > 60 (> 60)
[2019-02-01] MEDS: Ondansetron 4 MG/2 ML VIAL IVP PRN (08:10)
--- NOTE | 2019-02-01 10:55 | Gastroenterology Consult Note ---
<Gregory Perez - Last Filed: 02/01/19 10:52> Date of Encounter: 02/01/19 Time of Encounter: 10:15 - Assessment and plan (1) Pancreatitis Current Visit: Yes Status: Acute Assessment and plan: CT A/P shows a acute pancreatitis with progression of the inflammatory changes, developing pseudocyst in the lesser sac measuring 8.0 x 10.6 cm in size, inflammatory changes extending to the proximal jejunum just beyond the ligament of Treitz. Lipase 157. Start IV fluids at 200 ml/hr. Continue pain control and anti-emetics. Keep patient NPO. Recommend Dobbhoff with postpyloric tube feeding until pancreatitis resolved. No indication for ERCP as this will likely worsen symptoms. If pseudocyst continues to worsen will consider sending patient to [facility] for drainage. Qualifiers: Chronicity: acute Pancreatitis type: idiopathic Acute pancreatitis complication: unspecified Qualified Code(s): K85.00 - Idiopathic acute pancreatitis without necrosis or infection (2) Pancreatic pseudocyst Current Visit: Yes Status: Acute Assessment and plan: As above. - Time Spent With Patient Total time spent is greater than 50% in coordination of care (as documented) at patient's floor/unit and/or counseling patient: GI History of Present Illness - Data of Consult Patient: known to practice within the last 3 years Consult date: 02/01/19 Requesting Physician: Marleni Serna - Consult Narrative Reason for consult: Pancreatic pseudocyst History of present illness: Mr. Almeida is a 58 year old male with PMHx of COPD, DVT, DM, HLD, HTN, fatty liver, s/p sigmoid colectomy 08/06/2018 and cholecystectomy 01/05/2019. He was admitted two weeks ago with complaints of abdominal pain. He was found to have acute pancreatitis of idiopathic etiology and suggestions of a pancreatic pseud ocyst measuring 3.0 x 4.2cm on MRCP. He was discharged 01/21/2019, but states he was not able to tolerate PO intake. He denies any alcohol use. He states pain never resolved and started to worsen 2 days ago. He complains of epigastric and LUQ pain and reports he has been unable to eat due to pain. CT A/P shows a acute pancreatitis with progression of the inflammatory changes, developing pseudocyst in the lesser sac measuring 8.0 x 10.6 cm in size, inflammatory changes extending to the proximal jejunum just beyond the ligament of Treitz. Procedures: Colonoscopy 03/11/2018 Dr. Morfin: Internal hemorrhoids, diverticulosis. EGD 11/05/2017 Dr. Irwin: Medium amount of food (residue) in stomach, otherwise normal. NSAIDs: None Anticoagulation: Coumadin Past Med Surg Social Fam HX - Past Medical History Medical history: COPD, DVT, diabetes, hyperlipidemia, hypertension, other Additional medical history: Sleep Apnea- uses CPAP. Diverticulosis with Hx of Diverticulitis. Colon Polyps. Diverticular Disease. Fatty Liver. Chronic Lumbago. Pancreatitis. TTE with LVEF 60-65%, Mild Concentric Hyperotrophy of the Ventricule, Mild LV Diastolic Dysfunction. PE Psychiatric history: anxiety, depression - Past Surgical History Surgical History: cholecystectomy Additional surgical history: Bladder Sx. Colonoscopy. EGD. LHC. Sigmoid Colectomy. Ortho - Social History Smoking Status: Never smoker Smokeless Tobacco Status: No Alcohol use: occasionally Drug use: none - Family History Father Family Member Ethnicity: Non- Living Status: Hx Family Cardiac Disorders: Yes ([place], CAD) Brother Family Member Ethnicity: Non- Living Status: Still Living Hx Family Cardiac Disorders: Yes (CAD) Sister Family Member Ethnicity: Non- Living Status: Still Living Hx Family Endocrine Disorder: Yes (DM) Grandmother Family Member Ethnicity: Non- Living Status: Hx Family Cancer: Yes (Breast) Grandfather Family Member Ethnicity: Non- Living Status: Hx Family Cardiac Disorders: Yes ([place]) Hx Family Endocrine Disorder: Yes (DM) Mother Family Member Ethnicity: Non- Living Status: Still Living Hx Family Cardiac Disorders: Yes (HTN) Hx Family Respiratory Disorders: No Hx Family Cancer: Yes (Colon Cancer) Hx Family GI Disorders: No Hx Family Endocrine Disorder: No Hx Family Neuromuscular Disorders: No Hx Family Neurologic Disorders: No Hx Family HEENT Disorders: No Hx Family Autoimmune Disorders: No - Gastrointestinal Gastrointestinal: Present: as per HPI - Constitutional Constitutional: as per HPI - EENT Eyes: as per HPI Ears: Present: as per HPI Nose, mouth and throat: Present: as per HPI - Cardiovascular Cardiovascular ROS: Present: as per HPI - Respiratory Respiratory IM: Present: as per HPI - Genitourinary Genitourinary: Absent: change in color, Urinary frequency - Neurological ROS Neurological GI: Present: as per HPI - Hematologic/Lymphatic Hematologic/Lymphatic pediatric: Present: as per HPI - Musculoskeletal Musculoskeletal ROS GI: Present: as per HPI - Integumentary Integumentary GI: Present: as per HPI - Psychiatric ROS Psychiatric GI: Present: as per HPI - Endocrine Endocrine IM: Present: as per HPI - Constitutional Vitals: Temp Pulse Resp BP Pulse Ox 98.5 F 99 17 132/86 92 02/01/19 07:00 02/01/19 07:00 02/01/19 07:00 02/01/19 07:00 02/01/19 07:00 General appearance: Present: cooperative, A&O X 3, no acute distress, answers questions appropriately - Head Head exam: Present: atraumatic, normocephalic - Eye Eye exam: Present: normal appearance, sclera anicteric - ENT ENT exam: Present: mucous membranes dry - Neck Neck exam general surgery: Present: normal inspection, trachea midline - Respiratory Respiratory exam: Present: CTAB. Absent: rales, rhonchi - Cardiovascular Cardiovascular exam: Present: RRR, +S1, +S2 - GI/Abdominal GI/Abdominal exam: Present: soft, tenderness (Epigastric, LUQ), no peritoneal signs. Absent: distended, firm, guarding Additional comments: Surgical scars noted, obese - Rectal Rectal exam: Present: deferred - Extremities Exam Extremities exam: Present: warm - Neurological Exam Neurological exam: Present: no focal deficits - Psychiatric Psychiatric exam: Present: normal affect, normal mood - Skin Skin exam: Present: dry, intact, normal color, warm Results - Labs CBC & Chem 7: 02/01/19 05:48 02/01/19 05:48 Labs: Last Result 02/01/19 02/01/19 05:48 09:29 Calcium 9.4 Triglycerides 192 H Entire Visit 02/01/19 02/01/19 02/01/19 05:48 05:48 05:48 Hgb 12.1 L Hct 37.6 PT 27.5 H Total Bilirubin 0.4 AST 13 ALT 16 - ABG ABG results: PT/INR, D-dimer PT 27.5 Seconds (9.4-12.1) H 02/01/19 05:48 - Impressions Impressions Abdomen/Pelvis CT 01/31/19 20:12 IMPRESSION: 1. Acute pancreatitis with progression of the inflammatory changes. Developing pseudocyst in the lesser sac. Inflammatory changes extending to the proximal jejunum just beyond the ligament of Treitz. 2. No other acute findings within the abdomen or pelvis. 3. Previous cholecystectomy, appendectomy and partial colectomy. D/ /31/2019 22:01:18 Kenton Wharton MD / lgray Interpreting Provider: Kenton Wharton MD Consult Discharge Plan - Plan Referrals: lAejandro Hagan Jr, MD [Primary Care Provider] - <Ping Irwin - Last Filed: 02/01/19 18:37> Date of Encounter: 02/01/19 Time of Encounter: 17:40 - Time Spent With Patient Total time spent is greater than 50% in coordination of care (as documented) at patient's floor/unit and/or counseling patient: GI History of Present Illness - Data of Consult Requesting Physician: Marleni Serna - Consult Narrative History of present illness: Mr. Almeida is a 58 year old male - Constitutional Vitals: Temp Pulse Resp BP Pulse Ox 98.3 F 108 17 116/76 93 02/01/19 14:41 02/01/19 14:41 02/01/19 14:41 02/01/19 14:41 02/01/19 14:41 Results - Labs CBC & Chem 7: 02/01/19 05:48 02/01/19 05:48 Labs: Last Result 02/01/19 02/01/19 05:48 09:29 Calcium 9.4 Triglycerides 192 H Entire Visit 02/01/19 05:48 Total Bilirubin 0.4 AST 13 ALT 16 - ABG ABG results: PT/INR, D-dimer PT 27.5 Seconds (9.4-12.1) H 02/01/19 05:48 - Impressions Impressions Abdomen/Pelvis CT 01/31/19 20:12 IMPRESSION: 1. Acute pancreatitis with progression of the inflammatory changes. Developing pseudocyst in the lesser sac. Inflammatory changes extending to the proximal jejunum just beyond the ligament of Treitz. 2. No other acute findings within the abdomen or pelvis. 3. Previous cholecystectomy, appendectomy and partial colectomy. D/ : / 01/31/2019 22:01:18 Kenton Wharton MD / sonali Interpreting Provider: Kenton Wharton MD - Attending Attestation I have personally performed a face to face evaluation on this patient. I have reviewed and agree with the care plan. History and Exam by me shows: Pt seen complaining of mild pain on the left side of the abdomen examination: Abdomen is soft does has mild tenderness in the left upper quadrant on deep palpation. Assessment: Patient with pancreatitis with enlarging pseudocyst and worsening inflammatory changes. Recommendation: Strict nothing by mouth will need nasoduodenal feeding for the next many weeks. Pain control. No indication for ERCP. No need to drain the pseudocyst as it is immature
[2019-02-01] MEDS: 0.9 % Sodium Chloride 1,000 ML IVC SCH ×3 (11:47→21:24)
--- NOTE | 2019-02-01 17:23 | Internal Med Progress Note ---
Hospitalist Progress Note - Encounter Date of Encounter: 02/01/19 Time of Encounter: 12:45 - Subjective Interval History: Mr Elle started pain is tolerable with narcotic. He was seen by the GI team recommended nothing by mouth and also conservative treatment. Family stated that patient has chronic DVTs and history of DVT and PE as such he is on chronic anticoagulation therapy with warfarin INR is therapeutic at 2.4. Given the persistent nature of this pseudocyst and with concerns of patient developing other complications of acute pancreatitis coupled with patient may require surgical intervention discussed with patient's family about his anticoagulation with warfarin and how this places patient at increased risk. The vascular surgeon was called however he was in surgery. Spoke with his temporary office assistant regarding possibility of an IVC filter and discontinuation of anticoagulation therapy GEN: Denies fever, chills or malaise HEENT: Denies headache blurriness, or dysphagia RESP: Denies SOB or cough CV: Denies chest pain or palpitations GI: Denies Nausea, vomiting, diarrhea or constipation Reviewed current in hospital medications with modifications see orders Reviewed Routine labs - Exam Vitals: Temp Pulse Resp BP Pulse Ox 98.3 F 108 17 116/76 93 02/01/19 14:41 02/01/19 14:41 02/01/19 14:41 02/01/19 14:41 02/01/19 14:41 Exam: GEN: Obese male NAD, A&O x 3, Pleasant and conversant, sister, mother and Saira read his bedside SKIN: [place] warm acyanotic not jaundice HEART: RRR, no murmurs LUNGS: CTA no wheeze or crackles, overall non labored ABDOMEN; Soft, tender but no rebound or guarding or distended, BS x 4 normactive, multiple healed laparoscopic surgical scars noted. No arreaga cleaning or bogdan sign EXT: No LE edema, Pedal pulses 1+, radial pulses 2+ PSYCH: Mood and affect is appropriate - Assessment and Plan (1) Pancreatic pseudocyst Current Visit: Yes Status: Acute Assessment and Plan: Appears to be enlarging, may need surgical intervention. Patient's is on chronic anticoagulation with warfarin he may need heparin bridge and of warfarin. Family is hesitant and we told and warfarin attempted to discuss case with Dr. Vann vascular surgeon regarding possibility of an IVC filter so as to discontinue anticoagulation since patient is high risk for rupture and retroperitoneal bleed, he is being followed by GI. He may need transfer to a tertiary center equipped to handle any forseable complications that may arise (2) Pancreatitis Current Visit: Yes Status: Acute Assessment and Plan: Second episode in less than the month, npo see plan above. He denies any alcoholic correlation will check lipids, he is on lisinopril the drug that has been implicated in acute pancreatitis. Which may need to be held if all other work up is unyielding and patient continues to have frequent pancreatitis. He may also need outpatient IgG 4 to rule out autoimmune pancreatitis (3) COPD (chronic obstructive pulmonary disease) Current Visit: No Status: Chronic Assessment and Plan: duoneb (4) Diabetes mellitus Current Visit: No Status: Chronic Assessment and Plan: Check A1c continue insulin per protocol (5) ADALID on CPAP Current Visit: No Status: Chronic Assessment and Plan: We will order CPAP for patient (6) Chronic deep vein thrombosis (DVT) Current Visit: Yes Status: Acute Assessment and Plan: Per family patient has chronic DVT in the left lower extremity he is on warfarin and therapeutic given the aforementioned health concerns consulted please follow vascular surgery to evaluate for possible IVC filter. Patient is high risk for retroperitoneal bleed - Time Spent with Patient Total time spent is greater than 50% in coordination of care (as documented) at patient's floor/unit and/or counseling patient: Plan of Care Discussed with: family Internal Medicine: Result - Labs CBC & Chem 7: 02/01/19 05:48 02/01/19 05:48 Labs: Short CBC 01/31/19 02/01/19 Range/Units 17:02 05:48 WBC 11.8 H 10.4 (4.3-11.1) K/mcL Hgb 13.0 12.1 L (12.9-16.9) g/dL Hct 41.0 37.6 (37.5-50.1) % Plt Count 580 H 429 H (140-400) K/mcL Neutrophils # 8.3 7.7 (1.6-8.9) K/mcL BMP 01/31/19 02/01/19 17:02 05:48 Sodium 139 137 Potassium 4.1 4.4 Chloride 100 97 L Carbon Dioxide 29 31 H BUN 17 17 Creatinine 1.08 1.01 Glucose 131 H 196 H Calcium 9.9 9.4 Liver Function 01/31/19 02/01/19 Range/Units 17:02 05:48 Total Bilirubin 0.3 0.4 (0.3-1.0) mg/dL Direct Bilirubin 0.2 0.1 (0.0-0.2) mg/dL AST 20 13 (13-39) Units/L ALT 21 16 (7-52) Units/L Alkaline Phosphatase 79 69 (34-104) Units/L Albumin 3.8 3.3 L (3.5-5.7) g/dL Urine 01/31/19 Range/Units 17:45 Urine Color Yellow (Yellow) Urine Clarity Clear (Clear) Urine pH 5.5 (5.0-8.0) pH Units Ur Specific [place] 1.022 (1.010-1.025) Urine Protein 100 H (Neg-Trace) mg/dL Urine Glucose (UA) Normal (Normal) mg/dL - ABG Interpretation ABG results: PT/INR, D-dimer PT 27.5 Seconds (9.4-12.1) H 02/01/19 05:48 - Impressions Impressions Abdomen/Pelvis CT 01/31/19 20:12 IMPRESSION: 1. Acute pancreatitis with progression of the inflammatory changes. Developing pseudocyst in the lesser sac. Inflammatory changes extending to the proximal jejunum just beyond the ligament of Treitz. 2. No other acute findings within the abdomen or pelvis. 3. Previous cholecystectomy, appendectomy and partial colectomy. D/ /31/2019 22:01:18 Kenton Wharton MD / sonali Interpreting Provider: Kenton Wharton MD Consult Discharge Plan - Plan Referrals: Alejandro Hagan Jr, MD [Primary Care Provider] - (2) Pancreatitis Qualifiers: Chronicity: acute Pancreatitis type: idiopathic Acute pancreatitis complication: unspecified Qualified Code(s): K85.00 - Idiopathic acute pancreatitis without necrosis or infection (3) COPD (chronic obstructive pulmonary disease) Qualifiers: COPD type: unspecified COPD Qualified Code(s): J44.9 - Chronic obstructive pulmonary disease, unspecified (4) Diabetes mellitus Qualifiers: Diabetes mellitus type: type 2 Diabetes mellitus shelter insulin use: with shelter use Diabetes mellitus complication status: with neurologic complications Diabetes mellitus complication detail: with autonomic neuropathy Qualified Code(s): E11.43 - Type 2 diabetes mellitus with diabetic autonomic (poly)neuropathy; Z79.4 - senior living (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
[2019-02-01] MEDS ORDERED: Ipratropium/Albuterol Neb 3 ML IH PRN (17:32)
--- NOTE | 2019-02-01 17:55 | Vascular/Endovasc Consult Note ---
Date of Encounter: 02/01/19 Time of Encounter: 17:51 Assessment and Plan (1) History of pulmonary embolism Current Visit: No Status: Chronic Patient had bilateral pulmonary emboli in July 2018. Patient is on anticoagulation therapy with Coumadin. Patient will need lifelong anticoagulation therapy. At this point there is no urgency for IVC filter placement. The acute pancreatitis and pseudocyst will need to be dealt with in appropriate manner of this will take many weeks to months to resolve and may eventually require surgical drainage if the patient does not develop necrotizing pancreatitis during this time. (2) Pancreatic pseudocyst Current Visit: Yes Status: Acute Patient has enlarging pancreatic pseudocyst. Measures approximately 8 x 10 cm. There is no hemorrhagic deterioration of the pseudocyst or of the pancreas at this time. Therefore I would recommend continue anticoagulation therapy. It would be appropriate to make the patient nothing by mouth, therefore the use of TPN would be indicated. Either intravenous heparin or subcutaneous Lovenox twice a day dosage schedule would be indicated treatment and the Coumadin held. Should the patient require surgical drainage of the pseudocyst in the future he would then have the IVC filter placed and the anticoagulation temporarily held. (3) Chronic deep vein thrombosis (DVT) Current Visit: Yes Status: Chronic Patient has lower extremity DVT documented. Duplex scan in mid-December indicated an acute on chronic DVT thrombus in the left lower extremity. This involved the distal superficial femoral vein, popliteal vein, and lesser saphenous vein. Due to the associated pulmonary emboli which was bilateral and his referral to the hematology clinic in September I would agree with the use of continued anticoagulation for this patient with multiple risk factors. At this point as I anticipate he will be placed on nothing by mouth status and on TPN for bowel rest for the pancreatitis and pancreatic pseudocyst he may be treated with either intravenous heparin or subcutaneous Lovenox. I do not recommend placement of the IVC filter at this time as there is no findings of complication of anticoagulation, failure of anticoagulation, or contraindication to anticoagulation. Recommend parenteral anticoagulation with either subcutaneous Lovenox bid or intravenous heparin drip. Qualifiers: DVT location: lower extremity Affected thrombotic vein of extremity: popliteal Laterality: left Qualified Code(s): I82.532 - Chronic embolism and thrombosis of left popliteal vein - History of Present Illness Consult date: 02/01/19 Consult reason: DVT and pulmonary embolism history with worsening pancreatitis Chief complaint: Abdominal pain History of present illness: Mr. Almeida is a 58 year old male Who is seen in follow-up consultation. I'd originally seen this patient on January 07 for discussion regarding his lower extremity anticoagulation and IVC filter indication. At this time the patient was admitted yesterday because of worsening abdominal pain. The patient has known acute on chronic pancreatitis. He was in the hospital 2 weeks ago. He returns with worsening symptoms and also an increasing size of a pancreatic pseudocyst. The pseudocyst was originally seen a few weeks ago at 3 x 4 cm. A follow-up CT scan performed yesterday shows this mass to now be 8 x 10 cm. There is significant inflammation involving the pancreas. The patient had undergone a bowel resection for perforated diverticulitis in July. Postoperatively the patient developed a DVT and a pulmonary embolism and was transferred to [facility]. He was originally placed on his results so and his anticoagulation was then converted to Coumadin therapy. The patient has been seen in hematology clinic. Subsequent to that he went on to have a cholecystectomy. He complained of leg pain and then a duplex scan was performed in December. This apparently shows an acute on chronic DVT in the left lower extremity. The question is raised again at this point about the IVC filter placement. Patient's past medical history also includes marked obesity, diabetes, hyperlipidemia, COPD, obstructive sleep apnea, hypertension, and aneurysmal degeneration of the ascending aorta. Past Med Surg Social Fam HX - Past Medical History Medical history: COPD, DVT, diabetes, hyperlipidemia, hypertension, other Additional medical history: Sleep Apnea- uses CPAP. Diverticulosis with Hx of Diverticulitis. Colon Polyps. Diverticular Disease. Fatty Liver. Chronic Lumbago. Pancreatitis. TTE with LVEF 60-65%, Mild Concentric Hyperotrophy of the Ventricule, Mild LV Diastolic Dysfunction. PE Psychiatric history: anxiety, depression - Past Surgical History Surgical History: cholecystectomy Additional surgical history: Bladder Sx. Colonoscopy. EGD. LHC. Sigmoid Colectomy. Ortho - Social History Smoking Status: Never smoker Smokeless Tobacco Status: No Alcohol use: occasionally Drug use: none - Family History Father Family Member Ethnicity: Non- Living Status: Hx Family Cardiac Disorders: Yes ([place], CAD) Brother Family Member Ethnicity: Non- Living Status: Still Living Hx Family Cardiac Disorders: Yes (CAD) Sister Family Member Ethnicity: Non- Living Status: Still Living Hx Family Endocrine Disorder: Yes (DM) Grandmother Family Member Ethnicity: Non- Living Status: Hx Family Cancer: Yes (Breast) Grandfather Family Member Ethnicity: Non- Living Status: Hx Family Cardiac Disorders: Yes ([place]) Hx Family Endocrine Disorder: Yes (DM) Mother Family Member Ethnicity: Non- Living Status: Still Living Hx Family Cardiac Disorders: Yes (HTN) Hx Family Respiratory Disorders: No Hx Family Cancer: Yes (Colon Cancer) Hx Family GI Disorders: No Hx Family Endocrine Disorder: No Hx Family Neuromuscular Disorders: No Hx Family Neurologic Disorders: No Hx Family HEENT Disorders: No Hx Family Autoimmune Disorders: No Medications and Allergies Finasteride [Proscar] 5 mg PO QAM 01/31/17 [History] Simvastatin [Zocor] 40 mg PO QPM 02/01/17 [History] Multivitamin [Multivitamins] 1 each PO QAM 03/23/17 [History] Fluticasone Propionate Nasal [Flonase] 2 spray NS DAILY 11/05/17 [History] Metformin HCl 1,000 mg PO BID 08/03/18 [History] Fexofenadine HCl 60 mg PO QAM 11/18/18 [History] Fish Oil/Dha/Epa [Fish Oil 1,200 mg Fish Oil] 1,200 mg PO DAILY 11/18/18 [History] Furosemide [Lasix] 40 mg PO QAM 11/18/18 [History] Insulin NPH Hum/Reg Insulin Hm [Relion Novolin 70-30 Flexpen] 55 units SQ BID 11/18/18 [History] Lisinopril [Zestril] 10 mg PO QAM 11/18/18 [History] Omeprazole Magnesium [Prilosec Otc] 40 mg PO BID 11/18/18 [History] Cinnamon Bark [Cinnamon] 1,000 mg PO QAM 01/05/19 [History] Trazodone HCl 50 mg PO HS 01/05/19 [History] Venlafaxine HCl [Venlafaxine HCl ER] 225 mg PO QAM 01/05/19 [History] Warfarin Sodium 7.5 mg PO SUMOTUWETHSA 01/18/19 [History] Warfarin Sodium 10 mg PO FR 01/18/19 [History] Metoprolol [Lopressor] 50 mg PO BID #60 tablet 01/21/19 [Rx] Allergy/AdvReac Type Severity Reaction Status Date / Time amlodipine [From Norvasc] Allergy Rash Verified 01/16/19 20:54 bupropion [From Wellbutrin] Allergy Rash Verified 01/16/19 20:54 gabapentin Allergy Rash Verified 01/16/19 20:54 morphine AdvReac Confusion Verified 01/16/19 20:54 rivaroxaban [From Xarelto] AdvReac Cough Verified 01/16/19 20:54 SURGICAL TAPE AdvReac Blister Uncoded 01/16/19 20:54 All Systems Review: The remainder of the systems were reviewed and are negative Exam Vital Signs, Last 4 Hours Temp Pulse Resp BP Pulse Ox 02/01/19 14:41 98.3 F 108 17 116/76 93 General: Present: Conversant, No Apparent Distress, Other (Markedly obese white male) HEENT: Present: Atraumatic, Normocephaly, Trachea midline Neck: Absent: JVD, Midline deformity, Tracheal deviation Cardiac: Present: Reg Rate and Rhythm, Normal S1 and S2, No Murmur Lungs: Present: Normal Breath Sounds, No Wheeze, Rales, Rhonchi Neuro: Present: Alert and responsive, No focal deficits noted Abdomen: Present: Soft, Other (Patient has upper abdominal and left upper quadrant tenderness. He does not have peritoneal findings.) Vascular: Present: Normal capillary refill, Edema (Mild nontender edema of lower extremities.) Skin: Present: No rashes noted on visualized skin Consult Discharge Plan - Plan Referrals: Alejandro Hagan Jr, MD [Primary Care Provider] -
[2019-02-01] MEDS ORDERED: *HR* Warfarin 5 MG TABLET PO SCH (18:00)
[2019-02-01] MEDS ORDERED: *HR* Warfarin 10 MG TABLET PO ONE (18:00)
[2019-02-01] MEDS ORDERED: Warfarin perPT PO PRN ×2 (18:00→19:14)
[2019-02-01] MEDS ORDERED: traZODone 50 MG TABLET PO SCH (21:00)
[2019-02-01] MEDS ORDERED: OMEPRAZOLE MAGNESIUM 40 MG PO SCH (21:00)
[2019-02-02] MEDS: Insulin LISPRO 300 UNITS/3 ML VIAL SQ SCH ×4 (00:36→17:32)
[2019-02-02] MEDS: 0.9 % Sodium Chloride 1,000 ML IVC SCH ×2 (02:44→06:30)
[2019-02-02] MEDS: Ondansetron 4 MG/2 ML VIAL IVP PRN ×2 (04:36→14:23)
[2019-02-02] MEDS: Pantoprazole 40 MG VIAL IVP SCH (06:30)
[2019-02-02 07:04] LABS: Basophils % 0.3 %; Eosinophils # 0.2 K/mcL (0.0-0.6); Eosinophils % 1.6 %; Hematocrit 34.9 % (37.5-50.1); Hemoglobin 10.9 g/dL (12.9-16.9); Immature Granulocytes % 0.5 % (0-4); Lymphocytes # 1.3 K/mcL (0.6-4.6); Lymphocytes % 13.2 %; Mean Corpuscular HGB Conc 31.2 g/dL (31.6-35.5); Mean Corpuscular Hemoglobin 26.9 pg (28.0-33.3); Mean Corpuscular Volume 86.2 fL (83.0-100.0); Mean Platelet Volume 9.1 fL (9.4-12.4); Monocytes # 0.8 K/mcL (0.0-1.3); Monocytes % 8.3 %; Neutrophils # 7.3 K/mcL (1.6-8.9); Platelet Count 343 K/mcL (140-400); Red Blood Count 4.05 M/mcL (4.19-5.50); Segmented Neutrophils % 76.1 %; White Blood Count 9.6 K/mcL (4.3-11.1)
[2019-02-02 07:11] LABS: INR 2.6
[2019-02-02 07:23] LABS: BUN/Creatinine Ratio 14 (6-26); Blood Urea Nitrogen 11 mg/dL (6-20); Calcium 8.8 mg/dL (8.6-10.3); Carbon Dioxide 27 mEq/L (23-29); Chloride 99 mEq/L (98-107); Chol/HDL Ratio 2.7 (0-4.9); Cholesterol 90 mg/dL (< 200); Glucose 189 mg/dL (70-105); HDL Cholesterol 33 mg/dL (40-59); LDL Cholesterol,Calculated 29 mg/dL (0-99); Magnesium 1.7 mg/dL (1.6-2.6); Osmolality,Calculated 288 (280-300); Phosphorous 3.1 mg/dL (2.7-4.5); Potassium 4.2 mEq/L (3.5-5.1); Sodium 137 mEq/L (136-145); Triglycerides 141 mg/dL (< 150); eGFR For African Americans > 60 (> 60); eGFR For Non-African Americans > 60 (> 60)
[2019-02-02] MEDS ORDERED: D5% in Lactated Ringers 1,000 ML IVC SCH (08:30)
[2019-02-02] MEDS ORDERED: Furosemide 40 MG TABLET PO SCH (09:00)
[2019-02-02] MEDS ORDERED: Finasteride 5 MG TABLET PO SCH (09:00)
[2019-02-02] MEDS ORDERED: Venlafaxine XR (24 HR) 75 MG CAP.ER.24H PO SCH (09:00)
[2019-02-02] MEDS ORDERED: Fluticasone Propionate Nasal 50 MCG/SPRAY BOTTLE NS SCH (09:00)
[2019-02-02] MEDS ORDERED: Pantoprazole 40 MG VIAL IVP SCH (09:00)
--- NOTE | 2019-02-02 15:24 | Discharge Summary ---
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: with termite control servicer use Diabetes mellitus complication status: with neurologic complications Diabetes mellitus complication detail: with autonomic neuropathy Qualified Code(s): E11.43 - Type 2 diabetes mellitus with diabetic autonomic (poly)neuropathy; Z79.4 - buttermaker continuous churn (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 (2) ADALID on CPAP Priority: Secondary Status: Chronic (3) COPD (chronic obstructive pulmonary disease) Priority: Secondary Status: Chronic Qualifiers: COPD type: unspecified COPD Qualified Code(s): J44.9 - Chronic obstructive pulmonary disease, unspecified (4) Pancreatitis Priority: Primary Status: Acute Qualifiers: Chronicity: acute Pancreatitis type: idiopathic Acute pancreatitis complication: unspecified Qualified Code(s): K85.00 - Idiopathic acute pa ncreatitis without necrosis or infection (5) Pancreatic pseudocyst Priority: Primary Status: Acute (6) Chronic deep vein thrombosis (DVT) Priority: Secondary Status: Chronic Qualifiers: DVT location: lower extremity Affected thrombotic vein of extremity: popliteal Laterality: left Qualified Code(s): I82.532 - Chronic embolism and thrombosis of left popliteal vein Hospital course: Mr. Almeida is a 58 year old male obese white man with multiple comorbidities including hypertension, diabetes, hyperlipidemia, VTE on warfarin, COPD and ADALID who underwent a sigmoid colectomy in Jul 2018 for refractory/recurrent sigmoid diverticulitis and a laparoscopic cholecystectomy on 01/05/19. He was admitted again 2 weeks ago with complaints of abdominal pain. He was found to have acute pancreatitis of idiopathic etiology and suggestions of a pancreatic pseudocyst measuring 3.0 x 4.2cm on MRI. It was managed conservatively with outpatient follow up recommend with the thought it should resolve over a period of time, presents to the emergency room stating that his abdominal pain never completely resolved and is now worse, localizing the aches to his epigastrium and left upper quadrant. A CT was done during focal fluid in the lesser sac adjacent to the posterior aspect of the stomach measuring 8.0 x 10.6 cm in size as well as significant progression of inflammatory changes involving the pancreas. Patient was admitted to the hospital due to pancreatitis and worsening pancreatic pseudocyst. GI consulted and recommended conservative management. and if pseudocyst continues to worsen to transfer the patient to [facility]. During my evaluation today patient continues to reports worsening abdominal pain and decrease urinary output. Due to patient being very high risk in the event the pseudocyst continues to worsen, after discussing with the patient he requested to be transferred to [place] [facility] for continuity of care. [facility] transfer unit has been called and patient is pending acceptance to be transferred. - Time Spent with Patient Total time spent providing and/or coordinating discharge services: Time spent: Greater than 30 minutes (35) - Discharge Medications Prescriptions: Continued Finasteride [Proscar] 5 mg PO DAILY Simvastatin [Zocor] 40 mg PO DAILY Multivitamin [Multivitamins] 1 each PO QAM Fluticasone Propionate Nasal [Flonase] 2 spray NS DAILY Metformin HCl 1,000 mg PO BIDWM Fexofenadine HCl 60 mg PO QAM Fish Oil/Dha/Epa [Fish Oil 1,200 mg Fish Oil] 1,200 mg PO DAILY Furosemide [Lasix] 40 mg PO DAILY Insulin NPH Hum/Reg Insulin Hm [Relion Novolin 70-30 Flexpen] 55 units SQ BID Lisinopril [Zestril] 10 mg PO QAM Omeprazole Magnesium [Prilosec Otc] 40 mg PO BID Cinnamon Bark [Cinnamon] 1,000 mg PO QAM Trazodone HCl 50 mg PO HS PRN PRN Reason: Sleep Venlafaxine HCl [Venlafaxine HCl ER] 75 mg PO DAILY Warfarin Sodium 10 mg PO SUTUFR Warfarin Sodium 7.5 mg PO MOWETHSA Metoprolol Tartrate 50 mg PO BID Venlafaxine HCl [Venlafaxine HCl ER] 150 mg PO DAILY Home Medications: Finasteride [Proscar] 5 mg PO DAILY 01/31/17 [History] Simvastatin [Zocor] 40 mg PO DAILY 02/01/17 [History] Multivitamin [Multivitamins] 1 each PO QAM 03/23/17 [History] Fluticasone Propionate Nasal [Flonase] 2 spray NS DAILY 11/05/17 [History] Metformin HCl 1,000 mg PO BIDWM 08/03/18 [History] Fexofenadine HCl 60 mg PO QAM 11/18/18 [History] Fish Oil/Dha/Epa [Fish Oil 1,200 mg Fish Oil] 1,200 mg PO DAILY 11/18/18 [History] Furosemide [Lasix] 40 mg PO DAILY 11/18/18 [History] Insulin NPH Hum/Reg Insulin Hm [Relion Novolin 70-30 Flexpen] 55 units SQ BID 11/18/18 [History] Lisinopril [Zestril] 10 mg PO QAM 11/18/18 [History] Omeprazole Magnesium [Prilosec Otc] 40 mg PO BID 11/18/18 [History] Cinnamon Bark [Cinnamon] 1,000 mg PO QAM 01/05/19 [History] Trazodone HCl 50 mg PO HS PRN 01/05/19 [History] Venlafaxine HCl [Venlafaxine HCl ER] 75 mg PO DAILY 01/05/19 [History] Warfarin Sodium 7.5 mg PO MOWETHSA 01/18/19 [History] Warfarin Sodium 10 mg PO SUTUFR 01/18/19 [History] Metoprolol Tartrate 50 mg PO BID 02/01/19 [History] Venlafaxine HCl [Venlafaxine HCl ER] 150 mg PO DAILY 02/01/19 [History] Allergies/Adverse Reactions: Allergy/AdvReac Type Severity Reaction Status Date / Time amlodipine [From Norvasc] Allergy Rash Verified 01/16/19 20:54 bupropion [From Wellbutrin] Allergy Rash Verified 01/16/19 20:54 gabapentin Allergy Rash Verified 01/16/19 20:54 morphine AdvReac Confusion Verified 01/16/19 20:54 rivaroxaban [From Xarelto] AdvReac Cough Verified 01/16/19 20:54 SURGICAL TAPE AdvReac Blister Uncoded 01/16/19 20:54 Date of admission: 02/01/19 00:17 Primary care physician: Alejandro Hagan Jr, MD Consults: 02/01/19 01:17 Consult to Gastroenterology [CONS] Routine Consulting Provider: Gastroenterology Redig Reason for Consult: Patient with symptomatic and rapidly enlarging pancreatic pseudocyst needs evalaution for drainage procedure Call Completed: No 02/01/19 15:23 Consult to Interventional Radiology [CONS] Routine Consulting Provider: Radiology Interventional Cols Reason for Consult: Advance Dobbhoff postpyloric Call Completed: No 02/01/19 15:26 Consult to Nutrition [CONS] Routine Comment: Dobbhoff to be placed and advanced postpyloric Consulting Provider: NUTRITION Reason for Dietary Consult: Tube Feed Start & Manage Other:: Start TF once tube postpyloric. 02/01/19 17:30 Consult to Vascular Surgery [CONS] Routine Consulting Provider: Vascular Surgery Alivia Reason for Consult: patient may need emergent surgical intervention for pancreatic pseudocyst, history of chronic DVT on warfarin. His IVC filter possibility Time Notified: 15:02 Call Completed: Yes - Constitutional Vitals: Temp Pulse Resp BP Pulse Ox 98.6 F 93 16 123/76 93 02/02/19 11:30 02/02/19 11:30 02/02/19 11:30 02/02/19 11:30 02/02/19 11:30 Exam: Vitals: Reviewed General: Morbid obese, Alert and oriented x4. In mild distress due to abdominal pain and decreased urine output. Skin: Normal color, no rash, no lesions. HEENT: EOM, pupils equal, round and reactive. Cardiovascular: RRR, normal S1 & S2, no rubs, murmurs or gallops. No JVD. Pulse regular. Lungs: CTA b/l, no wheezes or crackles. Abdomen: Obese, soft, mild generalized tenderness to superficial palpation, no rigidity. Extremities: No deformity, no edema or tenderness, no joint swelling or clubbing. Neurological: Normal cognition and motor skills. Rest of the physical exam is non contributory - Patient Status Disposition: Transfer Critical Access Hosp Condition: Fair Functional capacity at discharge: independent ambulation Overall status at discharge: patient is not back to baseline - Discharge Instructions Follow Up With: Alejandro Hagan Jr, MD [Primary Care Provider] - - Diet and Activity Diet: other (NPO)
[2019-02-02 15:41] VITALS: BP 109/65
--- NOTE | 2019-02-02 17:58 | Event Note ---
Date of Encounter: 02/02/19 Time of Encounter: 14:00 Pt seen still complaining of abdominal pain. On examination: Has tenderness in the left upper abdomen. Assessment.: Patient with acute pancreatitis ongoing now with large pseudocyst. Recommendation: Nothing by mouth nasoduodenal feeding. Pain control. I agree with transferring the patient to [facility].
[2019-02-02] MEDS ORDERED: *HR* Warfarin 7.5 MG TABLET PO ONE (18:00)
[2019-02-03 14:56] LABS: ANA IgG by ELISA NONE DETECTED (None Detected); Immunoglobulin G Subclass 4 59 mg/dL (1-123)
[2019-02-04] MEDS ORDERED: *HR* Warfarin 5 MG TABLET PO SCH (17:57)
== END 2019-02-02 18:50 | disposition critical access hospital (66) ==
LOC: EMEROOARM 16:45 → 3ANU 16:45 → SUATTDRO 02-01 00:17 → 3ANU 02-01 00:45
PROVIDERS: ADMIT Internal Medicine; ATTEND Internal Medicine

== ENCOUNTER 2019-09-13 17:15 | Inpatient (IN) ==
[2019-09-13 19:07] LABS: Basophils % 0.4 %; Eosinophils # 0.1 K/mcL (0.0-0.6); Eosinophils % 2.2 %; Hematocrit 43.1 % (37.5-50.1); Hemoglobin 14.3 g/dL (12.9-16.9); Immature Granulocytes % 0.2 % (0-4); Lymphocytes % 36.6 %; Mean Corpuscular HGB Conc 33.2 g/dL (31.6-35.5); Mean Corpuscular Hemoglobin 27.9 pg (28.0-33.3); Mean Platelet Volume 9.9 fL (9.4-12.4); Monocytes # 0.5 K/mcL (0.0-1.3); Monocytes % 9.2 %; Neutrophils # 2.8 K/mcL (1.6-8.9); Platelet Count 188 K/mcL (140-400); Red Blood Count 5.13 M/mcL (4.19-5.50); Red Cell Distribution Width 14.3 % (11.5-14.5); Segmented Neutrophils % 51.4 %; White Blood Count 5.4 K/mcL (4.3-11.1)
[2019-09-13 19:10] LABS: INR 3.2; Prothrombin Time 36.7 Seconds (9.4-12.1)
[2019-09-13 19:27] LABS: BUN/Creatinine Ratio 17 (6-26); Blood Urea Nitrogen 17 mg/dL (6-20); Calcium 9.1 mg/dL (8.6-10.3); Carbon Dioxide 26 mEq/L (23-29); Chloride 99 mEq/L (98-107); Glucose 158 mg/dL (70-105); Lipase 85 Units/L (11-82); Osmolality,Calculated 283 (280-300); Potassium 3.6 mEq/L (3.5-5.1); Sodium 134 mEq/L (136-145); eGFR For African Americans > 60 (> 60); eGFR For Non-African Americans > 60 (> 60)
[2019-09-13] MEDS ORDERED: Naloxone 0.4 MG/ML INJ IVP PRN (19:35)
[2019-09-13] MEDS ORDERED: Ondansetron 4 MG/2 ML VIAL IVP PRN (19:35)
[2019-09-13] MEDS ORDERED: *HR* OxyCODONE/APAP 5/325 TABLET PO PRN (19:44)
[2019-09-13] MEDS ORDERED: traZODone 50 MG TABLET PO PRN (19:44)
[2019-09-13] MEDS ORDERED: Fluticasone Propionate Nasal 50 MCG/SPRAY BOTTLE NS PRN (19:44)
[2019-09-13] MEDS ORDERED: *HR* Warfarin 5 MG TABLET PO SCH (19:45)
[2019-09-13] MEDS ORDERED: *HR* Dextrose 50 % in Water (Syg) 50 ML SYRINGE IVP PRN (20:04)
[2019-09-13] MEDS ORDERED: Dextrose Gel 15 GM/37.5 ML TUBE PO PRN ×2 (20:04)
[2019-09-13] MEDS ORDERED: D5% in Water 1,000 ML IVC PRN (20:04)
[2019-09-13 20:50] LABS: Estimated Average Glucose 203 mg/dl
[2019-09-13 22:15] LABS: Bilirubin,Urine Negative (Negative); Blood,Urine Negative (Negative); Clarity,Urine Clear (Clear); Color,Urine Yellow (Yellow); Glucose,Urine (UA) Normal (Normal); Ketones,Urine Trace mg/dL (Negative); Leukocyte Esterase,Urine Negative (Negative); Nitrite,Urine Negative (Negative); Protein,Urine >=300 mg/dL (Neg-Trace); Specific Gravity,Urine 1.019 (1.010-1.025); Urobilinogen,Urine Normal (Normal)
[2019-09-13 22:21] LABS: RBC,Urine 0-3 per hpf (0-3); Squamous Epithelial Cell,Urine Moderate per lpf (None-Few); WBC,Urine 0-3 per hpf (0-3)
[2019-09-13] MEDS: Insulin LISPRO 300 UNITS/3 ML VIAL SQ SCH (22:22)
[2019-09-13] MEDS: Venlafaxine XR (24 HR) 150 MG CAP.ER.24H PO SCH (22:23)
[2019-09-13] MEDS: Venlafaxine XR (24 HR) 75 MG CAP.ER.24H PO SCH (22:23)
[2019-09-13] MEDS: Finasteride 5 MG TABLET PO SCH (22:23)
[2019-09-13] MEDS: Insulin NPH/REG 70/30 100 UNIT/ML (x5UNIT) SQ SCH (23:00)
[2019-09-14] MEDS: 0.9 % Sodium Chloride 1,000 ML IVC SCH ×2 (01:52→12:55)
[2019-09-14] MEDS: Acetaminophen 325 MG TABLET PO PRN ×2 (01:58→09:09)
[2019-09-14 02:38] LABS: Protein/Creatinine Ratio,Urine 1.51 mg/mg (0.00-0.20)
[2019-09-14 05:28] LABS: INR 2.8; Prothrombin Time 31.5 Seconds (9.4-12.1)
[2019-09-14 05:36] LABS: Basophils % 0.5 %; Eosinophils # 0.1 K/mcL (0.0-0.6); Eosinophils % 2.1 %; Hematocrit 42.4 % (37.5-50.1); Hemoglobin 14.3 g/dL (12.9-16.9); Immature Granulocytes % 0.2 % (0-4); Lymphocytes # 1.7 K/mcL (0.6-4.6); Lymphocytes % 29.2 %; Mean Corpuscular HGB Conc 33.7 g/dL (31.6-35.5); Mean Corpuscular Hemoglobin 28.4 pg (28.0-33.3); Mean Corpuscular Volume 84.3 fL (83.0-100.0); Mean Platelet Volume 9.7 fL (9.4-12.4); Monocytes # 0.5 K/mcL (0.0-1.3); Monocytes % 8.3 %; Neutrophils # 3.4 K/mcL (1.6-8.9); Platelet Count 186 K/mcL (140-400); Red Blood Count 5.03 M/mcL (4.19-5.50); Red Cell Distribution Width 14.5 % (11.5-14.5); Segmented Neutrophils % 59.7 %; White Blood Count 5.7 K/mcL (4.3-11.1)
[2019-09-14 05:51] LABS: BUN/Creatinine Ratio 17 (6-26); Blood Urea Nitrogen 17 mg/dL (6-20); Calcium 9.1 mg/dL (8.6-10.3); Carbon Dioxide 29 mEq/L (23-29); Chloride 100 mEq/L (98-107); Glucose 153 mg/dL (70-105); Osmolality,Calculated 289 (280-300); Potassium 3.4 mEq/L (3.5-5.1); Sodium 137 mEq/L (136-145); eGFR For African Americans > 60 (> 60); eGFR For Non-African Americans > 60 (> 60)
[2019-09-14 06:21] LABS: Alanine Aminotransferase 22 Units/L (7-52); Albumin 3.8 g/dL (3.5-5.7); Albumin/Globulin Ratio 1.3 (1.1-2.2); Alkaline Phosphatase 64 Units/L (34-104); Aspartate Amino Transferase 18 Units/L (13-39); Bilirubin,Direct 0.1 mg/dL (0.0-0.2); Bilirubin,Indirect 0.4 mg/dL (0.0-1.0); Bilirubin,Total 0.5 mg/dL (0.3-1.0); Chol/HDL Ratio 5.2 (0-4.9); Cholesterol 152 mg/dL (< 200); HDL Cholesterol 29 mg/dL (40-59); Lipase 86 Units/L (11-82); Magnesium 2.1 mg/dL (1.6-2.6); Phosphorous 3.3 mg/dL (2.7-4.5); Total Protein 6.8 g/dL (6.4-8.9); Triglycerides 743 mg/dL (< 150)
[2019-09-14] MEDS ORDERED: Potassium Chloride Elixir 20 MEQ/15 ML UDC PO ONE (08:12)
[2019-09-14] MEDS: Insulin LISPRO 300 UNITS/3 ML VIAL SQ SCH ×4 (08:17→20:29)
[2019-09-14] MEDS: Venlafaxine XR (24 HR) 75 MG CAP.ER.24H PO SCH (09:05)
[2019-09-14] MEDS: Venlafaxine XR (24 HR) 150 MG CAP.ER.24H PO SCH (09:05)
[2019-09-14] MEDS: Insulin NPH/REG 70/30 100 UNIT/ML (x5UNIT) SQ SCH ×2 (09:06→20:32)
[2019-09-14] MEDS: Finasteride 5 MG TABLET PO SCH (09:06)
[2019-09-14] MEDS ORDERED: 0.9 % Sodium Chloride 1,000 ML IVC ONE (10:56)
[2019-09-14] MEDS ORDERED: Ondansetron 4 MG/2 ML VIAL IVP PRN (10:56)
[2019-09-14] MEDS: Cholestyramine 4 GM POWD.PACK PO SCH (17:10)
[2019-09-14] MEDS ORDERED: *HR* Warfarin 5 MG TABLET PO ONE (18:00)
[2019-09-14] MEDS ORDERED: Warfarin perPT PO PRN (18:18)
[2019-09-14] MEDS ORDERED: *HR* Warfarin 5 MG TABLET PO SCH (19:44)
[2019-09-15 06:00] LABS: Basophils % 0.3 %; Eosinophils # 0.2 K/mcL (0.0-0.6); Eosinophils % 2.4 %; Hematocrit 43.4 % (37.5-50.1); Hemoglobin 14.4 g/dL (12.9-16.9); INR 2.5; Immature Granulocytes % 0.2 % (0-4); Mean Corpuscular HGB Conc 33.2 g/dL (31.6-35.5); Mean Corpuscular Hemoglobin 28.6 pg (28.0-33.3); Mean Corpuscular Volume 86.1 fL (83.0-100.0); Mean Platelet Volume 9.5 fL (9.4-12.4); Monocytes # 0.5 K/mcL (0.0-1.3); Monocytes % 8.3 %; Neutrophils # 3.6 K/mcL (1.6-8.9); Platelet Count 182 K/mcL (140-400); Prothrombin Time 28.3 Seconds (9.4-12.1); Red Blood Count 5.04 M/mcL (4.19-5.50); Red Cell Distribution Width 14.5 % (11.5-14.5); Segmented Neutrophils % 56.8 %; White Blood Count 6.3 K/mcL (4.3-11.1)
[2019-09-15 06:14] LABS: Alanine Aminotransferase 26 Units/L (7-52); Albumin 3.7 g/dL (3.5-5.7); Albumin/Globulin Ratio 1.2 (1.1-2.2); Alkaline Phosphatase 63 Units/L (34-104); Aspartate Amino Transferase 25 Units/L (13-39); BUN/Creatinine Ratio 9 (6-26); Bilirubin,Direct 0.1 mg/dL (0.0-0.2); Bilirubin,Indirect 0.3 mg/dL (0.0-1.0); Bilirubin,Total 0.4 mg/dL (0.3-1.0); Blood Urea Nitrogen 9 mg/dL (6-20); Carbon Dioxide 30 mEq/L (23-29); Chloride 106 mEq/L (98-107); Globulin 3.2 g/dL (2.4-3.5); Glucose 77 mg/dL (70-105); Lactate Dehydrogenase 132 Units/L (140-271); Lipase 48 Units/L (11-82); Osmolality,Calculated 285 (280-300); Potassium 3.2 mEq/L (3.5-5.1); Sodium 139 mEq/L (136-145); Total Protein 6.9 g/dL (6.4-8.9); Triglycerides 500 mg/dL (< 150); eGFR For African Americans > 60 (> 60); eGFR For Non-African Americans > 60 (> 60)
[2019-09-15] MEDS: Venlafaxine XR (24 HR) 150 MG CAP.ER.24H PO SCH (07:42)
[2019-09-15] MEDS: Finasteride 5 MG TABLET PO SCH (07:42)
[2019-09-15] MEDS: Venlafaxine XR (24 HR) 75 MG CAP.ER.24H PO SCH (07:43)
[2019-09-15] MEDS: Insulin NPH/REG 70/30 100 UNIT/ML (x5UNIT) SQ SCH (07:43)
[2019-09-15] MEDS: Cholestyramine 4 GM POWD.PACK PO SCH ×2 (07:43→12:26)
[2019-09-15] MEDS ORDERED: lisinopriL 10 MG TABLET PO SCH (09:00)
[2019-09-15] MEDS: Insulin LISPRO 300 UNITS/3 ML VIAL SQ SCH ×2 (12:21→12:30)
[2019-09-15 14:46] VITALS: BP 130/87
[2019-09-15] MEDS ORDERED: *HR* Warfarin 5 MG TABLET PO ONE (18:00)
== END 2019-09-15 16:02 | disposition home or self-care (01) ==
LOC: 3ANU → SUATTDRO 19:35
PROVIDERS: ADMIT Family Medicine; ATTEND Internal Medicine

== ENCOUNTER 2020-02-15 06:50 | Observation (INO) ==
[2020-02-15 07:21] LABS: Basophils % 0.5 %; Eosinophils # 0.2 K/mcL (0.0-0.6); Eosinophils % 2.6 %; Hemoglobin 13.3 g/dL (12.9-16.9); Immature Granulocytes % 0.2 % (0-4); Lymphocytes # 1.8 K/mcL (0.6-4.6); Lymphocytes % 30.7 %; Mean Corpuscular HGB Conc 32.4 g/dL (31.6-35.5); Mean Corpuscular Hemoglobin 27.7 pg (28.0-33.3); Mean Corpuscular Volume 85.2 fL (83.0-100.0); Mean Platelet Volume 9.6 fL (9.4-12.4); Monocytes # 0.5 K/mcL (0.0-1.3); Monocytes % 8.3 %; Neutrophils # 3.4 K/mcL (1.6-8.9); Platelet Count 201 K/mcL (140-400); Red Blood Count 4.81 M/mcL (4.19-5.50); Red Cell Distribution Width 14.4 % (11.5-14.5); Segmented Neutrophils % 57.7 %; White Blood Count 5.8 K/mcL (4.3-11.1)
[2020-02-15 07:27] LABS: INR 2.5; Prothrombin Time 28.9 Seconds (9.4-12.1)
[2020-02-15 07:29] LABS: Activated Partial Thrombo Time 48.4 Seconds (26.0-36.0)
[2020-02-15 07:43] LABS: BUN/Creatinine Ratio 18 (6-26); Blood Urea Nitrogen 18 mg/dL (6-20); Calcium 9.4 mg/dL (8.6-10.3); Carbon Dioxide 26 mEq/L (23-29); Chloride 103 mEq/L (98-107); Glucose 225 mg/dL (70-105); Osmolality,Calculated 297 (280-300); Potassium 3.7 mEq/L (3.5-5.1); Sodium 139 mEq/L (136-145); Troponin I < 0.03 ng/mL (< 0.04); eGFR For African Americans > 60 (> 60); eGFR For Non-African Americans > 60 (> 60)
[2020-02-15] MEDS ORDERED: Nitroglycerin 0.4 MG TAB.SUBL SL PRN ×3 (08:06→08:26)
[2020-02-15] MEDS ORDERED: *HR* Metoprolol 5 MG/5 ML VIAL IVP PRN (08:26)
[2020-02-15] MEDS ORDERED: Isovue-370 500 ML BOTTLE IVP ONE (08:26)
[2020-02-15] MEDS ORDERED: 0.9 % Sodium Chloride 1,000 ML IVC SCH (08:30)
[2020-02-15] MEDS ORDERED: Ondansetron 4 MG/2 ML VIAL IVP PRN (08:50)
[2020-02-15] MEDS ORDERED: Acetaminophen 325 MG TABLET PO PRN (08:50)
[2020-02-15] MEDS ORDERED: Perflutren Lipid Microsphere 1.3 ML in 0.9 % Sodium Chloride 8.7 ML IVP PRN (11:01)
[2020-02-15] MEDS ORDERED: D5% in Water 1,000 ML IVC PRN (11:06)
[2020-02-15] MEDS ORDERED: Dextrose Gel 15 GM/37.5 ML TUBE PO PRN ×2 (11:06)
[2020-02-15] MEDS ORDERED: *HR* Dextrose 50 % in Water (Vial) 50 ML VIAL IVP PRN (11:06)
[2020-02-15] MEDS: Insulin LISPRO 300 UNITS/3 ML VIAL SQ SCH ×2 (11:40→15:55)
[2020-02-15] MEDS ORDERED: *HR* Warfarin 5 MG TABLET PO SCH (15:15)
[2020-02-15] MEDS ORDERED: Warfarin perPT PO PRN (18:00)
[2020-02-15] MEDS ORDERED: *HR* Warfarin 7.5 MG TABLET PO ONE (18:00)
[2020-02-15] MEDS ORDERED: Insulin LISPRO 300 UNITS/3 ML VIAL SQ SCH (21:00)
[2020-02-15] MEDS: Insulin NPH/REG 70/30 100 UNIT/ML (x5UNIT) SQ SCH (21:55)
[2020-02-15] MEDS ORDERED: Insulin NPH/REG 70/30 100 UNIT/ML (x5UNIT) SQ ONE (21:59)
[2020-02-16 05:17] LABS: INR 2.9; Prothrombin Time 33.5 Seconds (9.4-12.1)
[2020-02-16 05:23] LABS: Hematocrit 41.2 % (37.5-50.1); Hemoglobin 13.3 g/dL (12.9-16.9); Mean Corpuscular HGB Conc 32.3 g/dL (31.6-35.5); Mean Corpuscular Hemoglobin 27.6 pg (28.0-33.3); Mean Corpuscular Volume 85.5 fL (83.0-100.0); Mean Platelet Volume 9.6 fL (9.4-12.4); Platelet Count 195 K/mcL (140-400); Red Blood Count 4.82 M/mcL (4.19-5.50); Red Cell Distribution Width 14.3 % (11.5-14.5); White Blood Count 4.8 K/mcL (4.3-11.1)
[2020-02-16 05:46] LABS: BUN/Creatinine Ratio 19 (6-26); Blood Urea Nitrogen 17 mg/dL (6-20); Calcium 8.8 mg/dL (8.6-10.3); Carbon Dioxide 25 mEq/L (23-29); Chloride 103 mEq/L (98-107); Glucose 196 mg/dL (70-105); Magnesium 1.7 mg/dL (1.6-2.6); Osmolality,Calculated 293 (280-300); Potassium 3.8 mEq/L (3.5-5.1); Sodium 138 mEq/L (136-145); eGFR For African Americans > 60 (> 60); eGFR For Non-African Americans > 60 (> 60)
[2020-02-16 05:47] LABS: Troponin I < 0.03 ng/mL (< 0.04)
[2020-02-16] MEDS ORDERED: Regadenoson 0.4 MG/5 ML SYRINGE IVP ONE (06:31)
[2020-02-16] MEDS ORDERED: Venlafaxine XR (24 HR) 75 MG CAP.ER.24H PO SCH (09:00)
[2020-02-16] MEDS ORDERED: Venlafaxine XR (24 HR) 150 MG CAP.ER.24H PO SCH (09:00)
[2020-02-16] MEDS ORDERED: Finasteride 5 MG TABLET PO SCH (09:00)
[2020-02-16] MEDS ORDERED: Furosemide 40 MG TABLET PO SCH (09:00)
[2020-02-16] MEDS ORDERED: lisinopriL 10 MG TABLET PO SCH (09:00)
[2020-02-16] MEDS: Insulin LISPRO 300 UNITS/3 ML VIAL SQ SCH ×2 (11:12→12:26)
[2020-02-16] MEDS ORDERED: Metoprolol 100 MG TABLET PO SCH (11:30)
[2020-02-16] MEDS: Insulin NPH/REG 70/30 100 UNIT/ML (x5UNIT) SQ SCH (12:25)
[2020-02-16 14:35] VITALS: BP 138/79
[2020-02-16] MEDS ORDERED: *HR* Warfarin 7.5 MG TABLET PO ONE (18:00)
[2020-02-17] MEDS ORDERED: *HR* Warfarin 5 MG TABLET PO SCH (15:08)
== END 2020-02-16 15:17 | disposition home or self-care (01) ==
LOC: EMEROOARM 06:50 → 3BNU 06:50
PROVIDERS: ADMIT Internal Medicine; ATTEND Internal Medicine

== ENCOUNTER 2020-03-23 19:12 | Inpatient (IN) ==
[2020-03-23] MEDS ORDERED: Isovue-370 500 ML BOTTLE IVP ONE ×2 (20:14→20:29)
[2020-03-23] MEDS ORDERED: 0.9 % Sodium Chloride 1,000 ML IVC ONE (20:14)
[2020-03-23 20:59] LABS: Basophils % 0.4 %; Eosinophils # 0.2 K/mcL (0.0-0.6); Eosinophils % 2.6 %; Hematocrit 41.6 % (37.5-50.1); Hemoglobin 13.6 g/dL (12.9-16.9); Immature Granulocytes % 0.1 % (0-4); Lymphocytes # 2.1 K/mcL (0.6-4.6); Lymphocytes % 28.2 %; Mean Corpuscular HGB Conc 32.7 g/dL (31.6-35.5); Mean Corpuscular Hemoglobin 28.2 pg (28.0-33.3); Mean Corpuscular Volume 86.3 fL (83.0-100.0); Mean Platelet Volume 9.7 fL (9.4-12.4); Monocytes # 0.6 K/mcL (0.0-1.3); Neutrophils # 4.5 K/mcL (1.6-8.9); Platelet Count 201 K/mcL (140-400); Red Blood Count 4.82 M/mcL (4.19-5.50); Red Cell Distribution Width 14.7 % (11.5-14.5); Segmented Neutrophils % 60.7 %; White Blood Count 7.4 K/mcL (4.3-11.1)
[2020-03-23] MEDS ORDERED: Piperacillin/Tazobactam 3.375 GM in 0.9 % Sodium Chloride Mini Bag 100 ML IVPB ONE (21:10)
[2020-03-23] MEDS ORDERED: Vancomycin 2,000 MG/520 ML IV.SOLN IVPB ONE (21:10)
[2020-03-23 21:19] LABS: BUN/Creatinine Ratio 18 (6-26); Blood Urea Nitrogen 18 mg/dL (6-20); Calcium 9.4 mg/dL (8.6-10.3); Carbon Dioxide 28 mEq/L (23-29); Chloride 100 mEq/L (98-107); Glucose 188 mg/dL (70-105); Osmolality,Calculated 293 (280-300); Potassium 3.7 mEq/L (3.5-5.1); Sodium 138 mEq/L (136-145); eGFR For African Americans > 60 (> 60); eGFR For Non-African Americans > 60 (> 60)
[2020-03-23 21:48] LABS: INR 3.3
[2020-03-24] MEDS ORDERED: Naloxone 0.4 MG/ML INJ IVP PRN (00:50)
[2020-03-24] MEDS ORDERED: *HR* Promethazine 25 MG/ML VIAL IVP PRN (00:50)
[2020-03-24] MEDS ORDERED: Acetaminophen 325 MG TABLET PO PRN (00:50)
[2020-03-24] MEDS ORDERED: *HR* Dextrose 50 % in Water (Vial) 50 ML VIAL IVP PRN (00:52)
[2020-03-24] MEDS ORDERED: Dextrose Gel 15 GM/37.5 ML TUBE PO PRN ×2 (00:52)
[2020-03-24] MEDS ORDERED: D5% in Water 1,000 ML IVC PRN (00:52)
[2020-03-24] MEDS: Insulin LISPRO 300 UNITS/3 ML VIAL SQ SCH ×4 (02:35→17:21)
[2020-03-24] MEDS ORDERED: *HR* Metoprolol 5 MG/5 ML VIAL IVP ONE (03:25)
[2020-03-24] MEDS: 0.9 % Sodium Chloride 1,000 ML IVC SCH ×2 (03:35→17:22)
[2020-03-24 07:17] LABS: Basophils % 0.5 %; Eosinophils # 0.2 K/mcL (0.0-0.6); Hematocrit 40.9 % (37.5-50.1); Immature Granulocytes % 0.2 % (0-4); Lymphocytes # 1.9 K/mcL (0.6-4.6); Lymphocytes % 28.1 %; Mean Corpuscular HGB Conc 31.8 g/dL (31.6-35.5); Mean Corpuscular Hemoglobin 27.5 pg (28.0-33.3); Mean Corpuscular Volume 86.7 fL (83.0-100.0); Mean Platelet Volume 9.7 fL (9.4-12.4); Monocytes # 0.5 K/mcL (0.0-1.3); Monocytes % 7.6 %; Platelet Count 166 K/mcL (140-400); Red Blood Count 4.72 M/mcL (4.19-5.50); Segmented Neutrophils % 60.6 %; White Blood Count 6.6 K/mcL (4.3-11.1)
[2020-03-24 07:24] LABS: INR 2.4
[2020-03-24 07:37] LABS: Magnesium 1.8 mg/dL (1.6-2.6); Phosphorous 3.6 mg/dL (2.7-4.5)
[2020-03-24] MEDS: Furosemide 40 MG TABLET PO SCH (08:19)
[2020-03-24] MEDS: Metoprolol 100 MG TABLET PO SCH ×2 (08:19→20:44)
[2020-03-24] MEDS: Venlafaxine XR (24 HR) 150 MG CAP.ER.24H PO SCH (08:19)
[2020-03-24] MEDS: Venlafaxine XR (24 HR) 75 MG CAP.ER.24H PO SCH (08:19)
[2020-03-24] MEDS: Insulin NPH/REG 70/30 300 UNIT/3 ML VIAL SQ SCH ×2 (08:20→21:34)
[2020-03-24] MEDS: Finasteride 5 MG TABLET PO SCH (08:24)
[2020-03-24] MEDS: Piperacillin/Tazobactam 3.375 GM in 0.9 % Sodium Chloride Mini Bag 100 ML IVPB SCH ×2 (13:07→20:42)
[2020-03-24] MEDS: Vancomycin 2,000 MG/520 ML IV.SOLN IVPB SCH (13:08)
[2020-03-24] MEDS ORDERED: NIFEdipine 10 MG CAPSULE PO ONE (19:39)
[2020-03-24] MEDS ORDERED: atenoloL 25 MG TABLET PO ONE ×2 (19:57→22:25)
[2020-03-25] MEDS: Vancomycin 2,000 MG/520 ML IV.SOLN IVPB SCH ×2 (01:14→14:50)
[2020-03-25] MEDS ORDERED: cloNIDine HCL 0.1 MG TABLET PO ONE (03:18)
[2020-03-25] MEDS: Piperacillin/Tazobactam 3.375 GM in 0.9 % Sodium Chloride Mini Bag 100 ML IVPB SCH ×3 (04:06→20:48)
[2020-03-25] MEDS: Finasteride 5 MG TABLET PO SCH (08:00)
[2020-03-25] MEDS: Furosemide 40 MG TABLET PO SCH (08:00)
[2020-03-25] MEDS: Venlafaxine XR (24 HR) 75 MG CAP.ER.24H PO SCH (08:01)
[2020-03-25] MEDS: carvediloL 6.25 MG TABLET PO SCH ×2 (08:01→16:51)
[2020-03-25] MEDS: Insulin LISPRO 300 UNITS/3 ML VIAL SQ SCH ×3 (08:01→16:49)
[2020-03-25] MEDS: Venlafaxine XR (24 HR) 150 MG CAP.ER.24H PO SCH (08:03)
[2020-03-25] MEDS ORDERED: lisinopriL 10 MG TABLET PO SCH (09:00)
[2020-03-25 09:31] LABS: Basophils % 0.4 %; Eosinophils # 0.3 K/mcL (0.0-0.6); Eosinophils % 5.2 %; Hematocrit 41.8 % (37.5-50.1); Hemoglobin 13.4 g/dL (12.9-16.9); Immature Granulocytes % 0.4 % (0-4); Lymphocytes # 1.5 K/mcL (0.6-4.6); Lymphocytes % 28.4 %; Mean Corpuscular HGB Conc 32.1 g/dL (31.6-35.5); Mean Corpuscular Hemoglobin 27.7 pg (28.0-33.3); Mean Corpuscular Volume 86.5 fL (83.0-100.0); Monocytes # 0.4 K/mcL (0.0-1.3); Monocytes % 7.8 %; Platelet Count 196 K/mcL (140-400); Red Blood Count 4.83 M/mcL (4.19-5.50); Red Cell Distribution Width 14.7 % (11.5-14.5); Segmented Neutrophils % 57.8 %; White Blood Count 5.2 K/mcL (4.3-11.1)
[2020-03-25 09:32] LABS: INR 1.6; Prothrombin Time 18.6 Seconds (9.4-12.1)
[2020-03-25 09:47] LABS: BUN/Creatinine Ratio 15 (6-26); Blood Urea Nitrogen 14 mg/dL (6-20); Calcium 8.9 mg/dL (8.6-10.3); Carbon Dioxide 26 mEq/L (23-29); Chloride 104 mEq/L (98-107); Glucose 226 mg/dL (70-105); Osmolality,Calculated 294 (280-300); Sodium 138 mEq/L (136-145); eGFR For African Americans > 60 (> 60); eGFR For Non-African Americans > 60 (> 60)
[2020-03-25] MEDS: Insulin NPH/REG 70/30 100 UNIT/ML (x5UNIT) SQ SCH ×2 (09:54→16:50)
[2020-03-25] MEDS ORDERED: *HR* Heparin 5,000 UNIT/ML VIAL IVP ONE (10:47)
[2020-03-25] MEDS ORDERED: *HR* Heparin 5,000 UNIT/ML VIAL IVP PRN ×2 (10:47)
[2020-03-25] MEDS: Heparin 25,000UNIT/250ML 1/2NS 25,000 UNIT/250 ML IV.SOLN IVC SCH ×2 (12:12→22:22)
[2020-03-25] MEDS ORDERED: Warfarin perPT PO PRN (18:00)
[2020-03-26] MEDS: Vancomycin 2,000 MG/520 ML IV.SOLN IVPB SCH ×2 (00:40→13:03)
[2020-03-26 00:47] LABS: Basophils % 0.6 %; Eosinophils # 0.3 K/mcL (0.0-0.6); Eosinophils % 5.2 %; Hematocrit 36.1 % (37.5-50.1); Hemoglobin 12.1 g/dL (12.9-16.9); Immature Granulocytes % 0.4 % (0-4); Lymphocytes # 2.1 K/mcL (0.6-4.6); Lymphocytes % 37.8 %; Mean Corpuscular HGB Conc 33.5 g/dL (31.6-35.5); Mean Corpuscular Hemoglobin 29.2 pg (28.0-33.3); Mean Platelet Volume 10.1 fL (9.4-12.4); Monocytes # 0.4 K/mcL (0.0-1.3); Monocytes % 7.7 %; Neutrophils # 2.6 K/mcL (1.6-8.9); Platelet Count 167 K/mcL (140-400); Red Blood Count 4.15 M/mcL (4.19-5.50); Red Cell Distribution Width 14.6 % (11.5-14.5); Segmented Neutrophils % 48.3 %; White Blood Count 5.4 K/mcL (4.3-11.1)
[2020-03-26 01:03] LABS: BUN/Creatinine Ratio 15 (6-26); Blood Urea Nitrogen 16 mg/dL (6-20); Calcium 8.4 mg/dL (8.6-10.3); Carbon Dioxide 23 mEq/L (23-29); Chloride 106 mEq/L (98-107); Glucose 201 mg/dL (70-105); Osmolality,Calculated 293 (280-300); Potassium 3.3 mEq/L (3.5-5.1); Sodium 138 mEq/L (136-145); eGFR For African Americans > 60 (> 60); eGFR For Non-African Americans > 60 (> 60)
[2020-03-26] MEDS ORDERED: *HR* Metoprolol 5 MG/5 ML VIAL IVP ONE (02:48)
[2020-03-26] MEDS: Piperacillin/Tazobactam 3.375 GM in 0.9 % Sodium Chloride Mini Bag 100 ML IVPB SCH ×2 (03:41→13:05)
[2020-03-26] MEDS: Furosemide 40 MG TABLET PO SCH (08:25)
[2020-03-26] MEDS: Venlafaxine XR (24 HR) 150 MG CAP.ER.24H PO SCH (08:26)
[2020-03-26] MEDS: carvediloL 6.25 MG TABLET PO SCH ×2 (08:26→18:16)
[2020-03-26] MEDS: Finasteride 5 MG TABLET PO SCH (08:26)
[2020-03-26] MEDS: Venlafaxine XR (24 HR) 75 MG CAP.ER.24H PO SCH (08:26)
[2020-03-26] MEDS: Insulin NPH/REG 70/30 100 UNIT/ML (x5UNIT) SQ SCH ×2 (08:27→18:17)
[2020-03-26] MEDS: Insulin LISPRO 300 UNITS/3 ML VIAL SQ SCH ×3 (08:30→18:17)
[2020-03-26 08:55] LABS: INR 1.3; Prothrombin Time 14.6 Seconds (9.4-12.1)
[2020-03-26] MEDS: Heparin 25,000UNIT/250ML 1/2NS 25,000 UNIT/250 ML IV.SOLN IVC SCH ×2 (09:12→20:57)
[2020-03-26] MEDS ORDERED: Warfarin perPT PO PRN (18:00)
[2020-03-26] MEDS ORDERED: *HR* Warfarin 7.5 MG TABLET PO ONE (18:00)
[2020-03-27 00:35] LABS: Basophils % 0.5 %; Eosinophils # 0.3 K/mcL (0.0-0.6); Eosinophils % 5.3 %; Hematocrit 37.8 % (37.5-50.1); Hemoglobin 12.4 g/dL (12.9-16.9); INR 1.1; Immature Granulocytes % 0.6 % (0-4); Lymphocytes # 2.1 K/mcL (0.6-4.6); Lymphocytes % 33.2 %; Mean Corpuscular HGB Conc 32.8 g/dL (31.6-35.5); Mean Corpuscular Hemoglobin 28.2 pg (28.0-33.3); Mean Corpuscular Volume 86.1 fL (83.0-100.0); Mean Platelet Volume 9.8 fL (9.4-12.4); Monocytes # 0.5 K/mcL (0.0-1.3); Neutrophils # 3.4 K/mcL (1.6-8.9); Platelet Count 182 K/mcL (140-400); Prothrombin Time 12.6 Seconds (9.4-12.1); Red Blood Count 4.39 M/mcL (4.19-5.50); Red Cell Distribution Width 14.6 % (11.5-14.5); Segmented Neutrophils % 53.4 %; White Blood Count 6.4 K/mcL (4.3-11.1)
[2020-03-27 00:51] LABS: BUN/Creatinine Ratio 13 (6-26); Blood Urea Nitrogen 14 mg/dL (6-20); Calcium 8.9 mg/dL (8.6-10.3); Carbon Dioxide 24 mEq/L (23-29); Chloride 107 mEq/L (98-107); Glucose 123 mg/dL (70-105); Osmolality,Calculated 290 (280-300); Potassium 3.9 mEq/L (3.5-5.1); Sodium 139 mEq/L (136-145); eGFR For African Americans > 60 (> 60); eGFR For Non-African Americans > 60 (> 60)
[2020-03-27] MEDS: Insulin LISPRO 300 UNITS/3 ML VIAL SQ SCH ×2 (08:32→11:51)
[2020-03-27] MEDS: Insulin NPH/REG 70/30 100 UNIT/ML (x5UNIT) SQ SCH (08:33)
[2020-03-27] MEDS: Venlafaxine XR (24 HR) 150 MG CAP.ER.24H PO SCH (08:33)
[2020-03-27] MEDS: Furosemide 40 MG TABLET PO SCH (08:34)
[2020-03-27] MEDS: Venlafaxine XR (24 HR) 75 MG CAP.ER.24H PO SCH (08:34)
[2020-03-27] MEDS: Heparin 25,000UNIT/250ML 1/2NS 25,000 UNIT/250 ML IV.SOLN IVC SCH (08:34)
[2020-03-27] MEDS: Finasteride 5 MG TABLET PO SCH (08:34)
[2020-03-27] MEDS: carvediloL 6.25 MG TABLET PO SCH (08:34)
[2020-03-27] MEDS ORDERED: Sulfamethoxazole/Trimeth DS 1 EACH TABLET PO SCH (09:00)
[2020-03-27 11:09] VITALS: BP 150/92
[2020-03-27] MEDS ORDERED: *HR* Enoxaparin 150 MG/ML SYRINGE SQ ONE (15:00)
[2020-03-27] MEDS ORDERED: *HR* Warfarin 7.5 MG TABLET PO ONE (18:00)
== END 2020-03-27 17:27 | disposition home or self-care (01) | DRG 638 ==
LOC: 3ANU 19:12 → EMEROOARM 19:12 → SUATTDRO 23:38 → 3ANU 03-24 00:02
PROVIDERS: ADMIT Student in an Organized Health Care Education/Training Program; ATTEND Family Medicine

== ENCOUNTER 2021-01-18 15:05 | Observation (INO) ==
[2021-01-18 15:54] LABS: Hematocrit 42.3 % (37.5-50.1); Hemoglobin 13.4 g/dL (12.9-16.9); Mean Corpuscular HGB Conc 31.7 g/dL (31.6-35.5); Mean Corpuscular Volume 88.3 fL (83.0-100.0); Mean Platelet Volume 10.2 fL (9.4-12.4); Platelet Count 184 K/mcL (140-400); Red Blood Count 4.79 M/mcL (4.19-5.50); Red Cell Distribution Width 14.4 % (11.5-14.5)
[2021-01-18 16:14] LABS: BUN/Creatinine Ratio 18 (6-26); Blood Urea Nitrogen 18 mg/dL (6-20); Calcium 8.9 mg/dL (8.6-10.3); Carbon Dioxide 30 mEq/L (23-29); Chloride 100 mEq/L (98-107); Glucose 354 mg/dL (70-105); Osmolality,Calculated 298 (280-300); Potassium 4.8 mEq/L (3.5-5.1); Sodium 136 mEq/L (136-145); eGFR For African Americans > 60 (> 60); eGFR For Non-African Americans > 60 (> 60)
[2021-01-18] MEDS ORDERED: Ampicillin/Sulbactam 3,000 MG in 0.9 % Sodium Chloride Mini Bag 100 ML IVPB ONE (16:24)
[2021-01-18] MEDS ORDERED: *HR* Dextrose 50 % in Water (Vial) 50 ML VIAL IVP PRN (17:48)
[2021-01-18] MEDS ORDERED: Dextrose Gel 15 GM/37.5 ML TUBE PO PRN ×2 (17:48)
[2021-01-18] MEDS ORDERED: D5% in Water 1,000 ML IVC PRN (17:48)
[2021-01-18] MEDS ORDERED: Acetaminophen 325 MG TABLET PO PRN (17:56)
[2021-01-18] MEDS ORDERED: Ondansetron 4 MG/2 ML VIAL IVP PRN (17:56)
[2021-01-18] MEDS ORDERED: Melatonin 3 MG TABLET PO PRN (17:56)
[2021-01-18] MEDS: Furosemide 40 MG TABLET PO SCH (21:10)
[2021-01-18] MEDS: Ampicillin/Sulbactam 3,000 MG in 0.9 % Sodium Chloride Mini Bag 100 ML IVPB SCH (23:33)
[2021-01-18] MEDS ORDERED: *HR* Metoprolol 5 MG/5 ML VIAL IVP ONE (23:44)
[2021-01-19 05:36] LABS: Hematocrit 41.4 % (37.5-50.1); Hemoglobin 13.2 g/dL (12.9-16.9); Mean Corpuscular HGB Conc 31.9 g/dL (31.6-35.5); Mean Corpuscular Hemoglobin 27.7 pg (28.0-33.3); Mean Corpuscular Volume 86.8 fL (83.0-100.0); Mean Platelet Volume 10.2 fL (9.4-12.4); Platelet Count 166 K/mcL (140-400); Red Blood Count 4.77 M/mcL (4.19-5.50); Red Cell Distribution Width 14.5 % (11.5-14.5); White Blood Count 5.2 K/mcL (4.3-11.1)
[2021-01-19] MEDS: Ampicillin/Sulbactam 3,000 MG in 0.9 % Sodium Chloride Mini Bag 100 ML IVPB SCH ×4 (05:37→23:36)
[2021-01-19 05:59] LABS: BUN/Creatinine Ratio 18 (6-26); Blood Urea Nitrogen 18 mg/dL (6-20); Carbon Dioxide 29 mEq/L (23-29); Chloride 102 mEq/L (98-107); Glucose 238 mg/dL (70-105); Magnesium 1.8 mg/dL (1.6-2.6); Osmolality,Calculated 296 (280-300); Potassium 4.1 mEq/L (3.5-5.1); Sodium 138 mEq/L (136-145); eGFR For African Americans > 60 (> 60); eGFR For Non-African Americans > 60 (> 60)
[2021-01-19] MEDS ORDERED: Insulin NPH/REG 70/30 300 UNIT/3 ML per UNIT SUBQ SCH (07:30)
[2021-01-19 07:54] LABS: C-Reactive Protein 9 mg/L (Less than 10)
[2021-01-19] MEDS: Venlafaxine XR (24 HR) 150 MG CAP.ER.24H PO SCH (08:18)
[2021-01-19] MEDS: Venlafaxine XR (24 HR) 75 MG CAP.ER.24H PO SCH (08:18)
[2021-01-19] MEDS: carvediloL 6.25 MG TABLET PO SCH ×2 (08:18→18:02)
[2021-01-19] MEDS: *HR* Metformin 500 MG TABLET PO SCH ×2 (08:18→18:02)
[2021-01-19] MEDS: Finasteride 5 MG TABLET PO SCH (08:18)
[2021-01-19] MEDS: Furosemide 40 MG TABLET PO SCH ×2 (08:19→18:02)
[2021-01-19] MEDS: Insulin LISPRO 300 UNITS/3 ML VIAL SUBQ SCH ×3 (08:19→18:01)
[2021-01-19] MEDS ORDERED: Furosemide 40 MG TABLET PO SCH (09:00)
[2021-01-19] MEDS: Insulin NPH/REG 70/30 100 UNIT/ML (x5UNIT) SUBQ SCH ×2 (09:50→12:30)
[2021-01-20 02:14] VITALS: BP 142/83; PULSE 86; TEMP 98.2; O2SAT 94
[2021-01-20] MEDS: Ampicillin/Sulbactam 3,000 MG in 0.9 % Sodium Chloride Mini Bag 100 ML IVPB SCH ×2 (06:24→12:18)
[2021-01-20] MEDS: Venlafaxine XR (24 HR) 150 MG CAP.ER.24H PO SCH (08:57)
[2021-01-20] MEDS: Venlafaxine XR (24 HR) 75 MG CAP.ER.24H PO SCH (08:57)
[2021-01-20] MEDS: Finasteride 5 MG TABLET PO SCH (08:58)
[2021-01-20] MEDS: carvediloL 6.25 MG TABLET PO SCH (08:58)
[2021-01-20] MEDS: Furosemide 40 MG TABLET PO SCH (08:58)
[2021-01-20] MEDS: *HR* Metformin 500 MG TABLET PO SCH (08:59)
[2021-01-20] MEDS: Insulin LISPRO 300 UNITS/3 ML VIAL SUBQ SCH ×2 (09:51→12:39)
[2021-01-20] MEDS: Insulin NPH/REG 70/30 100 UNIT/ML (x5UNIT) SUBQ SCH (10:24)
== END 2021-01-20 13:17 | disposition home or self-care (01) ==
LOC: EMEROOARM 15:05 → 3ANU 15:05 → SUATTDRO 16:48 → 3ANU 17:59
PROVIDERS: ADMIT Internal Medicine; ATTEND Internal Medicine

== ENCOUNTER 2021-08-19 08:08 | Inpatient (IN) ==
[2021-08-19] MEDS ORDERED: Vancomycin 2,000 MG/520 ML IV.SOLN IVPB ONE (09:11)
[2021-08-19] MEDS ORDERED: Isovue-370 500 ML BOTTLE IVP ONE (09:12)
[2021-08-19 09:47] LABS: Basophils % 0.2 %; Eosinophils % 0.3 %; Hematocrit 43.5 % (37.5-50.1); Hemoglobin 14.1 g/dL (12.9-16.9); Immature Granulocytes % 0.3 % (0-4); Lymphocytes # 1.3 K/mcL (0.6-4.6); Mean Corpuscular HGB Conc 32.4 g/dL (31.6-35.5); Mean Corpuscular Hemoglobin 26.1 pg (28.0-33.3); Mean Corpuscular Volume 80.6 fL (83.0-100.0); Mean Platelet Volume 10.1 fL (9.4-12.4); Monocytes # 1.1 K/mcL (0.0-1.3); Monocytes % 7.4 %; Neutrophils # 12.3 K/mcL (1.6-8.9); Platelet Count 206 K/mcL (140-400); Red Cell Distribution Width 15.7 % (11.5-14.5); Segmented Neutrophils % 82.8 %; White Blood Count 14.8 K/mcL (4.3-11.1)
[2021-08-19 09:52] LABS: INR 3.2; Prothrombin Time 35.7 Seconds (9.4-12.1)
[2021-08-19 09:55] LABS: Activated Partial Thrombo Time 54.3 Seconds (26.0-36.0)
[2021-08-19 10:04] LABS: Alanine Aminotransferase 15 Units/L (7-52); Albumin 3.9 g/dL (3.5-5.7); Albumin/Globulin Ratio 1.4 (1.1-2.2); Alkaline Phosphatase 71 Units/L (34-104); Aspartate Amino Transferase 12 Units/L (13-39); BUN/Creatinine Ratio 10 (6-26); Bilirubin,Direct 0.1 mg/dL (0.0-0.2); Bilirubin,Indirect 0.5 mg/dL (0.0-1.0); Bilirubin,Total 0.6 mg/dL (0.3-1.0); Blood Urea Nitrogen 11 mg/dL (6-20); Calcium 9.3 mg/dL (8.6-10.3); Carbon Dioxide 26 mEq/L (23-29); Chloride 102 mEq/L (98-107); Globulin 2.8 g/dL (2.4-3.5); Glucose 174 mg/dL (70-105); Magnesium 1.6 mg/dL (1.6-2.6); Osmolality,Calculated 288 (280-300); Phosphorous 2.4 mg/dL (2.7-4.5); Potassium 3.6 mEq/L (3.5-5.1); Sodium 137 mEq/L (136-145); Total Protein 6.7 g/dL (6.4-8.9); Troponin I < 0.03 ng/mL (< 0.04); eGFR For African Americans > 60 (> 60); eGFR For Non-African Americans > 60 (> 60)
[2021-08-19 10:58] LABS: Bilirubin,Urine Negative (Negative); Blood,Urine Negative (Negative); Clarity,Urine Clear (Clear); Color,Urine Colorless (Yellow); Glucose,Urine (UA) >=1000 mg/dL (Normal); Ketones,Urine Negative (Negative); Leukocyte Esterase,Urine Negative (Negative); Mucus,Urine Few per lpf (None-Few); Nitrite,Urine Negative (Negative); Protein,Urine 70 mg/dL (Neg-Trace); RBC,Urine 0-3 per hpf (0-3); Specific Gravity,Urine 1.014 (1.010-1.025); Squamous Epithelial Cell,Urine Few per hpf (None-Few); Urobilinogen,Urine Normal (Normal); WBC,Urine 0-3 per hpf (0-3)
[2021-08-19 11:29] LABS: Adenovirus Not Detected (Not Detect); Bordetella Pertussis Not Detected (Not Detect); Chlamydophila pneumoniae Not Detected (Not Detect); Coronavirus 229E Not Detected (Not Detect); Coronavirus HKU1 Not Detected (Not Detect); Coronavirus NL63 Not Detected (Not Detect); Coronavirus OC43 Not Detected (Not Detect); Human Metapneumovirus Not Detected (Not Detect); Human Rhinovirus/Enterovirus Not Detected (Not Detect); Influenza A Subtype 2009 H1 Not Detected (Not Detect); Influenza B Not Detected (Not Detect); Mycoplasma pneumoniae Not Detected (Not Detect); Parainfluenza Virus 1 Not Detected (Not Detect); Parainfluenza Virus 2 Not Detected (Not Detect); Parainfluenza Virus 3 Not Detected (Not Detect); Parainfluenza Virus 4 Not Detected (Not Detect); Respiratory Syncytial Virus Not Detected (Not Detect); SARS-CoV-2 Not Detected (Not Detect)
[2021-08-19] MEDS ORDERED: Naloxone 0.4 MG/ML INJ IVP PRN (11:34)
[2021-08-19] MEDS ORDERED: 0.9 % Sodium Chloride 1,000 ML IVC ONE (11:34)
[2021-08-19] MEDS ORDERED: Dextrose Gel 15 GM/37.5 ML TUBE PO PRN ×2 (11:35)
[2021-08-19] MEDS ORDERED: *HR* Dextrose 50 % in Water (Syg) 50 ML SYRINGE IVP PRN (11:35)
[2021-08-19] MEDS ORDERED: D5% in Water 1,000 ML IVC PRN (11:35)
[2021-08-19 13:40] LABS: INR 4.6; Prothrombin Time 50.4 Seconds (9.4-12.1)
[2021-08-19] MEDS: Piperacillin/Tazobactam 3.375 GM in 0.9 % Sodium Chloride Mini Bag 100 ML IVPB SCH ×2 (13:58→22:28)
[2021-08-19] MEDS: 0.9 % Sodium Chloride 1,000 ML IVC SCH (14:47)
[2021-08-19] MEDS: Ketorolac 30 MG/ML VIAL IVP PRN (15:47)
[2021-08-19] MEDS: Insulin LISPRO 300 UNITS/3 ML VIAL SUBQ SCH ×2 (17:09→20:59)
[2021-08-19] MEDS: carvediloL 6.25 MG TABLET PO SCH (17:10)
[2021-08-19] MEDS ORDERED: Warfarin perPT PO PRN (18:00)
[2021-08-19] MEDS ORDERED: *HR* Warfarin 7.5 MG TABLET PO ONE (18:00)
[2021-08-19] MEDS: Vancomycin 1,500 MG/265 ML IV.SOLN IVPB SCH (20:57)
[2021-08-19] MEDS ORDERED: Insulin DETEMIR 100 UNIT/ML X5UNITS SUBQ SCH (21:00)
[2021-08-19] MEDS: Insulin DETEMIR 100 UNIT/ML X5UNITS SUBQ SCH (21:06)
[2021-08-20] MEDS: 0.9 % Sodium Chloride 1,000 ML IVC SCH ×2 (04:13→08:07)
[2021-08-20 04:43] LABS: Basophils % 0.3 %; Eosinophils # 0.1 K/mcL (0.0-0.6); Hematocrit 40.7 % (37.5-50.1); Hemoglobin 12.7 g/dL (12.9-16.9); Immature Granulocytes % 0.4 % (0-4); Lymphocytes # 1.2 K/mcL (0.6-4.6); Lymphocytes % 11.4 %; Mean Corpuscular HGB Conc 31.2 g/dL (31.6-35.5); Mean Corpuscular Hemoglobin 25.6 pg (28.0-33.3); Mean Corpuscular Volume 82.1 fL (83.0-100.0); Mean Platelet Volume 9.3 fL (9.4-12.4); Monocytes # 0.7 K/mcL (0.0-1.3); Monocytes % 6.5 %; Neutrophils # 8.8 K/mcL (1.6-8.9); Platelet Count 164 K/mcL (140-400); Red Blood Count 4.96 M/mcL (4.19-5.50); Segmented Neutrophils % 80.4 %; White Blood Count 10.9 K/mcL (4.3-11.1)
[2021-08-20 04:56] LABS: Prothrombin Time 33.5 Seconds (9.4-12.1)
[2021-08-20 05:00] LABS: BUN/Creatinine Ratio 15 (6-26); Blood Urea Nitrogen 15 mg/dL (6-20); Calcium 8.3 mg/dL (8.6-10.3); Carbon Dioxide 25 mEq/L (23-29); Chloride 107 mEq/L (98-107); Glucose 138 mg/dL (70-105); Magnesium 1.8 mg/dL (1.6-2.6); Osmolality,Calculated 293 (280-300); Phosphorous 3.4 mg/dL (2.7-4.5); Potassium 3.3 mEq/L (3.5-5.1); Sodium 140 mEq/L (136-145); eGFR For African Americans > 60 (> 60); eGFR For Non-African Americans > 60 (> 60)
[2021-08-20] MEDS: Piperacillin/Tazobactam 3.375 GM in 0.9 % Sodium Chloride Mini Bag 100 ML IVPB SCH ×3 (05:52→21:47)
[2021-08-20] MEDS ORDERED: 0.9 % Sodium Chloride 1,000 ML IVC SCH (07:45)
[2021-08-20] MEDS: Insulin LISPRO 300 UNITS/3 ML VIAL SUBQ SCH ×4 (08:08→21:44)
[2021-08-20] MEDS: Finasteride 5 MG TABLET PO SCH (08:14)
[2021-08-20] MEDS: Venlafaxine XR (24 HR) 150 MG CAP.ER.24H PO SCH (08:14)
[2021-08-20] MEDS: Furosemide 40 MG TABLET PO SCH (08:14)
[2021-08-20] MEDS: Venlafaxine XR (24 HR) 75 MG CAP.ER.24H PO SCH (08:14)
[2021-08-20] MEDS: carvediloL 6.25 MG TABLET PO SCH ×2 (08:14→17:11)
[2021-08-20] MEDS: Vancomycin 1,500 MG/265 ML IV.SOLN IVPB SCH ×2 (08:15→21:46)
[2021-08-20] MEDS: Ketorolac 30 MG/ML VIAL IVP PRN ×2 (09:55→23:14)
[2021-08-20] MEDS ORDERED: *HR* Warfarin 5 MG TABLET PO ONE (18:00)
[2021-08-20] MEDS: Insulin DETEMIR 100 UNIT/ML X5UNITS SUBQ SCH (21:45)
[2021-08-21] MEDS: Piperacillin/Tazobactam 3.375 GM in 0.9 % Sodium Chloride Mini Bag 100 ML IVPB SCH ×3 (05:45→21:09)
[2021-08-21 05:52] LABS: INR 2.1; Prothrombin Time 23.4 Seconds (9.4-12.1)
[2021-08-21] MEDS: Insulin LISPRO 300 UNITS/3 ML VIAL SUBQ SCH ×4 (07:04→21:07)
[2021-08-21] MEDS: Vancomycin 1,500 MG/265 ML IV.SOLN IVPB SCH ×2 (09:01→21:08)
[2021-08-21] MEDS: carvediloL 6.25 MG TABLET PO SCH ×2 (09:02→17:21)
[2021-08-21] MEDS: Finasteride 5 MG TABLET PO SCH (09:02)
[2021-08-21] MEDS: Furosemide 40 MG TABLET PO SCH (09:02)
[2021-08-21] MEDS: Venlafaxine XR (24 HR) 150 MG CAP.ER.24H PO SCH (09:02)
[2021-08-21] MEDS: Venlafaxine XR (24 HR) 75 MG CAP.ER.24H PO SCH (09:02)
[2021-08-21 09:18] LABS: Basophils % 0.3 %; Eosinophils # 0.2 K/mcL (0.0-0.6); Eosinophils % 2.1 %; Hematocrit 44.3 % (37.5-50.1); Hemoglobin 14.1 g/dL (12.9-16.9); Immature Granulocytes % 0.4 % (0-4); Lymphocytes # 1.2 K/mcL (0.6-4.6); Lymphocytes % 13.3 %; Mean Corpuscular HGB Conc 31.8 g/dL (31.6-35.5); Mean Corpuscular Hemoglobin 25.9 pg (28.0-33.3); Mean Corpuscular Volume 81.4 fL (83.0-100.0); Mean Platelet Volume 9.7 fL (9.4-12.4); Monocytes # 0.6 K/mcL (0.0-1.3); Monocytes % 6.3 %; Platelet Count 212 K/mcL (140-400); Red Blood Count 5.44 M/mcL (4.19-5.50); Red Cell Distribution Width 16.1 % (11.5-14.5); Segmented Neutrophils % 77.6 %; White Blood Count 9.1 K/mcL (4.3-11.1)
[2021-08-21 09:37] LABS: BUN/Creatinine Ratio 17 (6-26); Blood Urea Nitrogen 17 mg/dL (6-20); Calcium 9.3 mg/dL (8.6-10.3); Carbon Dioxide 27 mEq/L (23-29); Chloride 106 mEq/L (98-107); Glucose 81 mg/dL (70-105); Magnesium 2.1 mg/dL (1.6-2.6); Osmolality,Calculated 291 (280-300); Phosphorous 3.7 mg/dL (2.7-4.5); Sodium 140 mEq/L (136-145); eGFR For African Americans > 60 (> 60); eGFR For Non-African Americans > 60 (> 60)
[2021-08-21 11:03] LABS: Estimated Average Glucose 177 mg/dl; Hemoglobin A1C 7.8 %
[2021-08-21] MEDS ORDERED: *HR* Warfarin 7.5 MG TABLET PO ONE (18:00)
[2021-08-21] MEDS: Insulin DETEMIR 100 UNIT/ML X5UNITS SUBQ SCH (21:09)
[2021-08-22] MEDS: Piperacillin/Tazobactam 3.375 GM in 0.9 % Sodium Chloride Mini Bag 100 ML IVPB SCH (05:32)
[2021-08-22 05:56] LABS: INR 2.3; Prothrombin Time 25.7 Seconds (9.4-12.1)
[2021-08-22 07:07] VITALS: BP 146/90; PULSE 78; TEMP 98.1; O2SAT 97
[2021-08-22] MEDS: Insulin LISPRO 300 UNITS/3 ML VIAL SUBQ SCH ×2 (07:34→11:10)
[2021-08-22] MEDS: carvediloL 6.25 MG TABLET PO SCH (08:00)
[2021-08-22] MEDS: Finasteride 5 MG TABLET PO SCH (08:00)
[2021-08-22] MEDS: Venlafaxine XR (24 HR) 150 MG CAP.ER.24H PO SCH (08:00)
[2021-08-22] MEDS: Furosemide 40 MG TABLET PO SCH (08:01)
[2021-08-22] MEDS: Venlafaxine XR (24 HR) 75 MG CAP.ER.24H PO SCH (08:01)
[2021-08-22] MEDS: Vancomycin 1,500 MG/265 ML IV.SOLN IVPB SCH (09:13)
[2021-08-22] MEDS ORDERED: *HR* Warfarin 7.5 MG TABLET PO ONE (18:00)
== END 2021-08-22 12:09 | disposition home health service (06) | DRG 872 ==
LOC: EMEROOARM 08:08 → 3BNU 08:08 → SUATTDRO 14:00 → 3BNU 14:41
PROVIDERS: ADMIT Internal Medicine; ATTEND Internal Medicine

== ENCOUNTER 2021-09-22 08:34 | Observation (INO) ==
[2021-09-22] MEDS ORDERED: Isovue-370 500 ML BOTTLE IVP ONE ×2 (09:27→15:36)
[2021-09-22 09:43] LABS: Hematocrit 40.8 % (37.5-50.1); Hemoglobin 13.2 g/dL (12.9-16.9); Mean Corpuscular HGB Conc 32.4 g/dL (31.6-35.5); Mean Corpuscular Hemoglobin 26.5 pg (28.0-33.3); Mean Corpuscular Volume 81.9 fL (83.0-100.0); Mean Platelet Volume 10.2 fL (9.4-12.4); Platelet Count 175 K/mcL (140-400); Red Blood Count 4.98 M/mcL (4.19-5.50); Red Cell Distribution Width 15.8 % (11.5-14.5); White Blood Count 4.9 K/mcL (4.3-11.1)
[2021-09-22 09:51] LABS: INR 2.6; Prothrombin Time 28.3 Seconds (9.4-12.1)
[2021-09-22 09:59] LABS: BUN/Creatinine Ratio 22 (6-26); Blood Urea Nitrogen 24 mg/dL (6-20); Calcium 9.1 mg/dL (8.6-10.3); Carbon Dioxide 26 mEq/L (23-29); Chloride 100 mEq/L (98-107); Glucose 253 mg/dL (70-105); Osmolality,Calculated 293 (280-300); Potassium 3.7 mEq/L (3.5-5.1); Sodium 135 mEq/L (136-145); eGFR For African Americans > 60 (> 60); eGFR For Non-African Americans > 60 (> 60)
[2021-09-22] MEDS ORDERED: *HR* Heparin 5,000 UNIT/ML VIAL IVP PRN ×2 (15:05)
[2021-09-22] MEDS ORDERED: *HR* Heparin 5,000 UNIT/ML VIAL IVP ONE (15:05)
[2021-09-22] MEDS ORDERED: Naloxone 0.4 MG/ML INJ IVP PRN (15:36)
[2021-09-22] MEDS ORDERED: Ondansetron 4 MG/2 ML VIAL IVP PRN (15:36)
[2021-09-22] MEDS ORDERED: *HR* Dextrose 50 % in Water (Syg) 50 ML SYRINGE IVP PRN (15:43)
[2021-09-22] MEDS ORDERED: D5% in Water 1,000 ML IVC PRN (15:43)
[2021-09-22] MEDS ORDERED: Dextrose 4 GM Chewable Tablets PO PRN ×2 (15:43)
[2021-09-22] MEDS: Heparin 25,000UNIT/250ML 1/2NS 25,000 UNIT/250 ML IV.SOLN IVC SCH (16:26)
[2021-09-22] MEDS: Insulin LISPRO 300 UNITS/3 ML VIAL SUBQ SCH ×2 (18:01→22:42)
[2021-09-22] MEDS: Insulin DETEMIR 100 UNIT/ML X5UNITS SUBQ SCH (22:42)
[2021-09-23 00:37] LABS: Basophils % 0.8 %; Eosinophils # 0.3 K/mcL (0.0-0.6); Eosinophils % 4.8 %; Hematocrit 39.8 % (37.5-50.1); Immature Granulocytes % 0.2 % (0-4); Lymphocytes % 37.9 %; Mean Corpuscular HGB Conc 32.7 g/dL (31.6-35.5); Mean Corpuscular Hemoglobin 26.2 pg (28.0-33.3); Mean Corpuscular Volume 80.2 fL (83.0-100.0); Monocytes # 0.4 K/mcL (0.0-1.3); Monocytes % 7.8 %; Neutrophils # 2.6 K/mcL (1.6-8.9); Platelet Count 172 K/mcL (140-400); Red Blood Count 4.96 M/mcL (4.19-5.50); Segmented Neutrophils % 48.5 %; White Blood Count 5.3 K/mcL (4.3-11.1)
[2021-09-23 00:55] LABS: BUN/Creatinine Ratio 20 (6-26); Blood Urea Nitrogen 22 mg/dL (6-20); Calcium 8.8 mg/dL (8.6-10.3); Carbon Dioxide 25 mEq/L (23-29); Chloride 102 mEq/L (98-107); Glucose 182 mg/dL (70-105); Magnesium 1.7 mg/dL (1.6-2.6); Osmolality,Calculated 292 (280-300); Phosphorous 3.2 mg/dL (2.7-4.5); Potassium 3.6 mEq/L (3.5-5.1); Sodium 137 mEq/L (136-145); eGFR For African Americans > 60 (> 60); eGFR For Non-African Americans > 60 (> 60)
[2021-09-23 01:02] LABS: Platelet Estimate Normal (Normal); Reactive Lymphocytes Present (Not Present)
[2021-09-23] MEDS: Heparin 25,000UNIT/250ML 1/2NS 25,000 UNIT/250 ML IV.SOLN IVC SCH ×2 (03:58→14:13)
[2021-09-23] MEDS: Insulin LISPRO 300 UNITS/3 ML VIAL SUBQ SCH ×4 (08:00→21:21)
[2021-09-23] MEDS: Venlafaxine XR (24 HR) 75 MG CAP.ER.24H PO SCH (08:35)
[2021-09-23] MEDS: Furosemide 40 MG TABLET PO SCH (08:35)
[2021-09-23] MEDS ORDERED: *HR* HYDROcodone/Acet 7.5/325 mg TABLET PO ONE (21:03)
[2021-09-23] MEDS: Doxycycline 100 MG CAPSULE PO SCH (21:21)
[2021-09-23] MEDS: Insulin DETEMIR 100 UNIT/ML X5UNITS SUBQ SCH (21:21)
[2021-09-23] MEDS: carvediloL 6.25 MG TABLET PO SCH (21:21)
[2021-09-24] MEDS: Heparin 25,000UNIT/250ML 1/2NS 25,000 UNIT/250 ML IV.SOLN IVC SCH ×3 (01:11→22:01)
[2021-09-24 01:47] LABS: Hematocrit 39.6 % (37.5-50.1); Hemoglobin 12.7 g/dL (12.9-16.9)
[2021-09-24 02:03] LABS: BUN/Creatinine Ratio 19 (6-26); Blood Urea Nitrogen 18 mg/dL (6-20); Calcium 8.8 mg/dL (8.6-10.3); Carbon Dioxide 26 mEq/L (23-29); Chloride 101 mEq/L (98-107); Glucose 151 mg/dL (70-105); Magnesium 1.8 mg/dL (1.6-2.6); Osmolality,Calculated 289 (280-300); Phosphorous 3.1 mg/dL (2.7-4.5); Sodium 137 mEq/L (136-145); eGFR For African Americans > 60 (> 60); eGFR For Non-African Americans > 60 (> 60)
[2021-09-24] MEDS: Insulin LISPRO 300 UNITS/3 ML VIAL SUBQ SCH ×4 (06:56→20:46)
[2021-09-24] MEDS: Furosemide 40 MG TABLET PO SCH (07:49)
[2021-09-24] MEDS: carvediloL 6.25 MG TABLET PO SCH ×2 (07:49→20:46)
[2021-09-24] MEDS: Venlafaxine XR (24 HR) 75 MG CAP.ER.24H PO SCH (07:49)
[2021-09-24] MEDS: Finasteride 5 MG TABLET PO SCH (07:49)
[2021-09-24] MEDS: Doxycycline 100 MG CAPSULE PO SCH ×2 (07:49→20:46)
[2021-09-24] MEDS: Insulin DETEMIR 100 UNIT/ML X5UNITS SUBQ SCH (20:47)
[2021-09-25] MEDS: Heparin 25,000UNIT/250ML 1/2NS 25,000 UNIT/250 ML IV.SOLN IVC SCH (05:53)
[2021-09-25] MEDS: Insulin LISPRO 300 UNITS/3 ML VIAL SUBQ SCH ×2 (07:14→11:29)
[2021-09-25] MEDS: Venlafaxine XR (24 HR) 75 MG CAP.ER.24H PO SCH (07:15)
[2021-09-25] MEDS: Finasteride 5 MG TABLET PO SCH (07:15)
[2021-09-25] MEDS: Doxycycline 100 MG CAPSULE PO SCH (07:15)
[2021-09-25] MEDS: carvediloL 6.25 MG TABLET PO SCH (07:15)
[2021-09-25] MEDS: Furosemide 40 MG TABLET PO SCH (07:15)
[2021-09-25 11:12] VITALS: BP 128/71; PULSE 96; TEMP 97.6; O2SAT 98
[2021-09-25] MEDS ORDERED: Apixaban 5 MG TABLET PO SCH (12:30)
== END 2021-09-25 17:25 | disposition home or self-care (01) ==
LOC: 2ANU 08:34 → EMEROOARM 08:34 → SUATTDRO 15:11 → 2ANU 16:47
PROVIDERS: ADMIT Student in an Organized Health Care Education/Training Program; ATTEND Internal Medicine